=== PATIENT | female | born 1935 | race Caucasian/White ===

== ENCOUNTER 2024-05-06 17:58 | Inpatient (IN) ==
--- NOTE | 2024-05-06 18:07 | Emergency Department Note ---
Impression & Plan Non-ST elevation [place] (NSTEMI) ADMIT ED Provider Note HPI: History obtained from patient and EMS report. The patient is a 88-year-old female who presents the emergency department with concern for nausea, vomiting, and diarrhea. Patient states that she has had the symptoms for about the past 2 days. Patient denies any abdominal pain, she states that she has had some mild chest discomfort intermittently as well as some intermittent shortness of breath. On arrival here to the ED the patient is tachycardic in the 130s, this appears to be consistent with atrial fibrillation on the monitor. Blood pressure stable, patient is saturating well on room air on arrival. ROS: - Per HPI Differential Diagnosis: New onset atrial fibrillation with RVR, acute colitis, diverticulitis flare, urinary tract infection, pneumonia, sepsis, acute coronary syndrome, viral gastroenteritis, amongst other potential pathologies. *Outpatient medications and allergy history reviewed. PE: General: Alert HEENT: Normocephalic, trachea midline Eyes: Extraocular eye movement is intact, no scleral erythema Pulmonary: Clear to auscultation bilaterally, no wheezing Cardio: Tachycardic rate and irregular rhythm GI: Abdomen is soft to palpation : No suprapubic tenderness MSK: No evidence of trauma or malformation of the extremities, no edema Skin: No evidence of rash Neuro: Alert, no focal deficits Psychiatric: Cooperative INDEPENDENT INTERPRETATIONS: child monitor: (As interpreted by myself): - An order was placed for continuous cardiac monitoring - Patient was noted to be in atrial fibrillation with a rate of 137 EKG: (As interpreted by myself): Rate: 135 Rhythm: Atrial fibrillation Intervals: Within normal limits ST changes: No ST elevation Time: 1807 Chest x-ray: (As interpreted by myself): No focal infiltrate Interventions provided in ED: -IV fluid bolus, IV diltiazem, IV metoprolol, IV Zosyn Medical Decision Making: IV was established and lab work obtained, patient was placed on clinical research monitor. Lab work shows a leukocytosis of 15.8, hemoglobin is stable at 11.8, platelet count is normal, CMP shows evidence of acute kidney injury with creatinine 1.72, BUN is elevated at 57, serum bicarbonate level is reduced at 17, lactic acid is noted to be elevated at 5.0, AST is 404 and ALT is 871, troponin is elevated at 3881. EKG per my interpretation shows atrial fibrillation with RVR without acute ischemic changes. Patient denies any chest pain on my assessment. Low suspicion for ACS at this time. Viral panel testing was obtained and is negative. CT imaging of the abdomen pelvis without contrast was obtained, this shows evidence of possible colitis versus diverticulitis flare. Patient was given a dose of IV Zosyn here in the ED and greater than 30 cc/kg of IV fluid. She remained stable on my reassessment with stable blood pressure, heart rate did improve into the low 100s with IV diltiazem and IV metoprolol. I discussed the above findings with the patient, her daughter at the bedside, and her at the bedside. At this time the patient will be placed for admission following my discussion with the on-call hospitalist, Dr. Nguyen. Patient was placed for admission in stable condition. Consultants/Discussions held with other healthcare providers: -Hospitalist, Dr. Nguyen Disposition discussion held by myself with: -Patient and patient's daughter at the bedside as well as patient's at the bedside * CRITICAL CARE TIME: ( 42 ) minutes -Stabilization of tachyarrhythmia/atrial fibrillation with RVR requiring IV rate control medications, time spent at the bedside, initiation of heparin drip for NSTEMI, interpretation of diagnostic studies including EKG, discussion with other physicians and arrangement of admission. Diagnosis: 1. NSTEMI, acute 2. Atrial fibrillation with RVR, acute, new onset 3. Diverticulitis flare, acute 4. Leukocytosis, acute 5. Lactic acidosis, acute 6. Nausea and vomiting, acute 7. Diarrhea, acute 8. Transaminitis, acute, nonspecific Disposition: Admission Roman Thayer DO Emergency Medicine Past Med/Surg History Problem List (Updated 05/06/24 @ 22:03 by Roman Thayer DO) Non-ST elevation [place] (NSTEMI) (Acute) DM2 (diabetes mellitus, type 2) Atrial fibrillation with RVR NSTEMI (non-ST elevated myocardial infarction) COLBY (acute kidney injury) Syncope GERD (gastroesophageal reflux disease) Overactive bladder Diabetes CAD (coronary artery disease) Surgical History History of heart artery stent History of nephrectomy Family History Other Family history non-contributory Social History Smoking Status: Never smoker Hx Alcohol Use: No Hx Substance Use: No Preferred Language: Khmer Feels Safe at Home: Yes Allergies Allergies Allergy/AdvReac Type Severity Reaction Status Date / Time No Known Allergies Allergy Verified 05/06/24 20:24 Home Meds Home Medications Medication Instructions Recorded Confirmed aspirin 81 mg tablet,delayed 81 mg PO DAILY 12/13/20 05/06/24 release atorvastatin 40 mg tablet 40 mg PO DAILY 12/13/20 05/06/24 diclofenac sodium 1 % topical gel 2 g topical QID PRN Pain 12/13/20 05/06/24 isosorbide mononitrate 30 mg 90 mg PO DAILY 12/13/20 05/06/24 tablet,extended release 24 hr lisinopril 5 mg tablet 5 mg PO DAILY 12/13/20 05/06/24 meclizine 12.5 mg tablet 12.5 mg PO TID PRN Dizziness 12/13/20 05/06/24 metformin 500 mg tablet 500 mg PO BIDM 12/13/20 05/06/24 omeprazole 20 mg capsule,delayed 20 mg PO DAILY 12/13/20 05/06/24 release sertraline 25 mg tablet 25 mg PO DAILY PRN Nerves 12/13/20 05/06/24 vitamins A,C,F-fyoz-oserif 2,148 2 tab PO BID 12/13/20 05/06/24 mcg-113 mg-45 mg-17.4 mg tablet tolterodine 2 mg capsule,extended 2 mg PO DAILY 05/06/24 05/06/24 release 24 hr Results & Data (ED) Vital Signs Vital Signs - 24 hr 05/06/24 17:43 05/06/24 18:03 05/06/24 18:04 Temperature 36.5 C Temperature Source Oral Pulse Rate 119 H Pulse Rate [Apical] Respiratory Rate 18 Respiratory Effort / Characteristics Non-Labored Spontaneous Respiratory Depth Normal Respiratory Pattern Regular Blood Pressure 109/67 Blood Pressure [Right Arm] Blood Pressure Mean 81 Blood Pressure Mean [Right Arm] Pulse Oximetry 96 96 96 Oxygen Delivery Method Room Air Room Air Room Air Sepsis Recent Fever Within 48 Hours No Sepsis New/Unexplained Change in Mental Status N/A Sepsis Action Taken by Nursing No Action Required 05/06/24 18:14 05/06/24 19:30 05/06/24 20:00 Temperature Temperature Source Pulse Rate 142 H Pulse Rate [Apical] 123 H 103 H Respiratory Rate 18 18 Respiratory Effort / Characteristics Non-Labored Spontaneous Non-Labored Spontaneous Respiratory Depth Normal Normal Respiratory Pattern Regular Regular Blood Pressure Blood Pressure [Right Arm] 111/84 123/92 Blood Pressure Mean Blood Pressure Mean [Right Arm] 93 102 Pulse Oximetry 97 93 Oxygen Delivery Method Room Air Room Air Sepsis Recent Fever Within 48 Hours Sepsis New/Unexplained Change in Mental Status Sepsis Action Taken by Nursing 05/06/24 20:14 05/06/24 20:30 Temperature Temperature Source Pulse Rate 124 H Pulse Rate [Apical] 110 H Respiratory Rate 20 Respiratory Effort / Characteristics Non-Labored Spontaneous Respiratory Depth Normal Respiratory Pattern Regular Blood Pressure 128/101 H Blood Pressure [Right Arm] 121/73 Blood Pressure Mean Blood Pressure Mean [Right Arm] 89 Pulse Oximetry 93 Oxygen Delivery Method Room Air Sepsis Recent Fever Within 48 Hours Sepsis New/Unexplained Change in Mental Status Sepsis Action Taken by Nursing Laboratory Data 05/06/24 18:24 05/06/24 18:24 Lab Results 05/06/24 05/06/24 05/06/24 Range/Units 18:24 18:40 20:43 WBC 15.81 H (4.8-10.8) K/ul RBC 4.08 L (4.20-5.40) M/uL Hgb 11.8 L (12.0-16.0) g/dl Hct 36.0 L (37.0-47.0) % MCV 88.2 (80.0-100.0) fL MCH 28.9 (25.0-34.0) pg MCHC 32.8 (32.0-36.0) g/dL RDW Std Deviation 45.2 (36.4-46.3) fL RDW Coeff of [place] 14.4 (11.5-14.5) % Plt Count 240 (130-400) K/uL MPV 11.6 (9.4-12.4) fL Immature Gran % (Auto) 0.6 % Neut % (Auto) 84.3 % Lymph % (Auto) 9.6 % [place] % (Auto) 5.3 % Eos % (Auto) 0.1 % Baso % (Auto) 0.1 % Neut # (Auto) 13.34 H (1.40-6.50) K/uL Lymph # (Auto) 1.51 (1.20-3.40) K/uL [place] # (Auto) 0.84 H (0.11-0.59) K/uL Eos # (Auto) 0.01 (0.00-0.50) K/uL Baso # (Auto) 0.02 (0.00-0.20) K/uL Immature Gran # (Auto) 0.09 (0.01-0.20) K/uL Absolute Nucleated RBC 0.02 (0.00-0.12) K/uL Nucleated RBC % (auto) 0.1 % PT 13.5 H (9.0-12.0) Seconds INR 1.3 H (0.9-1.1) Sodium 137 (136-145) mmol/L Potassium 4.6 (3.5-5.1) mmol/L Chloride 106 (98-107) mmol/L Carbon Dioxide 17 L (21-32) mmol/L Anion Gap 14 H (3-11) BUN 57 H (6-23) mg/dl Creatinine 1.72 H (0.6-1.2) mg/dl Est Cr Clr Drug Dosing 18.3 ml/min eGFR 28.27 BUN/Creatinine Ratio 33.1 H (10-20) Glucose 256 H (70-99(Fasting)) mg/dl Lactate 5.0 H* 4.6 H* (0.4-2.0) mmol/L Calcium 9.4 (8.6-10.3) mg/dl Magnesium 2.3 (1.7-2.4) mg/dl Total Bilirubin 0.6 (0.2-1.0) mg/dl AST 404 H (13-39) U/L ALT 871 H (7-52) U/L Alkaline Phosphatase 101 (34-104) U/L Troponin I High Sens 3881.1 H* 2842.8 H* D (0-14) pg/ml Total Protein 6.6 (6.0-8.3) gm/dl Albumin 3.6 (3.4-5.0) gm/dl Globulin 3.0 (2.5-4.0) gm/dl Albumin/Globulin Ratio 1.2 (0.9-2) Lipase 52 (11-82) U/L TSH 3.641 (0.300-4.500) uIu/ml Adenovirus (PCR) Not Detected (NotDetected) B. pertussis DNA (PCR) Not Detected (NotDetected) B.parapertussis DNA PCR Not Detected (NotDetected) C. pneumoniae DNA (PCR) Not Detected (NotDetected) Coronavirus OC43 (PCR) Not Detected (NotDetected) Coronavirus HKU1 (PCR) Not Detected (NotDetected) Coronavirus 229E (PCR) Not Detected (NotDetected) SARS-CoV-2 (PCR) Not Detected (NotDetected) Coronavirus NL63 (PCR) Not Detected (NotDetected) Human Metapneumovir PCR Not Detected (NotDetected) Influenza Type A (PCR) Not Detected (NotDetected) Influenza Type B (PCR) Not Detected (NotDetected) M. pneumoniae (PCR) Not Detected (NotDetected) Parainfluenza 1 (PCR) Not Detected (NotDetected) Parainfluenza 2 (PCR) Not Detected (NotDetected) Parainfluenza 3 (PCR) Not Detected (NotDetected) Parainfluenza 4 (PCR) Not Detected (NotDetected) RSV (PCR) Not Detected (NotDetected) Entero/Rhino (PCR) Not Detected (NotDetected) Administered Medications Heparin Sodium/Dextrose (Heparin Sodium/Dextrose) 25,000 units in 500 mls @ 19 mls/hr IV .Q24H BRIELLE; Protocol Stop: 06/05/24 20:29 Last Admin: 05/06/24 20:44 Dose: 950 units/hr, 19 mls/hr Documented By: NATALIE Co-signed By: KMF Discontinued Medications Diltiazem HCl (Diltiazem Hcl 5 Mg/Ml 5 Ml Vial) 5 mg IV NOW STA Stop: 05/06/24 19:28 Last Admin: 05/06/24 19:45 Dose: 5 mg Documented By: NATALIE Co-signed By: JAMES Heparin Sodium/Dextrose (Heparin Iv Adult Wt-Based Standard *No* Initial Bolus Protocol) 1 each IV ONE STA; Protocol Stop: 05/06/24 20:06 Last Admin: 05/06/24 20:52 Dose: Not Given Documented By: NATALIE Sodium Chloride (Nss) 1,000 mls @ 999 mls/hr IV .Q1H1M STA Stop: 05/06/24 19:04 Last Infusion: 05/06/24 19:31 Dose: Infused Documented By: Admin: 05/06/24 18:30 Dose: 999 mls/hr Documented By: BRAVO Sodium Chloride (Nss) 1,000 mls @ 999 mls/hr IV .Q1H1M ONE Stop: 05/06/24 20:08 Last Infusion: 05/06/24 20:46 Dose: Infused Documented By: Admin: 05/06/24 19:45 Dose: 999 mls/hr Documented By: NATALIE Piperacillin Sod/Tazobactam Sod (Zosyn) 4.5 gm in 100 mls @ 200 mls/hr IV NOW ONE; Protocol Stop: 05/06/24 20:33 Last Infusion: 05/06/24 20:46 Dose: Infused Documented By: Admin: 05/06/24 20:16 Dose: 200 mls/hr Documented By: NATALIE Metoprolol Tartrate (Metoprolol Tartrate 1 Mg/Ml Vial) 5 mg IV NOW STA Stop: 05/06/24 20:05 Last Admin: 05/06/24 20:14 Dose: 5 mg Documented By: NATALIE Imaging Data Radiologist's Impression: Chest X-Ray 05/06/24 19:20 XR chest 1V portable CLINICAL HISTORY: weakness COMPARISON STUDY: Chest radiograph December 13, 2020. FINDINGS: Right acromioclavicular joint dislocation is incidentally noted. There is no pneumothorax. There are small to moderate bilateral pleural effusions with associated bibasilar opacities. There is cardiomegaly with interstitial thickening. IMPRESSION: 1. Cardiomegaly with interstitial pulmonary edema. 2. Small to moderate bilateral pleural effusions with associated bibasilar opacities. ACT 112: Negative or not required by law. Electronically signed by: Inderjit Blackman M.D. 05/06/2024 8:00 PM Abdomen/Pelvis CT 05/06/24 19:21 CT OF THE ABDOMEN AND PELVIS WITHOUT CONTRAST CLINICAL HISTORY: Nausea, vomiting and diarrhea. COMPARISON STUDY: Right upper quadrant ultrasound November 11, 2010. TECHNIQUE: Axial images of the abdomen and pelvis were obtained without IV contrast. Images were reviewed in the axial, sagittal, and coronal planes. Automated exposure control was utilized for the study. A dose lowering technique was utilized adhering to the principles of ALARA. FINDINGS: Cardiomegaly and moderate bilateral pleural effusions are noted. Lower lung interstitial thickening represents edema. An equivocal 2 cm cavitary focus within the right lower lobe on image 23 of 345 is noted. This is likely artifactual. 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 Unenhanced images of the liver, spleen, adrenal glands and pancreas are unremarkable. Focal scarring within the midpole the left kidney is present. There are suspected left-sided parapelvic cysts. There is no left hydronephrosis. There is no evidence for a bowel obstruction. Extensive colonic diverticulosis is noted. There is trace fluid within the abdomen and pelvis. There is mild stranding adjacent to the ascending colon and the sigmoid colon. No fluid collections are present. There is no extraluminal gas. Severe degenerative changes of both hips are incidentally noted. IMPRESSION: 1. No evidence for a bowel obstruction. Extensive colonic diverticulosis. Subtle stranding and trace fluid adjacent to the ascending colon and sigmoid colon. The findings could reflect a nonspecific colitis or mild diverticulitis. No free air or abscess. 2. Cardiomegaly with moderate bilateral pleural effusions and interstitial pulmonary edema. Equivocal 2 cm cavitary focus within the right lower lobe. This likely reflects aerated lung. An underlying lesion is considered less likely however a follow-up chest CT in one month is recommended. 3. Status post right nephrectomy. ACT 112: Negative or not required by law. Electronically signed by: Inderjit Blackman M.D. 05/06/2024 7:55 PM Discharge Plan Visit Data Chief Complaint: Weakness Stated Complaint: WEAKNESS, AMS ED Provider: Roman Thayer Discharge Problem: Non-ST elevation [place] (NSTEMI)
[2024-05-06] MEDS: SODIUM CHLORIDE 0.9% 1,000 ML IV STA (18:30)
[2024-05-06 18:56] LABS: Basophils # (auto) 0.02 K/uL (0.00-0.20); Basophils % (auto) 0.1 %; Eosinophils # (auto) 0.01 K/uL (0.00-0.50); Eosinophils % (auto) 0.1 %; Hemoglobin 11.8 g/dl (12.0-16.0); Immature Granulocytes # (auto) 0.09 K/uL (0.01-0.20); Immature Granulocytes % (auto) 0.6 %; Lymphocytes # (auto) 1.51 K/uL (1.20-3.40); Lymphocytes % (auto) 9.6 %; Mean Corpuscular Hemoglobin 28.9 pg (25.0-34.0); Mean Corpuscular Hgb Conc 32.8 g/dL (32.0-36.0); Mean Corpuscular Volume 88.2 fL (80.0-100.0); Mean Platelet Volume 11.6 fL (9.4-12.4); Monocytes # (auto) 0.84 K/uL (0.11-0.59); Monocytes % (auto) 5.3 %; Neutrophils # (auto) 13.34 K/uL (1.40-6.50); Neutrophils % (auto) 84.3 %; Nucleated RBC # (auto) 0.02 K/uL (0.00-0.12); Nucleated RBC % (auto) 0.1 %; Platelet Count 240 K/uL (130-400); RDW Coefficient of Variation 14.4 % (11.5-14.5); RDW Standard Deviation 45.2 fL (36.4-46.3); Red Blood Count 4.08 M/uL (4.20-5.40); White Blood Count 15.81 K/ul (4.8-10.8)
[2024-05-06 19:12] LABS: BUN Creatinine Ratio 33.1 (10-20); Calcium 9.4 mg/dl (8.6-10.3); Creatinine Clr Calc Pharmacy 18.3 ml/min; Potassium 4.6 mmol/L (3.5-5.1)
[2024-05-06 19:19] LABS: INR 1.3 (0.9-1.1); Prothrombin Time 13.5 Seconds (9.0-12.0)
[2024-05-06 19:25] LABS: Albumin Globulin Ratio 1.2 (0.9-2); Albumin Level 3.6 gm/dl (3.4-5.0); Bilirubin,Total 0.6 mg/dl (0.2-1.0); Magnesium 2.3 mg/dl (1.7-2.4); Total Protein 6.6 gm/dl (6.0-8.3); Troponin I High Sensitivity 3881.1 pg/ml (0-14)
[2024-05-06 19:28] LABS: Thyroid Stimulating Hormone 3.641 uIu/ml (0.300-4.500)
[2024-05-06] MEDS: dilTIAZem HCl 5 MG/ML 5 ML VIAL IV STA (19:45)
[2024-05-06] MEDS: SODIUM CHLORIDE 0.9% 1,000 ML IV ONE (19:45)
[2024-05-06 19:50] LABS: Adenovirus PCR Not Detected (NotDetected); Bordetella parapertussis PCR Not Detected (NotDetected); Bordetella pertussis PCR Not Detected (NotDetected); Chlamydia pneumoniae PCR Not Detected (NotDetected); Coronavirus 229E PCR Not Detected (NotDetected); Coronavirus CoV-2 (COVID19)PCR Not Detected (NotDetected); Coronavirus HKU1 PCR Not Detected (NotDetected); Coronavirus NL63 PCR Not Detected (NotDetected); Coronavirus OC43PCR Not Detected (NotDetected); Human Metapneumovirus PCR Not Detected (NotDetected); Influenza A PCR Not Detected (NotDetected); Influenza B PCR Not Detected (NotDetected); Mycoplasma pneumoniae PCR Not Detected (NotDetected); Parainfluenza Virus 1 PCR Not Detected (NotDetected); Parainfluenza Virus 2 PCR Not Detected (NotDetected); Parainfluenza Virus 3 PCR Not Detected (NotDetected); Parainfluenza Virus 4 PCR Not Detected (NotDetected); Respiratory Syncytial VirusPCR Not Detected (NotDetected); Rhinovirus/Enterovirus PCR Not Detected (NotDetected)
--- NOTE | 2024-05-06 19:57 | CT Scan Report ---
CT OF THE ABDOMEN AND PELVIS WITHOUT CONTRAST CLINICAL HISTORY: Nausea, vomiting and diarrhea. COMPARISON STUDY: Right upper quadrant ultrasound November 11, 2010. TECHNIQUE: Axial images of the abdomen and pelvis were obtained without IV contrast. Images were revi ewed in the axial, sagittal, and coronal planes. Automated exposure control was utilized for the tracy dy. A dose lowering technique was utilized adhering to the principles of ALARA. FINDINGS: Cardiomegaly and moderate bilateral pleural effusions are noted. Lower lung interstitial th ickening represents edema. An equivocal 2 cm cavitary focus within the right lower lobe on image 23 o f 345 is noted. This is likely artifactual. 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 Unenhanced images of the liver, spleen, adrenal glands and pancreas are unremarkable. Focal scarring within the midpole the left kidney is present. There are suspected left-sided parapelvic cysts. Ther e is no left hydronephrosis. There is no evidence for a bowel obstruction. Extensive colonic divertic ulosis is noted. There is trace fluid within the abdomen and pelvis. There is mild stranding adjacent to the ascending colon and the sigmoid colon. No fluid collections are present. There is no extralum inal gas. Severe degenerative changes of both hips are incidentally noted. IMPRESSION: 1. No evidence for a bowel obstruction. Extensive colonic diverticulosis. Subtle stranding and trace fluid adjacent to the ascending colon and sigmoid colon. The findings could reflect a nonspecific col itis or mild diverticulitis. No free air or abscess. 2. Cardiomegaly with moderate bilateral pleural effusions and interstitial pulmonary edema. Equivocal 2 cm cavitary focus within the right lower lobe. This likely reflects aerated lung. An underlying le tran is considered less likely however a follow-up chest CT in one month is recommended. 3. Status post right nephrectomy. ACT 112: Negative or not required by law. Electronically signed by: Inderjit Blackman M.D. 05/06/2024 7:55 PM
--- NOTE | 2024-05-06 20:01 | XRay Report ---
XR chest 1V portable CLINICAL HISTORY: weakness COMPARISON STUDY: Chest radiograph December 13, 2020. FINDINGS: Right acromioclavicular joint dislocation is incidentally noted. There is no pneumothorax. There are small to moderate bilateral pleural effusions with associated bibasilar opacities. There is cardiomegaly with interstitial thickening. IMPRESSION: 1. Cardiomegaly with interstitial pulmonary edema. 2. Small to moderate bilateral pleural effusions with associated bibasilar opacities. ACT 112: Negative or not required by law. Electronically signed by: Inderjit Blackman M.D. 05/06/2024 8:00 PM
[2024-05-06] MEDS: METOPROLOL TARTRATE 1 MG/ML VIAL IV STA (20:14)
[2024-05-06] MEDS: PIPERACILLIN/TAZOBACTAM 4.5 GM/100 ML BAG IV ONE (20:16)
[2024-05-06] MEDS: HEPARIN SODIUM/DEXTROSE 25,000 UNITS/500 ML BAG IV SCH (20:44)
[2024-05-06] MEDS: Heparin IV Adult Wt-Based Standard *NO* INITIAL Bolus Protocol IV STA (20:52)
--- NOTE | 2024-05-06 21:12 | History & Physical Report ---
Date of Service May 06, 2024 Assessment & Plan (1) CAD (coronary artery disease): (2) History of nephrectomy: (3) COLBY (acute kidney injury): (4) NSTEMI (non-ST elevated myocardial infarction): (5) Atrial fibrillation with RVR: (6) DM2 (diabetes mellitus, type 2): Plan This is an 88 y/o female presenting with GI symptoms found to have NSTEMI, new onset A fib, and COLBY. 1) NSTEMI -PCU admission/tele monitoring -Serial Trops -Echo in AM -Cardiology consult in AM -Continue Heparin gtt as started in ER; AM PTT -Cont ASA 325 mg daily -Cont Lipitor 40 mg daily per home dose -Patient is on B-sheryl (Atenolol) at home; for the moment, given borderline BP, will hold; can resume her Atenolol or consider more appropriate Beta Sheryl if BP is stable 2) New onset A fib -Cardiac workup as proceeding above -TSH appears WNL -Patient already on heparin for anticoag for now; assess for need for oral anticoagulant as patient is stabilized. Per [id number] she gets up to 6 points potentially indicating 9.7% stroke risk per year. She would strongly benefit from anticoagulation at least from stroke standpoint, but other risks/goals will need to be assessed -For now, will put in for PRN metoprolol 5 mg q6h IV for rate control -- if BP is stable, can resume her Atenolol or consider more appropriate Beta Sheryl 3) Sepsis, likely severe with borderline blood pressures due presumably to GI source/Colitis -Continue broad coverage with Zosyn 4.5 g q8h IV as started in ER -Cont fluid resuscitation -- sepsis volume would be 1905 mL total. Have ordered LR at 80 ml/hr for one more total liter for now given possible pulmonary volume overload. -F/u lactic acids -F/u cultures 4) ?New CHF -Cardiac workup as proceeding above -Monitor I/O, daily weights -Monitor resp status/cont pulse ox -Check BNP -She will require some further IVF for sure, but this will have to be closely m onitored given this potential new CHF 5) COLBY -- Patient with R nephrectomy, baseline Cr appears to be normal however; currently Cr 1.72, no evidence of obstruction -Check UA, lytes, Cr for COLBY workup -Will Continue IVF, but may need to be at a restricted rate and volume given already some evidence of pulmonary edema/effusions. Will order for only one additional liter. -Dose medications renally 6) DM2 -DM2 diet -SSI with accucheks -A1C in AM 7) HTN -- BP on the lower side already; given patient will likely require further medications for control of A fib with RVR, will hold all other BP medi cations for now 8) DVT PPx -- on Heparin gtt for NSTEMI at this time 9) Code Status -- Full Code History of Present Illness Chief Complaint: N/V/D, SOB Primary Care Provider: Cindi Henry MD This is an 88-year-old female with medical history significant for CAD (with stents in the past), hyperlipidemia, hypertension, diabetes type 2, and GERD possibly who is brought in from home with complaints of nausea, vomiting, diarrhea as well as some chest pressure and shortness of breath. Patient is not an optimal historian, but does complain of GI symptoms. Does state that she has been having some chest discomfort, which is particularly notable yesterday. Family notes that she has been feeling sick for about 2 days or so. As noted she has been nauseated and vomiting (NB/NB), and very weak. She has complained of some chest discomfort before to. She has not had any fevers or chills. Has not really complained of palpitations. Has not been diaphoretic. She has not had any cough or specifically respiratory complaints. Has not had any dysuria or other urinary complaints. That is essentially the extent of the history that we can get from her and from her family. As noted she does have CAD, but her family mentions that her stenting was probably more than 10 years ago. Allergies Allergy/AdvReac Type Severity Reaction Status Date / Time No Known Allergies Allergy Verified 05/06/24 20:24 Home Medications Medication Instructions Recorded Confirmed Type aspirin 81 mg tablet,delayed 81 mg PO DAILY 12/13/20 05/06/24 History release atorvastatin 40 mg tablet 40 mg PO DAILY 12/13/20 05/06/24 History diclofenac sodium 1 % topical gel 2 g topical QID PRN Pain 12/13/20 05/06/24 History isosorbide mononitrate 30 mg 90 mg PO DAILY 12/13/20 05/06/24 History tablet,extended release 24 hr lisinopril 5 mg tablet 5 mg PO DAILY 12/13/20 05/06/24 History meclizine 12.5 mg tablet 12.5 mg PO TID PRN Dizziness 12/13/20 05/06/24 History metformin 500 mg tablet 500 mg PO BIDM 12/13/20 05/06/24 History omeprazole 20 mg capsule,delayed 20 mg PO DAILY 12/13/20 05/06/24 History release sertraline 25 mg tablet 25 mg PO DAILY PRN Nerves 12/13/20 05/06/24 History vitamins A,C,M-vmaa-bhykgd 2,148 2 tab PO BID 12/13/20 05/06/24 History mcg-113 mg-45 mg-17.4 mg tablet tolterodine 2 mg capsule,extended 2 mg PO DAILY 05/06/24 05/06/24 History release 24 hr Past Med/Surg History Problem List (Updated 05/06/24 @ 20:57 by Darryl Nguyen MD) DM2 (diabetes mellitus, type 2) Atrial fibrillation with RVR NSTEMI (non-ST elevated myocardial infarction) COLBY (acute kidney injury) Syncope GERD (gastroesophageal reflux disease) Overactive bladder Diabetes CAD (coronary artery disease) Surgical History History of heart artery stent History of nephrectomy Family History Other Family history non-contributory Social History Smoking Status: Never smoker Hx Alcohol Use: No Hx Substance Use: No Preferred Language: Latvian Feels Safe at Home: Yes Review of Systems Review of Systems: All systems reviewed & are unremarkable except as noted in HPI & below Physical Exam Constitutional: + ill appearing; no acute distress and n ot frail appearing Eyes: PERRL, conjunctivae normal, anicteric sclerae ENMT: external ear and nose normal, oropharynx normal Neck: trachea midline, no thyromegaly Respiratory: normal respiratory effort, lungs clear to auscultation Cardiovascular: Rate/Rhythm: + tachycardic and + irregularly irregular Gastrointestinal (Abdomen): normal bowel sounds, soft, nontender, no hepatosplenomegaly Musculoskeletal: no cyanosis or clubbing, extremities motor strength 5/5 Skin: no rashes, warm and dry Results & Data Results & Data Vital Signs (Past 12 Hours) Vital Signs Temp Pulse Pulse Resp BP BP Pulse Ox 05/06/24 20:30 110 H 20 121/73 93 05/06/24 20:14 124 H 128/101 H 05/06/24 20:00 103 H 18 123/92 93 05/06/24 19:30 123 H 18 111/84 97 05/06/24 18:14 142 H 05/06/24 18:04 96 05/06/24 18:03 96 05/06/24 17:43 36.5 C 119 H 18 109/67 96 O2 Del Method 05/06/24 20:30 Room Air 05/06/24 20:14 05/06/24 20:00 Room Air 05/06/24 19:30 Room Air 05/06/24 18:14 05/06/24 18:04 Room Air 05/06/24 18:03 Room Air 05/06/24 17:43 Room Air Laboratory Results 05/06/24 19:54 Aerobic Blood Culture - Pending Blood Anaerobic Blood Culture - Pending 05/06/24 19:53 Aerobic Blood Culture - Pending Blood Anaerobic Blood Culture - Pending 05/06/24 05/06/24 18:40 18:24 WBC 15.81 H RBC 4.08 L Hgb 11.8 L Hct 36.0 L MCV 88.2 MCH 28.9 MCHC 32.8 RDW Std Deviation 45.2 RDW Coeff of [place] 14.4 Plt Count 240 MPV 11.6 Immature Gran % (Auto) 0.6 Neut % (Auto) 84.3 Lymph % (Auto) 9.6 [place] % (Auto) 5.3 Eos % (Auto) 0.1 Baso % (Auto) 0.1 Neut # (Auto) 13.34 H Lymph # (Auto) 1.51 [place] # (Auto) 0.84 H Eos # (Auto) 0.01 Baso # (Auto) 0.02 Immature Gran # (Auto) 0.09 Absolute Nucleated RBC 0.02 Nucleated RBC % (auto) 0.1 PT 13.5 H INR 1.3 H Sodium 137 Potassium 4.6 Chloride 106 Carbon Dioxide 17 L Anion Gap 14 H BUN 57 H Creatinine 1.72 H Est Cr Clr Drug Dosing 18.3 eGFR 28.27 BUN/Creatinine Ratio 33.1 H Glucose 256 H Lactate 5.0 H* Calcium 9.4 Magnesium 2.3 Total Bilirubin 0.6 AST 404 H ALT 871 H Alkaline Phosphatase 101 Troponin I High Sens 3881.1 H* Total Protein 6.6 Albumin 3.6 Globulin 3.0 Albumin/Globulin Ratio 1.2 Lipase 52 TSH 3.641 Adenovirus (PCR) Not Detected B. pertussis DNA (PCR) Not Detected B.parapertussis DNA PCR Not Detected C. pneumoniae DNA (PCR) Not Detected Coronavirus OC43 (PCR) Not Detected Coronavirus HKU1 (PCR) Not Detected Coronavirus 229E (PCR) Not Detected SARS-CoV-2 (PCR) Not Detected Coronavirus NL63 (PCR) Not Detected Human Metapneumovir PCR Not Detected Influenza Type A (PCR) Not Detected Influenza Type B (PCR) Not Detected M. pneumoniae (PCR) Not Detected Parainfluenza 1 (PCR) Not Detected Parainfluenza 2 (PCR) Not Detected Parainfluenza 3 (PCR) Not Detected Parainfluenza 4 (PCR) Not Detected RSV (PCR) Not Detected Entero/Rhino (PCR) Not Detected Diagnostic Findings Chest X-Ray 05/06/24 19:20 XR chest 1V portable CLINICAL HISTORY: weakness COMPARISON STUDY: Chest radiograph December 13, 2020. FINDINGS: Right acromioclavicular joint dislocation is incidentally noted. There is no pneumothorax. There are small to moderate bilateral pleural effusions with associated bibasilar opacities. There is cardiomegaly with interstitial thickening. IMPRESSION: 1. Cardiomegaly with interstitial pulmonary edema. 2. Small to moderate bilateral pleural effusions with associated bibasilar opacities. ACT 112: Negative or not required by law. Electronically signed by: Inderjit Blackman M.D. 05/06/2024 8:00 PM Abdomen/Pelvis CT 05/06/24 19:21 CT OF THE ABDOMEN AND PELVIS WITHOUT CONTRAST CLINICAL HISTORY: Nausea, vomiting and diarrhea. COMPARISON STUDY: Right upper quadrant ultrasound November 11, 2010. TECHNIQUE: Axial images of the abdomen and pelvis were obtained without IV contrast. Images were reviewed in the axial, sagittal, and coronal planes. Automated exposure control was utilized for the study. A dose lowering tech nique was utilized adhering to the principles of ALARA. FINDINGS: Cardiomegaly and moderate bilateral pleural effusions are noted. Lower lung interstitial thickening represents edema. An equivocal 2 cm cavitary focus within the right lower lobe on image 23 of 345 is noted. This is likely artifactual. 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 Unenhanced images of the liver, spleen, adrenal glands and pancreas are unremarkable. Focal scarring within the midpole the left kidney is present. There are suspected left-sided parapelvic cysts. There is no left hydronephrosis. There is no evidence for a bowel obstruction. Extensive colonic diverticulosis is noted. There is trace fluid within the abdomen and pelvis. There is mild stranding adjacent to the ascending colon and the sigmoid colon. No fluid collections are present. There is no extraluminal gas. Severe degenerative changes of both hips are incidentally noted. IMPRESSION: 1. No evidence for a bowel obstruction. Extensive colonic diverticulosis. Subtle stranding and trace fluid adjacent to the ascending colon and sigmoid colon. The findings could reflect a nonspecific colitis or mild diverticulitis. No free air or abscess. 2. Cardiomegaly with moderate bilateral pleural effusions and interstitial pulmonary edema. Equivocal 2 cm cavitary focus within the right lower lobe. This likely reflects aerated lung. An underlying lesion is considered less likely however a follow-up chest CT in one month is recommended. 3. Status post right nephrectomy. ACT 112: Negative or not required by law. Electronically signed by: Inderjit Blackman M.D. 05/06/2024 7:55 PM ECG Additional Comments: A fib at rate of 135 Some evidence of L axis deviation Q waves in inf leads, Q waves in anteroseptal leads TWI in lateral leads Code Status & VTE Plan Code Status Full code per extensive discussion with family. would be next decisionmaker Patient without optimal decision making capacity at this time. VTE Prophylaxis Plan VTE Prophylaxis will be ordered: Yes PG Care Time/CCT Total # of Minutes Spent Total Time Spent with Patient: Total time spent is greater than 50% in coordination of care (as documented) at patient's floor/unit and/or counseling patient: Coding Level of Care Code 55483 INT INP/OBS CARE 3/75MIN Diagnoses Coronary artery disease involving jam[place] coronary artery of jamul heart without angina pectoris I25.10 Associated angina: without angina Coronary Disease-Associated Artery/Lesion type: [place] artery [place] vs. transplanted heart: jamul heart History of nephrectomy Z90.5 COLBY (acute kidney injury) N17.9 NSTEMI (non-ST elevated myocardial infarction) I21.4 Atrial fibrillation with RVR I48.91 DM2 (diabetes mellitus, type 2) E11.9 Time Spent (min) 120 (1) CAD (coronary artery disease) Associated angina: without angina Coronary Disease-Associated Artery/Lesion type: [place] artery [place] vs. transplanted heart: jamul heart Qualified Code(s): I25.10 - Atherosclerotic heart disease of jamul coronary artery without angina pectoris
--- NOTE | 2024-05-06 21:40 | History & Physical Report ---
Date of Service May 06, 2024 History of Present Illness Primary Care Provider: Cindi Henry MD Allergies Allergy/AdvReac Type Severity Reaction Status Date / Time No Known Allergies Allergy Verified 05/06/24 20:24 Home Medications Medication Instructions Recorded Confirmed Type aspirin 81 mg tablet,delayed 81 mg PO DAILY 12/13/20 05/06/24 History release atorvastatin 40 mg tablet 40 mg PO DAILY 12/13/20 05/06/24 History diclofenac sodium 1 % topical gel 2 g topical QID PRN Pain 12/13/20 05/06/24 History isosorbide mononitrate 30 mg 90 mg PO DAILY 12/13/20 05/06/24 History tablet,extended release 24 hr lisinopril 5 mg tablet 5 mg PO DAILY 12/13/20 05/06/24 History meclizine 12.5 mg tablet 12.5 mg PO TID PRN Dizziness 12/13/20 05/06/24 History metformin 500 mg tablet 500 mg PO BIDM 12/13/20 05/06/24 History omeprazole 20 mg capsule,delayed 20 mg PO DAILY 12/13/20 05/06/24 History release sertraline 25 mg tablet 25 mg PO DAILY PRN Nerves 12/13/20 05/06/24 History vitamins A,C,D-icpo-reovqf 2,148 2 tab PO BID 12/13/20 05/06/24 History mcg-113 mg-45 mg-17.4 mg tablet tolterodine 2 mg capsule,extended 2 mg PO DAILY 05/06/24 05/06/24 History release 24 hr Past Med/Surg History Problem List (Updated 05/06/24 @ 20:57 by Darryl Nguyen MD) DM2 (diabetes mellitus, type 2) Atrial fibrillation with RVR NSTEMI (non-ST elevated myocardial infarction) COLBY (acute kidney injury) Syncope GERD (gastroesophageal reflux disease) Overactive bladder Diabetes CAD (coronary artery disease) Surgical History History of heart artery stent History of nephrectomy Family History Other Family history non-contributory Social History Smoking Status: Never smoker Hx Alcohol Use: No Hx Substance Use: No Preferred Language: Bulgarian Feels Safe at Home: Yes Results & Data Results & Data Vital Signs (Past 12 Hours) Vital Signs Temp Pulse Pulse Resp BP BP Pulse Ox 05/06/24 21:00 116 H 18 133/92 94 05/06/24 20:30 110 H 20 121/73 93 05/06/24 20:14 124 H 128/101 H 05/06/24 20:00 103 H 18 123/92 93 05/06/24 19:30 123 H 18 111/84 97 05/06/24 18:14 142 H 05/06/24 18:04 96 05/06/24 18:03 96 05/06/24 17:43 36.5 C 119 H 18 109/67 96 O2 Del Method 05/06/24 21:00 Room Air 05/06/24 20:30 Room Air 05/06/24 20:14 05/06/24 20:00 Room Air 05/06/24 19:30 Room Air 05/06/24 18:14 05/06/24 18:04 Room Air 05/06/24 18:03 Room Air 05/06/24 17:43 Room Air Code Status & VTE Plan VTE Prophylaxis Plan VTE Prophylaxis will be ordered: Yes Critical Care Time Critical care time > 75 minutes. PG Care Time/CCT Total # of Minutes Spent Total Time Spent with Patient: Total time spent is greater than 50% in coordination of care (as documented) at patient's floor/unit and/or counseling patient: 100 Total time spent is greater than 50% in coordination of care (as documented) at patient's floor/unit and/or counseling patient: 100 Coding
[2024-05-06] MEDS ORDERED: DEXTROSE 50% 50 ML SYRINGE IV PRN (22:06)
[2024-05-06] MEDS ORDERED: GLUCOSE 40% GEL 15 GM TUBE PO PRN (22:06)
[2024-05-06] MEDS ORDERED: CARBOHYDRATES FOR HYPOGLYCEMIA PO PRN (22:06)
[2024-05-06] MEDS ORDERED: GLUCOSE 10 TAB/TUBE PO PRN (22:06)
[2024-05-06] MEDS ORDERED: GLUCAGON FOR INJ 1 MG VIAL SQ PRN (22:06)
[2024-05-06] MEDS: LACTATED RINGER'S 1,000 ML IV SCH (22:35)
[2024-05-06] MEDS: INSULIN ASPART PER UNIT CHARGE SC SCH (22:43)
[2024-05-07 03:20] LABS: Appearance Urine Cloudy (Clear); Bacteria Urine Automated None Seen (None Seen); Bilirubin Urine Negative (Negative); Blood Urine Negative (Negative); Color Urine Yellow; Epithelial Cell Urine Auto 0-2 /hpf (0-2); Glucose Urine UA Negative (Negative); Ketones Urine Trace (Negative); Leukocyte Esterase Urine 3+ (Negative); Nitrite Urine Negative (Negative); Protein Urine 1+ (Negative); RBC Urine Automated 0-2 /hpf (0-2); Specific Gravity Urine 1.025 (1.000-1.030); Urobilinogen Urine Negative (Negative); WBC Urine Automated >50 /hpf (0-5)
[2024-05-07 03:50] LABS: Basophils # (auto) 0.03 K/uL (0.00-0.20); Basophils % (auto) 0.2 %; Eosinophils # (auto) 0.05 K/uL (0.00-0.50); Eosinophils % (auto) 0.3 %; Hematocrit (blood only) 34.8 % (37.0-47.0); Hemoglobin 11.4 g/dl (12.0-16.0); Immature Granulocytes # (auto) 0.08 K/uL (0.01-0.20); Immature Granulocytes % (auto) 0.5 %; Lymphocytes # (auto) 2.12 K/uL (1.20-3.40); Lymphocytes % (auto) 13.6 %; Mean Corpuscular Hemoglobin 29.1 pg (25.0-34.0); Mean Corpuscular Hgb Conc 32.8 g/dL (32.0-36.0); Mean Corpuscular Volume 88.8 fL (80.0-100.0); Mean Platelet Volume 11.5 fL (9.4-12.4); Monocytes # (auto) 0.83 K/uL (0.11-0.59); Monocytes % (auto) 5.3 %; Neutrophils # (auto) 12.52 K/uL (1.40-6.50); Neutrophils % (auto) 80.1 %; Nucleated RBC # (auto) 0.03 K/uL (0.00-0.12); Nucleated RBC % (auto) 0.2 %; Platelet Count 242 K/uL (130-400); RDW Coefficient of Variation 14.6 % (11.5-14.5); RDW Standard Deviation 46.4 fL (36.4-46.3); Red Blood Count 3.92 M/uL (4.20-5.40); White Blood Count 15.63 K/ul (4.8-10.8)
[2024-05-07 03:52] LABS: Creatinine Urine Random 103.4 mg/dl
[2024-05-07 03:54] LABS: BUN Creatinine Ratio 32.5 (10-20); Calcium 8.5 mg/dl (8.6-10.3); Creatinine Clr Calc Pharmacy 20.1 ml/min; Potassium 4.2 mmol/L (3.5-5.1)
[2024-05-07 04:03] LABS: Albumin Globulin Ratio 1.1 (0.9-2); Albumin Level 3.4 gm/dl (3.4-5.0); Bilirubin,Total 0.6 mg/dl (0.2-1.0); Total Protein 6.4 gm/dl (6.0-8.3)
[2024-05-07 04:06] LABS: ANTI-Xa, UFH(UnfractionatedHep 0.31 IU/ml (0.3-0.7); Partial Thromboplastin Ratio 1.5; Partial Thromboplastin Time 40 Seconds (21-31)
[2024-05-07] MEDS: PIPERACILLIN/TAZOBACTAM 4.5 GM/100 ML BAG IV SCH (05:01)
[2024-05-07] MEDS: METOPROLOL TARTRATE 1 MG/ML VIAL IV ONE (05:27)
[2024-05-07 07:36] LABS: Estimated Average Glucose 212 mg/dl
[2024-05-07] MEDS: PANTOprazole 40 MG TAB PO SCH (08:13)
[2024-05-07] MEDS: ATORVASTATIN 40 MG TAB PO SCH (08:13)
[2024-05-07] MEDS: FUROSEMIDE 40 MG/4 ML VIAL IV SCH (08:24)
[2024-05-07] MEDS: METOPROLOL TARTRATE 25 MG TAB PO SCH ×2 (08:28→13:25)
[2024-05-07] MEDS: ASPIRIN 81 MG ECTAB PO SCH (08:28)
[2024-05-07] MEDS ORDERED: ASPIRIN 325 MG ECTAB PO SCH (09:00)
--- NOTE | 2024-05-07 10:26 | XCELERA ---
[id number]
--- NOTE | 2024-05-07 12:03 | Hospitalist Progress Note ---
Date of Service May 07, 2024 Assessment & Plan (1) NSTEMI (non-ST elevated myocardial infarction): Plan: Markedly elevated troponins. Cardiac echo reveals regional wall motion abnormalities with reduced ejection fraction in the 25 to 30% range. Telemetry. Cardiology consultation is requested and pending (2) Acute systolic (congestive) heart failure: Plan: Present on admission. Continue Lasix diuresis. Monitor intake and output. Serial labs (3) Atrial fibrillation with RVR: Plan: Metoprolol started. Telemetry. Continue to treat underlying CHF. (4) COLBY (acute kidney injury): Plan: Monitor intake and output. Serial labs (5) CAD (coronary artery disease): Plan: Apparently she has had a previous history of coronary stents. 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 Monitor intake and output. Serial labs (7) DM2 (diabetes mellitus, type 2): Plan: ADA diet. Sliding scale coverage as needed. Plan To be determined Admission and Anticipated Discharge Date Admission Date: May 06, 2024 Subjective Awake and alert. She appears to have suffered a non-ST elevation CA prompting this admission. She has new onset atrial fibrillation with rapid ventricular rate and presents with acute congestive heart failure which appears to be systolic. Cardiac echo reveals reduced left ventricular ejection fraction of 25% with regional wall motion abnormalities. Moderate mitral regurgitation and mild aortic insufficiency noted. She is on a heparin drip. Creatinine has improved slightly to 1.5. Fortunately, she is on room air. Thyroid profile is pending. She is now on parenteral Lasix therapy and IV fluids have been discontinued. Cardiology consultation has been requested and is pending Review of Systems 2 Review of Systems: Constitutionalno fever or chills ENTno blurred vision, no double vision, no epistaxis, no sore throat Respiratoryno cough, no wheezing, no shortness of breath Cardiacchest discomfort has resolved. No palpitations, no syncope GIshe is not complaining of any nausea or vomiting at this time. Loose stools prior to admission have apparently resolved. No melena, no hematochezia GUno urinary retention, no urinary incontinence, no dysuria, no hematuria Musculoskeletalno joint pain, no muscle tenderness Skinno bruising, no rashes, no pruritus Neurono isolated weakness, no paresthesia Psychno depression, no anxiety Physical Exam 2 Physical Exam: General-alert and oriented x3, no fever, no chills HEENT-head atraumatic and normocephalic, pupils equal and reactive to light, extraocular muscles intact Neck-no lymphadenopathy or thyromegaly, trachea midline Chest-bibasilar inspiratory rales. No wheezing. No rhonchi i Cardiac-irregular, mildly tachycardic rate and rhythm. Normal S1 and S2 Abdomen-normal bowel sounds, no hepatosplenomegaly Extremities-no cyanosis, clubbing, or edema Neuro-cranial nerves II through XII intact, motor and sensory function within normal limits, strength symmetrical with generalized weakness, no focal deficits Psych-normal affect, normal mood Results & Data Results & Data Vital Signs (Past 12 Hours) Vital Signs Temp Pulse Pulse Resp BP BP Pulse Ox 05/07/24 07:52 36.7 C 101 H 20 100/70 96 05/07/24 05:42 119 H 100/89 05/07/24 05:27 130 H 109/65 05/07/24 03:02 36.6 C 83 18 101/74 96 O2 Del Method 05/07/24 07:52 Room Air 05/07/24 05:42 05/07/24 05:27 05/07/24 03:02 Room Air Laboratory Results 05/07/24 03:07 05/07/24 03:07 PG Care Time/CCT Total # of Minutes Spent Total Time Spent with Patient: Total time spent is greater than 50% in coordination of care (as documented) at patient's floor/unit and/or counseling patient: Coding Level of Care Code 38152 SUB INP/OBS CARE 3/50MIN Diagnoses NSTEMI (non-ST elevated myocardial infarction) I21.4 Acute systolic (congestive) heart failure I50.21 Atrial fibrillation with RVR I48.91 COLBY (acute kidney injury) N17.9 Coronary artery disease involving [place] coronary artery of [place] heart without angina pectoris I25.10 Coronary Disease-Associated Artery/Lesion type: [place] artery [place] vs. transplanted heart: [place] heart Associated angina: without angina History of nephrectomy Z90.5 DM2 (diabetes mellitus, type 2) E11.9 (5) CAD (coronary artery disease) Coronary Disease-Associated Artery/Lesion type: [place] artery [place] vs. transplanted heart: [place] heart Associated angina: without angina Qualified Code(s): I25.10 - Atherosclerotic heart disease of [place] coronary artery without angina pectoris
--- NOTE | 2024-05-07 12:17 | Cardiology Consultation ---
Date of Consultation May 07, 2024 Assessment & Plan (1) Acute systolic (congestive) heart failure: (2) Non-ST elevation DC (NSTEMI): (3) Atrial fibrillation with RVR: (4) CAD (coronary artery disease): (5) Valvular heart disease: (6) Cardiomyopathy: Plan 1. Acute decompensated systolic heart failure: She appears to have developed reduced LV systolic function and associated pulmonary vascular congestion. She does not appear to have significant peripheral edema. Notably elevated BNP. She did receive some volume resuscitation yesterday due to concerns of distributive shock. Now on twice daily intravenous diuretic. I think we will attempt to affect some diuresis over the course of today. Renal function improving. She seems comfortable overall. 2. Cardiomyopathy: This is new. It is possible this represents a stress cardiomyopathy based on the appearance, also possibly related to atrial fibrillation and associated high rates over an unclear period of time. She has a history of coronary disease and did have symptoms of chest pain. Biomarkers are notably elevated. At some point we will need to perform coronary angiography in order to exclude an ischemic etiology. For the time being we will attempt to improve rate control with beta-blockade eventually switching her to metoprolol succinate. Once her renal function stabilizes we can initiate additional therapy with ARB/Entresto and hopefully Jardiance. 3. Atrial fibrillation: This is also new diagnosis. Possibly the precipitant of her cardiomyopathy. Not overtly symptomatic from the palpitations. Notably elevated rate possibly due to volume overload and decompensated heart failure. Will attempt a diuresis and titration of beta-blockade for rhythm control. On anticoagulation currently. Eventually will switch her to an oral regimen. 4. NSTEMI: Possibly related to an acute coronary syndrome based on her recent symptoms. However, the biomarker elevation is fairly stable which would be less likely associated with an acute coronary syndrome. In any event we will plan coronary angiography when the renal function stabilizes and her heart failure has improved. 5. Coronary artery disease: Remote history of percutaneous intervention at [place] in 2007. Unknown vessel. Currently on aspirin and atorvastatin as an outpatient. 6. Valvular heart disease: She has an element of valvular regurgitation that is not severe. Possibly worse currently due to her decompensated heart failure. History of Present Illness Reason for Consultation: NSTEMI, congestive heart failure Requesting Physician: Darryl Attending Physician: Phillip Hay MD History of Present Illness The patient is an 88-year-old woman with a remote history of coronary disease who was brought to the hospital by family members for a diffuse set of symptoms to include chest pain, nausea, vomiting, shortness of breath and diarrhea. The patient is a difficult historian but does seem to recall some remote information. She has difficulty describing her symptoms at times. However it seems that for a couple of days she has not been feeling well. Some of her symptoms did include some abdominal complaints and diarrhea. She continues states that she was "not eating much". She reports having a sore throat and a sore mouth. Additionally she did report some symptoms of precordial chest discomfort that were worse over the past 2 days but now seem to have resolved. She had difficulty characterizing any symptoms of shortness of breath. It seems that most days at home she does housework. She states that her main limitation with respect to activity is "getting old". She did not endorse recent fevers or chills. No myalgias. She did not notice any lower extremity edema. Currently no breathing difficulty. Allergies Allergy/AdvReac Type Severity Reaction Status Date / Time No Known Allergies Allergy Verified 05/06/24 20:24 Home Medications Medication Instructions Recorded Confirmed Type aspirin 81 mg tablet,delayed 81 mg PO DAILY 12/13/20 05/06/24 History release atorvastatin 40 mg tablet 40 mg PO DAILY 12/13/20 05/06/24 History diclofenac sodium 1 % topical gel 2 g topical QID PRN Pain 12/13/20 05/06/24 History isosorbide mononitrate 30 mg 90 mg PO DAILY 12/13/20 05/06/24 History tablet,extended release 24 hr lisinopril 5 mg tablet 5 mg PO DAILY 12/13/20 05/06/24 History meclizine 12.5 mg tablet 12.5 mg PO TID PRN Dizziness 12/13/20 05/06/24 History metformin 500 mg tablet 500 mg PO BIDM 12/13/20 05/06/24 History omeprazole 20 mg capsule,delayed 20 mg PO DAILY 12/13/20 05/06/24 History release sertraline 25 mg tablet 25 mg PO DAILY PRN Nerves 12/13/20 05/06/24 History vitamins A,C,K-gkod-cnarkq 2,148 2 tab PO BID 12/13/20 05/06/24 History mcg-113 mg-45 mg-17.4 mg tablet tolterodine 2 mg capsule,extended 2 mg PO DAILY 05/06/24 05/06/24 History release 24 hr Patient History Surgical History History of heart artery stent History of nephrectomy Family History Other Family history non-contributory Social History Smoking Status: Unknown if ever smoked Hx Alcohol Use: No Hx Substance Use: No Preferred Language: Marshallese Business [employer] Manager Required: No Beliefs That Will Affect Care: None Current Living Situation: Spouse Feels Safe at Home: Yes Safety Concerns: Feels Safe At This Time Assistive Devices: Cane and Walker Review of Systems Review of Systems: Per HPI Physical Exam Physical Exam: She is alert and oriented x3. Mood affect appear normal. She answered all questions appropriately. She needed to be redirected at times. HEENT: Sclerae are anicteric. Pupils are equal and reactive to light and accom modation. Extraocular movements were intact. Poorly fitting dentures Neuro: Cranial nerves intact Lungs: Lungs seem clear but she has difficulty taking a deep breath. She has normal respiratory effort without use of accessory muscles. There is normal pulmonary excursion. Cardiac: Irregular rhythm with elevated heart rate. No murmurs on examination. Chest wall is nontender to palpation. Abdomen: The abdomen was soft and nontender. Extremities: Patient has bilateral radial pulses that are equal in intensity. There is no evidence cyanosis or clubbing. There was no evidence of significant peripheral edema bilaterally. Skin: There are no rashes noted on examination today. Results & Data Vital Signs (Past 12 Hours) Vital Signs Temp Pulse Pulse Resp BP BP Pulse Ox 05/07/24 12:01 36.5 C 127 H 20 120/82 95 05/07/24 07:52 36.7 C 101 H 20 100/70 96 05/07/24 05:42 119 H 100/89 05/07/24 05:27 130 H 109/65 05/07/24 03:02 36.6 C 83 18 101/74 96 O2 Del Method 05/07/24 12:01 Room Air 05/07/24 07:52 Room Air 05/07/24 05:42 05/07/24 05:27 05/07/24 03:02 Room Air Laboratory Results Abnormal Lab Results 05/06/24 05/06/24 05/06/24 18:24 18:40 20:43 WBC 15.81 H RBC 4.08 L Hgb 11.8 L Hct 36.0 L MCV 88.2 MCH 28.9 MCHC 32.8 RDW Std Deviation 45.2 RDW Coeff of [place] 14.4 Plt Count 240 MPV 11.6 Immature Gran % (Auto) 0.6 Neut % (Auto) 84.3 Lymph % (Auto) 9.6 Bibb % (Auto) 5.3 Eos % (Auto) 0.1 Baso % (Auto) 0.1 Neut # (Auto) 13.34 H Lymph # (Auto) 1.51 Bibb # (Auto) 0.84 H Eos # (Auto) 0.01 Baso # (Auto) 0.02 Immature Gran # (Auto) 0.09 Absolute Nucleated RBC 0.02 Nucleated RBC % (auto) 0.1 PT 13.5 H INR 1.3 H APTT PTT Ratio Heparin Anti-Xa, Unfract Sodium 137 Potassium 4.6 Chloride 106 Carbon Dioxide 17 L Anion Gap 14 H BUN 57 H Creatinine 1.72 H Est Cr Clr Drug Dosing 18.3 eGFR 28.27 BUN/Creatinine Ratio 33.1 H Glucose 256 H POC Glucose Estimat Average Glucose Hemoglobin A1c Lactate 5.0 H* 4.6 H* Calcium 9.4 Magnesium 2.3 Total Bilirubin 0.6 AST 404 H ALT 871 H Alkaline Phosphatase 101 Troponin I High Sens 3881.1 H* 2842.8 H* D B-Natriuretic Peptide Total Protein 6.6 Albumin 3.6 Globulin 3.0 Albumin/Globulin Ratio 1.2 Lipase 52 TSH 3.641 Free T4 Free T3 Urine Color Urine Appearance Urine pH Ur Specific [place] Urine Protein Urine Glucose (UA) Urine Ketones Urine Blood Urine Nitrite Urine Bilirubin Urine Urobilinogen Ur Leukocyte Esterase Urine WBC (Auto) Urine RBC (Auto) U Hyaline Cast (Auto) U Epithel Cells (Auto) Urine Bacteria (Auto) Ur Random Creatinine Ur Random Sodium Adenovirus (PCR) Not Detected B. pertussis DNA (PCR) Not Detected B.parapertussis DNA PCR Not Detected C. pneumoniae DNA (PCR) Not Detected Coronavirus OC43 (PCR) Not Detected Coronavirus HKU1 (PCR) Not Detected Coronavirus 229E (PCR) Not Detected SARS-CoV-2 (PCR) Not Detected Coronavirus NL63 (PCR) Not Detected Human Metapneumovir PCR Not Detected Influenza Type A (PCR) Not Detected Influenza Type B (PCR) Not Detected M. pneumoniae (PCR) Not Detected Parainfluenza 1 (PCR) Not Detected Parainfluenza 2 (PCR) Not Detected Parainfluenza 3 (PCR) Not Detected Parainfluenza 4 (PCR) Not Detected RSV (PCR) Not Detected Entero/Rhino (PCR) Not Detected 05/06/24 05/06/24 05/07/24 22:39 23:02 02:55 WBC RBC Hgb Hct MCV MCH MCHC RDW Std Deviation RDW Coeff of [place] Plt Count MPV Immature Gran % (Auto) Neut % (Auto) Lymph % (Auto) Bibb % (Auto) Eos % (Auto) Baso % (Auto) Neut # (Auto) Lymph # (Auto) Bibb # (Auto) Eos # (Auto) Baso # (Auto) Immature Gran # (Auto) Absolute Nucleated RBC Nucleated RBC % (auto) PT INR APTT PTT Ratio Heparin Anti-Xa, Unfract Sodium Potassium Chloride Carbon Dioxide Anion Gap BUN Creatinine Est Cr Clr Drug Dosing eGFR BUN/Creatinine Ratio Glucose POC Glucose 233 H Estimat Average Glucose Hemoglobin A1c Lactate 3.7 H* Calcium Magnesium Total Bilirubin AST ALT Alkaline Phosphatase Troponin I High Sens 3034.4 H* B-Natriuretic Peptide 1982 H Total Protein Albumin Globulin Albumin/Globulin Ratio Lipase TSH Free T4 Free T3 Urine Color Yellow Urine Appearance Cloudy A Urine pH 5.0 Ur Specific [place] 1.025 Urine Protein 1+ H Urine Glucose (UA) Negative Urine Ketones Trace H Urine Blood Negative Urine Nitrite Negative Urine Bilirubin Negative Urine Urobilinogen Negative Ur Leukocyte Esterase 3+ H Urine WBC (Auto) >50 H Urine RBC (Auto) 0-2 U Hyaline Cast (Auto) 3-5 H U Epithel Cells (Auto) 0-2 Urine Bacteria (Auto) None Seen Ur Random Creatinine 103.4 Ur Random Sodium 13 Adenovirus (PCR) B. pertussis DNA (PCR) B.parapertussis DNA PCR C. pneumoniae DNA (PCR) Coronavirus OC43 (PCR) Coronavirus HKU1 (PCR) Coronavirus 229E (PCR) SARS-CoV-2 (PCR) Coronavirus NL63 (PCR) Human Metapneumovir PCR Influenza Type A (PCR) Influenza Type B (PCR) M. pneumoniae (PCR) Parainfluenza 1 (PCR) Parainfluenza 2 (PCR) Parainfluenza 3 (PCR) Parainfluenza 4 (PCR) RSV (PCR) Entero/Rhino (PCR) 05/07/24 05/07/24 05/07/24 03:07 07:16 09:57 WBC 15.63 H RBC 3.92 L Hgb 11.4 L Hct 34.8 L MCV 88.8 MCH 29.1 MCHC 32.8 RDW Std Deviation 46.4 H RDW Coeff of [place] 14.6 H Plt Count 242 MPV 11.5 Immature Gran % (Auto) 0.5 Neut % (Auto) 80.1 Lymph % (Auto) 13.6 Bibb % (Auto) 5.3 Eos % (Auto) 0.3 Baso % (Auto) 0.2 Neut # (Auto) 12.52 H Lymph # (Auto) 2.12 Bibb # (Auto) 0.83 H Eos # (Auto) 0.05 Baso # (Auto) 0.03 Immature Gran # (Auto) 0.08 Absolute Nucleated RBC 0.03 Nucleated RBC % (auto) 0.2 PT INR APTT 40 H PTT Ratio 1.5 Heparin Anti-Xa, Unfract 0.31 Sodium 139 Potassium 4.2 Chloride 110 H Carbon Dioxide 19 L Anion Gap 10 BUN 51 H Creatinine 1.57 H Est Cr Clr Drug Dosing 20.1 eGFR 31.54 BUN/Creatinine Ratio 32.5 H Glucose 147 H POC Glucose 217 H Estimat Average Glucose 212 Hemoglobin A1c 9.0 H Lactate Calcium 8.5 L Magnesium Total Bilirubin 0.6 AST 286 H ALT 771 H Alkaline Phosphatase 103 Troponin I High Sens 3308.0 H* 2351.6 H* D B-Natriuretic Peptide 1992 H Total Protein 6.4 Albumin 3.4 Globulin 3.0 Albumin/Globulin Ratio 1.1 Lipase TSH Free T4 1.28 Free T3 2.35 Urine Color Urine Appearance Urine pH Ur Specific [place] Urine Protein Urine Glucose (UA) Urine Ketones Urine Blood Urine Nitrite Urine Bilirubin Urine Urobilinogen Ur Leukocyte Esterase Urine WBC (Auto) Urine RBC (Auto) U Hyaline Cast (Auto) U Epithel Cells (Auto) Urine Bacteria (Auto) Ur Random Creatinine Ur Random Sodium Adenovirus (PCR) B. pertussis DNA (PCR) B.parapertussis DNA PCR C. pneumoniae DNA (PCR) Coronavirus OC43 (PCR) Coronavirus HKU1 (PCR) Coronavirus 229E (PCR) SARS-CoV-2 (PCR) Coronavirus NL63 (PCR) Human Metapneumovir PCR Influenza Type A (PCR) Influenza Type B (PCR) M. pneumoniae (PCR) Parainfluenza 1 (PCR) Parainfluenza 2 (PCR) Parainfluenza 3 (PCR) Parainfluenza 4 (PCR) RSV (PCR) Entero/Rhino (PCR) 05/07/24 11:48 WBC RBC Hgb Hct MCV MCH MCHC RDW Std Deviation RDW Coeff of [place] Plt Count MPV Immature Gran % (Auto) Neut % (Auto) Lymph % (Auto) Bibb % (Auto) Eos % (Auto) Baso % (Auto) Neut # (Auto) Lymph # (Auto) Bibb # (Auto) Eos # (Auto) Baso # (Auto) Immature Gran # (Auto) Absolute Nucleated RBC Nucleated RBC % (auto) PT INR APTT PTT Ratio Heparin Anti-Xa, Unfract Sodium Potassium Chloride Carbon Dioxide Anion Gap BUN Creatinine Est Cr Clr Drug Dosing eGFR BUN/Creatinine Ratio Glucose POC Glucose 149 H Estimat Average Glucose Hemoglobin A1c Lactate Calcium Magnesium Total Bilirubin AST ALT Alkaline Phosphatase Troponin I High Sens B-Natriuretic Peptide Total Protein Albumin Globulin Albumin/Globulin Ratio Lipase TSH Free T4 Free T3 Urine Color Urine Appearance Urine pH Ur Specific [place] Urine Protein Urine Glucose (UA) Urine Ketones Urine Blood Urine Nitrite Urine Bilirubin Urine Urobilinogen Ur Leukocyte Esterase Urine WBC (Auto) Urine RBC (Auto) U Hyaline Cast (Auto) U Epithel Cells (Auto) Urine Bacteria (Auto) Ur Random Creatinine Ur Random Sodium Adenovirus (PCR) B. pertussis DNA (PCR) B.parapertussis DNA PCR C. pneumoniae DNA (PCR) Coronavirus OC43 (PCR) Coronavirus HKU1 (PCR) Coronavirus 229E (PCR) SARS-CoV-2 (PCR) Coronavirus NL63 (PCR) Human Metapneumovir PCR Influenza Type A (PCR) Influenza Type B (PCR) M. pneumoniae (PCR) Parainfluenza 1 (PCR) Parainfluenza 2 (PCR) Parainfluenza 3 (PCR) Parainfluenza 4 (PCR) RSV (PCR) Entero/Rhino (PCR) Diagnostic Findings Echocardiogram 05/07/2024: Severely reduced LV systolic function ejection fraction 25 to 30%. Regional wall motion abnormalities including akinesis of the apex. Mild left atrial dilation. Mild aortic regurgitation. Moderate mitral regurgitation. Moderate tricuspid regurgitation with elevated pulmonary pressures estimated 40 to 50 mmHg. Chest x-ray suggestive of pulmonary vascular congestion. Small bilateral pleural effusions. ECG Additional Comments: EKG demonstrates atrial fibrillation with rapid ventricular rate and poor R wave progression in the precordial leads. Left axis deviation. PG Care Time/CCT Total # of Minutes Spent Total Time Spent with Patient: Total time spent is greater than 50% in coordination of care (as documented) at patient's floor/unit and/or counseling patient: Coding Level of Care Code 29446 INT INP/OBS CARE 3/75MIN Diagnoses Acute systolic (congestive) heart failure I50.21 Non-ST elevation DC (NSTEMI) I21.4 Atrial fibrillation with RVR I48.91 Coronary artery disease involving [place] coronary artery of [place] heart without angina pectoris I25.10 Coronary Disease-Associated Artery/Lesion type: [place] artery [place] vs. transplanted heart: [place] heart Associated angina: without angina Valvular heart disease I38 Cardiomyopathy I42.9 (4) CAD (coronary artery disease) Coronary Disease-Associated Artery/Lesion type: [place] artery [place] vs. transplanted heart: [place] heart Associated angina: without angina Qualified Code(s): I25.10 - Atherosclerotic heart disease of [place] coronary artery without angina pectoris
--- NOTE | 2024-05-07 12:46 | Electrocardiogram Report ---
Test Reason : Blood Pressure : */* mmHG Vent. Rate : 135 BPM Atrial Rate : * BPM P-R Int : * ms QRS Dur : 112 ms QT Int : 330 ms P-R-T Axes : * -57 157 degrees QTcB Int : 495 ms Atrial fibrillation with rapid ventricular response Left axis deviation Minimal voltage criteria for LVH, may be normal variant Inferior infarct , age undetermined Anteroseptal infarct Abnormal ECG Confirmed by Colten Christianson ([id number]) on 05/07/2024 12:46:02 PM Referred By: REFERRED SELF Confirmed By: Colten Christianson
[2024-05-08 07:26] LABS: Basophils # (auto) 0.02 K/uL (0.00-0.20); Basophils % (auto) 0.1 %; Eosinophils # (auto) 0.14 K/uL (0.00-0.50); Hematocrit (blood only) 38.3 % (37.0-47.0); Hemoglobin 12.6 g/dl (12.0-16.0); Immature Granulocytes # (auto) 0.08 K/uL (0.01-0.20); Immature Granulocytes % (auto) 0.6 %; Lymphocytes # (auto) 1.86 K/uL (1.20-3.40); Lymphocytes % (auto) 13.1 %; Mean Corpuscular Hgb Conc 32.9 g/dL (32.0-36.0); Mean Corpuscular Volume 88.2 fL (80.0-100.0); Mean Platelet Volume 11.4 fL (9.4-12.4); Monocytes # (auto) 0.88 K/uL (0.11-0.59); Monocytes % (auto) 6.2 %; Neutrophils # (auto) 11.18 K/uL (1.40-6.50); Nucleated RBC # (auto) 0.04 K/uL (0.00-0.12); Nucleated RBC % (auto) 0.3 %; Platelet Count 253 K/uL (130-400); RDW Coefficient of Variation 14.6 % (11.5-14.5); RDW Standard Deviation 46.2 fL (36.4-46.3); Red Blood Count 4.34 M/uL (4.20-5.40); White Blood Count 14.16 K/ul (4.8-10.8)
[2024-05-08 07:40] LABS: ANTI-Xa, UFH(UnfractionatedHep 0.45 IU/ml (0.3-0.7); BUN Creatinine Ratio 28.3 (10-20); Calcium 8.4 mg/dl (8.6-10.3); Creatinine Clr Calc Pharmacy 19.7 ml/min; Potassium 3.2 mmol/L (3.5-5.1)
[2024-05-08] MEDS ORDERED: POTASSIUM CHLORIDE CRTAB 20 MEQ TABCR PO STA (09:09)
--- NOTE | 2024-05-08 09:47 | XRay Report ---
XR chest 1V portable CLINICAL HISTORY: CHF COMPARISON STUDY: Chest radiograph May 06, 2024. FINDINGS: There is no pneumothorax. Moderate left and hyyac-ar-[id number] right pleural effusions are p resent. The left pleural effusion is slightly increased. There are associated bibasilar opacities, gr eater on the left. Cardiomegaly is again noted. Interstitial thickening persists. Chronic deformity o f the distal right clavicle/AC joint is again noted.. IMPRESSION: 1. Cardiomegaly with persistent pulmonary edema. 2. Moderate left and nhdac-hd-[id number] right pleural effusions. The left pleural effusion has slightl y increased in size. Associated bibasilar opacities could reflect atelectasis or consolidation. ACT 112: Negative or not required by law. Electronically signed by: Inderjit Blackman M.D. 05/08/2024 9:45 AM
[2024-05-08] MEDS: POTASSIUM CHLORIDE CRTAB 20 MEQ TABCR PO STA (12:02)
--- NOTE | 2024-05-08 15:20 | Hospitalist Progress Note ---
Date of Service May 08, 2024 Assessment & Plan (1) NSTEMI (non-ST elevated myocardial infarction): Plan: Markedly elevated troponins. Cardiac echo reveals regional wall motion abnormalities with reduced ejection fraction in the 25 to 30% range. Telemetry. Cardiology consultation and recommendations appreciated. (2) Acute systolic (congestive) heart failure: Plan: Present on admission. No significant change on chest x-ray done today, May 08. Continue Lasix diuresis. Lasix dosage uptitrated today, May 08. Monitor intake and output. Serial labs (3) Atrial fibrillation with RVR: Plan: Metoprolol has been started and already uptitrated. Digitalization ordered today, May 08. Telemetry. Continue to treat underlying CHF. (4) COLBY (acute kidney injury): Plan: Monitor intake and output. Serial labs (5) CAD (coronary artery disease): Plan: Apparently she has had a previous history of coronary stents. 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 Monitor intake and output. Serial labs (7) DM2 (diabetes mellitus, type 2): Plan: ADA diet. Sliding scale coverage as needed. Plan To be determined Admission and Anticipated Discharge Date Admission Date: May 06, 2024 Subjective Alert. No distress. Atrial fibrillation remains quite rapid. Blood pressure is borderline. Metoprolol has already been uptitrated. Digoxin will be started today intravenously then orally tomorrow. She is tolerating parenteral Lasix so far although the chest x-ray done today, May 08, shows no significant change in appearance of CHF. Rodriguez catheter has been ordered and is now in place. Oral potassium started for mild hypokalemia. Creatinine stable at 1.5. Review of Systems 2 Review of Systems: Constitutionalno fever or chills ENTno blurred vision, no double vision, no epistaxis, no sore throat Respiratoryno cough, no wheezing, no shortness of breath Cardiacchest discomfort has resolved. No palpitations, no syncope GIshe is not complaining of any nausea or vomiting at this time. Loose stools prior to admission have apparently resolved. No melena, no hematochezia GUno urinary retention, no urinary incontinence, no dysuria, no hematuria Musculoskeletalno joint pain, no muscle tenderness Skinno bruising, no rashes, no pruritus Neurono isolated weakness, no paresthesia Psychno depression, no anxiety Physical Exam 2 Physical Exam: General-alert and oriented x3, no fever, no chills HEENT-head atraumatic and normocephalic, pupils equal and reactive to light, extraocular muscles intact Neck-no lymphadenopathy or thyromegaly, trachea midline Chest-bibasilar inspiratory rales. No wheezing. No rhonchi i Cardiac-irregular, mildly tachycardic rate and rhythm. Normal S1 and S2 Abdomen-normal bowel sounds, no hepatosplenomegaly Extremities-no cyanosis, clubbing, or edema Neuro-cranial nerves II through XII intact, motor and sensory function within normal limits, strength symmetrical with generalized weakness, no focal deficits Psych-normal affect, normal mood Results & Data Results & Data Vital Signs (Past 12 Hours) Vital Signs Temp Pulse Resp BP Pulse Ox O2 Del Method 05/08/24 15:16 36.7 C 91 H 18 120/81 97 Room Air 05/08/24 12:04 37.1 C 138 H 20 110/84 96 Room Air 05/08/24 07:14 36.4 C L 145 H 19 115/64 97 Room Air Laboratory Results 05/08/24 06:18 05/08/24 06:18 PG Care Time/CCT Total # of Minutes Spent Total Time Spent with Patient: Total time spent is greater than 50% in coordination of care (as documented) at patient's floor/unit and/or counseling patient: Coding Level of Care Code 36450 SUB INP/OBS CARE 3/50MIN Diagnoses NSTEMI (non-ST elevated myocardial infarction) I21.4 Acute systolic (congestive) heart failure I50.21 Atrial fibrillation with RVR I48.91 COLBY (acute kidney injury) N17.9 Coronary artery disease involving [place] coronary artery of [place] heart without angina pectoris I25.10 Coronary Disease-Associated Artery/Lesion type: [place] artery [place] vs. transplanted heart: [place] heart Associated angina: without angina History of nephrectomy Z90.5 DM2 (diabetes mellitus, type 2) E11.9 (5) CAD (coronary artery disease) Coronary Disease-Associated Artery/Lesion type: [place] artery [place] vs. transplanted heart: [place] heart Associated angina: without angina Qualified Code(s): I25.10 - Atherosclerotic heart disease of [place] coronary artery without angina pectoris
[2024-05-08] MEDS: ACETAMINOPHEN 325 MG TAB PO PRN (15:36)
[2024-05-08] MEDS: FUROSEMIDE 40 MG/4 ML VIAL IV SCH (16:32)
[2024-05-08] MEDS: DIGOXIN 500 MCG in SYRINGE 8 ML IV STA (16:32)
--- NOTE | 2024-05-08 16:38 | Cardiology Progress Note ---
Date of Service May 08, 2024 Assessment & Plan (1) Acute systolic (congestive) heart failure: (2) Non-ST elevation [place] (NSTEMI): (3) Atrial fibrillation with RVR: (4) CAD (coronary artery disease): (5) Valvular heart disease: (6) Cardiomyopathy: Plan 1. Acute decompensated systolic heart failure: She does not seem to have affected a good diuresis. No evidence of peripheral edema and she seems to be breathing well. Unclear if she may have an element of intravascular depletion. Diuretic regimen was intensified to see if we could affect some volume loss. 2. Cardiomyopathy: This is new. It is possible this represents a stress cardiomyopathy based on the appearance, also possibly related to atrial fibrillation and associated high rates over an unclear period of time. She has a history of coronary disease and did have symptoms of chest pain. Biomarkers are notably elevated. At some point we will need to perform coronary angiography in order to exclude an ischemic etiology. For the time being we will attempt to improve rate control with beta-blockade eventually switching her to metoprolol succinate. Once her renal function stabilizes we can initiate additional therapy with ARB/Entresto and hopefully Jardiance. 3. Atrial fibrillation: This is also new diagnosis. Possibly the precipitant of her cardiomyopathy. She continues to have high ventricular rates. Digoxin was added today. May need to escalate her beta-roland dose. We may need to also consider LAMINE cardioversion the addition of amiodarone in hopes of maintaining sinus rhythm and reasonable rates. 4. NSTEMI: Possibly related to an acute coronary syndrome based on her recent s ymptoms. However, the biomarker elevation is fairly stable which would be less likely associated with an acute coronary syndrome. In any event we will plan coronary angiography when the renal function stabilizes and her heart failure has improved. 5. Coronary artery disease: Remote history of percutaneous intervention at [facility] in 2007. Unknown vessel. Currently on aspirin and atorvastatin as an outpatient. 6. Valvular heart disease: She has an element of valvular regurgitation that is not severe. Possibly worse currently due to her decompensated heart failure. Will try to effective diuresis and intensify her rate control. She may require cardioversion and we hope to perform coronary angiography before the end of the week. Admission and Anticipated Discharge Date Admission Date: May 06, 2024 Subjective This afternoon the patient had no specific complaints. She reported eating lunch well. She denied breathing difficulty at rest. She denied any sense of chest pain or palpitation. She has not been ambulatory. Review of Systems Review of Systems: Per HPI Physical Exam Physical Exam: She is alert and oriented x3. Mood affect appear normal. She answered all questions appropriately. She needed to be redirected at times. HEENT: Sclerae are anicteric. Pupils are equal and reactive to light and accommodation. Extraocular movements were intact. Neuro: Cranial nerves intact Lungs: Lungs seem clear but she has difficulty taking a deep breath. She has normal respiratory effort without use of accessory muscles. There is normal pulmonary excursion. Cardiac: Irregular rhythm with elevated heart rate. No murmurs on examination. Chest wall is nontender to palpation. Extremities: Patient has bilateral radial pulses that are equal in intensity. There is no evidence cyanosis or clubbing. There was no evidence of significant peripheral edema bilaterally. Skin: There are no rashes noted on examination today. Results & Data Vital Signs (Past 12 Hours) Vital Signs Temp Pulse Pulse Resp BP Pulse Ox O2 Del Method 05/08/24 16:32 131 H 05/08/24 15:16 36.7 C 91 H 18 120/81 97 Room Air 05/08/24 12:04 37.1 C 138 H 20 110/84 96 Room Air 05/08/24 07:14 36.4 C L 145 H 19 115/64 97 Room Air Laboratory Results Abnormal Lab Results 05/07/24 05/07/24 05/08/24 20:01 20:48 06:18 WBC 14.16 H RBC 4.34 Hgb 12.6 Hct 38.3 MCV 88.2 MCH 29.0 MCHC 32.9 RDW Std Deviation 46.2 RDW Coeff of [place] 14.6 H Plt Count 253 MPV 11.4 Immature Gran % (Auto) 0.6 Neut % (Auto) 79.0 Lymph % (Auto) 13.1 [place] % (Auto) 6.2 Eos % (Auto) 1.0 Baso % (Auto) 0.1 Neut # (Auto) 11.18 H Lymph # (Auto) 1.86 [place] # (Auto) 0.88 H Eos # (Auto) 0.14 Baso # (Auto) 0.02 Immature Gran # (Auto) 0.08 Absolute Nucleated RBC 0.04 Nucleated RBC % (auto) 0.3 Heparin Anti-Xa, Unfract 0.45 Sodium 142 Potassium 3.2 L D Chloride 104 Carbon Dioxide 24 Anion Gap 14 H BUN 45 H Creatinine 1.59 H Est Cr Clr Drug Dosing 19.7 eGFR 31.06 BUN/Creatinine Ratio 28.3 H Glucose 198 H POC Glucose 197 H Calcium 8.4 L Troponin I High Sens 1765.2 H* D 05/08/24 05/08/24 05/08/24 07:17 11:02 16:00 WBC RBC Hgb Hct MCV MCH MCHC RDW Std Deviation RDW Coeff of [place] Plt Count MPV Immature Gran % (Auto) Neut % (Auto) Lymph % (Auto) [place] % (Auto) Eos % (Auto) Baso % (Auto) Neut # (Auto) Lymph # (Auto) [place] # (Auto) Eos # (Auto) Baso # (Auto) Immature Gran # (Auto) Absolute Nucleated RBC Nucleated RBC % (auto) Heparin Anti-Xa, Unfract Sodium Potassium Chloride Carbon Dioxide Anion Gap BUN Creatinine Est Cr Clr Drug Dosing eGFR BUN/Creatinine Ratio Glucose POC Glucose 202 H 214 H 164 H Calcium Troponin I High Sens PG Care Time/CCT Total # of Minutes Spent Total Time Spent with Patient: Total time spent is greater than 50% in coordination of care (as documented) at patient's floor/unit and/or counseling patient: Coding Level of Care Code 40382 SUB INP/OBS CARE 2/35MIN Diagnoses Acute systolic (congestive) heart failure I50.21 Non-ST elevation [place] (NSTEMI) I21.4 Atrial fibrillation with RVR I48.91 Coronary artery disease involving [place] coronary artery of [place] heart without angina pectoris I25.10 Coronary Disease-Associated Artery/Lesion type: [place] artery [place] vs. transplanted heart: [place] heart Associated angina: without angina Valvular heart disease I38 Cardiomyopathy I42.9 (4) CAD (coronary artery disease) Coronary Disease-Associated Artery/Lesion type: [place] artery [place] vs. transplanted heart: [place] heart Associated angina: without angina Qualified Code(s): I25.10 - Atherosclerotic heart disease of [place] coronary artery without angina pectoris
[2024-05-08] MEDS: DIGOXIN 250 MCG in SYRINGE 9 ML IV ONE (21:03)
[2024-05-08] MEDS: POTASSIUM CHLORIDE CRTAB 20 MEQ TABCR PO SCH (21:03)
[2024-05-09 07:23] LABS: Basophils # (auto) 0.03 K/uL (0.00-0.20); Basophils % (auto) 0.3 %; Eosinophils # (auto) 0.16 K/uL (0.00-0.50); Eosinophils % (auto) 1.4 %; Hemoglobin 13.1 g/dl (12.0-16.0); Immature Granulocytes # (auto) 0.08 K/uL (0.01-0.20); Immature Granulocytes % (auto) 0.7 %; Lymphocytes # (auto) 1.94 K/uL (1.20-3.40); Lymphocytes % (auto) 16.8 %; Mean Corpuscular Hemoglobin 28.7 pg (25.0-34.0); Mean Corpuscular Hgb Conc 32.8 g/dL (32.0-36.0); Mean Corpuscular Volume 87.5 fL (80.0-100.0); Mean Platelet Volume 11.1 fL (9.4-12.4); Monocytes # (auto) 1.02 K/uL (0.11-0.59); Monocytes % (auto) 8.8 %; Neutrophils # (auto) 8.34 K/uL (1.40-6.50); Nucleated RBC # (auto) 0.02 K/uL (0.00-0.12); Nucleated RBC % (auto) 0.2 %; Platelet Count 248 K/uL (130-400); RDW Coefficient of Variation 14.2 % (11.5-14.5); RDW Standard Deviation 44.5 fL (36.4-46.3); Red Blood Count 4.57 M/uL (4.20-5.40); White Blood Count 11.57 K/ul (4.8-10.8)
[2024-05-09 07:41] LABS: BUN Creatinine Ratio 25.5 (10-20); Calcium 8.3 mg/dl (8.6-10.3); Creatinine Clr Calc Pharmacy 21.6 ml/min; Potassium 3.3 mmol/L (3.5-5.1)
[2024-05-09 10:50] LABS: ANTI-Xa, UFH(UnfractionatedHep 0.33 IU/ml (0.3-0.7)
--- NOTE | 2024-05-09 13:22 | Hospitalist Progress Note ---
Date of Service May 09, 2024 Assessment & Plan (1) NSTEMI (non-ST elevated myocardial infarction): Plan: Markedly elevated troponins. Cardiac echo reveals regional wall motion abnormalities with reduced ejection fraction in the 25 to 30% range. Telemetry. Cardiology consultation and recommendations appreciated. (2) Acute systolic (congestive) heart failure: Plan: Present on admission. Good diuretic response with intravenous Lasix 60 mg every 12 hours. Will repeat chest x-ray again tomorrow, May 10. Monitor intake and output. Serial labs (3) Atrial fibrillation with RVR: Plan: Metoprolol has been started and already uptitrated. Digoxin started yesterday, May 08. Digoxin level 1.8 today, May 09. Atrial fibrillation rate has already improved. Continue telemetry. Continue to treat underlying CHF. (4) COLBY (acute kidney injury): Plan: Monitor intake and output. Serial labs. Creatinine is now downtrending (5) CAD (coronary artery disease): Plan: Apparently she has had a previous history of coronary stents. 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 Monitor intake and output. Serial labs (7) DM2 (diabetes mellitus, type 2): Plan: ADA diet. Sliding scale coverage as needed. Plan To be determined. OT and PT evaluations requested Admission and Anticipated Discharge Date Admission Date: May 06, 2024 Subjective Alert and pleasant. No new problems. Atrial fibrillation rate is much improved after addition of digoxin. Digoxin level 1.8 this morning, May 09. She is now on oral digoxin daily. Potassium remains slightly low at 3.3 but improving with oral replacement which was uptitrated today, May 09. Creatinine down slightly to 1.4. Good urine output now with Rodriguez catheter in place and she remains on intravenous Lasix 60 mg every 12 hours. Appreciate cardiology consultation and recommendations. Zosyn has been discontinued. Review of Systems 2 Review of Systems: Constitutionalno fever or chills ENTno blurred vision, no double vision, no epistaxis, no sore throat Respiratoryno cough, no wheezing, no shortness of breath Cardiacchest discomfort has resolved. No palpitations, no syncope GIshe is not complaining of any nausea or vomiting at this time. Loose stools prior to admission have apparently resolved. No melena, no hematochezia GUno urinary retention, no urinary incontinence, no dysuria, no hematuria Musculoskeletalno joint pain, no muscle tenderness Skinno bruising, no rashes, no pruritus Neurono isolated weakness, no paresthesia Psychno depression, no anxiety Physical Exam 2 Physical Exam: General-alert and oriented x3, no fever, no chills HEENT-head atraumatic and normocephalic, pupils equal and reactive to light, extraocular muscles intact Neck-no lymphadenopathy or thyromegaly, trachea midline Chest-bibasilar inspiratory rales. No wheezing. No rhonchi i Cardiac-irregular rhythm. Controlled rate.Normal S1 and S2 Abdomen-normal bowel sounds, no hepatosplenomegaly Extremities-no cyanosis, clubbing, or edema Neuro-cranial nerves II through XII intact, motor and sensory function within normal limits, strength symmetrical with generalized weakness, no focal deficits Psych-normal affect, normal mood Results & Data Results & Data Vital Signs (Past 12 Hours) Vital Signs Temp Pulse Pulse Resp BP Pulse Ox O2 Del Method 05/09/24 11:03 36.2 C L 62 18 115/84 96 Room Air 05/09/24 10:57 Room Air 05/09/24 10:49 105 H 05/09/24 07:12 36.4 C L 104 H 20 117/67 92 Room Air Laboratory Results 05/09/24 06:26 05/09/24 06:26 PG Care Time/CCT Total # of Minutes Spent Total Time Spent with Patient: Total time spent is greater than 50% in coordination of care (as documented) at patient's floor/unit and/or counseling patient: Coding Level of Care Code 97056 SUB INP/OBS CARE 3/50MIN Diagnoses NSTEMI (non-ST elevated myocardial infarction) I21.4 Acute systolic (congestive) heart failure I50.21 Atrial fibrillation with RVR I48.91 COLBY (acute kidney injury) N17.9 Coronary artery disease involving [place] coronary artery of [place] heart without angina pectoris I25.10 Coronary Disease-Associated Artery/Lesion type: [place] artery [place] vs. transplanted heart: [place] heart Associated angina: without angina History of nephrectomy Z90.5 DM2 (diabetes mellitus, type 2) E11.9 (5) CAD (coronary artery disease) Coronary Disease-Associated Artery/Lesion type: [place] artery [place] vs. transplanted heart: [place] heart Associated angina: without angina Qualified Code(s): I25.10 - Atherosclerotic heart disease of [place] coronary artery without angina pectoris
[2024-05-09] MEDS: POTASSIUM CHLORIDE CRTAB 20 MEQ TABCR PO SCH (13:31)
--- NOTE | 2024-05-09 14:07 | Cardiology Progress Note ---
Date of Service May 09, 2024 Assessment & Plan (1) Acute systolic (congestive) heart failure: (2) Non-ST elevation [place] (NSTEMI): (3) Atrial fibrillation with RVR: (4) CAD (coronary artery disease): (5) Valvular heart disease: (6) Cardiomyopathy: Plan 1. Acute decompensated systolic heart failure: She effective good diuresis yesterday. Perhaps this was due to better recordkeeping now that she has a Rodriguez catheter. Renal function appears stable would seem reasonable to continue her current diuresis. 2. Cardiomyopathy: This is new. It is possible this represents a stress cardiomyopathy based on the appearance, also possibly related to atrial fibrillation and associated high rates over an unclear period of time. She has a history of coronary disease and did have symptoms of chest pain. Biomarkers are notably elevated. Will plan on coronary angiography prior to discharge. 3. Atrial fibrillation: This is also new diagnosis. She continues to have elevated rates. I think at this point we can perform a LAMINE and cardioversion and start her on amiodarone to maintain sinus rhythm. Continue heparin for now. 4. NSTEMI: Possibly related to an acute coronary syndrome based on her recent symptoms. However, the biomarker elevation is fairly stable which would be less likely associated with an acute coronary syndrome. In any event we will plan coronary angiography when the renal function stabilizes and her heart failure has improved. 5. Coronary artery disease: Remote history of percutaneous intervention at [place] in 2007. Unknown vessel. Currently on aspirin and atorvastatin as an outpatient. 6. Valvular heart disease: She has an element of valvular regurgitation that is not severe. Possibly worse currently due to her decompensated heart failure. I think we will tentatively plan for a LAMINE cardioversion tomorrow. Plan on starting amiodarone afterwards. Admission and Anticipated Discharge Date Admission Date: May 06, 2024 Subjective This afternoon the patient claimed to be feeling "fair". Still weak. No significant ambulation. She did report being up in a chair yesterday. No breathing difficulty at rest and she was lying flat for the interview. She denied any palpitations currently. No pain. Review of Systems Review of Systems: Per HPI Physical Exam Physical Exam: She is alert and oriented x3. Mood affect appear normal. She answered all questions appropriately. HEENT: Sclerae are anicteric. Pupils are equal and reactive to light and accommodation. Extraocular movements were intact. Neuro: Cranial nerves intact Lungs: Lungs seem clear but she has difficulty taking a deep breath. She has normal respiratory effort without use of accessory muscles. There is normal pulmonary excursion. Cardiac: Irregular rhythm with elevated heart rate. No murmurs on examination. Chest wall is nontender to palpation. Extremities: Patient has bilateral radial pulses that are equal in intensity. There is no evidence cyanosis or clubbing. There was no evidence of significant peripheral edema bilaterally. Skin: There are no rashes noted on examination today. Results & Data Vital Signs (Past 12 Hours) Vital Signs Temp Pulse Pulse Resp BP Pulse Ox O2 Del Method 05/09/24 11:03 36.2 C L 62 18 115/84 96 Room Air 05/09/24 10:57 Room Air 05/09/24 10:49 105 H 05/09/24 07:12 36.4 C L 104 H 20 117/67 92 Room Air Laboratory Results Abnormal Lab Results 05/08/24 05/08/24 05/09/24 16:00 20:11 06:26 WBC 11.57 H RBC 4.57 Hgb 13.1 Hct 40.0 MCV 87.5 MCH 28.7 MCHC 32.8 RDW Std Deviation 44.5 RDW Coeff of [place] 14.2 Plt Count 248 MPV 11.1 Immature Gran % (Auto) 0.7 Neut % (Auto) 72.0 Lymph % (Auto) 16.8 [place] % (Auto) 8.8 Eos % (Auto) 1.4 Baso % (Auto) 0.3 Neut # (Auto) 8.34 H Lymph # (Auto) 1.94 [place] # (Auto) 1.02 H Eos # (Auto) 0.16 Baso # (Auto) 0.03 Immature Gran # (Auto) 0.08 Absolute Nucleated RBC 0.02 Nucleated RBC % (auto) 0.2 Heparin Anti-Xa, Unfract Sodium 141 Potassium 3.3 L Chloride 101 Carbon Dioxide 28 Anion Gap 12 H BUN 37 H Creatinine 1.45 H Est Cr Clr Drug Dosing 21.6 eGFR 34.69 BUN/Creatinine Ratio 25.5 H Glucose 178 H POC Glucose 164 H 88 Calcium 8.3 L Digoxin 1.8 05/09/24 05/09/24 05/09/24 07:16 10:11 11:22 WBC RBC Hgb Hct MCV MCH MCHC RDW Std Deviation RDW Coeff of [place] Plt Count MPV Immature Gran % (Auto) Neut % (Auto) Lymph % (Auto) [place] % (Auto) Eos % (Auto) Baso % (Auto) Neut # (Auto) Lymph # (Auto) [place] # (Auto) Eos # (Auto) Baso # (Auto) Immature Gran # (Auto) Absolute Nucleated RBC Nucleated RBC % (auto) Heparin Anti-Xa, Unfract 0.33 Sodium Potassium Chloride Carbon Dioxide Anion Gap BUN Creatinine Est Cr Clr Drug Dosing eGFR BUN/Creatinine Ratio Glucose POC Glucose 203 H 200 H Calcium Digoxin PG Care Time/CCT Total # of Minutes Spent Total Time Spent with Patient: Total time spent is greater than 50% in coordination of care (as documented) at patient's floor/unit and/or counseling patient: Coding Level of Care Code 84281 SUB INP/OBS CARE 2/35MIN Diagnoses Acute systolic (congestive) heart failure I50.21 Non-ST elevation [place] (NSTEMI) I21.4 Atrial fibrillation with RVR I48.91 Coronary artery disease involving [place] coronary artery of [place] heart without angina pectoris I25.10 Coronary Disease-Associated Artery/Lesion type: [place] artery [place] vs. transplanted heart: [place] heart Associated angina: without angina Valvular heart disease I38 Cardiomyopathy I42.9 (4) CAD (coronary artery disease) Coronary Disease-Associated Artery/Lesion type: [place] artery [place] vs. transplanted heart: [place] heart Associated angina: without angina Qualified Code(s): I25.10 - Atherosclerotic heart disease of [place] coronary artery without angina pectoris
[2024-05-09] MEDS: DIGOXIN 0.125 MG TAB PO SCH (16:10)
[2024-05-09] MEDS: MELATONIN 3 MG TAB PO PRN (20:49)
[2024-05-10] MEDS: METOPROLOL TARTRATE 1 MG/ML VIAL IV STA (01:51)
[2024-05-10 07:05] LABS: Basophils # (auto) 0.04 K/uL (0.00-0.20); Basophils % (auto) 0.3 %; Eosinophils # (auto) 0.25 K/uL (0.00-0.50); Eosinophils % (auto) 1.8 %; Hematocrit (blood only) 44.1 % (37.0-47.0); Hemoglobin 14.4 g/dl (12.0-16.0); Immature Granulocytes # (auto) 0.14 K/uL (0.01-0.20); Lymphocytes # (auto) 2.56 K/uL (1.20-3.40); Lymphocytes % (auto) 18.6 %; Mean Corpuscular Hgb Conc 32.7 g/dL (32.0-36.0); Mean Corpuscular Volume 88.9 fL (80.0-100.0); Mean Platelet Volume 10.7 fL (9.4-12.4); Monocytes # (auto) 1.06 K/uL (0.11-0.59); Monocytes % (auto) 7.7 %; Neutrophils # (auto) 9.73 K/uL (1.40-6.50); Neutrophils % (auto) 70.6 %; Nucleated RBC # (auto) 0.02 K/uL (0.00-0.12); Nucleated RBC % (auto) 0.1 %; Platelet Count 263 K/uL (130-400); RDW Coefficient of Variation 14.4 % (11.5-14.5); RDW Standard Deviation 45.2 fL (36.4-46.3); Red Blood Count 4.96 M/uL (4.20-5.40); White Blood Count 13.78 K/ul (4.8-10.8)
--- NOTE | 2024-05-10 07:05 | XRay Report ---
SINGLE VIEW CHEST CLINICAL HISTORY: Congestive heart failure. FINDINGS: An AP, portable, upright chest radiograph is compared to study dated 05/08/2024. Correlatio n is made to abdominal CT dated 05/06/2024. The examination is degraded by portable technique and pat ient rotation. The heart is enlarged and noting atherosclerotic calcification of the thoracic aorta. Pulmonary vascular congestion has improved from previous. There are left larger than right pleural ef fusions with dependent consolidation. No pneumothorax is seen. The skeletal structures are osteopenic . The bony thorax is grossly intact. Degenerative change is noted in the shoulders and spine. Surgica l clips are noted in the right upper quadrant. IMPRESSION: 1. Cardiomegaly with improving pulmonary vascular congestion. 2. Left larger than right pleural effusions with dependent consolidation. ACT 112: Negative or not required by law. Electronically signed by: Richard Blair M.D. 05/10/2024 7:04 AM
[2024-05-10 07:24] LABS: BUN Creatinine Ratio 30.1 (10-20); Calcium 8.3 mg/dl (8.6-10.3); Creatinine Clr Calc Pharmacy 24.5 ml/min; Potassium 3.9 mmol/L (3.5-5.1)
[2024-05-10 07:28] LABS: ANTI-Xa, UFH(UnfractionatedHep 0.37 IU/ml (0.3-0.7)
--- NOTE | 2024-05-10 10:07 | Anesthesiology Consultation ---
Date of Service May 10, 2024 Assessment & Plan Chart Review Chart Review: Acceptable Risk for Surgery Consults Requested none History Surgery Operation Date: 05/10/24 10:00 Proposed Procedures p Trans-Esophageal Echo - Colten Christianson MD Height/Weight Height: 4 ft 11 in Weight: 57.8 kg Allergies Allergy/AdvReac Type Severity Reaction Status Date / Time No Known Allergies Allergy Verified 05/06/24 20:24 Medications Home Medications Medication Instructions Recorded Confirmed Last Taken aspirin 81 mg tablet,delayed 81 mg PO DAILY 12/13/20 05/06/24 12/13/20 release atorvastatin 40 mg tablet 40 mg PO DAILY 12/13/20 05/06/24 12/13/20 diclofenac sodium 1 % topical gel 2 g topical QID PRN Pain 12/13/20 05/06/24 12/12/20 isosorbide mononitrate 30 mg 90 mg PO DAILY 12/13/20 05/06/24 12/13/20 tablet,extended release 24 hr lisinopril 5 mg tablet 5 mg PO DAILY 12/13/20 05/06/24 12/13/20 meclizine 12.5 mg tablet 12.5 mg PO TID PRN Dizziness 12/13/20 05/06/24 Unknown metformin 500 mg tablet 500 mg PO BIDM 12/13/20 05/06/24 12/12/20 omeprazole 20 mg capsule,delayed 20 mg PO DAILY 12/13/20 05/06/24 12/13/20 release sertraline 25 mg tablet 25 mg PO DAILY PRN Nerves 12/13/20 05/06/24 12/13/20 vitamins A,C,C-srds-nzrqax 2,148 2 tab PO BID 12/13/20 05/06/24 12/13/20 mcg-113 mg-45 mg-17.4 mg tablet tolterodine 2 mg capsule,extended 2 mg PO DAILY 05/06/24 05/06/24 Unknown release 24 hr Active Medications Generic Name Dose Route Start Last Admin Trade Name Freq PRN Reason Stop Dose Admin Acetaminophen 650 mg 05/06/24 22:06 05/09/24 20:24 Acetaminophen 325 Mg Tab PO 06/05/24 22:05 650 mg Q4H PRN Administration pain/fever Aspirin 81 mg 05/07/24 09:00 05/09/24 08:22 Aspirin 81 Mg Ectab PO 06/06/24 08:59 81 mg QAM BRIELLE Administration Atorvastatin Calcium 40 mg 05/07/24 09:00 05/09/24 08:23 Atorvastatin 40 Mg Tab PO 06/06/24 08:59 40 mg DAILY BRIELLE Administration Furosemide 60 mg 05/08/24 17:00 05/10/24 08:27 Furosemide 40 Mg/4 Ml Vial IV 06/07/24 16:59 60 mg BID17 BRIELLE Administration Heparin Sodium/Dextrose 25,000 units in 500 mls @ 19 mls/hr 05/06/24 20:30 05/10/24 07:33 Heparin Sodium/Dextrose IV 06/05/24 20:29 950 units/hr .Q24H BRIELLE 19 mls/hr Titration Protocol 950 UNITS/HR Insulin Aspart 0 units 05/06/24 22:30 05/10/24 08:26 Insulin Aspart Per Unit Charge SC 06/05/24 22:29 4 units ACHS BRIELLE Administration Melatonin 3 mg 05/09/24 20:45 05/09/24 20:49 Melatonin 3 Mg Tab PO 06/08/24 20:44 3 mg HS PRN Administration Sleep Metoprolol Tartrate 25 mg 05/07/24 12:30 05/10/24 06:03 Metoprolol Tartrate 25 Mg Tab PO 06/06/24 12:29 Not Given Q6H BRIELLE Pantoprazole Sodium 40 mg 05/07/24 09:00 05/09/24 08:22 Pantoprazole 40 Mg Tab PO 06/06/24 08:59 40 mg DAILY BRIELLE Administration Potassium Chloride 20 meq 05/09/24 14:00 05/09/24 20:28 Potassium Chloride Crtab 20 Meq Tabcr PO 06/08/24 13:59 20 meq TID BRIELLE Administration Past Family History Family History Other Family history non-contributory Past Surgical History Surgical History History of heart artery stent History of nephrectomy Social History Smoking Status: Unknown if ever smoked Hx Alcohol Use: No Hx Substance Use: No Physical Exam Vital Signs Last Vital Signs Temp 36.6 C 05/10/24 07:33 Pulse 108 H 05/10/24 07:45 Resp 18 05/10/24 07:33 BP 114/85 05/10/24 07:33 Pulse Ox 96 05/10/24 07:33 O2 Del Method Room Air 05/10/24 07:45 Testing Laboratory Results 05/10/24 06:47 05/10/24 06:47 PT 13.5 Seconds (9.0-12.0) H 05/06/24 18:24 INR 1.3 (0.9-1.1) H 05/06/24 18:24 APTT 40 Seconds (21-31) H 05/07/24 03:07 Hemoglobin A1c 9.0 % (4.5-5.6) H 05/07/24 03:07 Urine Color Yellow 05/07/24 02:55 Urine Appearance Cloudy (Clear) A 05/07/24 02:55 Urine pH 5.0 (4.5-7.5) 05/07/24 02:55 Ur Specific Reading 1.025 (1.000-1.030) 05/07/24 02:55 Urine Protein 1+ (Negative) H 05/07/24 02:55 Urine Glucose (UA) Negative (Negative) 05/07/24 02:55 Urine Ketones Trace (Negative) H 05/07/24 02:55 Urine Nitrite Negative (Negative) 05/07/24 02:55 Ur Leukocyte Esterase 3+ (Negative) H 05/07/24 02:55 Urine WBC (Auto) >50 /hpf (0-5) H 05/07/24 02:55 Urine RBC (Auto) 0-2 /hpf (0-2) 05/07/24 02:55 U Hyaline Cast (Auto) 3-5 /lpf (0-2) H 05/07/24 02:55 U Epithel Cells (Auto) 0-2 /hpf (0-2) 05/07/24 02:55 Urine Bacteria (Auto) None Seen (None Seen) 05/07/24 02:55 05/06/24 19:54 Aerobic Blood Culture - Preliminary Blood No growth in Aerobic bottle after 48 hours. Anaerobic Blood Culture - Preliminary No growth in Anaerobic bottle after 48 hours. 05/06/24 19:53 Aerobic Blood Culture - Preliminary Blood No growth in Aerobic bottle after 48 hours. Anaerobic Blood Culture - Preliminary No growth in Anaerobic bottle after 48 hours. 05/07/24 02:55 Urine Culture - Final Urine,Clean Catch Three types of organisms present, all moderate counts. Repeat collection recommended. No further identifications or sensitivities to follow. 05/10/24 07:32 POC Glucose 242 H
--- NOTE | 2024-05-10 10:45 | Anesthesiology Progress Note ---
Date of Service May 10, 2024 Anesthesia Post Procedure Vital Signs Vital Signs: Temp Pulse Pulse Resp BP BP BP 05/10/24 10:00 143 H 12 151/108 H 05/10/24 07:45 05/10/24 07:45 108 H 05/10/24 07:33 36.6 C 103 H 18 114/85 05/10/24 03:53 36.4 C L 90 18 156/77 H 05/10/24 02:06 68 137/82 05/10/24 01:51 111 H 148/100 H 05/10/24 00:00 107 H 05/09/24 23:29 36.3 C L 101 H 18 129/87 05/09/24 19:14 37.1 C 90 18 126/85 05/09/24 16:10 103 H 05/09/24 15:34 35.6 C L 94 H 19 125/85 05/09/24 14:21 113 H 05/09/24 11:03 36.2 C L 62 18 115/84 05/09/24 10:57 05/09/24 10:49 105 H Pulse Ox O2 Del Method 05/10/24 10:00 94 Room Air 05/10/24 07:45 Room Air 05/10/24 07:45 05/10/24 07:33 96 Room Air 05/10/24 03:53 97 Room Air 05/10/24 02:06 05/10/24 01:51 05/10/24 00:00 05/09/24 23:29 94 Room Air 05/09/24 19:14 91 Room Air 05/09/24 16:10 05/09/24 15:34 98 Room Air 05/09/24 14:21 05/09/24 11:03 96 Room Air 05/09/24 10:57 Room Air 05/09/24 10:49 Transfer of Care Handoff Completed per policy Notes Mental Status: alert / awake / arousable and participated in evaluation Patient Amnestic to Procedure: Yes Nausea / Vomiting: adequately controlled Pain: adequately controlled Airway Patency, RR, SpO2: stable & adequate BP & HR: stable & adequate Hydration State: stable & adequate Anesthetic Complications: no major complications apparent
--- NOTE | 2024-05-10 12:03 | Cardiology Progress Note ---
Date of Service May 10, 2024 Assessment & Plan (1) Acute systolic (congestive) heart failure: (2) Non-ST elevation [place] (NSTEMI): (3) Atrial fibrillation with RVR: (4) CAD (coronary artery disease): (5) Valvular heart disease: (6) Cardiomyopathy: Plan 1. Acute decompensated systolic heart failure: She effective good diuresis yesterday. Renal function stable. I think we will continue her on her current dose of furosemide with an eye to de-escalate possibly tomorrow. Volume status much improved. 2. Cardiomyopathy: This is new. It is possible this represents a stress cardiomyopathy based on the appearance, also possibly related to atrial fibrillation and associated high rates over an unclear period of time. She has a history of coronary disease and did have symptoms of chest pain. Biomarkers are notably elevated. Will likely defer coronary angiography at this point for a few weeks given her need for continued systemic anticoagulation. 3. Atrial fibrillation: This is also new diagnosis. She continues to have elevated rates. LAMINE demonstrated thrombus in left atrial appendage. Cardioversion was then contraindicated. Will attempt more aggressive rate control with the addition of diltiazem. Not ideal given her cardiomyopathy, but I think necessary in order to slow heart rates and perhaps affect some improvement in overall LV function. 4. NSTEMI: Possibly related to an acute coronary syndrome based on her recent symptoms. However, the biomarker elevation is fairly stable which would be less likely associated with an acute coronary syndrome. In any event we will plan coronary angiography when the renal function stabilizes and her heart failure has improved. 5. Coronary artery disease: Remote history of percutaneous intervention at [facility] in 2007. Unknown vessel. Currently on aspirin and atorvastatin as an outpatient. 6. Valvular heart disease: She has an element of valvular regurgitation that is not severe. Possibly worse currently due to her decompensated heart failure. Will need to continue aggressive attempt at rate control. Her anticoagulation could be transition to an oral regimen. Do not think we will perform coronary angiography immediately. Continue diuresis. Admission and Anticipated Discharge Date Admission Date: May 06, 2024 Subjective This morning the patient underwent a transesophageal echocardiogram demonstrating thrombus in the left atrial appendage. This precluded cardioversion. She not report significant breathing difficulty. No pain currently. She has been unaware of palpitations. Not yet ambulatory. Still feeling somewhat weak and tired. Review of Systems Review of Systems: Per HPI Physical Exam Physical Exam: She is alert and oriented x3. Mood affect appear normal. She answered all questions appropriately. HEENT: Sclerae are anicteric. Pupils are equal and reactive to light and accommodation. Extraocular movements were intact. Neuro: Cranial nerves intact Lungs: Lungs seem clear but she has difficulty taking a deep breath. She has normal respiratory effort without use of accessory muscles. There is normal pulmonary excursion. Cardiac: Irregular rhythm with elevated heart rate. No murmurs on examination. Chest wall is nontender to palpation. Extremities: Patient has bilateral radial pulses that are equal in intensity. There is no evidence cyanosis or clubbing. There was no evidence of significant peripheral edema bilaterally. Skin: There are no rashes noted on examination today. Results & Data Vital Signs (Past 12 Hours) Vital Signs Temp Pulse Pulse Resp BP BP Pulse Ox 05/10/24 11:47 36.4 C L 114 H 18 125/68 93 05/10/24 11:30 36.8 C 116 H 18 129/92 93 05/10/24 11:10 127 H 12 130/69 94 05/10/24 10:55 155 H 12 121/80 92 05/10/24 10:40 138 H 12 128/79 99 05/10/24 10:00 143 H 12 151/108 H 94 05/10/24 07:45 05/10/24 07:45 108 H 05/10/24 07:33 36.6 C 103 H 18 114/85 96 05/10/24 03:53 36.4 C L 90 18 156/77 H 97 05/10/24 02:06 68 137/82 05/10/24 01:51 111 H 148/100 H O2 Del Method O2 Flow Rate 05/10/24 11:47 Room Air 05/10/24 11:30 Room Air 05/10/24 11:10 Room Air 05/10/24 10:55 Room Air 05/10/24 10:40 Oxymask 8 05/10/24 10:00 Room Air 05/10/24 07:45 Room Air 05/10/24 07:45 05/10/24 07:33 Room Air 05/10/24 03:53 Room Air 05/10/24 02:06 05/10/24 01:51 Laboratory Results Abnormal Lab Results 05/09/24 05/09/24 05/10/24 16:22 20:37 06:47 WBC 13.78 H RBC 4.96 Hgb 14.4 Hct 44.1 MCV 88.9 MCH 29.0 MCHC 32.7 RDW Std Deviation 45.2 RDW Coeff of [place] 14.4 Plt Count 263 MPV 10.7 Immature Gran % (Auto) 1.0 Neut % (Auto) 70.6 Lymph % (Auto) 18.6 [place] % (Auto) 7.7 Eos % (Auto) 1.8 Baso % (Auto) 0.3 Neut # (Auto) 9.73 H Lymph # (Auto) 2.56 [place] # (Auto) 1.06 H Eos # (Auto) 0.25 Baso # (Auto) 0.04 Immature Gran # (Auto) 0.14 Absolute Nucleated RBC 0.02 Nucleated RBC % (auto) 0.1 Heparin Anti-Xa, Unfract 0.37 Sodium 140 Potassium 3.9 Chloride 99 Carbon Dioxide 29 Anion Gap 12 H BUN 37 H Creatinine 1.23 H Est Cr Clr Drug Dosing 24.5 eGFR 42.27 BUN/Creatinine Ratio 30.1 H Glucose 234 H POC Glucose 249 H 269 H Calcium 8.3 L Digoxin 1.8 05/10/24 05/10/24 07:32 11:31 WBC RBC Hgb Hct MCV MCH MCHC RDW Std Deviation RDW Coeff of [place] Plt Count MPV Immature Gran % (Auto) Neut % (Auto) Lymph % (Auto) [place] % (Auto) Eos % (Auto) Baso % (Auto) Neut # (Auto) Lymph # (Auto) [place] # (Auto) Eos # (Auto) Baso # (Auto) Immature Gran # (Auto) Absolute Nucleated RBC Nucleated RBC % (auto) Heparin Anti-Xa, Unfract Sodium Potassium Chloride Carbon Dioxide Anion Gap BUN Creatinine Est Cr Clr Drug Dosing eGFR BUN/Creatinine Ratio Glucose POC Glucose 242 H 186 H Calcium Digoxin Diagnostic Findings Transesophageal echocardiogram demonstrated thrombus in left atrial appendage. Mild mitral regurgitation otherwise no severe valvular heart disease. PG Care Time/CCT Total # of Minutes Spent Total Time Spent with Patient: Total time spent is greater than 50% in coordination of care (as documented) at patient's floor/unit and/or counseling patient: Coding Level of Care Code 52665 SUB INP/OBS CARE 2/35MIN Diagnoses Acute systolic (congestive) heart failure I50.21 Non-ST elevation [place] (NSTEMI) I21.4 Atrial fibrillation with RVR I48.91 Coronary artery disease involving [place] coronary artery of [place] heart without angina pectoris I25.10 Coronary Disease-Associated Artery/Lesion type: [place] artery [place] vs. transplanted heart: [place] heart Associated angina: without angina Valvular heart disease I38 Cardiomyopathy I42.9 (4) CAD (coronary artery disease) Coronary Disease-Associated Artery/Lesion type: [place] artery [place] vs. transplanted heart: [place] heart Associated angina: without angina Qualified Code(s): I25.10 - Atherosclerotic heart disease of [place] coronary artery without angina pectoris
[2024-05-10] MEDS: BENZOCAINE/TETRACAIN/BUTAM 50 APPLN/5 GM CAN EXT ONE (12:11)
[2024-05-10] MEDS: LIDOCAINE 2% 2 ML VIAL/AMP(20MG/ML) INFIL ONE (12:11)
[2024-05-10] MEDS: PROPOFOL IV EMULSION 10 MG/ML 20 ML VIAL IV ONE (12:12)
--- NOTE | 2024-05-10 12:21 | XCELERA ---
[id number] \\[id number]
--- NOTE | 2024-05-10 12:48 | Hospitalist Progress Note ---
Date of Service May 10, 2024 Assessment & Plan (1) NSTEMI (non-ST elevated myocardial infarction): Plan: Markedly elevated troponins. Cardiac echo reveals regional wall motion abnormalities with reduced ejection fraction in the 25 to 30% range. Telemetry. Cardiology consultation and recommendations appreciated. (2) Acute systolic (congestive) heart failure: Plan: Present on admission. Good diuretic response with intravenous Lasix 60 mg every 12 hours. Chest x-ray done today, May 10, looks better. Monitor intake and output. Serial labs (3) Atrial fibrillation with RVR: Plan: She is now on diltiazem, metoprolol, and digoxin. Atrial fibrillation rate has improved. Continue telemetry. Continue to treat underlying CHF. (4) COLBY (acute kidney injury): Plan: Monitor intake and output. Serial labs. Creatinine is now downtrending (5) CAD (coronary artery disease): Plan: Apparently she has had a previous history of coronary stents. 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 Monitor intake and output. Serial labs (7) DM2 (diabetes mellitus, type 2): Plan: ADA diet. Sliding scale coverage as needed. (8) Left atrial thrombus: Plan: Seen on LAMINE today, May 10. This prevented attempt at electrical cardioversion. Heparin drip has been switched over to Eliquis. Plan To be determined. OT and PT evaluations requested. She may need placement Admission and Anticipated Discharge Date Admission Date: May 06, 2024 Subjective Alert and oriented. Unfortunately, the LAMINE revealed a left atrial thrombus and she did not undergo cardioversion. Heparin drip has been switched over to Eliquis. She is now on diltiazem, metoprolol, and digoxin. Urine output looks good with IV Lasix. Chest x-ray done today, May 10, looks better. She is on room air. Potassium has been corrected to 3.9. Will follow. Review of Systems 2 Review of Systems: Constitutionalno fever or chills ENTno blurred vision, no double vision, no epistaxis, no sore throat Respiratoryno cough, no wheezing, no shortness of breath Cardiacchest discomfort has resolved. No palpitations, no syncope GIshe is not complaining of any nausea or vomiting at this time. Loose stools prior to admission have apparently resolved. No melena, no hematochezia GUno urinary retention, no urinary incontinence, no dysuria, no hematuria Musculoskeletalno joint pain, no muscle tenderness Skinno bruising, no rashes, no pruritus Neurono isolated weakness, no paresthesia Psychno depression, no anxiety Physical Exam 2 Physical Exam: General-alert and oriented x3, no fever, no chills HEENT-head atraumatic and normocephalic, pupils equal and reactive to light, extraocular muscles intact Neck-no lymphadenopathy or thyromegaly, trachea midline Chest-bibasilar inspiratory rales have improved. No wheezing. No rhonchi Cardiac-irregular rhythm. Controlled rate. Normal S1 and S2 Abdomen-normal bowel sounds, no hepatosplenomegaly Extremities-no cyanosis, clubbing, or edema Neuro-cranial nerves II through XII intact, motor and sensory function within normal limits, strength symmetrical with generalized weakness, no focal deficits Psych-normal affect, normal mood Results & Data Results & Data Vital Signs (Past 12 Hours) Vital Signs Temp Pulse Pulse Resp BP BP Pulse Ox 05/10/24 12:33 125/83 05/10/24 12:21 36.5 C 110 H 18 134/108 H 95 05/10/24 11:47 36.4 C L 114 H 18 125/68 93 05/10/24 11:30 36.8 C 116 H 18 129/92 93 05/10/24 11:10 127 H 12 130/69 94 05/10/24 10:55 155 H 12 121/80 92 05/10/24 10:40 138 H 12 128/79 99 05/10/24 10:00 143 H 12 151/108 H 94 05/10/24 07:45 05/10/24 07:45 108 H 05/10/24 07:33 36.6 C 103 H 18 114/85 96 05/10/24 03:53 36.4 C L 90 18 156/77 H 97 05/10/24 02:06 68 137/82 05/10/24 01:51 111 H 148/100 H O2 Del Method O2 Flow Rate 05/10/24 12:33 05/10/24 12:21 Room Air 05/10/24 11:47 Room Air 05/10/24 11:30 Room Air 05/10/24 11:10 Room Air 05/10/24 10:55 Room Air 05/10/24 10:40 Oxymask 8 05/10/24 10:00 Room Air 05/10/24 07:45 Room Air 05/10/24 07:45 05/10/24 07:33 Room Air 05/10/24 03:53 Room Air 05/10/24 02:06 05/10/24 01:51 Laboratory Results 05/10/24 06:47 05/10/24 06:47 PG Care Time/CCT Total # of Minutes Spent Total Time Spent with Patient: Total time spent is greater than 50% in coordination of care (as documented) at patient's floor/unit and/or counseling patient: Coding Level of Care Code 15621 SUB INP/OBS CARE 3/50MIN Diagnoses NSTEMI (non-ST elevated myocardial infarction) I21.4 Acute systolic (congestive) heart failure I50.21 Atrial fibrillation with RVR I48.91 COLBY (acute kidney injury) N17.9 Coronary artery disease involving [place] coronary artery of [place] heart without angina pectoris I25.10 Coronary Disease-Associated Artery/Lesion type: [place] artery [place] vs. transplanted heart: [place] heart Associated angina: without angina History of nephrectomy Z90.5 DM2 (diabetes mellitus, type 2) E11.9 Left atrial thrombus I51.3 (5) CAD (coronary artery disease) Coronary Disease-Associated Artery/Lesion type: [place] artery [place] vs. transplanted heart: [place] heart Associated angina: without angina Qualified Code(s): I25.10 - Atherosclerotic heart disease of [place] coronary artery without angina pectoris
[2024-05-10] MEDS: APIXABAN 2.5 MG TAB PO SCH (13:11)
[2024-05-10] MEDS: dilTIAZem HCL 30 MG TAB PO SCH (13:11)
[2024-05-10] MEDS: DIGOXIN 0.125 MG TAB PO SCH (16:47)
[2024-05-11 06:31] LABS: Calcium 8.5 mg/dl (8.6-10.3); Potassium 4.3 mmol/L (3.5-5.1)
[2024-05-11 06:36] LABS: BUN Creatinine Ratio 29.5 (10-20); Creatinine Clr Calc Pharmacy 27.2 ml/min
--- NOTE | 2024-05-11 12:37 | Hospitalist Progress Note ---
Date of Service May 11, 2024 Assessment & Plan (1) NSTEMI (non-ST elevated myocardial infarction): Plan: Markedly elevated troponins. Cardiac echo reveals regional wall motion abnormalities with reduced ejection fraction in the 25 to 30% range. Telemetry. Cardiology consultation and recommendations appreciated. Left heart catheterization will be performed at a later date (2) Acute systolic (congestive) heart failure: Plan: Present on admission. Good diuretic response with intravenous Lasix 60 mg every 12 hours. Chest x-ray will be repeated again tomorrow, May 12. Improving. Monitor intake and output. Serial labs (3) Atrial fibrillation with RVR: Plan: She is now on diltiazem, metoprolol, and digoxin. Atrial fibrillation rate has improved and is now acceptable. Continue telemetry. Continue to treat underlying CHF. (4) COLBY (acute kidney injury): Plan: Monitor intake and output. Serial labs. Creatinine is now downtrending (5) CAD (coronary artery disease): Plan: Apparently she has had a previous history of coronary stents. 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 Monitor intake and output. Serial labs (7) DM2 (diabetes mellitus, type 2): Plan: ADA diet. Sliding scale coverage as needed. (8) Left atrial thrombus: Plan: Seen on LAMINE done on May 10. This prevented attempt at electrical cardioversion. Heparin drip has been switched over to Eliquis. (9) Pressure sore of left ischium, stage 3: Plan: Local care Plan Anticipate discharge to SNF or IPR sometime next week Admission and Anticipated Discharge Date Admission Date: May 06, 2024 Subjective Alert and oriented. No distress. I informed the patient that she probably would go to an SNF or IPR facility at the time of discharge next week. I spoke to her daughter, Geeta Nowak, by phone and she agrees. Potassium corrected to 4.3. Heparin drip has been switched over to Eliquis. She remains on parenteral Lasix therapy. Will repeat portable chest x-ray again tomorrow, May 12. She remains on room air. Atrial fibrillation ventricular rate is controlled with digoxin, metoprolol, diltiazem. LAMINE done yesterday, May 10, revealed thrombus in the left atrium. Cardioversion was not attempted. Review of Systems 2 Review of Systems: Constitutionalno fever or chills ENTno blurred vision, no double vision, no epistaxis, no sore throat Respiratoryno cough, no wheezing, no shortness of breath Cardiacchest discomfort has resolved. No palpitations, no syncope GIshe is not complaining of any nausea or vomiting at this time. Loose stools prior to admission have apparently resolved. No melena, no hematochezia GUno urinary retention, no urinary incontinence, no dysuria, no hematuria Musculoskeletalno joint pain, no muscle tenderness Skinno bruising, no rashes, no pruritus Neurono isolated weakness, no paresthesia Psychno depression, no anxiety Physical Exam 2 Physical Exam: General-alert and oriented x3, no fever, no chills HEENT-head atraumatic and normocephalic, pupils equal and reactive to light, extraocular muscles intact Neck-no lymphadenopathy or thyromegaly, trachea midline Chest-bibasilar inspiratory rales have improved. No wheezing. No rhonchi Cardiac-irregular rhythm. Controlled rate. Normal S1 and S2 Abdomen-normal bowel sounds, no hepatosplenomegaly Extremities-no cyanosis, clubbing, or edema Neuro-cranial nerves II through XII intact, motor and sensory function within normal limits, strength symmetrical with generalized weakness, no focal deficits Psych-normal affect, normal mood Results & Data Results & Data Vital Signs (Past 12 Hours) Vital Signs Temp Pulse Pulse Resp BP BP Pulse Ox 05/11/24 11:11 36.3 C L 93 H 18 124/54 L 95 05/11/24 07:44 104 H 05/11/24 07:26 36.9 C 58 L 18 112/48 L 92 05/11/24 06:00 108 H 130/85 05/11/24 03:17 36.5 C 115 H 16 138/71 96 O2 Del Method 05/11/24 11:11 Room Air 05/11/24 07:44 05/11/24 07:26 Room Air 05/11/24 06:00 05/11/24 03:17 Room Air Laboratory Results 05/10/24 06:47 05/11/24 05:59 PG Care Time/CCT Total # of Minutes Spent Total Time Spent with Patient: Total time spent is greater than 50% in coordination of care (as documented) at patient's floor/unit and/or counseling patient: Coding Level of Care Code 35614 SUB INP/OBS CARE 2/35MIN Diagnoses NSTEMI (non-ST elevated myocardial infarction) I21.4 Acute systolic (congestive) heart failure I50.21 Atrial fibrillation with RVR I48.91 COLBY (acute kidney injury) N17.9 Coronary artery disease involving [place] coronary artery of [place] heart without angina pectoris I25.10 Coronary Disease-Associated Artery/Lesion type: [place] artery [place] vs. transplanted heart: [place] heart Associated angina: without angina History of nephrectomy Z90.5 DM2 (diabetes mellitus, type 2) E11.9 Left atrial thrombus I51.3 Pressure sore of left ischium, stage 3 L89.323 (5) CAD (coronary artery disease) Coronary Disease-Associated Artery/Lesion type: [place] artery [place] vs. transplanted heart: [place] heart Associated angina: without angina Qualified Code(s): I25.10 - Atherosclerotic heart disease of [place] coronary artery without angina pectoris
--- NOTE | 2024-05-11 13:45 | Cardiology Progress Note ---
Date of Service May 11, 2024 Assessment & Plan (1) Acute systolic (congestive) heart failure: (2) Non-ST elevation NE (NSTEMI): (3) Atrial fibrillation with RVR: (4) CAD (coronary artery disease): (5) Valvular heart disease: (6) Cardiomyopathy: Plan 1. Acute decompensated systolic heart failure: She continues to affect a reasonable diuresis. Renal function appears to be stable. I will continue with her current dose of diuretic monitoring renal function and electrolytes closely. 2. Cardiomyopathy: This is new. It is possible this represents a stress cardiomyopathy based on the appearance, also possibly related to atrial fibrillation and associated high rates over an unclear period of time. She has a history of coronary disease and did have symptoms of chest pain. Biomarkers are notably elevated. Will likely defer coronary angiography at this point for a few weeks given her need for continued systemic anticoagulation. 3. Atrial fibrillation: Improved rate control with the addition of diltiazem. I think we can increase the diltiazem slightly and potentially switch her to long-acting formulations tomorrow. Heparin discontinued in favor of apixaban. 4. NSTEMI: Possibly related to an acute coronary syndrome based on her recent symptoms. However, the biomarker elevation is fairly stable which would be less likely associated with an acute coronary syndrome. In any event we will plan coronary angiography when the renal function stabilizes and her heart failure has improved. 5. Coronary artery disease: Remote history of percutaneous intervention at [facility] in 2007. Unknown vessel. Currently on aspirin and atorvastatin as an outpatient. 6. Valvular heart disease: She has an element of valvular regurgitation that is not severe. Possibly worse currently due to her decompensated heart failure. Rate control improving. At this point I think if the patient has reasonable rate control and she is ambulatory she could be discharged home with follow-up in our clinic. After a few weeks we will consider cardioversion and/or coronary angiography. I will be away from the hospital for the next 2 days. If there are questions regarding her cardiac condition, please contact the on-call [facility] [employer]. Admission and Anticipated Discharge Date Admission Date: May 06, 2024 Subjective This morning the patient claimed feeling well. She is anxious to do more ambulation and get out of bed. She did not report any symptoms of chest pain or breathing difficulty. Review of Systems Review of Systems: Per HPI Physical Exam Physical Exam: She is alert and oriented x3. Mood affect appear normal. She answered all questions appropriately. HEENT: Sclerae are anicteric. Pupils are equal and reactive to light and accommodation. Extraocular movements were intact. Neuro: Cranial nerves intact Lungs: Lungs seem clear but she has difficulty taking a deep breath. She has normal respiratory effort without use of accessory muscles. There is normal pulmonary excursion. Cardiac: Irregular rhythm with elevated heart rate. No murmurs on examination. Chest wall is nontender to palpation. Extremities: Patient has bilateral radial pulses that are equal in intensity. There is no evidence cyanosis or clubbing. There was no evidence of significant peripheral edema bilaterally. Skin: There are no rashes noted on examination today. Results & Data Vital Signs (Past 12 Hours) Vital Signs Temp Pulse Pulse Resp BP BP Pulse Ox 05/11/24 11:11 36.3 C L 93 H 18 124/54 L 95 05/11/24 07:44 104 H 05/11/24 07:26 36.9 C 58 L 18 112/48 L 92 05/11/24 06:00 108 H 130/85 05/11/24 03:17 36.5 C 115 H 16 138/71 96 O2 Del Method 05/11/24 11:11 Room Air 05/11/24 07:44 05/11/24 07:26 Room Air 05/11/24 06:00 05/11/24 03:17 Room Air Laboratory Results Abnormal Lab Results 05/10/24 05/10/24 05/11/24 16:13 19:50 05:59 Sodium 138 Potassium 4.3 Chloride 102 Carbon Dioxide 23 Anion Gap 13 H BUN 33 H Creatinine 1.12 Est Cr Clr Drug Dosing 27.2 eGFR 47.30 BUN/Creatinine Ratio 29.5 H Glucose 207 H POC Glucose 188 H 195 H Calcium 8.5 L 05/11/24 05/11/24 07:26 11:16 Sodium Potassium Chloride Carbon Dioxide Anion Gap BUN Creatinine Est Cr Clr Drug Dosing eGFR BUN/Creatinine Ratio Glucose POC Glucose 208 H 220 H Calcium PG Care Time/CCT Total # of Minutes Spent Total Time Spent with Patient: Total time spent is greater than 50% in coordination of care (as documented) at patient's floor/unit and/or counseling patient: Coding Level of Care Code 62647 SUB INP/OBS CARE 2/35MIN Diagnoses Acute systolic (congestive) heart failure I50.21 Non-ST elevation NE (NSTEMI) I21.4 Atrial fibrillation with RVR I48.91 Coronary artery disease involving [place] coronary artery of [place] heart without angina pectoris I25.10 Coronary Disease-Associated Artery/Lesion type: [place] artery [place] vs. transplanted heart: [place] heart Associated angina: without angina Valvular heart disease I38 Cardiomyopathy I42.9 (4) CAD (coronary artery disease) Coronary Disease-Associated Artery/Lesion type: [place] artery [place] vs. transplanted heart: [place] heart Associated angina: without angina Qualified Code(s): I25.10 - Atherosclerotic heart disease of [place] coronary artery without angina pectoris
[2024-05-12 06:21] LABS: BUN Creatinine Ratio 29.5 (10-20); Calcium 8.7 mg/dl (8.6-10.3); Creatinine Clr Calc Pharmacy 27.1 ml/min; Potassium 4.7 mmol/L (3.5-5.1)
[2024-05-12] MEDS: metFORMIN HCL 500 MG TAB PO SCH (10:01)
--- NOTE | 2024-05-12 11:24 | Hospitalist Progress Note ---
Date of Service May 12, 2024 Assessment & Plan (1) NSTEMI (non-ST elevated myocardial infarction): Plan: Markedly elevated troponins. Cardiac echo reveals regional wall motion abnormalities with reduced ejection fraction in the 25 to 30% range. Telemetry. Cardiology consultation and recommendations appreciated. Left heart catheterization will be performed at a later date (2) Acute systolic (congestive) heart failure: Plan: Present on admission. Good diuretic response with intravenous Lasix. Chest x- ray done today, May 12, looks better. Lasix frequency decreased from twice daily dosing to once daily dosing. Monitor intake and output. Serial labs (3) Atrial fibrillation with RVR: Plan: She is now on diltiazem, metoprolol, and digoxin. Atrial fibrillation rate has improved and is now acceptable. Continue telemetry. Continue to treat underlying CHF. Repeat digoxin level tomorrow, May 13 (4) COLBY (acute kidney injury): Plan: Monitor intake and output. Serial labs. Creatinine is now downtrending (5) CAD (coronary artery disease): Plan: Apparently she has had a previous history of coronary stents. 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 Monitor intake and output. Serial labs (7) DM2 (diabetes mellitus, type 2): Plan: ADA diet. Sliding scale coverage as needed. Metformin has been restarted today, May 12 (8) Left atrial thrombus: Plan: Seen on LAMINE done on May 10. This prevented attempt at electrical cardioversion. Heparin drip has been switched over to Eliquis. (9) Pressure sore of left ischium, stage 3: Plan: Local care Plan Anticipate discharge to SNF or IPR sometime next week Admission and Anticipated Discharge Date Admission Date: May 06, 2024 Subjective Alert and pleasant. No distress. Chest x-ray continues to improve. Parenteral Lasix dosage decreased to once daily. Oral potassium replacement also decreased. Continue daily lab evaluation. Heparin drip has been switched over to Eliquis. Left atrial thrombus was seen on LAMINE and electrical cardioversion was not attempted. Atrial fibrillation rate is currently controlled with digoxin, metoprolol, diltiazem. I spoke to her daughter, Beba Nowak, by phone yesterday. Her metformin has been restarted. Glucose 224 this morning. Review of Systems 2 Review of Systems: Constitutionalno fever or chills ENTno blurred vision, no double vision, no epistaxis, no sore throat Respiratoryno cough, no wheezing, no shortness of breath Cardiacchest discomfort has resolved. No palpitations, no syncope GIshe is not complaining of any nausea or vomiting at this time. Loose stools prior to admission have apparently resolved. No melena, no hematochezia GUno urinary retention, no urinary incontinence, no dysuria, no hematuria Musculoskeletalno joint pain, no muscle tenderness Skinno bruising, no rashes, no pruritus Neurono isolated weakness, no paresthesia Psychno depression, no anxiety Physical Exam 2 Physical Exam: General-alert and oriented x3, no fever, no chills HEENT-head atraumatic and normocephalic, pupils equal and reactive to light, extraocular muscles intact Neck-no lymphadenopathy or thyromegaly, trachea midline Chest-bibasilar inspiratory rales have improved. No wheezing. No rhonchi Cardiac-irregular rhythm. Controlled rate. Normal S1 and S2 Abdomen-normal bowel sounds, no hepatosplenomegaly Extremities-no cyanosis, clubbing, or edema Neuro-cranial nerves II through XII intact, motor and sensory function within normal limits, strength symmetrical with generalized weakness, no focal deficits Psych-normal affect, normal mood Results & Data Results & Data Vital Signs (Past 12 Hours) Vital Signs Temp Pulse Resp BP BP Pulse Ox O2 Del Method 05/12/24 11:15 36.6 C 99 H 19 127/74 95 Room Air 05/12/24 07:04 36.6 C 99 H 17 122/82 95 Room Air 05/12/24 06:11 102 H 118/76 05/12/24 04:09 74 118/72 05/12/24 02:36 36.5 C 89 16 113/78 96 Room Air 05/12/24 00:46 99 H 116/72 Laboratory Results 05/10/24 06:47 05/12/24 05:30 PG Care Time/CCT Total # of Minutes Spent Total Time Spent with Patient: Total time spent is greater than 50% in coordination of care (as documented) at patient's floor/unit and/or counseling patient: Coding Level of Care Code 05897 SUB INP/OBS CARE 3/50MIN Diagnoses NSTEMI (non-ST elevated myocardial infarction) I21.4 Acute systolic (congestive) heart failure I50.21 Atrial fibrillation with RVR I48.91 COLBY (acute kidney injury) N17.9 Coronary artery disease involving [place] coronary artery of [place] heart without angina pectoris I25.10 Coronary Disease-Associated Artery/Lesion type: [place] artery [place] vs. transplanted heart: [place] heart Associated angina: without angina History of nephrectomy Z90.5 DM2 (diabetes mellitus, type 2) E11.9 Left atrial thrombus I51.3 Pressure sore of left ischium, stage 3 L89.323 (5) CAD (coronary artery disease) Coronary Disease-Associated Artery/Lesion type: [place] artery [place] vs. transplanted heart: [place] heart Associated angina: without angina Qualified Code(s): I25.10 - Atherosclerotic heart disease of [place] coronary artery without angina pectoris
--- NOTE | 2024-05-12 11:32 | XRay Report ---
XR chest 1V portable HISTORY: 88 years-old Female CHF acute shortness of breath COMPARISON: 05/10/2024 TECHNIQUE: AP view the chest FINDINGS: Cardiac silhouette is mildly enlarged. Pulmonary vascular congestion with improvement of the pulmonar y edema. No pneumothorax. Small pleural effusions with mild bibasilar densities, also improved from p rior. Unchanged appearance of the right AC joint. The bones appear grossly intact. IMPRESSION: 1. Cardiomegaly with mildly improved pulmonary edema. 2. Decreased size of the layering pleural effusions with improvement of the bibasilar opacities. ACT 112: Negative or not required by law. The above report was generated using voice recognition software. It may contain grammatical, syntax o r spelling errors. Electronically signed by: Salvador Myers M.D. 05/12/2024 11:31 AM
[2024-05-12] MEDS: POTASSIUM CHLORIDE 10 MEQ TABCR PO SCH (20:18)
[2024-05-13 06:37] LABS: BUN Creatinine Ratio 28.9 (10-20); Calcium 8.9 mg/dl (8.6-10.3); Creatinine Clr Calc Pharmacy 25.1 ml/min; Potassium 4.7 mmol/L (3.5-5.1)
[2024-05-13] MEDS ORDERED: FUROSEMIDE 40 MG/4 ML VIAL IV SCH (09:00)
[2024-05-13] MEDS: METOPROLOL TARTRATE 50 MG TAB PO SCH (09:45)
[2024-05-13] MEDS: dilTIAZem HCL 120 MG CAPCR PO SCH (09:46)
[2024-05-13] MEDS: FUROSEMIDE 40 MG TAB PO SCH (09:47)
[2024-05-13] MEDS: POTASSIUM CHLORIDE 10 MEQ TABCR PO SCH (09:48)
--- NOTE | 2024-05-13 10:58 | Hospitalist Progress Note ---
Date of Service May 13, 2024 Assessment & Plan (1) NSTEMI (non-ST elevated myocardial infarction): Plan: Markedly elevated troponins on admission. Cardiac echo reveals regional wall motion abnormalities with reduced ejection fraction in the 25 to 30% range. Telemetry. Cardiology consultation and recommendations appreciated. Left heart catheterization will be performed at a later date (2) Acute systolic (congestive) heart failure: Plan: Present on admission. Good diuretic response with intravenous Lasix. Lasix switched to oral dosing today, May 13. Chest x-ray will be repeated again tomorrow, May 14. Monitor intake and output. Serial labs (3) Atrial fibrillation with RVR: Plan: She is now on diltiazem, metoprolol, and digoxin. Atrial fibrillation rate has improved and is now acceptable. Continue telemetry. Continue to treat underlying CHF. Diltiazem switched to CD formulation and metoprolol to twice daily dosing today, May 13. (4) COLBY (acute kidney injury): Plan: Monitor intake and output. Serial labs. Creatinine is now normal and stable. (5) CAD (coronary artery disease): Plan: Apparently she has had a previous history of coronary stents. 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 Monitor intake and output. Serial labs (7) DM2 (diabetes mellitus, type 2): Plan: ADA diet. Sliding scale coverage as needed. Metformin was restarted on May 12 (8) Left atrial thrombus: Plan: Seen on LAMINE done on May 10. This prevented attempt at electrical cardioversion. Heparin drip has been switched over to Eliquis. (9) Pressure sore of left ischium, stage 3: Plan: Local care Plan [facility]erral to [facility] pending. Admission and Anticipated Discharge Date Admission Date: May 06, 2024 Subjective Alert and oriented. No distress. Potassium is 4.7 and dosing frequency decreased from twice daily to once daily. Metoprolol adjusted to 50 mg twice daily dosing. Diltiazem switched to CD100 20 mg formulation once daily. Will repeat chest x-ray again tomorrow, May 24. [facility] referral is pending. Glucose 230 this morning. Metformin was restarted yesterday, May 12 Review of Systems 2 Review of Systems: Constitutionalno fever or chills ENTno blurred vision, no double vision, no epistaxis, no sore throat Respiratoryno cough, no wheezing, no shortness of breath Cardiacdenies chest discomfort . No palpitations, no syncope GIshe is not complaining of any nausea or vomiting at this time. Loose stools prior to admission have apparently resolved. No melena, no hematochezia GUno urinary retention, no urinary incontinence, no dysuria, no hematuria Musculoskeletalno joint pain, no muscle tenderness Skinno bruising, no rashes, no pruritus Neurono isolated weakness, no paresthesia Psychno depression, no anxiety Physical Exam 2 Physical Exam: General-alert and oriented x3, no fever, no chills HEENT-head atraumatic and normocephalic, pupils equal and reactive to light, extraocular muscles intact Neck-no lymphadenopathy or thyromegaly, trachea midline Chest-bibasilar inspiratory rales have improved. No wheezing. No rhonchi Cardiac-irregular rhythm. Controlled rate. Normal S1 and S2 Abdomen-normal bowel sounds, no hepatosplenomegaly Extremities-no cyanosis, clubbing, or edema Neuro-cranial nerves II through XII intact, motor and sensory function within normal limits, strength symmetrical with generalized weakness, no focal deficits Psych-normal affect, normal mood Results & Data Results & Data Vital Signs (Past 12 Hours) Vital Signs Temp Pulse Pulse Resp BP Pulse Ox O2 Del Method 05/13/24 07:31 36.3 C L 103 H 18 120/78 95 Room Air 05/13/24 02:58 36.4 C L 89 16 128/83 95 Room Air 05/13/24 00:12 64 Laboratory Results 05/10/24 06:47 05/13/24 05:39 PG Care Time/CCT Total # of Minutes Spent Total Time Spent with Patient: Total time spent is greater than 50% in coordination of care (as documented) at patient's floor/unit and/or counseling patient: Coding Level of Care Code 55351 SUB INP/OBS CARE 3/50MIN Diagnoses NSTEMI (non-ST elevated myocardial infarction) I21.4 Acute systolic (congestive) heart failure I50.21 Atrial fibrillation with RVR I48.91 COLBY (acute kidney injury) N17.9 Coronary artery disease involving [place] coronary artery of [place] heart without angina pectoris I25.10 Coronary Disease-Associated Artery/Lesion type: [place] artery [place] vs. transplanted heart: [place] heart Associated angina: without angina History of nephrectomy Z90.5 DM2 (diabetes mellitus, type 2) E11.9 Left atrial thrombus I51.3 Pressure sore of left ischium, stage 3 L89.323 (5) CAD (coronary artery disease) Coronary Disease-Associated Artery/Lesion type: [place] artery [place] vs. transplanted heart: [place] heart Associated angina: without angina Qualified Code(s): I25.10 - Atherosclerotic heart disease of [place] coronary artery without angina pectoris
[2024-05-14] MEDS: CHLORASEPTIC (PHENOL) 1.4% SOLN 180 ML BTL MT PRN (06:34)
[2024-05-14 07:13] LABS: BUN Creatinine Ratio 31.1 (10-20); Calcium 8.8 mg/dl (8.6-10.3); Creatinine Clr Calc Pharmacy 24.7 ml/min; Potassium 4.1 mmol/L (3.5-5.1)
--- NOTE | 2024-05-14 15:31 | XRay Report ---
EXAM: XR chest 1V portable CLINICAL HISTORY: chf tgb/[id number] TECHNIQUE: An X-ray image of the chest is obtained in AP projection. COMPARISON: Compared with prior chest x-ray from 05/12/2024. FINDINGS: There is mild cardiomegaly. Mild left pleural effusion progression. Showing right pleural effusion interval regression. No new infiltrates or consolidation. here is mild cardiomegaly. Atherosclerotic aortic calcification was seen. No mediastinal widening. Degenerative changes were noted in the thoracic spine and bilateral shoulder joint. IMPRESSION: 1. Mild left pleural effusion progression. 2. Showing right pleural effusion interval regression. 3. No other gross interval change was noted. Electronically signed by Nadir Espinoza 05-14-2024 3:31 PM
--- NOTE | 2024-05-14 15:34 | Hospitalist Progress Note ---
Date of Service May 14, 2024 Assessment & Plan (1) NSTEMI (non-ST elevated myocardial infarction): Plan: Markedly elevated troponins on admission. Cardiac echo reveals regional wall motion abnormalities with reduced ejection fraction in the 25 to 30% range. Telemetry. Cardiology consultation and recommendations appreciated. Left heart catheterization will be performed at a later date. Patient will need to follow- up with cardiology outpatient (2) Acute systolic (congestive) heart failure: Plan: Present on admission. Good diuretic response with intravenous Lasix. Lasix switched to oral dosing today, May 13. Repeat chest x-ray today 05/14 shows improvement monitor intake and output. Kidney function stable May consider starting on lisinopril and Imdur in near future (3) Atrial fibrillation with RVR: Plan: She is now on diltiazem, metoprolol, and digoxin. Atrial fibrillation rate has improved and is now acceptable. Continue telemetry. Continue to treat underlying CHF. Diltiazem switched to CD formulation and metoprolol to twice daily dosing today, May 13. (4) COLBY (acute kidney injury): Plan: Monitor intake and output. Serial labs. Creatinine is now normal and stable. Lisinopril on hold due to being diuresed. May consider resuming soon (5) CAD (coronary artery disease): Plan: Apparently she has had a previous history of coronary stents. 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 Monitor intake and output. Serial labs (7) DM2 (diabetes mellitus, type 2): Plan: ADA diet. Sliding scale coverage as needed. Metformin was restarted on May 12 (8) Left atrial thrombus: Plan: Seen on LAMINE done on May 10. This prevented attempt at electrical cardioversion. Heparin drip has been switched over to Eliquis. (9) Pressure sore of left ischium, stage 3: Plan: Local care Plan Referral to [facility] pending. Admission and Anticipated Discharge Date Admission Date: May 06, 2024 Subjective Patient says she feels weak in general. Otherwise no major concerns. Denies chest pain or shortness of breath. Review of Systems Review of Systems: All systems reviewed & are unremarkable except as noted in Subjective Physical Exam Physical Exam: General: Awake, conversant Heart: S1, S2/regular rate and rhythm, no murmur rubs or gallops Lungs: Clear to auscultation bilaterally. Normal effort Abdomen: Soft/nontender/nondistended. No hepatosplenomegaly Extremities: No clubbing/cyanosis. No edema Behavior: Appropriate, cooperative Results & Data Results & Data Vital Signs (Past 12 Hours) Vital Signs Temp Pulse Resp BP BP Pulse Ox O2 Del Method 05/14/24 11:49 97 05/14/24 10:56 36.6 C 90 18 125/86 91 Room Air 05/14/24 07:08 36.6 C 106 H 17 122/56 L 96 Room Air PG Care Time/CCT Total # of Minutes Spent Total Time Spent with Patient: Total time spent is greater than 50% in coordination of care (as documented) at patient's floor/unit and/or counseling patient: Coding Level of Care Code 15767 SUB INP/OBS CARE 2/35MIN Diagnoses NSTEMI (non-ST elevated myocardial infarction) I21.4 Acute systolic (congestive) heart failure I50.21 Atrial fibrillation with RVR I48.91 COLBY (acute kidney injury) N17.9 Coronary artery disease involving [place] coronary artery of [place] heart without angina pectoris I25.10 Coronary Disease-Associated Artery/Lesion type: [place] artery [place] vs. transplanted heart: [place] heart Associated angina: without angina History of nephrectomy Z90.5 DM2 (diabetes mellitus, type 2) E11.9 Left atrial thrombus I51.3 Pressure sore of left ischium, stage 3 L89.323 (5) CAD (coronary artery disease) Coronary Disease-Associated Artery/Lesion type: [place] artery [place] vs. transplanted heart: [place] heart Associated angina: without angina Qualified Code(s): I25.10 - Atherosclerotic heart disease of [place] coronary artery without angina pectoris
[2024-05-14] MEDS: BENZOCAINE 20% (ORAJEL) 11.9 GM TUBE MT PRN (21:27)
[2024-05-15 07:00] LABS: BUN Creatinine Ratio 31.5 (10-20); Creatinine Clr Calc Pharmacy 23.6 ml/min; Potassium 4.4 mmol/L (3.5-5.1)
--- NOTE | 2024-05-15 14:36 | Hospitalist Progress Note ---
Date of Service May 15, 2024 Assessment & Plan (1) NSTEMI (non-ST elevated myocardial infarction): Plan: Markedly elevated troponins on admission. Cardiac echo reveals regional wall motion abnormalities with reduced ejection fraction in the 25 to 30% range. Telemetry. Cardiology consultation and recommendations appreciated. Left heart catheterization will be performed at a later date. Patient will need to follow- up with cardiology outpatient (2) Acute systolic (congestive) heart failure: Plan: Present on admission. Good diuretic response with intravenous Lasix. Lasix switched to oral dosing May 13. Repeat chest x-ray 05/14 shows improvement monitor intake and output. Kidney function stable May consider starting on lisinopril and Imdur in near future (3) Atrial fibrillation with RVR: Plan: She is now on diltiazem, metoprolol, and digoxin. Atrial fibrillation rate has improved and is now acceptable. Continue telemetry. Continue to treat underlying CHF. Diltiazem switched to CD formulation and metoprolol to twice daily dosing today, May 13. (4) COLBY (acute kidney injury): Plan: Monitor intake and output. Serial labs. Creatinine is now normal and stable. Lisinopril on hold due to being diuresed. May consider resuming soon (5) CAD (coronary artery disease): Plan: Apparently she has had a previous history of coronary stents. 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 Monitor intake and output. Serial labs (7) DM2 (diabetes mellitus, type 2): Plan: ADA diet. Sliding scale coverage as needed. Metformin was restarted on May 12 (8) Left atrial thrombus: Plan: Seen on LAMINE done on May 10. This prevented attempt at electrical cardioversion. Heparin drip has been switched over to Eliquis. (9) Pressure sore of left ischium, stage 3: Plan: Local care Plan Referral to [facility] pending. Admission and Anticipated Discharge Date Admission Date: May 06, 2024 Subjective Patient was seen and examined at 10:50 AM. She denied any new complaints. Denied chest pain, shortness of breath. Complains of feeling weak in general. Review of Systems Review of Systems: All systems reviewed & are unremarkable except as noted in Subjective Physical Exam Physical Exam: General: Awake, conversant Heart: S1, S2/regular rate and rhythm, no murmur rubs or gallops Lungs: Clear to auscultation bilaterally. Normal effort Abdomen: Soft/nontender/nondistended. No hepatosplenomegaly Extremities: No clubbing/cyanosis. No edema Behavior: Appropriate, cooperative Results & Data Results & Data Vital Signs (Past 12 Hours) Vital Signs Temp Pulse Pulse Pulse Resp BP Pulse Ox 05/15/24 13:00 82 05/15/24 12:00 36.3 C L 72 20 98/66 L 94 05/15/24 08:00 05/15/24 08:00 92 H 05/15/24 08:00 37 C 102 H 20 127/71 95 05/15/24 04:09 36.6 C 90 17 97/66 L 93 O2 Del Method 05/15/24 13:00 05/15/24 12:00 Room Air 05/15/24 08:00 Room Air 05/15/24 08:00 05/15/24 08:00 Room Air 05/15/24 04:09 Room Air Laboratory Results Abnormal lab results 05/14/24 05/14/24 05/15/24 Range/Units 16:06 19:48 06:12 BUN 40 H (6-23) mg/dl Creatinine 1.27 H (0.6-1.2) mg/dl BUN/Creatinine Ratio 31.5 H (10-20) Glucose 198 H (70-99(Fasting)) mg/dl POC Glucose 186 H 161 H (70-99) mg/dl 05/15/24 05/15/24 Range/Units 07:45 11:08 BUN (6-23) mg/dl Creatinine (0.6-1.2) mg/dl BUN/Creatinine Ratio (10-20) Glucose (70-99(Fasting)) mg/dl POC Glucose 195 H 165 H (70-99) mg/dl PG Care Time/CCT Total # of Minutes Spent Total Time Spent with Patient: Total time spent is greater than 50% in coordination of care (as documented) at patient's floor/unit and/or counseling patient: Coding Level of Care Code 46034 SUB INP/OBS CARE 2/35MIN Diagnoses NSTEMI (non-ST elevated myocardial infarction) I21.4 Acute systolic (congestive) heart failure I50.21 Atrial fibrillation with RVR I48.91 COLBY (acute kidney injury) N17.9 Coronary artery disease involving [place] coronary artery of [place] heart without angina pectoris I25.10 Coronary Disease-Associated Artery/Lesion type: [place] artery [place] vs. transplanted heart: [place] heart Associated angina: without angina History of nephrectomy Z90.5 DM2 (diabetes mellitus, type 2) E11.9 Left atrial thrombus I51.3 Pressure sore of left ischium, stage 3 L89.323 (5) CAD (coronary artery disease) Coronary Disease-Associated Artery/Lesion type: [place] artery [place] vs. transplanted heart: [place] heart Associated angina: without angina Qualified Code(s): I25.10 - Atherosclerotic heart disease of [place] coronary artery without angina pectoris
[2024-05-16 07:22] LABS: Calcium 8.9 mg/dl (8.6-10.3); Creatinine Clr Calc Pharmacy 23.3 ml/min; Potassium 4.6 mmol/L (3.5-5.1)
--- NOTE | 2024-05-16 14:59 | Hospitalist Progress Note ---
Date of Service May 16, 2024 Assessment & Plan (1) NSTEMI (non-ST elevated myocardial infarction): Plan: Markedly elevated troponins on admission. Cardiac echo reveals regional wall motion abnormalities with reduced ejection fraction in the 25 to 30% range. Telemetry. Cardiology consultation and recommendations appreciated. Left heart catheterization will be performed at a later date. Patient will need to follow- up with cardiology outpatient (2) Acute systolic (congestive) heart failure: Plan: Present on admission. Good diuretic response with intravenous Lasix. Lasix switched to oral dosing May 13. Repeat chest x-ray 05/14 shows improvement monitor intake and output. Kidney function stable May consider starting on lisinopril and Imdur in near future (3) Atrial fibrillation with RVR: Plan: She is now on diltiazem, metoprolol, and digoxin. Atrial fibrillation rate has improved and is now acceptable. Continue telemetry. Continue to treat underlying CHF. Diltiazem switched to CD formulation and metoprolol to twice daily dosing today, May 13. (4) COLBY (acute kidney injury): Plan: Monitor intake and output. Serial labs. Creatinine is now normal and stable. Lisinopril on hold due to being diuresed. May consider resuming soon (5) CAD (coronary artery disease): Plan: Apparently she has had a previous history of coronary stents. 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 Monitor intake and output. Serial labs (7) DM2 (diabetes mellitus, type 2): Plan: ADA diet. Sliding scale coverage as needed. Discontinue metformin due to low GFR. She may need to be started on glipizide upon discharge (8) Left atrial thrombus: Plan: Seen on LAMINE done on May 10. This prevented attempt at electrical cardioversion. Heparin drip has been switched over to Eliquis. (9) Pressure sore of left ischium, stage 3: Plan: Local care Plan Referral to [facility] pending. Waiting for callback from [employer] to complete the peer to peer Admission and Anticipated Discharge Date Admission Date: May 06, 2024 Subjective Patient was seen and examined at 1 PM. She has no new complaints. Nurse has no new concerns. I was asked to do a peer to peer with the insurance Interview [employer] regarding approval for inpatient rehab. I called this morning at 9:30 AM, spoke to a staff, gave my callback number and and still waiting for a call back. The counseling case manager was informed about the wait. Review of Systems Review of Systems: All systems reviewed & are unremarkable except as noted in Subjective Physical Exam Physical Exam: General: Awake, conversant Heart: S1, S2/regular rate and rhythm, no murmur rubs or gallops Lungs: Clear to auscultation bilaterally. Normal effort Abdomen: Soft/nontender/nondistended. No hepatosplenomegaly Extremities: No clubbing/cyanosis. No edema Behavior: Appropriate, cooperative Results & Data Results & Data Vital Signs (Past 12 Hours) Vital Signs Temp Pulse Pulse Resp BP Pulse Ox O2 Del Method 05/16/24 11:34 37.3 C 72 18 111/75 94 Room Air 05/16/24 10:42 36.3 C L 78 16 124/74 97 Room Air 05/16/24 07:43 80 05/16/24 07:39 36.3 C L 101 H 20 128/80 97 Room Air PG Care Time/CCT Total # of Minutes Spent Total Time Spent with Patient: Total time spent is greater than 50% in coordination of care (as documented) at patient's floor/unit and/or counseling patient: Coding Level of Care Code 88496 SUB INP/OBS CARE 2/35MIN Diagnoses NSTEMI (non-ST elevated myocardial infarction) I21.4 Acute systolic (congestive) heart failure I50.21 Atrial fibrillation with RVR I48.91 COLBY (acute kidney injury) N17.9 Coronary artery disease involving [place] coronary artery of [place] heart without angina pectoris I25.10 Coronary Disease-Associated Artery/Lesion type: [place] artery [place] vs. transplanted heart: [place] heart Associated angina: without angina History of nephrectomy Z90.5 DM2 (diabetes mellitus, type 2) E11.9 Left atrial thrombus I51.3 Pressure sore of left ischium, stage 3 L89.323 (5) CAD (coronary artery disease) Coronary Disease-Associated Artery/Lesion type: [place] artery [place] vs. transplanted heart: [place] heart Associated angina: without angina Qualified Code(s): I25.10 - Atherosclerotic heart disease of [place] coronary artery without angina pectoris
[2024-05-16] MEDS: LOPERAMIDE HCL 2 MG CAP PO STA (17:26)
[2024-05-17 09:23] LABS: BUN Creatinine Ratio 28.9 (10-20); Calcium 9.1 mg/dl (8.6-10.3); Creatinine Clr Calc Pharmacy 22.6 ml/min; Potassium 4.4 mmol/L (3.5-5.1)
--- NOTE | 2024-05-17 12:47 | Hospitalist Progress Note ---
Date of Service May 17, 2024 Assessment & Plan (1) NSTEMI (non-ST elevated myocardial infarction): Plan: Markedly elevated troponins on admission. Cardiac echo reveals regional wall motion abnormalities with reduced ejection fraction in the 25 to 30% range. Telemetry. Cardiology consultation and recommendations appreciated. Left heart catheterization will be performed at a later date. Patient will need to follow- up with cardiology outpatient (2) Acute systolic (congestive) heart failure: Plan: Present on admission. Good diuretic response with intravenous Lasix. Lasix switched to oral dosing May 13. Repeat chest x-ray 05/14 shows improvement monitor intake and output. Creatinine slowly rising. Will hold Lasix dose tomorrow May consider starting on lisinopril and Imdur in near future (3) Atrial fibrillation with RVR: Plan: She is now on diltiazem, metoprolol, and digoxin. Atrial fibrillation rate has improved and is now acceptable. Continue telemetry. Continue to treat underlying CHF. Diltiazem switched to CD formulation and metoprolol to twice daily dosing today, May 13. (4) COLBY (acute kidney injury): Plan: Monitor intake and output. Serial labs. Creatinine slowly rising Lisinopril on hold due to being diuresed. May consider resuming soon Hold home Lasix dose tomorrow (5) CAD (coronary artery disease): Plan: Apparently she has had a previous history of coronary stents. 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 Monitor intake and output. Serial labs (7) DM2 (diabetes mellitus, type 2): Plan: ADA diet. Sliding scale coverage as needed. Discontinue metformin due to low GFR. She may need to be started on glipizide upon discharge (8) Left atrial thrombus: Plan: Seen on LAMINE done on May 10. This prevented attempt at electrical cardioversion. Heparin drip has been switched over to Eliquis. (9) Pressure sore of left ischium, stage 3: Plan: Local care Plan Completed peer to peer with insurance. [employer] approved. Per case liner, [facility] does not have a bed until tomorrow. Admission and Anticipated Discharge Date Admission Date: May 06, 2024 Subjective Patient was seen and examined at 11:30 AM. She denied any new complaints. No chest pain or shortness of breath. Still complains of feeling weak in general. Review of Systems Review of Systems: All systems reviewed & are unremarkable except as noted in Subjective Physical Exam Physical Exam: General: Awake, conversant Heart: S1, S2/regular rate and rhythm, no murmur rubs or gallops Lungs: Clear to auscultation bilaterally. Normal effort Abdomen: Soft/nontender/nondistended. No hepatosplenomegaly Extremities: No clubbing/cyanosis. No edema Behavior: Appropriate, cooperative Results & Data Results & Data Vital Signs (Past 12 Hours) Vital Signs Temp Pulse Pulse Resp BP BP Pulse Ox 05/17/24 11:36 36.2 C L 97 H 18 110/61 95 05/17/24 08:05 102 H 05/17/24 07:37 36.8 C 85 15 112/76 95 05/17/24 03:29 36.2 C L 79 16 117/66 96 05/17/24 01:04 84 O2 Del Method 05/17/24 11:36 Room Air 05/17/24 08:05 05/17/24 07:37 Room Air 05/17/24 03:29 Room Air 05/17/24 01:04 PG Care Time/CCT Total # of Minutes Spent Total Time Spent with Patient: Total time spent is greater than 50% in coordination of care (as documented) at patient's floor/unit and/or counseling patient: Coding Level of Care Code 91971 SUB INP/OBS CARE 2/35MIN Diagnoses NSTEMI (non-ST elevated myocardial infarction) I21.4 Acute systolic (congestive) heart failure I50.21 Atrial fibrillation with RVR I48.91 COLBY (acute kidney injury) N17.9 Coronary artery disease involving [place] coronary artery of [place] heart without angina pectoris I25.10 Coronary Disease-Associated Artery/Lesion type: [place] artery [place] vs. transplanted heart: [place] heart Associated angina: without angina History of nephrectomy Z90.5 DM2 (diabetes mellitus, type 2) E11.9 Left atrial thrombus I51.3 Pressure sore of left ischium, stage 3 L89.323 (5) CAD (coronary artery disease) Coronary Disease-Associated Artery/Lesion type: [place] artery [place] vs. transplanted heart: [place] heart Associated angina: without angina Qualified Code(s): I25.10 - Atherosclerotic heart disease of [place] coronary artery without angina pectoris
[2024-05-17] MEDS ORDERED: BENZOCAINE 20% (ORAJEL) 11.9 GM TUBE MT PRN (13:20)
[2024-05-18 06:36] LABS: BUN Creatinine Ratio 31.3 (10-20); Calcium 9.1 mg/dl (8.6-10.3); Creatinine Clr Calc Pharmacy 23.9 ml/min; Potassium 4.1 mmol/L (3.5-5.1)
--- NOTE | 2024-05-18 12:19 | Discharge Summary ---
Date of Service May 18, 2024 Admission HPI Per Admitting Provider This is an 88-year-old female with medical history significant for CAD (with stents in the past), hyperlipidemia, hypertension, diabetes type 2, and GERD possibly who is brought in from home with complaints of nausea, vomiting, diarrhea as well as some chest pressure and shortness of breath. Patient is not an optimal historian, but does complain of GI symptoms. Does state that she has been having some chest discomfort, which is particularly notable yesterday. Family notes that she has been feeling sick for about 2 days or so. As noted she has been nauseated and vomiting (NB/NB), and very weak. She has complained of some chest discomfort before to. She has not had any fevers or chills. Has not really complained of palpitations. Has not been diaphoretic. She has not had any cough or specifically respiratory complaints. Has not had any dysuria or other urinary complaints. That is essentially the extent of the history that we can get from her and from her family. As noted she does have CAD, but her family mentions that her stenting was probably more than 10 years ago. Admission Exam Per Admitting Provider Constitutional: + ill appearing; no acute distress and n ot frail appearing Eyes: PERRL, conjunctivae normal, anicteric sclerae ENMT: external ear and nose normal, oropharynx normal Neck: trachea midline, no thyromegaly Respiratory: normal respiratory effort, lungs clear to auscultation Cardiovascular: Rate/Rhythm: + tachycardic and + irregularly irregular Gastrointestinal (Abdomen): normal bowel sounds, soft, nontender, no hepatosplenomegaly Musculoskeletal: no cyanosis or clubbing, extremities motor strength 5/5 Skin: no rashes, warm and dry Principal Diagnosis Non-ST elevation PR with markedly elevated troponins with cardiomyopathy. Cardiology recommends catheterization be performed at a later date outpatient Acute systolic congestive heart failure with cardiomyopathy (ischemia workup will be pursued outpatient). On Lasix A-fib with rapid ventricular rhythm. On diltiazem, metoprolol, digoxin and Eliquis Left atrial thrombus. On Eliquis Acute kidney injury Solitary kidney from previous right nephrectomy Stage III pressure sore of left ischium Diabetes mellitus type 2 Coronary artery disease with history of previous stents Discharge Exam General: Awake, conversant Heart: S1, S2/regular rate and rhythm, no murmur rubs or gallops Lungs: Clear to auscultation bilaterally. Normal effort Abdomen: Soft/nontender/nondistended. No hepatosplenomegaly Extremities: No clubbing/cyanosis. No edema Behavior: Appropriate, cooperative Discharge Data Allergies Allergy/AdvReac Type Severity Reaction Status Date / Time No Known Allergies Allergy Verified 05/06/24 20:24 Consultations 05/06/24 20:40 ED Decision to Admit Stat 05/07/24 20:00 Consult Cardiology Routine Procedures Performed Operation Date: 05/10/24 10:00 Actual Procedures p Echo Transesophageal - Colten Christianson MD s Echo Color Flow - Colten Christianson MD s Doppler Echo Limited/Follow Up - Colten Christianson MD Ordered Studies 05/06/24 19:21 CT abd pelvis wo con Stat Diabetes Follow up Diabetes Follow-up Needed for HgbA1c >9% Hospital Course (1) NSTEMI (non-ST elevated myocardial infarction): Markedly elevated troponins on admission. Cardiac echo reveals regional wall motion abnormalities with reduced ejection fraction in the 25 to 30% range. Telemetry. Cardiology consultation and recommendations appreciated. Left heart catheterization will be performed at a later date. Patient will need to follow- up with cardiology outpatient (2) Acute systolic (congestive) heart failure: Present on admission. Good diuretic response with intravenous Lasix. Lasix switched to oral dosing May 13. Repeat chest x-ray 05/14 shows improvement monitor intake and output. Creatinine slowly rising. Lasix was held this morning Patient is being discharged on daily Lasix but her renal function will need to be monitored outpatient as she only has a solitary kidney May consider starting on lisinopril and Imdur in near future On metoprolol tartrate for rate control (3) Atrial fibrillation with RVR: She is now on diltiazem, metoprolol, and digoxin. Atrial fibrillation rate has improved and is now acceptable. Continue telemetry. Continue to treat underlying CHF. Diltiazem switched to CD formulation and metoprolol to twice daily dosing, May 13. (4) COLBY (acute kidney injury): Improved but creatinine will need to be watched closely since she has a solitary kidney Lisinopril on hold. May consider resuming soon when creatinine is deemed to be stable (5) CAD (coronary artery disease): Apparently she has had a previous history of coronary stents. 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 Monitor renal function (7) DM2 (diabetes mellitus, type 2): ADA diet. Sliding scale coverage as needed. Discontinue metformin due to low GFR. She may need to be started on glipizide upon discharge (8) Left atrial thrombus: Seen on LAMINE done on May 10. This prevented attempt at electrical cardioversion. Heparin drip has been switched over to Eliquis. (9) Pressure sore of left ischium, stage 3: Local care Plan [facility] to [facility] Total Time Total Time Spent Total Time Spent (In Minutes): 35 Discharge Plan Discharge Items Patient Disposition: Transfer Inpatient Rehab Fac Reason For Visit: NSTEMI, A FIB, ?SEPSIS Discharge Diagnosis: Non-ST elevation PR with markedly elevated troponins cardiomyopathy. Cardiology recommends catheterization be performed at a later date outpatient Acute systolic congestive heart failure with cardiomyopathy (ischemia workup will be pursued outpatient). On Lasix A-fib with rapid ventricular rhythm. On diltiazem, metoprolol, digoxin and Eliquis Left atrial thrombus. On Eliquis Acute kidney injury Solitary kidney from previous right nephrectomy Stage III pressure sore of left ischium Diabetes mellitus type 2 Coronary artery disease with history of previous stents Activity: As commented below Activity Comment: Per PT/OT recommendations Non-emergency contact: Primary Care Provider Call non-emergency contact if: you have any medication questions and your symptoms worsen Follow-up/Referrals: Colten Christianson MD [Physician] - 05/24/24 11:30 am (appointment with Lindsay Duff PA-C) Cindi Henry MD [Primary Care Provider] - Diet: Carb Consistent or DM2, Heart Healthy and Low Sodium (2gm) Addtl Attending Provider Instructions: Advised to follow-up with PCP in 1 week Advised to follow-up with cardiology in 2 weeks Pending Studies at Discharge: No Stand-Alone Forms: My [employer], Smoking Cessation Skilled Items Patient informed of condition?: Yes DNR: No Discharge Level of Care: Acute rehab Communicable Disease: No Discharge Prognosis: Stable Lines: None Urinary Catheter: No Medications and DC Order Prescriptions: New Eliquis 2.5 mg Tablet 2.5 mg PO BID 30 Days Qty: 60 0RF digoxin [Digitek] 125 mcg (0.125 mg) Tablet 0.125 mg PO DAILY@1600 30 Days Qty: 30 0RF diltiazem HCl [Cardizem CD] 120 mg Capsule,Extended Release 24hr 120 mg PO QAM 30 Days Qty: 30 0RF metoprolol tartrate 50 mg Tablet 50 mg PO BID 30 Days Qty: 60 0RF furosemide 40 mg Tablet 40 mg PO QAM 30 Days Qty: 30 0RF potassium chloride 10 mEq Tablet,Er Particles/Crystals 10 meq PO DAILY 30 Days Qty: 30 0RF Continued atorvastatin 40 mg tablet 40 mg PO DAILY metformin 500 mg tablet 500 mg PO BIDM meclizine 12.5 mg tablet 12.5 mg PO TID PRN (Reason: Dizziness) aspirin 81 mg Tablet,Delayed Release (Dr/Ec) 81 mg PO DAILY sertraline 25 mg tablet 25 mg PO DAILY PRN (Reason: Nerves) omeprazole 20 mg capsule,delayed release(DR/EC) 20 mg PO DAILY diclofenac sodium 1 % gel 2 g TOPICAL QID PRN (Reason: Pain) vitamins A,C,F-kpdo-gsyazx 7,160 unit- 113 mg-100 unit Tablet 2 tab PO BID tolterodine 2 mg capsule,extended release 24hr 2 mg PO DAILY Discontinued isosorbide mononitrate 30 mg tablet extended release 24 hr 90 mg PO DAILY lisinopril 5 mg tablet 5 mg PO DAILY Discharge Orders: Discharge Order- CHF (Routine); Ordered 05/18/24 Ordered By: Percy Flor Admission Data Admit Date/Time: 05/06/24 20:49 Attending Provider: Percy Flor Admit Provider: Darryl Nguyen Primary Care Provider: Cindi Henry Other Providers: Darryl Nguyen; Colten Christianson; [facility]; [place]
[2024-05-18 15:09] VITALS: BP 98/60; PULSE 88; RESP 16; TEMP 97.9; O2SAT 97
== END 2024-05-18 15:32 | DRG 280 ==
LOC: ED 17:58 → 2S 20:49 → SUATTDRO 20:49 → 2S 21:45
DX: I51.81 Takotsubo syndrome; I42.9 Cardiomyopathy, unspecified; Z95.5 Presence of coronary angioplasty implant and graft; Z79.82 Long term (current) use of aspirin; R19.7 Diarrhea, unspecified; I48.91 Unspecified atrial fibrillation; I50.21 Acute systolic (congestive) heart failure; E11.9 Type 2 diabetes mellitus without complications; R74.01 Elevation of levels of liver transaminase levels; R57.8 Other shock; L89.323 Pressure ulcer of left buttock, stage 3; I25.10 Atherosclerotic heart disease of native coronary artery without angina pectoris; Z90.5 Acquired absence of kidney; E87.21 Acute metabolic acidosis; N17.9 Acute kidney failure, unspecified; I21.4 Non-ST elevation (NSTEMI) myocardial infarction; Z79.84 Long term (current) use of oral hypoglycemic drugs

== ENCOUNTER 2024-08-13 10:39 | Inpatient (IN) ==
[2024-08-13 11:28] LABS: Basophils # (auto) 0.05 K/uL (0.00-0.20); Basophils % (auto) 0.4 %; Eosinophils # (auto) 0.12 K/uL (0.00-0.50); Hematocrit (blood only) 39.7 % (37.0-47.0); Hemoglobin 12.8 g/dl (12.0-16.0); Immature Granulocytes # (auto) 0.22 K/uL (0.01-0.20); Immature Granulocytes % (auto) 1.8 %; Lymphocytes # (auto) 1.95 K/uL (1.20-3.40); Lymphocytes % (auto) 16.3 %; Mean Corpuscular Hemoglobin 28.6 pg (25.0-34.0); Mean Corpuscular Hgb Conc 32.2 g/dL (32.0-36.0); Mean Corpuscular Volume 88.6 fL (80.0-100.0); Mean Platelet Volume 10.1 fL (9.4-12.4); Monocytes # (auto) 0.87 K/uL (0.11-0.59); Monocytes % (auto) 7.3 %; Neutrophils # (auto) 8.72 K/uL (1.40-6.50); Neutrophils % (auto) 73.2 %; Platelet Count 369 K/uL (130-400); RDW Coefficient of Variation 15.6 % (11.5-14.5); Red Blood Count 4.48 M/uL (4.20-5.40); White Blood Count 11.93 K/ul (4.8-10.8)
[2024-08-13] MEDS: SODIUM CHLORIDE 0.9% 500 ML IV ONE ×3 (11:30→13:10)
--- NOTE | 2024-08-13 11:41 | Emergency Department Note ---
Impression & Plan Cellulitis of leg without foot, right, Weakness, Fall ED Provider Note NAME: PRIMO SAN AGE: 88 SEX: F : 1935 ARRIVES VIA: Ambulance INFORMANT: Patient, ED PROVIDER(S): Franck Bran DO CHIEF COMPLAINT: Heel pain HPI: The patient is a an 88-year-old female who presented to the emergency department with her daughter for an evaluation of heel pain. The patient lives at home with family. She did have a fall out of bed landing onto her right side. She had no injuries but the daughter started noticing that she has been more confused not able to ambulate and having right sided pain. The patient also has a heel ulcer. She has a history of diabetes so the daughter wanted her to be seen in the emergency department. ROS: See above HPI for pertinent positives & negatives. A total of 10 systems reviewed and were otherwise negative. PAST MEDICAL HISTORY: See Below PAST SURGICAL HISTORY: See Below FAMILY HISTORY: See Below SOCIAL HISTORY: See Below HOME MEDICATIONS: See Below ALLERGIES: See Below VITALS: See Below PHYSICAL EXAMINATION: GENERAL: The patient is awake and alert. The patient answers questions appropriately. EYES: The conjunctivae are clear. The pupils are round and reactive. EARS, NOSE, MOUTH AND THROAT: The nose is without any evidence of any deformity. Mucous membranes are dry. NECK: The neck is nontender and supple. RESPIRATORY: Diminished breath sounds are noted throughout. CARDIOVASCULAR: Irregular heart sounds were noted to auscultation. There is no definite murmur. GASTROINTESTINAL: The abdomen is soft. Abdomen is nontender. MUSCULOSKELETAL/EXTREMITIES: There is no obvious decreased range of motion of either upper or lower extremity. There is an old deformity of the right knee. This does not appear to be tender or erythematous. SKIN: There is very poor skin turgor. There is no significant pedal edema. There is an ulcer on the right heel. There is surrounding erythema. NEUROLOGIC: Patient is awake and oriented to person and place. She recognizes her daughter. Strength was symmetric but diminished. MEDICAL DECISION MAKING: The patient is an 88-year-old female who presented to the emergency department with family for an evaluation of ankle and heel pain. The patient had what appeared to be consistent with cellulitis on her right heel. She also has an ulcer. I discussed the patient's laboratory and radiographic studies with her and her daughter. I discussed her condition with the on-call [facility] hospitalist. They have agreed to evaluate the patient in the emergency department. They did ask that I order CT of the chest abdomen pelvis as the patient had reportedly fallen 2 weeks ago and she is on blood thinners. Triage Nursing notes reviewed. Prior medical records reviewed Vital Signs: reviewed and remarkable for tachycardia. Differential diagnosis: Infection, dehydration, metabolic abnormality, hypo/hyperglycemia, electrolyte disturbance, anemia, hypoxia, cardiac sources, intracerebral event, toxicologic, neurologic, as well as other pathologies. ER treatment provided: See below Diagnostics interpreted by me: ECG: EKG was obtained in the emergency department. My interpretation is atrial fibrillation at 84 bpm. There were no PVCs. A left bundle branch block pattern was noted. This was compared to a tracing from May 06, 2024. No significant changes were noted Cardiac Monitoring: An order was placed for continuous cardiac monitoring. The monitor shows a rate of 93 bpm with sinus rhythm. Laboratory studies: As stated above and show below. Imaging studies: See below. Radiographic imaging was reviewed by myself Consultation(s): I discussed this case with Dr. Leija who is on-call for the [facility] hospitalist group. Past Med/Surg History Problem List (Updated 08/13/24 @ 18:40 by Franck Bran DO) Fall (Acute) Atrial fibrillation Ulcer of right heel Weakness (Acute) Cellulitis of leg without foot, right (Acute) Pressure sore of left ischium, stage 3 Left atrial thrombus Cardiomyopathy Valvular heart disease Acute systolic (congestive) heart failure Non-ST elevation CT (NSTEMI) (Acute) DM2 (diabetes mellitus, type 2) Atrial fibrillation with RVR NSTEMI (non-ST elevated myocardial infarction) COLBY (acute kidney injury) Syncope GERD (gastroesophageal reflux disease) Overactive bladder Diabetes CAD (coronary artery disease) Surgical History History of heart artery stent History of nephrectomy Family History Other Family history non-contributory Social History Smoking Status: Unknown if ever smoked Hx Alcohol Use: No Hx Substance Use: No Preferred Language: Tanzanian Communication Ability: Effective 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 Beliefs That Will Affect Care: None Current Living Situation: Spouse Feels Safe at Home: Yes Assistive Devices: None Allergies Allergies Allergy/AdvReac Type Severity Reaction Status Date / Time No Known Allergies Allergy Verified 07/18/24 09:01 Home Meds Home Medications Medication Instructions Recorded Confirmed acetaminophen 650 mg 650 mg PO UD 07/18/24 08/13/24 tablet,extended release (Tylenol 8 Hour) apixaban 2.5 mg tablet (Eliquis) 2.5 mg PO BID 07/18/24 08/13/24 aspirin 81 mg tablet,delayed 81 mg PO UD 07/18/24 08/13/24 release (Ecotrin Low Strength) atorvastatin 40 mg tablet (Lipitor) 40 mg PO DAILY 07/18/24 08/13/24 digoxin 125 mcg (0.125 mg) tablet 125 mcg PO DAILY 07/18/24 08/13/24 (Lanoxin) diltiazem HCl 120 mg 120 mg PO DAILY 07/18/24 08/13/24 capsule,extended release 24 hr diltiazem HCl 30 mg tablet 30 mg PO UD 07/18/24 08/13/24 docusate sodium 100 mg capsule 100 mg PO UD 07/18/24 08/13/24 furosemide 10 mg/mL injection 60 mg IM DAILY 07/18/24 08/13/24 syringe insulin aspart U-100 100 unit/mL 1 sliding scale dose subcut UD 07/18/24 08/13/24 subcutaneous solution (Novolog U-100 Insulin aspart) magnesium hydroxide [Milk of 1 dose PO UD 07/18/24 08/13/24 Magnesia] meclizine 12.5 mg tablet 12.5 mg PO TID PRN Dizziness 07/18/24 08/13/24 melatonin 3 mg capsule 3 mg PO HS PRN Sleep 07/18/24 08/13/24 metformin 500 mg tablet 500 mg PO BID 07/18/24 08/13/24 metoprolol tartrate 50 mg tablet 50 mg PO BID 07/18/24 08/13/24 omeprazole 20 mg capsule,delayed 20 mg PO DAILY 07/18/24 08/13/24 release pantoprazole 40 mg tablet,delayed 40 mg PO UD 07/18/24 08/13/24 release (Protonix) polyethylene glycol 3350 17 17 g PO UD 07/18/24 08/13/24 gram/dose oral powder (Miralax) potassium chloride 20 mEq oral 10 meq PO DAILY 07/18/24 08/13/24 packet (Klor-Con) semaglutide 0.25 mg or 0.5 mg (2 0.25 mg subcut UD 07/18/24 08/13/24 mg/3 mL) subcutaneous pen injector (Ozempic) sertraline 25 mg tablet 25 mg PO DAILY 07/18/24 08/13/24 tolterodine 2 mg capsule,extended 2 mg PO DAILY 07/18/24 08/13/24 release 24 hr Results & Data (ED) Vital Signs Vital Signs - 24 hr 08/13/24 10:59 08/13/24 11:00 08/13/24 11:03 Temperature 36.5 C Temperature Source Oral Pulse Rate 105 H 110 H Pulse Rate [Apical] Pulse Rate from SpO2 Sensor 95 H Pulse Rhythm [Apical] Pulse Strength [Apical] Respiratory Rate 26 H 20 Respiratory Effort / Characteristics Non-Labored Spontaneous Respiratory Depth Normal Respiratory Pattern Regular Blood Pressure 129/73 141/76 H Blood Pressure [Left Arm] Blood Pressure Mean 93 97 Blood Pressure Mean [Left Arm] Blood Pressure Position [Left Arm] Pulse Oximetry 95 98 Oxygen Delivery Method Room Air Sepsis Recent Fever Within 48 Hours No Sepsis New/Unexplained Change in Mental Status N/A Sepsis Action Taken by Nursing No Action Required 08/13/24 11:03 08/13/24 11:07 08/13/24 11:11 Temperature Temperature Source Pulse Rate 112 H 96 H Pulse Rate [Apical] 110 H Pulse Rate from SpO2 Sensor 96 H Pulse Rhythm [Apical] Pulse Strength [Apical] Respiratory Rate 21 Respiratory Effort / Characteristics Respiratory Depth Respiratory Pattern Blood Pressure Blood Pressure [Left Arm] Blood Pressure Mean Blood Pressure Mean [Left Arm] Blood Pressure Position [Left Arm] Pulse Oximetry 95 Oxygen Delivery Method Sepsis Recent Fever Within 48 Hours Sepsis New/Unexplained Change in Mental Status Sepsis Action Taken by Nursing 08/13/24 11:20 08/13/24 11:21 08/13/24 11:21 Temperature Temperature Source Pulse Rate 91 H 96 H Pulse Rate [Apical] 139 H Pulse Rate from SpO2 Sensor Pulse Rhythm [Apical] Pulse Strength [Apical] Respiratory Rate 19 22 22 Respiratory Effort / Characteristics Respiratory Depth Respiratory Pattern Blood Pressure Blood Pressure [Left Arm] Blood Pressure Mean Blood Pressure Mean [Left Arm] Blood Pressure Position [Left Arm] Pulse Oximetry 90 98 Oxygen Delivery Method Room Air Sepsis Recent Fever Within 48 Hours Sepsis New/Unexplained Change in Mental Status Sepsis Action Taken by Nursing 08/13/24 11:39 08/13/24 11:41 08/13/24 11:47 Temperature Temperature Source Pulse Rate 107 H Pulse Rate [Apical] 83 Pulse Rate from SpO2 Sensor 90 Pulse Rhythm [Apical] Pulse Strength [Apical] Respiratory Rate 19 34 H Respiratory Effort / Characteristics Respiratory Depth Respiratory Pattern Blood Pressure 124/45 L Blood Pressure [Left Arm] Blood Pressure Mean 93 Blood Pressure Mean [Left Arm] Blood Pressure Position [Left Arm] Pulse Oximetry 90 Oxygen Delivery Method Sepsis Recent Fever Within 48 Hours Sepsis New/Unexplained Change in Mental Status Sepsis Action Taken by Nursing 08/13/24 11:47 08/13/24 11:47 08/13/24 12:01 Temperature Temperature Source Pulse Rate Pulse Rate [Apical] Pulse Rate from SpO2 Sensor Pulse Rhythm [Apical] Pulse Strength [Apical] Respiratory Rate 19 Respiratory Effort / Characteristics Respiratory Depth Respiratory Pattern Blood Pressure 124/45 L 155/64 H Blood Pressure [Left Arm] Blood Pressure Mean 93 93 Blood Pressure Mean [Left Arm] Blood Pressure Position [Left Arm] Pulse Oximetry 90 Oxygen Delivery Method Sepsis Recent Fever Within 48 Hours Sepsis New/Unexplained Change in Mental Status Sepsis Action Taken by Nursing 08/13/24 12:01 08/13/24 12:05 08/13/24 12:14 Temperature Temperature Source Pulse Rate 79 89 Pulse Rate [Apical] Pulse Rate from SpO2 Sensor Pulse Rhythm [Apical] Pulse Strength [Apical] Respiratory Rate 18 25 H Respiratory Effort / Characteristics Respiratory Depth Respiratory Pattern Blood Pressure 155/64 H Blood Pressure [Left Arm] Blood Pressure Mean 93 Blood Pressure Mean [Left Arm] Blood Pressure Position [Left Arm] Pulse Oximetry 90 Oxygen Delivery Method Sepsis Recent Fever Within 48 Hours Sepsis New/Unexplained Change in Mental Status Sepsis Action Taken by Nursing 08/13/24 12:23 08/13/24 12:26 08/13/24 12:46 Temperature Temperature Source Pulse Rate 87 85 Pulse Rate [Apical] Pulse Rate from SpO2 Sensor 70 Pulse Rhythm [Apical] Pulse Strength [Apical] Respiratory Rate 16 18 Respiratory Effort / Characteristics Respiratory Depth Respiratory Pattern Blood Pressure 127/76 Blood Pressure [Left Arm] Blood Pressure Mean 81 Blood Pressure Mean [Left Arm] Blood Pressure Position [Left Arm] Pulse Oximetry 95 Oxygen Delivery Method Sepsis Recent Fever Within 48 Hours Sepsis New/Unexplained Change in Mental Status Sepsis Action Taken by Nursing 08/13/24 12:50 08/13/24 12:59 08/13/24 13:07 Temperature Temperature Source Pulse Rate 104 H Pulse Rate [Apical] 94 H Pulse Rate from SpO2 Sensor 87 Pulse Rhythm [Apical] Pulse Strength [Apical] Respiratory Rate 20 17 Respiratory Effort / Characteristics Respiratory Depth Respiratory Pattern Blood Pressure 163/95 H Blood Pressure [Left Arm] 127/76 Blood Pressure Mean 111 Blood Pressure Mean [Left Arm] 93 Blood Pressure Position [Left Arm] Pulse Oximetry 98 95 Oxygen Delivery Method Room Air Sepsis Recent Fever Within 48 Hours Sepsis New/Unexplained Change in Mental Status Sepsis Action Taken by Nursing 08/13/24 13:11 08/13/24 13:20 08/13/24 13:32 Temperature Temperature Source Pulse Rate 98 H 95 H Pulse Rate [Apical] Pulse Rate from SpO2 Sensor 91 H Pulse Rhythm [Apical] Pulse Strength [Apical] Respiratory Rate 19 20 Respiratory Effort / Characteristics Respiratory Depth Respiratory Pattern Blood Pressure 114/51 L Blood Pressure [Left Arm] Blood Pressure Mean 58 Blood Pressure Mean [Left Arm] Blood Pressure Position [Left Arm] Pulse Oximetry 95 Oxygen Delivery Method Sepsis Recent Fever Within 48 Hours Sepsis New/Unexplained Change in Mental Status Sepsis Action Taken by Nursing 08/13/24 13:50 08/13/24 14:48 08/13/24 15:33 Temperature Temperature Source Pulse Rate 84 93 H Pulse Rate [Apical] 93 H Pulse Rate from SpO2 Sensor Pulse Rhythm [Apical] Regular Pulse Strength [Apical] Normal Respiratory Rate 15 25 H Respiratory Effort / Characteristics Non-Labored Respiratory Depth Normal Respiratory Pattern Regular Blood Pressure 147/92 H Blood Pressure [Left Arm] 132/88 Blood Pressure Mean 110 Blood Pressure Mean [Left Arm] 102 Blood Pressure Position [Left Arm] Lying Pulse Oximetry 95 Oxygen Delivery Method Room Air Sepsis Recent Fever Within 48 Hours Sepsis New/Unexplained Change in Mental Status Sepsis Action Taken by [facility] Medications Current Medication List: was personally reviewed by me Laboratory Data Attestation: I reviewed the patient's lab results. 08/13/24 10:58 08/13/24 10:58 Lab Results 08/13/24 08/13/24 08/13/24 Range/Units 10:58 11:28 11:35 WBC 11.93 H (4.8-10.8) K/ul RBC 4.48 (4.20-5.40) M/uL Hgb 12.8 (12.0-16.0) g/dl Hct 39.7 (37.0-47.0) % MCV 88.6 (80.0-100.0) fL MCH 28.6 (25.0-34.0) pg MCHC 32.2 (32.0-36.0) g/dL RDW Std Deviation 50.0 H (36.4-46.3) fL RDW Coeff of Kamilla 15.6 H (11.5-14.5) % Plt Count 369 (130-400) K/uL MPV 10.1 (9.4-12.4) fL Immature Gran % (Auto) 1.8 % Neut % (Auto) 73.2 % Lymph % (Auto) 16.3 % Dale % (Auto) 7.3 % Eos % (Auto) 1.0 % Baso % (Auto) 0.4 % Neut # (Auto) 8.72 H (1.40-6.50) K/uL Lymph # (Auto) 1.95 (1.20-3.40) K/uL Dale # (Auto) 0.87 H (0.11-0.59) K/uL Eos # (Auto) 0.12 (0.00-0.50) K/uL Baso # (Auto) 0.05 (0.00-0.20) K/uL Immature Gran # (Auto) 0.22 H (0.01-0.20) K/uL PT 11.9 (9.0-12.0) Seconds INR 1.1 (0.9-1.1) APTT 27 (21-31) Seconds PTT Ratio 1.0 VBG pH 7.39 (7.36-7.41) VBG pCO2 47 (38-50) mmHg VBG pO2 41 mmHg VBG HCO3 29 mmol/L VBG O2 Saturation 62.0 % VBG Base Excess 2.8 mEq/L Sodium 142 (136-145) mmol/L Potassium 3.7 (3.5-5.1) mmol/L Chloride 103 (98-107) mmol/L Carbon Dioxide 27 (21-32) mmol/L Anion Gap 12 H (3-11) BUN 19 (6-23) mg/dl Creatinine 1.09 (0.6-1.2) mg/dl Est Cr Clr Drug Dosing 27.1 ml/min eGFR 48.86 BUN/Creatinine Ratio 17.4 (10-20) Glucose 195 H (70-99(Fasting)) mg/dl Lactate 2.2 H* (0.4-2.0) mmol/L Calcium 8.5 L (8.6-10.3) mg/dl Magnesium 1.0 L (1.7-2.4) mg/dl Total Bilirubin 0.8 (0.2-1.0) mg/dl Direct Bilirubin 0.1 (0-0.2) mg/dl AST 15 (13-39) U/L ALT 12 (7-52) U/L Alkaline Phosphatase 92 (34-104) U/L Troponin I High Sens 17.8 H (0-14) pg/ml C-Reactive Protein 2.21 H (0-0.5) mg/dl Total Protein 7.1 (6.0-8.3) gm/dl Albumin 3.6 (3.4-5.0) gm/dl Procalcitonin 0.05 (0-0.5) ng/ml SARS-CoV-2 (PCR) NEGATIVE (Negative) Influenza Type A (PCR) Negative (Neg) Influenza Type B (PCR) Negative (Neg) RSV (RT-PCR) Negative (Neg) 08/13/24 Range/Units 13:28 WBC (4.8-10.8) K/ul RBC (4.20-5.40) M/uL Hgb (12.0-16.0) g/dl Hct (37.0-47.0) % MCV (80.0-100.0) fL MCH (25.0-34.0) pg MCHC (32.0-36.0) g/dL RDW Std Deviation (36.4-46.3) fL RDW Coeff of Kamilla (11.5-14.5) % Plt Count (130-400) K/uL MPV (9.4-12.4) fL Immature Gran % (Auto) % Neut % (Auto) % Lymph % (Auto) % Dale % (Auto) % Eos % (Auto) % Baso % (Auto) % Neut # (Auto) (1.40-6.50) K/uL Lymph # (Auto) (1.20-3.40) K/uL Dale # (Auto) (0.11-0.59) K/uL Eos # (Auto) (0.00-0.50) K/uL Baso # (Auto) (0.00-0.20) K/uL Immature Gran # (Auto) (0.01-0.20) K/uL PT (9.0-12.0) Seconds INR (0.9-1.1) APTT (21-31) Seconds PTT Ratio VBG pH (7.36-7.41) VBG pCO2 (38-50) mmHg VBG pO2 mmHg VBG HCO3 mmol/L VBG O2 Saturation % VBG Base Excess mEq/L Sodium (136-145) mmol/L Potassium (3.5-5.1) mmol/L Chloride (98-107) mmol/L Carbon Dioxide (21-32) mmol/L Anion Gap (3-11) BUN (6-23) mg/dl Creatinine (0.6-1.2) mg/dl Est Cr Clr Drug Dosing ml/min eGFR BUN/Creatinine Ratio (10-20) Glucose (70-99(Fasting)) mg/dl Lactate 1.3 (0.4-2.0) mmol/L Calcium (8.6-10.3) mg/dl Magnesium (1.7-2.4) mg/dl Total Bilirubin (0.2-1.0) mg/dl Direct Bilirubin (0-0.2) mg/dl AST (13-39) U/L ALT (7-52) U/L Alkaline Phosphatase (34-104) U/L Troponin I High Sens (0-14) pg/ml C-Reactive Protein (0-0.5) mg/dl Total Protein (6.0-8.3) gm/dl Albumin (3.4-5.0) gm/dl Procalcitonin (0-0.5) ng/ml SARS-CoV-2 (PCR) (Negative) Influenza Type A (PCR) (Neg) Influenza Type B (PCR) (Neg) RSV (RT-PCR) (Neg) Administered Medications Magnesium Sulfate/Dextrose (Magnesium Sulfate / D5w) 1 gm in 100 mls @ 50 mls/hr IV Q2H BRIELLE Stop: 08/13/24 20:29 Last Admin: 08/13/24 17:46 Dose: 50 mls/hr Documented By: DEVIN Discontinued Medications Sodium Chloride (Nss) 500 mls @ 999 mls/hr IV .Q31M ONE Stop: 08/13/24 11:44 Last Infusion: 08/13/24 12:27 Dose: Infused Documented By: Admin: 08/13/24 11:30 Dose: 999 mls/hr Documented By: TIM Sodium Chloride (Nss) 500 mls @ 999 mls/hr IV .Q31M ONE Stop: 08/13/24 12:33 Last Infusion: 08/13/24 13:41 Dose: Infused Documented By: Admin: 08/13/24 12:48 Dose: 999 mls/hr Documented By: TIM Cefepime HCl (Maxipime 2000mg) 2,000 mg in 20 mls @ 5 mls/min IV NOW STA; Protocol Stop: 08/13/24 13:04 Last Admin: 08/13/24 13:09 Dose: 5 mls/min Documented By: TIM Vancomycin HCl 1,000 mg/ (Sodium Chloride) 520 mls @ 200 mls/hr IV NOW ONE Stop: 08/13/24 15:36 Last Infusion: 08/13/24 17:13 Dose: Infused Documented By: Admin: 08/13/24 13:43 Dose: 200 mls/hr Documented By: TIM Sodium Chloride (Nss) 250 mls @ 999 mls/hr IV .Q16M ONE Stop: 08/13/24 13:18 Last Infusion: 08/13/24 13:41 Dose: Infused Documented By: Admin: 08/13/24 13:11 Dose: 999 mls/hr Documented By: TIM Sodium Chloride (Nss) 500 mls @ 999 mls/hr IV .Q31M ONE Stop: 08/13/24 13:33 Last Infusion: 08/13/24 13:41 Dose: Infused Documented By: Admin: 08/13/24 13:10 Dose: 999 mls/hr Documented By: TIM Ioversol (Optiray 320 100ml) 94 ml IV ONCE ONE Stop: 08/13/24 14:30 Last Admin: 08/13/24 14:29 Dose: 94 ml Documented By: LYNETTE Imaging Data Attestation: I personally reviewed and interpreted this imaging study as follows: My Impression: CT of the brain was obtained in the emergency department. My interpretation is no intracranial hemorrhage or mass effect, final report below. 1 view chest x-ray was obtained. My interpretation is no free air or definite infiltrate, final report below. Radiologist's Impression: Cervical Spine CT 08/13/24 11:14 CT cervical spine wo con CT DOSE: 1035.22 mGy.cm CLINICAL HISTORY: fall. COMPARISON: None TECHNIQUE: Multiple axial CT images of the cervical spine were obtained without contrast. A dose lowering technique was utilized adhering to the principles of ALARA. FINDINGS: There is moderate lower cervical degenerative disc disease. No fracture or subluxation. IMPRESSION: No fracture seen. ACT 112: Negative or not required by law. The above report was generated using voice recognition software. It may contain grammatical, syntax or spelling errors. Electronically signed by: Cheo Gore M.D. 08/13/2024 12:08 PM Chest X-Ray 08/13/24 11:14 XR chest 1V portable CLINICAL HISTORY: Sepsis COMPARISON STUDY: 05/14/2024 FINDINGS: Heart size and pulmonary vasculature are normal. No effusion, consolidation, or pneumothorax. IMPRESSION: No acute findings. ACT 112: Negative or not required by law. Electronically signed by: Cheo Gore M.D. 08/13/2024 11:44 AM Foot X-Ray 08/13/24 11:14 XR foot RT 2V CLINICAL HISTORY: ulcer COMPARISON: None FINDINGS: There are mild degenerative changes without erosions. There are small calcaneal spurs. No fracture or dislocation. No radiopaque foreign body. No evidence of osteomyelitis seen. IMPRESSION: No osteomyelitis seen. ACT 112: Negative or not required by law. Electronically signed by: Cheo Gore M.D. 08/13/2024 11:[address] 08/13/24 11:14 CT head/brain wo con CLINICAL HISTORY: 88 years-old Female with fall. Acute head trauma status post fall TECHNIQUE: Multiple axial CT images of the head were obtained without contrast. A dose lowering technique was utilized adhering to the principles of ALARA. COMPARISON: CT cervical spine of same day, head CT 12/13/2020 FINDINGS: No acute intracranial hemorrhage, midline shift, intracranial mass, hydrocephalus, territorial ischemia or abnormal extra-axial collection. Involutional changes with white matter hypodensities suggestive of chronic microvascular ischemic disease. 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 Additional probable encephalomalacia of the left parietal lobe is new/progressed from prior. Chronic right cerebellar infarct. The calvarium is intact. Trace right mastoid effusion. The left mastoid air cells and paranasal sinuses are generally clear. Unremarkable soft tissues and orbits. IMPRESSION: 1. No acute intracranial abnormality or calvarial fracture. 2. Chronic cerebral and cerebellar infarcts. ACT 112: Negative or not required by law. The above report was generated using voice recognition software. It may contain grammatical, syntax or spelling errors. Electronically signed by: Salvador Myers M.D. 08/13/2024 12:09 PM Pelvis X-Ray 08/13/24 11:15 XR pelvis 1-2V routine CLINICAL HISTORY: fall COMPARISON: None FINDINGS: There are degenerative changes at the hips, moderate on the left and mild on the right. No fracture or dislocation. SI joints are unremarkable. There are severe degenerative changes of the lower lumbar spine. IMPRESSION: No pelvic fracture seen. ACT 112: Negative or not required by law. Electronically signed by: Cheo Gore M.D. 08/13/2024 11:45 AM Abdomen/Pelvis CT 08/13/24 13:18 CT OF THE ABDOMEN AND PELVIS WITH CONTRAST CLINICAL HISTORY: Fall. COMPARISON STUDY: CT of the abdomen and pelvis May 06, 2024. Pelvis radiograph performed earlier today. TECHNIQUE: Following IV administration of 94 mL of Optiray, axial images of the abdomen and pelvis were obtained from the lung bases to the proximal femurs. Images were reviewed in the axial, sagittal, and coronal planes. IV contrast was administered without complication. Automated exposure control was utilized for the study. A dose lowering technique was utilized adhering to the principles of ALARA. CT DOSE: 1363.22 mGy.cm FINDINGS: There is a 2.3 cm right middle lobe airspace opacity. No pneumoperitoneum or hemoperitoneum is present. 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 The gallbladder is moderately distended. There is no pericholecystic infiltration. Left renal scarring is again noted. A few small hypodense foci within the spleen with volume loss are present. The adrenal glands and pancreas are unremarkable. There is no evidence for a bowel obstruction. Colonic diverticulosis without evidence for acute diverticulitis. Trace fluid within the pelvis is noted. There is no pneumatosis, free air or portal venous gas. No lumbar spine, pelvic or hip fractures are identified. 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 IMPRESSION: 1. No acute traumatic findings within the abdomen or pelvis. 2. A few small hypodense foci within the spleen with volume loss. These suggest subacute to chronic splenic infarcts. 3. Trace fluid within the pelvis. 4. No evidence for a bowel obstruction. Colonic diverticulosis. No evidence for acute diverticulitis. 5. Moderate gallbladder distention. No pericholecystic infiltration. These findings do not strongly suggest acute cholecystitis. However, if right quadrant pain, ultrasound is recommended. ACT 112: Negative or not required by law. Electronically signed by: Inderjit Blackman M.D. 08/13/2024 2:[address] 08/13/24 13:[address] WITH CONTRAST HISTORY: Acute chest trauma status post fall CT requested by admitting team TECHNIQUE: Multiaxial CT images of the chest were performed following the IV administration of 94 cc of Optiray. A dose lowering technique was utilized adhering to the principles of ALARA. COMPARISON: CT cervical spine of same day, CT abdomen and pelvis 05/06/2024 FINDINGS: Unremarkable thyroid. No pathologically enlarged lymph nodes. Heart is upper limits of normal in size without pericardial effusion. Extensive coronary artery calcifications. Atherosclerosis of the thoracic aorta without aneurysm or dissection. Mild descending thoracic aortic tortuosity. No pulmonary emboli identified. No pneumothorax, pleural effusion or overt pulmonary edema. Mild bibasilar mucous plugging with subsegmental bibasilar atelectasis. No suspicious pulmonary nodules or lesions identified. Mild intralobular septal thickening. Mild linear consolidation of the medial segment right middle lobe is similar to prior suggestive of scarring. This measures approximately 4 cm in length. Diminutive morphology of the spleen. 2 cm hypodense focus of the anterior spleen suggestive of an infarct on image 212 additional 2.33 hypodensity on image 179. Unremarkable soft tissues. Degenerative changes of the shoulders and spine. No acute fracture identified. IMPRESSION: 1. No acute posttraumatic intrathoracic abnormality identified. 2. Mild bibasilar mucous plugging with atelectasis. 3. 4 cm linear subpleural consolidation of the medial segment right middle lobe is similar to the comparison CT abdomen and pelvis from 05/06/2024 suggestive of probable scarring. 4. Please refer to the CT abdomen and pelvis study of same day for additional findings including discussion of the splenic infarct(s). 5. No acute fracture. ACT 112: Negative or not required by law. Electronically signed by: Salvador Myers M.D. 08/13/2024 3:01 PM Discharge Plan Visit Data Chief Complaint: Wound ED Provider: Franck Bran Discharge Problem: Cellulitis of leg without foot, right, Weakness, Fall Patient Disposition: Admitted As Inpatient Discharge Instructions Interventions: ED Discharge Assessment Last Done: 08/13/24 17:56 Forms Stand Alone Forms: [facility] [employer] Prescriptions Prescriptions: No Action Ozempic 0.25 mg or 0.5 mg (2 mg/3 mL) pen injector 0.25 mg subcut UD Rx Instructions: 0.25 mg wk. No fill history available insulin aspart U-100 [Novolog U-100 Insulin aspart] 100 unit/mL solution 1 sliding scale dose subcut UD Rx Instructions: 1 sliding scale dose subcut use as directed. No fill history available furosemide 10 mg/mL syringe 60 mg IM DAILY Rx Instructions: 60 mg im daily. Per fill history 06/2024, 40 mg po daily was filled. pantoprazole [Protonix] 40 mg tablet,delayed release (DR/EC) 40 mg PO UD Rx Instructions: 40 mg po daily. No fill history available aspirin [Ecotrin Low Strength] 81 mg tablet,delayed release (DR/EC) 81 mg PO UD Rx Instructions: 81 mg po daily. OTC unable to verify melatonin 3 mg capsule 3 mg PO HS PRN (Reason: Sleep) Rx Instructions: OTC unable to verify acetaminophen [Tylenol 8 Hour] 650 mg tablet extended release 650 mg PO UD Rx Instructions: 650 mg po q12h. otc unable to verify atorvastatin [Lipitor] 40 mg tablet 40 mg PO DAILY diltiazem HCl 30 mg tablet 30 mg PO UD Rx Instructions: 20 mg po q8h. No fill history available digoxin [Lanoxin] 125 mcg (0.125 mg) tablet 125 mcg PO DAILY Eliquis 2.5 mg tablet 2.5 mg PO BID potassium chloride [Klor-Con] 20 mEq packet 10 meq PO DAILY diltiazem HCl 120 mg capsule,extended release 24hr 120 mg PO DAILY docusate sodium 100 mg capsule 100 mg PO UD Rx Instructions: 100 mg po daily. OTC unable to verify metformin 500 mg tablet 500 mg PO BID metoprolol tartrate 50 mg tablet 50 mg PO BID omeprazole 20 mg capsule,delayed release(DR/EC) 20 mg PO DAILY sertraline 25 mg tablet 25 mg PO DAILY tolterodine 2 mg capsule,extended release 24hr 2 mg PO DAILY magnesium hydroxide [Milk of Magnesia] 1 dose PO UD Rx Instructions: otc unable to verify meclizine 12.5 mg tablet 12.5 mg PO TID PRN (Reason: Dizziness) polyethylene glycol 3350 [Miralax] 17 gram/dose powder 17 g PO UD Rx Instructions: 17 g po daily. OTC unable to verify Referrals Referrals: Cindi Henry MD [Primary Care Provider] - Discharge Problem: Fall Qualifiers: Encounter type: initial encounter Qualified Code(s): W19.XXXA - Unspecified fall, initial encounter
[2024-08-13 11:44] LABS: Albumin Level 3.6 gm/dl (3.4-5.0); BUN Creatinine Ratio 17.4 (10-20); Bilirubin Direct 0.1 mg/dl (0-0.2); Bilirubin,Total 0.8 mg/dl (0.2-1.0); C Reactive Protein 2.21 mg/dl (0-0.5); Calcium 8.5 mg/dl (8.6-10.3); Creatinine Clr Calc Pharmacy 27.1 ml/min; Potassium 3.7 mmol/L (3.5-5.1); Total Protein 7.1 gm/dl (6.0-8.3)
--- NOTE | 2024-08-13 11:45 | XRay Report ---
XR chest 1V portable CLINICAL HISTORY: Sepsis COMPARISON STUDY: 05/14/2024 FINDINGS: Heart size and pulmonary vasculature are normal. No effusion, consolidation, or pneumothora x. IMPRESSION: No acute findings. ACT 112: Negative or not required by law. Electronically signed by: Cheo Gore M.D. 08/13/2024 11:44 AM
[2024-08-13 11:46] LABS: Base Excess VBG 2.8 mEq/L; HCO3 VBG 29 mmol/L; PCO2 VBG 47 mmHg (38-50); PO2 VBG 41 mmHg; pH VBG 7.39 (7.36-7.41)
--- NOTE | 2024-08-13 11:46 | XRay Report ---
XR foot RT 2V CLINICAL HISTORY: ulcer COMPARISON: None FINDINGS: There are mild degenerative changes without erosions. There are small calcaneal spurs. No fracture or dislocation. No radiopaque foreign body. No evidence of osteomyelitis seen. IMPRESSION: No osteomyelitis seen. ACT 112: Negative or not required by law. Electronically signed by: Cheo Gore M.D. 08/13/2024 11:45 AM
--- NOTE | 2024-08-13 11:47 | XRay Report ---
XR pelvis 1-2V routine CLINICAL HISTORY: fall COMPARISON: None FINDINGS: There are degenerative changes at the hips, moderate on the left and mild on the right. No fracture or dislocation. SI joints are unremarkable. There are severe degenerative changes of the lo wer lumbar spine. IMPRESSION: No pelvic fracture seen. ACT 112: Negative or not required by law. Electronically signed by: Cheo Gore M.D. 08/13/2024 11:45 AM
[2024-08-13 11:49] LABS: Troponin I High Sensitivity 17.8 pg/ml (0-14)
[2024-08-13 11:57] LABS: INR 1.1 (0.9-1.1); Partial Thromboplastin Time 27 Seconds (21-31); Prothrombin Time 11.9 Seconds (9.0-12.0)
--- NOTE | 2024-08-13 12:09 | CT Scan Report ---
CT cervical spine wo con CT DOSE: 1035.22 mGy.cm CLINICAL HISTORY: fall. COMPARISON: None TECHNIQUE: Multiple axial CT images of the cervical spine were obtained without contrast. A dose low ering technique was utilized adhering to the principles of ALARA. FINDINGS: There is moderate lower cervical degenerative disc disease. No fracture or subluxation. IMPRESSION: No fracture seen. ACT 112: Negative or not required by law. The above report was generated using voice recognition software. It may contain grammatical, syntax o r spelling errors. Electronically signed by: Cheo Gore M.D. 08/13/2024 12:08 PM
--- NOTE | 2024-08-13 12:11 | CT Scan Report ---
CT head/brain wo con CLINICAL HISTORY: 88 years-old Female with fall. Acute head trauma status post fall TECHNIQUE: Multiple axial CT images of the head were obtained without contrast. A dose lowering tech nique was utilized adhering to the principles of ALARA. COMPARISON: CT cervical spine of same day, head CT 12/13/2020 FINDINGS: No acute intracranial hemorrhage, midline shift, intracranial mass, hydrocephalus, territorial ischem ia or abnormal extra-axial collection. Involutional changes with white matter hypodensities suggestiv e of chronic microvascular ischemic disease. 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 Additional probable encephalomalacia of the left parietal lobe is new/progressed from prior . Chronic right cerebellar infarct. The calvarium is intact. Trace right mastoid effusion. The left mastoid air cells and paranasal sinu ses are generally clear. Unremarkable soft tissues and orbits. IMPRESSION: 1. No acute intracranial abnormality or calvarial fracture. 2. Chronic cerebral and cerebellar infarcts. ACT 112: Negative or not required by law. The above report was generated using voice recognition software. It may contain grammatical, syntax o r spelling errors. Electronically signed by: Salvador Myers M.D. 08/13/2024 12:09 PM
[2024-08-13 12:58] LABS: Influenza A virus by PCR Negative (Neg); Influenza B virus by PCR Negative (Neg); RSV by PCR Negative (Neg); SARS CoV2 RNA(COVID-19) Ceph NEGATIVE (Negative)
[2024-08-13] MEDS ORDERED: VANCOMYCIN CONSULT ACTIVE PRN ×2 (13:01→19:06)
[2024-08-13] MEDS: CEFEPIME 2000MG 2,000 MG/20 ML SYR IV STA (13:09)
[2024-08-13] MEDS: SODIUM CHLORIDE 0.9% 250 ML IV ONE (13:11)
[2024-08-13] MEDS: VANCOMYCIN HCL 1,000 MG in SODIUM CHLORIDE 0.9% 500 ML IV ONE (13:43)
[2024-08-13] MEDS: OPTIRAY 320 100ml IV ONE (14:29)
--- NOTE | 2024-08-13 14:57 | CT Scan Report ---
CT OF THE ABDOMEN AND PELVIS WITH CONTRAST CLINICAL HISTORY: Fall. COMPARISON STUDY: CT of the abdomen and pelvis May 06, 2024. Pelvis radiograph performed earlier today. TECHNIQUE: Following IV administration of 94 mL of Optiray, axial images of the abdomen and pelvis we re obtained from the lung bases to the proximal femurs. Images were reviewed in the axial, sagittal, and coronal planes. IV contrast was administered without complication. Automated exposure control wa s utilized for the study. A dose lowering technique was utilized adhering to the principles of ALARA . CT DOSE: 1363.22 mGy.cm FINDINGS: There is a 2.3 cm right middle lobe airspace opacity. No pneumoperitoneum or hemoperitoneum is present. 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 The gallbladder is moderately distended. There is no pericholecystic infiltration. Left renal scarring is again noted. A few small hypodense foci within the spleen with volume loss are present. The adrenal glands and pancreas are un remarkable. There is no evidence for a bowel obstruction. Colonic diverticulosis without evidence for acute diverticulitis. Trace fluid within the pelvis is noted. There is no pneumatosis, free air or p ortal venous gas. No lumbar spine, pelvic or hip fractures are identified. 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 IMPRESSION: 1. No acute traumatic findings within the abdomen or pelvis. 2. A few small hypodense foci within the spleen with volume loss. These suggest subacute to chronic s plenic infarcts. 3. Trace fluid within the pelvis. 4. No evidence for a bowel obstruction. Colonic diverticulosis. No evidence for acute diverticulitis. 5. Moderate gallbladder distention. No pericholecystic infiltration. These findings do not strongly s uggest acute cholecystitis. However, if right quadrant pain, ultrasound is recommended. ACT 112: Negative or not required by law. Electronically signed by: Inderjit Blackman M.D. 08/13/2024 2:56 PM
--- NOTE | 2024-08-13 15:03 | CT Scan Report ---
CHEST CT WITH CONTRAST HISTORY: Acute chest trauma status post fall CT requested by admitting team TECHNIQUE: Multiaxial CT images of the chest were performed following the IV administration of 94 cc of Optiray. A dose lowering technique was utilized adhering to the principles of ALARA. COMPARISON: CT cervical spine of same day, CT abdomen and pelvis 05/06/2024 FINDINGS: Unremarkable thyroid. No pathologically enlarged lymph nodes. Heart is upper limits of norm al in size without pericardial effusion. Extensive coronary artery calcifications. Atherosclerosis of the thoracic aorta without aneurysm or dissection. Mild descending thoracic aortic tortuosity. No pu lmonary emboli identified. No pneumothorax, pleural effusion or overt pulmonary edema. Mild bibasilar mucous plugging with subse gmental bibasilar atelectasis. No suspicious pulmonary nodules or lesions identified. Mild intralobul ar septal thickening. Mild linear consolidation of the medial segment right middle lobe is similar to prior suggestive of scarring. This measures approximately 4 cm in length. Diminutive morphology of the spleen. 2 cm hypodense focus of the anterior spleen suggestive of an inf arct on image 212 additional 2.33 hypodensity on image 179. Unremarkable soft tissues. Degenerative c hanges of the shoulders and spine. No acute fracture identified. IMPRESSION: 1. No acute posttraumatic intrathoracic abnormality identified. 2. Mild bibasilar mucous plugging with atelectasis. 3. 4 cm linear subpleural consolidation of the medial segment right middle lobe is similar to the com parison CT abdomen and pelvis from 05/06/2024 suggestive of probable scarring. 4. Please refer to the CT abdomen and pelvis study of same day for additional findings including disc ussion of the splenic infarct(s). 5. No acute fracture. ACT 112: Negative or not required by law. Electronically signed by: Salvador Myers M.D. 08/13/2024 3:01 PM
--- NOTE | 2024-08-13 15:28 | History & Physical Report ---
Date of Service August 13, 2024 Assessment & Plan (1) Ulcer of right heel: (2) DM2 (diabetes mellitus, type 2): (3) Atrial fibrillation: (4) Diabetes: Plan Joellen is an 88-year-old female with PMH of diabetes, CAD, GERD, syncope, NSTEMI, atrial fibrillation (on apixaban), CHF, and cellulitis. She presented on 08/13 for suspected new wound on her right ankle. Patient's daughter (Geeta) is at bedside and provides the history. Daughter noticed her right heel wound a few days ago, however it is progressively worsened. Patient lives with her at home. She is a poor historian at baseline, but daughter reports no recent change in cognitive baseline. Daughter first noticed that there might have been some purulent drainage from the heel/ulcer wound today, and brought her in. #Right heel ulcer Vancomycin 750 mg IV q24h Cefepime 2000 mg IV q8h Acetaminophen as needed for pain/fever Daily wound care Wound care nurse consulted #Ambulatory dysfunction PT/OT evaluations appreciated Fall precautions #Hypomagnesemia Magnesium 1.0 on arrival Magnesium sulfate 1 g IV x 2 Trend #Right eye conjunctivitis ?Viral; artificial drops QID PRN #Atrial fibrillation Continue digoxin, metoprolol Continue dose reduced Eliquis A.m. digoxin level #T2DM Last A1c at 9.0% on 04/29/2024 Hold metformin, Ozempic Lantus 5 u QAM while inpatient SSI; with target BSG range 110-140mg/dL, CF 50, carb ratio 15 T2DM diet BSG ACHS Adjust regimen as needed AM A1c Disposition: Admit to [facility] telemetry Full code Heart healthy, T2DM diet PT PPx: Eliquis History of Present Illness Chief Complaint: Right heel ulcer Primary Care Provider: Cindi Henry MD Joellen is an 88-year-old female with PMH of diabetes, CAD, GERD, syncope, NSTEMI, atrial fibrillation (on apixaban), CHF, and cellulitis. She presented on 08/13 for suspected new wound on her right ankle. Patient's daughter (Geeta) is at bedside and provides the history. Daughter noticed her right heel wound a few days ago, however it is progressively worsened. Patient lives with her at home. She is a poor historian at baseline, but daughter reports no recent change in cognitive baseline. Daughter first noticed that there might have been some purulent drainage from the heel/ulcer wound today, and brought her in. Patient denies any pain in her right ulcer or foot. No prior history of MRSA infections. She ambulates with a walker/cane at baseline. She has had multiple falls over the past week; unclear if there have been head strikes. Patient took her regular morning medicines today. Daughter helps to manage medicine at home. The patient is on metformin and Ozempic for her diabetes, no insulin use. No recent change in medications. NKDA. Patient denies smoking, tobacco use, recent alcohol use. Patient is hypertensive at 147/92 at admission; vitals otherwise stable. ED course: Vancomycin 1000 mg IV Cefepime 2000 mg IV NSS 1750 mL IV While it is difficult to obtain ROS at this time: Patient denies pain in her foot/heel, chest pain, SOB, abdominal pain, or fevers. Daughter (Geeta) at bedside reports that patient's is the medical power of defense attorney/medical proxy in an emergency situation. Patient is not alert and oriented at this time and does not exhibit medical capacity. Patient's was called on the phone with daughter in the room. Discussed patient's CODE STATUS at this time. Discussed with patient, patient's , and daughter of the risks/benefits of CPR, defibrillation, and intubation, which could include things like broken ribs and a long recovery process given the patient's advanced age. Patient's has been confirms that he would want her to remain a full code, and that it would like everything done in emergency situation. Allergies Allergy/AdvReac Type Severity Reaction Status Date / Time No Known Allergies Allergy Verified 07/18/24 09:01 Home Medications Medication Instructions Recorded Confirmed Type acetaminophen 650 mg 650 mg PO UD 07/18/24 08/13/24 History tablet,extended release (Tylenol 8 Hour) apixaban 2.5 mg tablet (Eliquis) 2.5 mg PO BID 07/18/24 08/13/24 History aspirin 81 mg tablet,delayed 81 mg PO UD 07/18/24 08/13/24 History release (Ecotrin Low Strength) atorvastatin 40 mg tablet (Lipitor) 40 mg PO DAILY 07/18/24 08/13/24 History digoxin 125 mcg (0.125 mg) tablet 125 mcg PO DAILY 07/18/24 08/13/24 History (Lanoxin) diltiazem HCl 120 mg 120 mg PO DAILY 07/18/24 08/13/24 History capsule,extended release 24 hr diltiazem HCl 30 mg tablet 30 mg PO UD 07/18/24 08/13/24 History docusate sodium 100 mg capsule 100 mg PO UD 07/18/24 08/13/24 History furosemide 10 mg/mL injection 60 mg IM DAILY 07/18/24 08/13/24 History syringe insulin aspart U-100 100 unit/mL 1 sliding scale dose subcut UD 07/18/24 08/13/24 History subcutaneous solution (Novolog U-100 Insulin aspart) magnesium hydroxide [Milk of 1 dose PO UD 07/18/24 08/13/24 History Magnesia] meclizine 12.5 mg tablet 12.5 mg PO TID PRN Dizziness 07/18/24 08/13/24 History melatonin 3 mg capsule 3 mg PO HS PRN Sleep 07/18/24 08/13/24 History metformin 500 mg tablet 500 mg PO BID 07/18/24 08/13/24 History metoprolol tartrate 50 mg tablet 50 mg PO BID 07/18/24 08/13/24 History omeprazole 20 mg capsule,delayed 20 mg PO DAILY 07/18/24 08/13/24 History release pantoprazole 40 mg tablet,delayed 40 mg PO UD 07/18/24 08/13/24 History release (Protonix) polyethylene glycol 3350 17 17 g PO UD 07/18/24 08/13/24 History gram/dose oral powder (Miralax) potassium chloride 20 mEq oral 10 meq PO DAILY 07/18/24 08/13/24 History packet (Klor-Con) semaglutide 0.25 mg or 0.5 mg (2 0.25 mg subcut UD 07/18/24 08/13/24 History mg/3 mL) subcutaneous pen injector (Ozempic) sertraline 25 mg tablet 25 mg PO DAILY 07/18/24 08/13/24 History tolterodine 2 mg capsule,extended 2 mg PO DAILY 07/18/24 08/13/24 History release 24 hr Past Med/Surg History Problem List (Updated 08/13/24 @ 16:22 by Gurpreet Lynn PA-C) Atrial fibrillation Ulcer of right heel Weakness (Acute) Cellulitis of leg without foot, right (Acute) Pressure sore of left ischium, stage 3 Left atrial thrombus Cardiomyopathy Valvular heart disease Acute systolic (congestive) heart failure Non-ST elevation NC (NSTEMI) (Acute) DM2 (diabetes mellitus, type 2) Atrial fibrillation with RVR NSTEMI (non-ST elevated myocardial infarction) COLBY (acute kidney injury) Syncope GERD (gastroesophageal reflux disease) Overactive bladder Diabetes CAD (coronary artery disease) Surgical History History of heart artery stent History of nephrectomy Family History Other Family history non-contributory Social History Smoking Status: Unknown if ever smoked Hx Alcohol Use: No Hx Substance Use: No Preferred Language: Bahraini Communication Ability: Effective Timber Buyer Required: No Beliefs That Will Affect Care: None Current Living Situation: Spouse Feels Safe at Home: Yes Assistive Devices: None Review of Systems 2 Review of Systems: See HPI above Physical Exam 2 Physical Exam: General: no acute distress; pleasant affect; daughter at bedside; non-toxic appearing; frail appearing; cooperative; SpO2 95% on RA HEENT: normocephalic, atraumatic; no scleral icterus; erythematous right eye with crusting at the medial canthus; PERRLA; vision appears to be intact; hard of hearing Neck: supple; no lymphadenopathy; trachea midline Skin: warm, dry without signs of tenting; no cyanosis; no rashes, bruising, lesions, or erythema noted CV: chest wall NTP; irregular regular rhythm; S1/S2 normal; no murmurs/rubs/gallops; pulses intact and symmetric at radial, DP, and PT Lungs: no acute respiratory distress; symmetrical chest wall expansion; clear breath sounds across all lung centeno w/o adventitious sounds; no wheezing ABD: Soft, NTP; BS present; no rebound/guarding; no distention MSK: no tics or fasciculations; no edema noted in the LEs b/l, nonerythematous Lower extremities: Superficial lesions noted on the shins bilaterally Right heel: Ulcer noted on the posterior right heel (see photo below); mild purulent drainage; malodorous Neuro: Patient is not oriented to , location, purpose in hospital; she does not respond to questioning; no focal deficits appreciated; unable to assess sensation Results & Data Results & Data Vital Signs (Past 12 Hours) Vital Signs Temp Pulse Pulse Resp BP BP Pulse Ox 08/13/24 14:48 93 H 08/13/24 13:50 84 15 147/92 H 95 08/13/24 13:32 114/51 L 08/13/24 13:20 95 H 20 08/13/24 13:11 98 H 19 95 08/13/24 13:07 163/95 H 08/13/24 12:59 104 H 17 95 08/13/24 12:50 94 H 20 127/76 98 08/13/24 12:46 127/76 08/13/24 12:26 85 18 08/13/24 12:23 87 16 95 08/13/24 12:14 89 25 H 90 08/13/24 12:05 79 18 08/13/24 12:01 155/64 H 08/13/24 12:01 155/64 H 08/13/24 11:47 124/45 L 08/13/24 11:47 19 90 08/13/24 11:47 124/45 L 08/13/24 11:41 107 H 34 H 90 08/13/24 11:39 83 19 08/13/24 11:21 139 H 22 08/13/24 11:21 96 H 22 98 08/13/24 11:20 91 H 19 90 08/13/24 11:11 96 H 21 95 08/13/24 11:07 112 H 08/13/24 11:03 110 H 08/13/24 11:03 36.5 C 110 H 20 141/76 H 98 08/13/24 11:00 129/73 08/13/24 10:59 105 H 26 H 95 O2 Del Method 08/13/24 14:48 08/13/24 13:50 08/13/24 13:32 08/13/24 13:20 08/13/24 13:11 08/13/24 13:07 08/13/24 12:59 08/13/24 12:50 Room Air 08/13/24 12:46 08/13/24 12:26 08/13/24 12:23 08/13/24 12:14 08/13/24 12:05 08/13/24 12:01 08/13/24 12:01 08/13/24 11:47 08/13/24 11:47 08/13/24 11:47 08/13/24 11:41 08/13/24 11:39 08/13/24 11:21 08/13/24 11:21 Room Air 08/13/24 11:20 08/13/24 11:11 08/13/24 11:07 08/13/24 11:03 08/13/24 11:03 Room Air 08/13/24 11:00 08/13/24 10:59 Laboratory Results Abnormal lab results 08/13/24 08/13/24 Range/Units 10:58 11:28 WBC 11.93 H (4.8-10.8) K/ul RDW Std Deviation 50.0 H (36.4-46.3) fL RDW Coeff of Kamilla 15.6 H (11.5-14.5) % Neut # (Auto) 8.72 H (1.40-6.50) K/uL Wilcox # (Auto) 0.87 H (0.11-0.59) K/uL Immature Gran # (Auto) 0.22 H (0.01-0.20) K/uL Anion Gap 12 H (3-11) Glucose 195 H (70-99(Fasting)) mg/dl Lactate 2.2 H* (0.4-2.0) mmol/L Calcium 8.5 L (8.6-10.3) mg/dl Magnesium 1.0 L (1.7-2.4) mg/dl Troponin I High Sens 17.8 H (0-14) pg/ml C-Reactive Protein 2.21 H (0-0.5) mg/dl Diagnostic Findings Cervical Spine CT 08/13/24 11:14 CT cervical spine wo con CT DOSE: 1035.22 mGy.cm CLINICAL HISTORY: fall. COMPARISON: None TECHNIQUE: Multiple axial CT images of the cervical spine were obtained without contrast. A dose lowering technique was utilized adhering to the principles of ALARA. FINDINGS: There is moderate lower cervical degenerative disc disease. No fracture or subluxation. IMPRESSION: No fracture seen. ACT 112: Negative or not required by law. The above report was generated using voice recognition software. It may contain grammatical, syntax or spelling errors. Electronically signed by: Cheo Gore M.D. 08/13/2024 12:08 PM Chest X-Ray 08/13/24 11:14 XR chest 1V portable CLINICAL HISTORY: Sepsis COMPARISON STUDY: 05/14/2024 FINDINGS: Heart size and pulmonary vasculature are normal. No effusion, consolidation, or pneumothorax. IMPRESSION: No acute findings. ACT 112: Negative or not required by law. Electronically signed by: Cheo Gore M.D. 08/13/2024 11:44 AM Foot X-Ray 08/13/24 11:14 XR foot RT 2V CLINICAL HISTORY: ulcer COMPARISON: None FINDINGS: There are mild degenerative changes without erosions. There are small calcaneal spurs. No fracture or dislocation. No radiopaque foreign body. No evidence of osteomyelitis seen. IMPRESSION: No osteomyelitis seen. ACT 112: Negative or not required by law. Electronically signed by: Cheo Gore M.D. 08/13/2024 11:[address] 08/13/24 11:14 CT head/brain wo con CLINICAL HISTORY: 88 years-old Female with fall. Acute head trauma status post fall TECHNIQUE: Multiple axial CT images of the head were obtained without contrast. A dose lowering technique was utilized adhering to the principles of ALARA. COMPARISON: CT cervical spine of same day, head CT 12/13/2020 FINDINGS: No acute intracranial hemorrhage, midline shift, intracranial mass, hydrocephalus, territorial ischemia or abnormal extra-axial collection. Involutional changes with white matter hypodensities suggestive of chronic microvascular ischemic disease. 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 Additional probable encephalomalacia of the left parietal lobe is new/progressed from prior. Chronic right cerebellar infarct. The calvarium is intact. Trace right mastoid effusion. The left mastoid air cells and paranasal sinuses are generally clear. Unremarkable soft tissues and orbits. IMPRESSION: 1. No acute intracranial abnormality or calvarial fracture. 2. Chronic cerebral and cerebellar infarcts. ACT 112: Negative or not required by law. The above report was generated using voice recognition software. It may contain grammatical, syntax or spelling errors. Electronically signed by: Salvador Myers M.D. 08/13/2024 12:09 PM Pelvis X-Ray 08/13/24 11:15 XR pelvis 1-2V routine CLINICAL HISTORY: fall COMPARISON: None FINDINGS: There are degenerative changes at the hips, moderate on the left and mild on the right. No fracture or dislocation. SI joints are unremarkable. There are severe degenerative changes of the lower lumbar spine. IMPRESSION: No pelvic fracture seen. ACT 112: Negative or not required by law. Electronically signed by: Cheo Gore M.D. 08/13/2024 11:45 AM Abdomen/Pelvis CT 08/13/24 13:18 CT OF THE ABDOMEN AND PELVIS WITH CONTRAST CLINICAL HISTORY: Fall. COMPARISON STUDY: CT of the abdomen and pelvis May 06, 2024. Pelvis radiograph performed earlier today. TECHNIQUE: Following IV administration of 94 mL of Optiray, axial images of the abdomen and pelvis were obtained from the lung bases to the proximal femurs. Images were reviewed in the axial, sagittal, and coronal planes. IV contrast was administered without complication. Automated exposure control was utilized for the study. A dose lowering technique was utilized adhering to the principles of ALARA. CT DOSE: 1363.22 mGy.cm FINDINGS: There is a 2.3 cm right middle lobe airspace opacity. No pneumoperitoneum or hemoperitoneum is present. 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 The gallbladder is moderately distended. There is no pericholecystic infiltration. Left renal scarring is again noted. A few small hypodense foci within the spleen with volume loss are present. The adrenal glands and pancreas are unremarkable. There is no evidence for a bowel obstruction. Colonic diverticulosis without evidence for acute diverticulitis. Trace fluid within the pelvis is noted. There is no pneumatosis, free air or portal venous gas. No lumbar spine, pelvic or hip fractures are identified. 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 IMPRESSION: 1. No acute traumatic findings within the abdomen or pelvis. 2. A few small hypodense foci within the spleen with volume loss. These suggest subacute to chronic splenic infarcts. 3. Trace fluid within the pelvis. 4. No evidence for a bowel obstruction. Colonic diverticulosis. No evidence for acute diverticulitis. 5. Moderate gallbladder distention. No pericholecystic infiltration. These findings do not strongly suggest acute cholecystitis. However, if right quadrant pain, ultrasound is recommended. ACT 112: Negative or not required by law. Electronically signed by: Inderjit Blackman M.D. 08/13/2024 2:[address] 08/13/24 13:[address] WITH CONTRAST HISTORY: Acute chest trauma status post fall CT requested by admitting team TECHNIQUE: Multiaxial CT images of the chest were performed following the IV administration of 94 cc of Optiray. A dose lowering technique was utilized adhering to the principles of ALARA. COMPARISON: CT cervical spine of same day, CT abdomen and pelvis 05/06/2024 FINDINGS: Unremarkable thyroid. No pathologically enlarged lymph nodes. Heart is upper limits of normal in size without pericardial effusion. Extensive coronary artery calcifications. Atherosclerosis of the thoracic aorta without aneurysm or dissection. Mild descending thoracic aortic tortuosity. No pulmonary emboli identified. No pneumothorax, pleural effusion or overt pulmonary edema. Mild bibasilar mucous plugging with subsegmental bibasilar atelectasis. No suspicious pulmonary nodules or lesions identified. Mild intralobular septal thickening. Mild linear consolidation of the medial segment right middle lobe is similar to prior suggestive of scarring. This measures approximately 4 cm in length. Diminutive morphology of the spleen. 2 cm hypodense focus of the anterior spleen suggestive of an infarct on image 212 additional 2.33 hypodensity on image 179. Unremarkable soft tissues. Degenerative changes of the shoulders and spine. No acute fracture identified. IMPRESSION: 1. No acute posttraumatic intrathoracic abnormality identified. 2. Mild bibasilar mucous plugging with atelectasis. 3. 4 cm linear subpleural consolidation of the medial segment right middle lobe is similar to the comparison CT abdomen and pelvis from 05/06/2024 suggestive of probable scarring. 4. Please refer to the CT abdomen and pelvis study of same day for additional findings including discussion of the splenic infarct(s). 5. No acute fracture. ACT 112: Negative or not required by law. Electronically signed by: Salvador Myers M.D. 08/13/2024 3:01 PM ECG Additional Comments: ECG revealed atrial fibrillation at 84 bpm; QTc 406 Code Status & VTE Plan Code Status Full code (discussed with patient, patient's on the phone, and daughter at bedside) Supervising Physician Co-Signing Physician Notes I have personally seen, evaluated and examined the patient. I have also personally discussed the management of the patient with the resident physician/HANH and I agree with the exam findings documented in the history and physical examination and the documented assessment and plan unless otherwise stated below. Brief Exam: In general very pleasant 88-year-old female she is alert and oriented to person not so much to place and time she does have some chronic dementia as per the daughter at the bedside this is patient's baseline. Patient has no specific complaints except being wet with her diaper as well as being hungry. We have asked the nursing staff to place an external catheter and assure them that her diet has been ordered. HEENT: Normocephalic atraumatic. Mucous membranes mildly dry. Heart: Regular rate and rhythm 2 out of 6 to 3 out of 6 systolic ejection murmur right sternal border. Lungs: Fairly clear but diminished due to poor inspiratory effort. Abdomen: Soft nontender with positive bowel sounds. Peripheral extremities neurovascularly intact right heel ulceration as pictured above. With some scabbing of the lower extremities bilaterally consistent with possible picking. Neurologically: The patient is intact with no focal deficit except chronic debility. She is pleasant. Assessment/plan: As discussed above. Vancomycin and cefepime. Monitor carefully. Hydrate gently. Replace magnesium. Please refer to orders for further planning. PG Care Time/CCT Total # of Minutes Spent Total Time Spent with Patient: Total time spent is greater than 50% in coordination of care (as documented) at patient's floor/unit and/or counseling patient: Coding [place] [address] INT INP/OBS CARE 3/75MIN Patient Type Established Medical Decision Making High Complexity Diagnoses Ulcer of right heel L97.419 DM2 (diabetes mellitus, type 2) E11.9 Atrial fibrillation I48.91 Type 2 diabetes mellitus without complication, without long-term current use of insulin E11.9 Diabetes mellitus complication status: without complication Diabetes mellitus [facility] insulin use: without [facility] use Diabetes mellitus type: type 2 (4) Diabetes Diabetes mellitus complication status: without complication Diabetes mellitus manager terminal insulin use: without [facility] use Diabetes mellitus type: type 2 Qualified Code(s): E11.9 - Type 2 diabetes mellitus without complications
--- OUTSIDE RECORDS SUMMARY | 2024-08-13 16:18 | External Medical Summary | Summary of Care ---
Author Name Unknown Organization [facility] Address [address] [facility] [place] [address] Phone [phone] Care Team Providers Care Scroll Machine Operator Name Role Phone Cindi Henry MD Primary Care Prov ider Encounter Details Date Type Department Care Team (Late st Contact Info) Description 07/30/2024 Population Health External Data Unspecified Department Allergies Active Allergy Reactions Criticality Noted Date Comments Mirabegron 10/07/2020 Other Reaction(s): Hair Loss Other reaction(s): Hair Loss documented as of this encounter (statuses as of 07/30/2024) Medications AXID CAPS 150 MG OR one cap by mouth 2 times a day 68 1 04/03/2001 Active VITAMIN E CAPS 400 IU OR 0 04/03/2001 Active MULTIVITAMIN TABS OR 0 04/03/2001 Active CALTRATE 600 + D TABS 600-125 MG-IU OR two a day 0 04/03/2001 Active ASPIRIN TABS 325 MG OR three a week 100 5 04/03/2001 Active documented as of this encounter (statuses as of 07/30/2024) Immunizations Name Administration Dates Next Due Covid-19, Mrna, Lnp-s, Pf, B ivalent, 30 Mcg, IM, 12 yrs and above (Pfizer) 04/08/2022 documented as of this encounter Social History Tobacco Use Types Packs/Day Years Used Date Smoking Tobacco: Never Smokeless Tobacco: Never Alcohol Use Standard Drinks/Week Comments Never 0 (1 standard drink = 0.6 oz pur e alcohol) Hunger Vital Sign Answer Date Recorded Within the past 12 months, y ou worried that your food would run out before you got the money to buy more. Never true 07/30/19 25 Within the past 12 months, t he food you bought just didn't last and you didn't have money to get more. Never true 07/30/2024 Childcare Answer Date Recorded Do you feel overwhelmed with taking care of a child, family member or friend? No 07/30/2024 Does your family need help f inding childcare? (Household - for ages 0-17 years) Not on file 07/30/2024 Clothing Answer Date Recorded Have you been unable to get clothing when it was really needed? No 07/30/2024 Is your family able to get c lothes or diapers when needed? (Household - for ages 0-17 years) Not on file 07/30/2024 Personal Safety Answer Date Recorded Do you feel unsafe or have concerns for your saf ety? No 07/30/2024 Do you have concerns for you r family's safety? (Household - for ages 0-17 years) Not on file 07/30/2024 Utilities Answer Date Recorded Do you have trouble paying y our heating, water, or electric bill? No 07/30/2024 Is your family able to pay t he heat, water, or electric bill? (Household - for ages 0-17 years) Not on file 07/30/2024 Does your family have access to good internet? (Household - for ages 0-17 years) Not on file 07/30/2024 Employment Status Answer Date Recorded Are you unemployed or without regular income? No 07/30/2024 Does the household have a re lar source of income? (Household - for ages 0-17 years) Not on file 07/30/2024 Social Connections Answer Date Recorded How often do you feel lonely or isolated from th ose around you? Never 07/30/2024 Financial Resource Strain Answer Date R ecorded Do you have any trouble payi ng for your medications, or do you think you might in the future? No 07/30/2024 Does your family have troubl e paying for medicine? (Household - for ages 0-17 years) Not on file 07/30/2024 Transportation Needs Answer Date Record ed Do you have trouble getting a ride to medical visits or work? (Adult - for ages 18 years and over) Not on file 07/30/2024 Does your family have a hard time getting a ride to doctors visits? (Household - for ages 0-17 years) Not on file 07/30/2024 Has lack of transportation k ept you from medical appointments, meetings, work, or from getting things needed for daily living? Check all that apply. No 07/30/2024 Do you (or your family) have trouble finding or paying for a ride (transportation)? (Household - for ages 0-17 years) Not on file 07/30/2024 Housing Stability Answer Date Recorded Do you currently live in a s helter or have no steady place to sleep at night? No 07/30/2024 Do you think you are at risk of becoming homeless? (Adult - for ages 18 years and over) Not on file 07/30/2024 Does your family worry about paying for your home or becoming homeless? (Household - for ages 0-17 years) Not on file 0 07/30/2024 Are you homeless or worried that you might be in the future? No 07/30/2024 Are you (or your family) harshad eless or worried that you might be in the future? (Household - for ages 0-17 years) Not on file Food Insecurity Answer Date Recorded Do you need food for this week? No 07/30/2024 Are you able to get enough f ood for your family? (Household - for ages 0-17 years) Not on file 07/30/2024 Does your family need food t his week? (Household - for ages 0-17 years) Not on file 07/30/2024 Do you always have enough fo od for your family? (Household - for ages 0-17 years) Not on file 07/30/2024 Comments No Sex and Gender Information Value Date Recorded Sex Assigned at Not on file Legal Sex Female 5:12 AM EST Gender Identity Not on file Sexual Orientation Not on file documented as of this encounter Plan of Treatment Health Maintenance Due Date Last Done Comments DXA Scan 1935 Depression Screening 1947 DTap/Tdap Vaccines (1 - Tdap) 10/21/1954 Zoster Vaccines (1 of 2) 10/21/1985 COVID-19 Vaccine (4 - season) 2024 04/08/2022, 09/24/2020, 08/25/2020 Pneumococcal Vaccine: 50+ Years Completed 07/13/2017, 07/11/2007 Influenza Vaccine (FLU shot) Completed , 03/23/2024, 04/11/2023, Additional history exists HPV (Gardasil) Vaccine Aged Out No lo nger eligible based on patient's age to complete this topic Hepatitis B Vaccine Aged Out No longe r eligible based on patient's age to complete this topic MENINGOCOCCAL (MENACTRA/MENVEO) Aged Out No longer eligible based on patient's age to complete this topic documented as of this encounter Medical Devices Not on filedocumented as of this encounter Care Teams Scroll Machine Operator Relationship Specialty Start Date End Date Cindi Henry MD [address] [place] [id number] PCP - General Family Medicine 09/05/18 documented as of this encounter
--- OUTSIDE RECORDS SUMMARY | 2024-08-13 16:18 | External Medical Summary | Summary of Care ---
Author Name Unknown Organization [facility] Address [address] [facility] [place] [address] Phone [phone] Care Team Providers Care Flame Planer Name Role Phone Cindi Henry MD Primary Care Prov ider Encounter Details Date Type Department Care Team (Late st Contact Info) Description 07/24/2024 Population Health External Data Unspecified Department Allergies No known active allergiesdocumented as of this encounter (statuses as of 07/25/2024) Medications AXID CAPS 150 MG OR one [...] as of this encounter (statuses as of 07/25/2024) Immunizations Name Administration Dates Next Due Covid-19, Mrna, Lnp-s, Pf, B ivalent, 30 Mcg, IM, 12 yrs and above (Pfizer) 04/08/2022 documented as of this encounter Social History Tobacco Use Types Packs/Day Years Used Date Smoking Tobacco: Never Assessed Utilities Answer Date Recorded Do you have trouble paying y our heating, water, or electric bill? (Adult - for ages 18 years and over) Not on file 12/27/2023 Is your family able to pay t he heat, water, or electric bill? (Household - for ages 0-17 years) Not on file 12/27/2023 Does your family have access to good internet? (Household - for ages 0-17 years) Not on file 12/27/2023 Social Connections Answer Date Recorded How often do you feel lonely or isolated from those around you? (Adult - for ages 18 years and over) Not on file 12/27/2023 Comments No Sex and Gender Information Value [...] filedocumented as of this encounter Care Teams Flame Planer Relationship Specialty Start Date End Date Cindi Henry MD [address] [place] [id number] PCP - General Family Medicine 09/05/18 documented as of this encounter
--- NOTE | 2024-08-13 17:27 | Electrocardiogram Report ---
Test Reason : Blood Pressure : */* mmHG Vent. 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 rate has decreased by 51 bpm Confirmed by Marcelino Munson ([id number]) on 08/13/2024 5:27:28 PM Referred By: REFERRED SELF Confirmed By: Marcelino Munson
[2024-08-13] MEDS: MAGNESIUM SULFATE / D5W 1 GM/100 ML BAG IV SCH (17:46)
[2024-08-13] MEDS ORDERED: ONDANSETRON INJ 2 MG/ML 2 ML VIAL IV PRN (19:06)
[2024-08-13] MEDS ORDERED: GLUCAGON FOR INJ 1 MG VIAL SQ PRN (19:06)
[2024-08-13] MEDS ORDERED: ARTIFICIAL TEARS OPB PRN (19:06)
[2024-08-13] MEDS ORDERED: CARBOHYDRATES FOR HYPOGLYCEMIA PO PRN (19:06)
[2024-08-13] MEDS ORDERED: GLUCOSE 40% GEL 15 GM TUBE PO PRN (19:06)
[2024-08-13] MEDS ORDERED: GLUCOSE 10 TAB/TUBE PO PRN (19:06)
[2024-08-13] MEDS ORDERED: DEXTROSE 50% 50 ML SYRINGE IV PRN (19:06)
[2024-08-13] MEDS: INSULIN ASPART PER UNIT CHARGE SC SCH (20:39)
[2024-08-13] MEDS: APIXABAN 2.5 MG TAB PO SCH (20:43)
[2024-08-13] MEDS: METOPROLOL TARTRATE 50 MG TAB PO SCH (20:44)
[2024-08-13] MEDS: MELATONIN 3 MG TAB PO PRN (20:45)
[2024-08-13] MEDS: ACETAMINOPHEN 325 MG TAB PO PRN (20:47)
[2024-08-13 23:12] LABS: C Reactive Protein 1.91 mg/dl (0-0.5)
[2024-08-14 00:30] LABS: Appearance Urine Clear (Clear); Bilirubin Urine Negative (Negative); Blood Urine Negative (Negative); Color Urine Yellow; Glucose Urine UA Negative (Negative); Ketones Urine Trace (Negative); Leukocyte Esterase Urine Negative (Negative); Nitrite Urine Negative (Negative); Protein Urine Negative (Negative); Specific Gravity Urine 1.029 (1.000-1.030); Urobilinogen Urine Negative (Negative)
[2024-08-14] MEDS: CEFEPIME 1000MG 1,000 MG/10 ML SYR IV SCH (01:31)
[2024-08-14 08:38] LABS: Basophils # (auto) 0.05 K/uL (0.00-0.20); Basophils % (auto) 0.5 %; Eosinophils % (auto) 1.9 %; Hematocrit (blood only) 33.6 % (37.0-47.0); Immature Granulocytes # (auto) 0.06 K/uL (0.01-0.20); Immature Granulocytes % (auto) 0.6 %; Lymphocytes # (auto) 1.67 K/uL (1.20-3.40); Lymphocytes % (auto) 15.9 %; Mean Corpuscular Hemoglobin 29.2 pg (25.0-34.0); Mean Corpuscular Hgb Conc 32.7 g/dL (32.0-36.0); Mean Corpuscular Volume 89.1 fL (80.0-100.0); Mean Platelet Volume 10.2 fL (9.4-12.4); Monocytes # (auto) 0.78 K/uL (0.11-0.59); Monocytes % (auto) 7.4 %; Neutrophils # (auto) 7.75 K/uL (1.40-6.50); Neutrophils % (auto) 73.7 %; Platelet Count 321 K/uL (130-400); RDW Coefficient of Variation 15.2 % (11.5-14.5); RDW Standard Deviation 49.3 fL (36.4-46.3); Red Blood Count 3.77 M/uL (4.20-5.40); White Blood Count 10.51 K/ul (4.8-10.8)
[2024-08-14 08:41] LABS: Calcium 7.9 mg/dl (8.6-10.3); Creatinine Clr Calc Pharmacy 37.6 ml/min; Magnesium 1.6 mg/dl (1.7-2.4); Potassium 3.1 mmol/L (3.5-5.1)
[2024-08-14] MEDS: VANCOMYCIN HCL 750 MG in SODIUM CHLORIDE 0.9% 250 ML IV SCH (08:49)
[2024-08-14] MEDS: SERTRALINE HCL 50 MG TABLET PO SCH (08:50)
[2024-08-14] MEDS: POTASSIUM CHLORIDE PWD 20 MEQ PACK PO SCH (08:50)
[2024-08-14] MEDS: dilTIAZem HCL 120 MG CAPCR PO SCH (08:51)
[2024-08-14] MEDS: ASPIRIN 81 MG ECTAB PO SCH (08:51)
[2024-08-14] MEDS: ATORVASTATIN 40 MG TAB PO SCH (08:51)
[2024-08-14] MEDS: MECLIZINE 12.5 MG TAB PO PRN (08:52)
[2024-08-14] MEDS: OXYBUTYNIN CHLORIDE XL 5 MG TABCR PO SCH (08:52)
[2024-08-14] MEDS: DOCUSATE SODIUM 100 MG CAP PO SCH (08:58)
[2024-08-14] MEDS: LANTUS PER UNIT CHARGE SQ SCH (08:59)
[2024-08-14] MEDS ORDERED: PANTOprazole 40 MG TAB PO SCH (09:00)
[2024-08-14] MEDS: POLYETHYLENE (MIRALAX) 17 GM PACK PO SCH (09:00)
--- NOTE | 2024-08-14 10:56 | Pharmacy Report ---
Pharmacy PK ABX Note - Date of Service August 14, 2024 - Assessment and Plan Assessment 88 year old F receiving vancomycin and cefepime for treatment of SSTI/heel ulcer. BCx pending, no wound cx at this time. No pertinent prior culture data available in the chart. Day # 2 of antimicrobial therapy. Plan Vancomycin * Loading dose: 1000 mg IV x 1 * Maintenance dose: 750 mg IV every 24 hours * Regimen is predicted to achieve target AUC/ALEX of 400-600 mg/L.hr * Random level ordered for: 08/15/24 with AM labs Pharmacy will continue to follow and will adjust dose/frequency as necessary. Thank you. Pharmacy has transitioned to AUC monitoring for vancomycin. AUC/ALEX is the preferred PK/PD target and is associated with decreased risk of nephrotoxicity compared to traditional trough targets.
[2024-08-14] MEDS: COLLAGENASE OINT 30 GM TUBE EXT SCH (17:29)
[2024-08-14] MEDS: DIGOXIN 0.125 MG TAB PO SCH (17:29)
[2024-08-14] MEDS: PANTOprazole 40 MG TAB PO SCH (17:29)
--- NOTE | 2024-08-14 20:36 | Hospitalist Progress Note ---
Date of Service August 14, 2024 Assessment & Plan (1) Ulcer of right heel: (2) DM2 (diabetes mellitus, type 2): (3) Atrial fibrillation: (4) Diabetes: Plan Joellen is an 88-year-old female with PMH of diabetes, CAD, GERD, syncope, NSTEMI, atrial fibrillation (on apixaban), CHF, and cellulitis. She presented on 08/13 for suspected new wound on her right ankle. Patient's daughter (Geeta) is at bedside and provides the history. Daughter noticed her right heel wound a few days ago, however it is progressively worsened. Patient lives with her at home. She is a poor historian at baseline, but daughter reports no recent change in cognitive baseline. Daughter first noticed that there might have been some purulent drainage from the heel/ulcer wound today, and brought her in. #Right heel ulcer Vancomycin 750 mg IV q24h Cefepime 2000 mg IV q8h Acetaminophen as needed for pain/fever Daily wound care Wound care nurse consulted #Ambulatory dysfunction PT/OT evaluations appreciated Fall precautions #Hypomagnesemia Magnesium 1.0 on arrival Magnesium sulfate 1 g IV x 2 Trend #Right eye conjunctivitis ?Viral; artificial drops QID PRN #Atrial fibrillation Continue digoxin, metoprolol Continue dose reduced Eliquis A.m. digoxin level #T2DM Last A1c at 9.0% on 04/29/2024 Hold metformin, Ozempic Lantus 5 u QAM while inpatient SSI; with target BSG range 110-140mg/dL, CF 50, carb ratio 15 T2DM diet BSG ACHS Adjust regimen as needed AM A1c Disposition: Admit to [facility] telemetry Full code Heart healthy, T2DM diet PT PPx: Eliquis Admission and Anticipated Discharge Date Admission Date: August 13, 2024 Subjective "I feel fine. No complaints today." Review of Systems Constitutional: Negative for antecedent/coincident fevers, chills, diaphoresis, cough, wheeze, sore throat, hemoptysis, chest pains, palpitations, pleurisy, nausea, vomiting, diarrhea, abdominal pain, pelvic pain, hematemesis, hematochezia, melena, hematuria, dysuria, frequency, urgency, headaches, dizziness, lightheadedness, visual changes, hearing changes, weakness, falls, syncope, trauma, travel history, sick contacts, or food/drug ingestions novel or new. All other review of systems are reported as negative by the patient on 08/14/2024. Physical Exam Constitutional: General: comfortable, coherent, cooperative. Wide awake and alert. Not confused, lethargic, or obtunded. Patient speaks in complete, fluent, and articulate sentences without pause, interruption, cough, or wheeze. HEENT: NC/AT. EOMI, PERRL. No nystagmus, gaze paresis, anisocoria, miosis, mydriasis, hyphema, chemosis, scleral icterus, conjunctivitis, or pterygium. No otorrhea, no rhinorrhea. No pharyngeal discharge or erythema. Neck: Supple, no stridor, bruit, goiter, or hepatojugular reflux. Jugular venous pressure is estimated to be 8 cm above the sternal angle of Lorne, which is typically 5 cm above the level of the right atrium. Hence, there is no jugular venous distention noted on discharge exam 08/14/2024. Lymphatics: No pre-post auricular, anterior/posterior cervical, supraclavicular/infraclavicular, axillary, epitrochlear, or inguinal adenopathy. Chest: Symmetric rise and fall with respirations. Non-tender to palpation. Heart: RRR, S1 and S2 noted. No S3 or S4 summation gallop noted. No tripartite friction rub. Grade II/ early systolic murmur @ LLSB without radiation to the carotids, axilla, or back, and which remains invariant in regards to the respiratory cycle. Lungs: Clear to auscultation and percussion. No audible expiratory wheeze, egophony, pectoriloquy, increase in tactile fremitus, or flatness/dullness to percussion at the bases. Abdomen: Soft, non-tender, non-distended. No rebound, guarding, Tan's sign, or organomegaly. Bowel sounds auscultated in all 4 quadrants. Extremities: No clubbing, cyanosis, or edema. 2+ pedal pulses bilaterally. Skin: No decubitus ulcer, exanthem, or enanthem. Neurology: Alert and oriented in regards to person, place, time, and situation. DTR+ and symmetric. 5/5 motor strength in all 4 extremities, both proximally and distally. No myoclonus, tremors, or tics. Urology: No giles catheter. No urethral discharge. Psychiatry: Appropriate affect. Smiles occasionally. No homicidal/suicidal ideation. Results & Data Results & Data Vital Signs (Past 12 Hours) Vital Signs Temp Pulse Resp BP BP Pulse Ox O2 Del Method 08/14/24 19:55 36.2 C L 66 20 140/66 96 Room Air 08/14/24 15:28 36.3 C L 67 17 130/63 97 Room Air 08/14/24 11:34 36.4 C L 91 H 17 130/78 96 Room Air PG Care Time/CCT Total # of Minutes Spent Total Time Spent with Patient: Total time spent is greater than 50% in coordination of care (as documented) at patient's floor/unit and/or counseling patient: Coding Level of Care Code 64108 SUB INP/OBS CARE 2/35MIN Diagnoses Ulcer of right heel L97.419 DM2 (diabetes mellitus, type 2) E11.9 Atrial fibrillation I48.91 Type 2 diabetes mellitus without complication, without long-term current use of insulin E11.9 Diabetes mellitus type: type 2 Diabetes mellitus prison insulin use: without long chain beamer use Diabetes mellitus complication status: without complication (4) Diabetes Diabetes mellitus type: type 2 Diabetes mellitus long chain beamer insulin use: without long chain beamer use Diabetes mellitus complication status: without complication Qualified Code(s): E11.9 - Type 2 diabetes mellitus without complications
--- NOTE | 2024-08-15 08:50 | Pharmacy Report ---
Pharmacy PK ABX Note - Date of Service August 15, 2024 - Assessment and Plan Assessment 08/15: * Random vancomycin level this AM was ~10 mcg/ml - current vancomycin regimen predicated to achieve AUC/ALEX slightly below 400 mg/L.hr therefore will increase dosing to 750 mg iv q 18 hours to maintain AUC/ALEX 400-600 goal range. 08/14: * 88 year old F receiving vancomycin and cefepime for treatment of SSTI/heel ulcer. BCx pending, no wound cx at this time. No pertinent prior culture data available in the chart. * Day # 2 of antimicrobial therapy. Plan Vancomycin * Increase to vancomycin 750 mg iv q 18 hours * Blood cultures no growth, leukocytosis resolved * Will continue to follow Pharmacy will continue to follow and will adjust dose/frequency as necessary. Thank you. Pharmacy has transitioned to AUC monitoring for vancomycin. AUC/ALEX is the prefe rred PK/PD target and is associated with decreased risk of nephrotoxicity compared to traditional trough targets.
[2024-08-15 10:27] LABS: Albumin Globulin Ratio 1.1 (0.9-2); BUN Creatinine Ratio 14.5 (10-20); Bilirubin,Total 0.6 mg/dl (0.2-1.0); C Reactive Protein 1.23 mg/dl (0-0.5); Calcium 8.2 mg/dl (8.6-10.3); Creatinine Clr Calc Pharmacy 40.4 ml/min; Globulin 2.8 gm/dl (2.5-4.0); Magnesium 1.5 mg/dl (1.7-2.4); Phosphorus 2.7 mg/dl (2.5-4.9); Potassium 3.7 mmol/L (3.5-5.1); Total Protein 5.8 gm/dl (6.0-8.3)
[2024-08-15 10:28] LABS: Basophils # (auto) 0.05 K/uL (0.00-0.20); Basophils % (auto) 0.5 %; Eosinophils # (auto) 0.25 K/uL (0.00-0.50); Eosinophils % (auto) 2.7 %; Hematocrit (blood only) 33.7 % (37.0-47.0); Hemoglobin 10.9 g/dl (12.0-16.0); Immature Granulocytes # (auto) 0.06 K/uL (0.01-0.20); Immature Granulocytes % (auto) 0.7 %; Lymphocytes # (auto) 2.26 K/uL (1.20-3.40); Lymphocytes % (auto) 24.6 %; Mean Corpuscular Hemoglobin 29.2 pg (25.0-34.0); Mean Corpuscular Hgb Conc 32.3 g/dL (32.0-36.0); Mean Corpuscular Volume 90.3 fL (80.0-100.0); Mean Platelet Volume 10.4 fL (9.4-12.4); Monocytes % (auto) 8.7 %; Neutrophils # (auto) 5.76 K/uL (1.40-6.50); Neutrophils % (auto) 62.8 %; Platelet Count 339 K/uL (130-400); RDW Coefficient of Variation 15.6 % (11.5-14.5); RDW Standard Deviation 51.1 fL (36.4-46.3); Red Blood Count 3.73 M/uL (4.20-5.40); White Blood Count 9.18 K/ul (4.8-10.8)
[2024-08-15] MEDS: OPTIRAY 320 100ml IV ONE (14:55)
--- NOTE | 2024-08-15 15:25 | CT Scan Report ---
CT foot RT w con HISTORY: 88 years-old Female right heel ulcer, R/O osteomyelitis chronic pain of the right hindfoot with possible osteomyelitis COMPARISON: Radiographs 08/13/2024 TECHNIQUE: Multiple axial CT images of the right foot were obtained with IV contrast. A dose lowering technique was used consistent with the principals of MAGALY. FINDINGS: Demineralization appearance of the bones with moderate multifocal osteoarthritis. Moderate-sized calc aneal enthesophytes. Mild extension of the metatarsophalangeal joints with flexion of the interphalan geal joints. No acute fracture, dislocation or acute osteochondral defect identified. No osseous eros ions are seen. Midfoot alignment appears anatomic. Suboptimal evaluation of the tendons and ligaments by CT technique. Distal Achilles thickening is at least moderate compatible with chronic tendinosis containing corticated ossifications. Subcutaneous e yasmine hindfoot. No discrete abscess. IMPRESSION: 1. Subcutaneous edema of the heel pad suggestive of cellulitis without abscess. 2. No acute osseous abnormality, specifically there is no CT evidence of acute osteomyelitis. 3. 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 4. Distal Achilles tendinosis. ACT 112: Negative or not required by law. The above report was generated using voice recognition software. It may contain grammatical, syntax o r spelling errors. Electronically signed by: Salvador Myers M.D. 08/15/2024 3:23 PM
--- NOTE | 2024-08-15 15:33 | CT Scan Report ---
CT head/brain wo con CLINICAL HISTORY: expressive aphasia; RLE paresis. TECHNIQUE: Multiple axial CT images of the head were obtained without contrast. A dose lowering tech nique was utilized adhering to the principles of ALARA. CT DOSE: 1250.21 mGy.cm COMPARISON: 08/13/2024 FINDINGS: There is retained intravascular contrast from the CT scan of the foot with IV contrast lazara ier today. This limits evaluation for subtle intracranial hemorrhage. There is motion artifact. No in tracranial hemorrhage seen. No mass effect, midline shift, or hydrocephalus. Stable small area of enc ephalomalacia at the left frontoparietal junction. Stable moderate patchy periventricular hypodensity , nonspecific but usually represents chronic small vessel ischemic change. No skull fracture seen. Vi sualized paranasal sinuses and mastoid air cells are clear. IMPRESSION: Mildly limited exam with no acute findings seen. Otherwise as described. ACT 112: Negative or not required by law. The above report was generated using voice recognition software. It may contain grammatical, syntax o r spelling errors. Electronically signed by: Cheo Gore M.D. 08/15/2024 3:31 PM
[2024-08-15] MEDS: MAGNESIUM SULFATE / D5W 1 GM/100 ML BAG IV SCH (15:50)
--- NOTE | 2024-08-15 20:21 | Hospitalist Progress Note ---
Date of Service August 15, 2024 Assessment & Plan (1) Ulcer of right heel: (2) DM2 (diabetes mellitus, type 2): (3) Atrial fibrillation: (4) Diabetes: Plan 88 years old female with PMH of FULL CODE @ home, DM, CAD, GERD, syncope, NSTEMI, atrial fibrillation (on apixaban), CHF, and cellulitis. Patient presented to [facility] ER on 08/13/2024 for suspected new wound on her right heel. Patient's daughter (Geeta) is at bedside and provides the history. Daughter noticed her right heel wound a few days ago, however it is progressively worsened. Patient lives with her at home. She is a poor historian at baseline, but daughter reports no recent change in cognitive baseline. Daughter first noticed that there might have been some purulent drainage from the heel/ulcer wound today, and brought her in. #Right heel ulcer Vancomycin 750 mg IV q24h Cefepime 2000 mg IV q8h Acetaminophen as needed for pain/fever Daily wound care Wound care nurse consulted #Ambulatory dysfunction PT/OT evaluations appreciated Fall precautions #Hypomagnesemia Magnesium 1.0 on arrival Magnesium sulfate 1 g IV x 2 Trend #Right eye conjunctivitis ?Viral; artificial drops QID PRN #Atrial fibrillation Continue digoxin, metoprolol Continue dose reduced Eliquis A.m. digoxin level #T2DM Last A1c at 9.0% on 04/29/2024 Hold metformin, Ozempic Lantus 5 u QAM while inpatient SSI; with target BSG range 110-140mg/dL, CF 50, carb ratio 15 T2DM diet BSG ACHS Adjust regimen as needed AM A1c Disposition: Admit to [facility] telemetry Full code Heart healthy, T2DM diet PT PPx: Eliquis Admission and Anticipated Discharge Date Admission Date: August 13, 2024 Subjective "I feel fine. No complaints today." Review of Systems Constitutional: Negative for antecedent/coincident fevers, chills, diaphoresis, cough, wheeze, sore throat, hemoptysis, chest pains, palpitations, pleurisy, nausea, vomiting, diarrhea, abdominal pain, pelvic pain, hematemesis, hematochezia, melena, hematuria, dysuria, frequency, urgency, headaches, dizziness, lightheadedness, visual changes, hearing changes, weakness, falls, syncope, trauma, travel history, sick contacts, or food/drug ingestions novel or new. All other review of systems are reported as negative by the patient on 08/15/2024. Physical Exam Constitutional: General: comfortable, coherent, cooperative. Wide awake and alert. Not confused, lethargic, or obtunded. Patient speaks in complete, fluent, and articulate sentences without pause, interruption, cough, or wheeze. HEENT: NC/AT. EOMI, PERRL. No nystagmus, gaze paresis, anisocoria, miosis, mydriasis, hyphema, chemosis, scleral icterus, conjunctivitis, or pterygium. No otorrhea, no rhinorrhea. No pharyngeal discharge or erythema. Neck: Supple, no stridor, bruit, goiter, or hepatojugular reflux. Jugular ve nous pressure is estimated to be 8 cm above the sternal angle of Lorne, which is typically 5 cm above the level of the right atrium. Hence, there is no jugular venous distention noted on discharge exam 08/15/2024. Lymphatics: No pre-post auricular, anterior/posterior cervical, supraclavicular/infraclavicular, axillary, epitrochlear, or inguinal adenopathy. Chest: Symmetric rise and fall with respirations. Non-tender to palpation. Heart: RRR, S1 and S2 noted. No S3 or S4 summation gallop noted. No tripartite friction rub. Grade II/ early systolic murmur @ LLSB without radiation to the carotids, axilla, or back, and which remains invariant in regards to the respiratory cycle. Lungs: Clear to auscultation and percussion. No audible expiratory wheeze, egophony, pectoriloquy, increase in tactile fremitus, or flatness/dullness to percussion at the bases. Abdomen: Soft, non-tender, non-distended. No rebound, guarding, Tan's sign, or organomegaly. Bowel sounds auscultated in all 4 quadrants. Extremities: No clubbing, cyanosis, or edema. 2+ pedal pulses bilaterally. Skin: No decubitus ulcer, exanthem, or enanthem. Solitary right heel ulcer scabbed over, 2 cm circular diameter. No sanguineous, serous, or suppuration. Non-tender to deep palpation of right heel ulcer. No surrounding/underlying erythema, edema, induration, warmth, crepitus, fluctuane malodor, or lymphangitic streaking on 08/15/2024. Neurology: Alert and oriented in regards to person, place, time, and situation. DTR+ and symmetric. 5/5 motor strength in all 4 extremities, both proximally and distally. No myoclonus, tremors, or tics. Urology: No giles catheter. No urethral discharge. Psychiatry: Appropriate affect. Smiles occasionally. No homicidal/suicidal id eation. Results & Data Results & Data Vital Signs (Past 12 Hours) Vital Signs Temp Pulse Pulse Resp BP Pulse Ox O2 Del Method 08/15/24 16:36 55 L 08/15/24 15:50 45 L 08/15/24 15:06 36.0 C L 55 L 18 123/60 97 Room Air 08/15/24 14:25 40 L 08/15/24 11:32 36.1 C L 68 18 152/68 H 96 Room Air PG Care Time/CCT Total # of Minutes Spent Total Time Spent with Patient: Total time spent is greater than 50% in coordination of care (as documented) at patient's floor/unit and/or counseling patient: Coding Level of Care Code 60349 SUB INP/OBS CARE 2MIN Diagnoses Ulcer of right heel L97.419 DM2 (diabetes mellitus, type 2) E11.9 Atrial fibrillation I48.91 Type 2 diabetes mellitus without complication, without long-term current use of insulin E11.9 Diabetes mellitus type: type 2 Diabetes mellitus keno terminal operator insulin use: without keno terminal operator use Diabetes mellitus complication status: without complication (4) Diabetes Diabetes mellitus type: type 2 Diabetes mellitus group home insulin use: without keno terminal operator use Diabetes mellitus complication status: without complication Qualified Code(s): E11.9 - Type 2 diabetes mellitus without complications
[2024-08-16] MEDS: VANCOMYCIN HCL 750 MG in SODIUM CHLORIDE 0.9% 250 ML IV SCH (01:16)
[2024-08-16 06:39] LABS: Appearance Urine Clear (Clear); Bacteria Urine Automated None Seen (None Seen); Bilirubin Urine Negative (Negative); Blood Urine Negative (Negative); Cast Urine Automated 0-2 /lpf (0-2); Color Urine Yellow; Epithelial Cell Urine Auto 0-2 /hpf (0-2); Glucose Urine UA Negative (Negative); Ketones Urine Trace (Negative); Leukocyte Esterase Urine Negative (Negative); Nitrite Urine Negative (Negative); Protein Urine Trace (Negative); RBC Urine Automated 0-2 /hpf (0-2); Urobilinogen Urine Negative (Negative); WBC Urine Automated 0-5 /hpf (0-5)
[2024-08-16 06:50] LABS: Estimated Average Glucose 157 mg/dl; Hemoglobin A1C 7.1 % (4.5-5.6)
[2024-08-16 08:36] LABS: BUN Creatinine Ratio 15.7 (10-20); Calcium 8.5 mg/dl (8.6-10.3); Creatinine Clr Calc Pharmacy 42.1 ml/min; Potassium 4.1 mmol/L (3.5-5.1)
[2024-08-16 08:42] LABS: Creatinine Clr Calc Pharmacy 41.5 ml/min
[2024-08-16 09:15] LABS: Magnesium 2.1 mg/dl (1.7-2.4); Phosphorus 3.1 mg/dl (2.5-4.9)
--- NOTE | 2024-08-16 20:31 | Hospitalist Progress Note ---
Date of Service August 16, 2024 Assessment & Plan (1) Ulcer of right heel: (2) DM2 (diabetes mellitus, type 2): (3) Atrial fibrillation: (4) Diabetes: Plan 88 years old female with PMH of FULL CODE @ home, DM, CAD, GERD, syncope, NSTEMI, atrial fibrillation (on apixaban), CHF, and cellulitis. Patient presented to [facility] ER on 08/13/2024 for suspected new wound on her right heel. Patient's daughter (Geeta) is at bedside and provides the history. Daughter noticed her right heel wound a few days ago, however it is progressively worsened. Patient lives with her at home. She is a poor historian at baseline, but daughter reports no recent change in cognitive baseline. Daughter first noticed that there might have been some purulent drainage from the heel/ulcer wound today, and brought her in. #Right heel ulcer Vancomycin 750 mg IV q24h Cefepime 2000 mg IV q8h Acetaminophen as needed for pain/fever Daily wound care Wound care nurse consulted #Ambulatory dysfunction PT/OT evaluations appreciated Fall precautions #Hypomagnesemia Magnesium 1.0 on arrival Magnesium sulfate 1 g IV x 2 Trend #Right eye conjunctivitis ?Viral; artificial drops QID PRN #Atrial fibrillation Continue digoxin, metoprolol Continue dose reduced Eliquis A.m. digoxin level #T2DM Last A1c at 9.0% on 04/29/2024 Hold metformin, Ozempic Lantus 5 u QAM while inpatient SSI; with target BSG range 110-140mg/dL, CF 50, carb ratio 15 T2DM diet BSG ACHS Adjust regimen as needed AM A1c Disposition: Admit to [facility] telemetry Full code Heart healthy, T2DM diet PT PPx: Eliquis Admission and Anticipated Discharge Date Admission Date: August 13, 2024 Subjective "I feel fine. No complaints today." Review of Systems Review of Systems: See HPI above Constitutional: Negative for antecedent/coincident fevers, chills, diaphoresis, cough, wheeze, sore throat, hemoptysis, chest pains, palpitations, pleurisy, nausea, vomiting, diarrhea, abdominal pain, pelvic pain, hematemesis, hematochezia, melena, hematuria, dysuria, frequency, urgency, headaches, dizziness, lightheadedness, visual changes, hearing changes, weakness, falls, syncope, trauma, travel history, sick contacts, or food/drug ingestions novel or new. All other review of systems are reported as negative by the patient on 08/16/2024. Physical Exam Constitutional: General: comfortable, coherent, cooperative. Wide awake and alert. Not confused, lethargic, or obtunded. Patient speaks in complete, fluent, and articulate sentences without pause, interruption, cough, or wheeze. HEENT: NC/AT. EOMI, PERRL. No nystagmus, gaze paresis, anisocoria, miosis, mydriasis, hyphema, chemosis, scleral icterus, conjunctivitis, or pterygium. No otorrhea, no rhinorrhea. No pharyngeal discharge or erythema. Neck: Supple, no stridor, bruit, goiter, or hepatojugular reflux. Jugular venous pressure is estimated to be 8 cm above the sternal angle of Lorne, which is typically 5 cm above the level of the right atrium. Hence, there is no jugular venous distention noted on 08/16/2024. Lymphatics: No pre-post auricular, anterior/posterior cervical, supraclavicular/infraclavicular, axillary, epitrochlear, or inguinal adenopathy. Chest: Symmetric rise and fall with respirations. Non-tender to palpation. Heart: RRR, S1 and S2 noted. No S3 or S4 summation gallop noted. No tripartite friction rub. Grade II/ early systolic murmur @ LLSB without radiation to the carotids, axilla, or back, and which remains invariant in regards to the respiratory cycle. Lungs: Clear to auscultation and percussion. No audible expiratory wheeze, egophony, pectoriloquy, increase in tactile fremitus, or flatness/dullness to percussion at the bases. Abdomen: Soft, non-tender, non-distended. No rebound, guarding, Tan's sign, or organomegaly. Bowel sounds auscultated in all 4 quadrants. Extremities: No clubbing, cyanosis, or edema. 2+ pedal pulses bilaterally. 7 cm x 10 cm immobile, indurated protuberance, non-tender, at right infra- patellar, medial tibial aspect, and present on admission date 08/10/2024. Skin: No exanthem or enanthem. Right heel ulcer, 2cm diameter, scabbed over, non-tender, no surrounding/underlying erythema, edema, induration, warmth, crepitus, fluctuance, discharge (sanguineous, serous, suppurative), malodor, or lymphangitic streaking, and present on admission date 08/10/2024. Neurology: Alert and oriented in regards to person, place, time, and situation. DTR+ and symmetric. 5/5 motor strength in all 4 extremities, both proximally and distally. No myoclonus, tremors, or tics. Urology: No giles catheter. No urethral discharge. Psychiatry: Appropriate affect. Smiles occasionally. No homicidal/suicidal ideation. Results & Data Results & Data Vital Signs (Past 12 Hours) Vital Signs Temp Pulse Pulse Resp BP Pulse Ox O2 Del Method 08/16/24 19:31 36.3 C L 66 18 133/59 L 97 Room Air 08/16/24 16:34 87 08/16/24 15:02 36.5 C 60 18 135/77 97 Room Air 08/16/24 13:04 107 H 08/16/24 11:23 36.2 C L 81 18 156/64 H 93 Room Air Diagnostic Findings RLE tibial CT without contrast (08/16/2024): (evaluation of 7 cm x 10 cm immobile, indurated protuberance, non-tender, at right infra-patellar, medial tibial aspect, and present on admission date 08/10/2024). PG Care Time/CCT Total # of Minutes Spent Total Time Spent with Patient: Total time spent is greater than 50% in coordination of care (as documented) at patient's floor/unit and/or counseling patient: Coding Level of Care Code 12359 SUB INP/OBS CARE 2/35MIN Diagnoses Ulcer of right heel L97.419 DM2 (diabetes mellitus, type 2) E11.9 Atrial fibrillation I48.91 Type 2 diabetes mellitus without complication, without long-term current use of insulin E11.9 Diabetes mellitus complication status: without complication Diabetes mellitus medical terminologist insulin use: without fpc use Diabetes mellitus type: type 2 (4) Diabetes Diabetes mellitus complication status: without complication Diabetes mellitus medical terminologist insulin use: without medical terminologist use Diabetes mellitus type: type 2 Qualified Code(s): E11.9 - Type 2 diabetes mellitus without complications
--- NOTE | 2024-08-16 23:02 | CT Scan Report ---
Exam(s): CT EXTREMITY RIGHT LOWER Without Contrast EXAM: CT Right Lower Extremity Without Intravenous Contrast CLINICAL HISTORY: R medial tibial protuberance, immobile, 7 x 10 cm. TECHNIQUE: Axial computed tomography images of the right lower extremity without intravenous contrast. CTDI is 6.17 mGy and DLP is 262.62 mGy-cm. Automated exposure control was utilized for the study. A dose lowering technique was utilized adhering to the principles of ALARA. COMPARISON: No relevant prior studies available. FINDINGS: Bones/joints: There is a lobulated fluid density collection along the medial aspect of the knee joint with a surrounding soft tissue capsule. Evaluation is limited without contrast; however, the capsule measures up to 5 mm in diameter. There are marginal rim calcifications noted inferiorly and posteriorly and minimally laterally. The collection appears to demonstrate subtle thin communication with the suprapatellar joint, which demonstrates mild joint effusion. Severe degenerative changes involving the knee joint with a [id number] appearance of the medial compartment. There is subluxation of the distal femur in relation to the tibia. There are moderately severe degenerative changes involving the lateral compartment and severe degenerative changes of the patellofemoral compartment with marginal hypertrophic osteophytes. The osseous structures are otherwise unremarkable and intact without acute traumatic injury. Soft tissues: The muscle bundles are unremarkable. The overlying soft tissues are otherwise unremarkable. No fat stranding or edema. No subcutaneous emphysema. IMPRESSION: There is a lobulated fluid density collection along the medial aspect of the knee joint with a surrounding soft tissue capsule. Evaluation is limited without contrast; however, the capsule measures up to 5 mm in diameter. There are marginal rim calcifications noted inferiorly and posteriorly and minimally laterally. The collection appears to demonstrate subtle thin communication with the suprapatellar joint, which demonstrates mild joint effusion. The appearance is most consistent with chronic changes of the joint space, presumably secondary to severe degenerative changes of the knee joint. No surrounding fat stranding or soft tissue swelling noted to suggest inflammatory or infectious changes. Electronically signed by: Hong Bradshaw MD 08/16/24 23:01 PM
--- NOTE | 2024-08-16 23:09 | Magnetic Resonance Report ---
Exam(s): MRI HEAD Without Contrast EXAM: MR Head Without Intravenous Contrast CLINICAL HISTORY: expressive aphasia, RLE paresis. TECHNIQUE: Magnetic resonance images of the head/brain without intravenous contrast in multiple planes. COMPARISON: CT head without contrast 08/13/2024 FINDINGS: Limitations: There is motion artifact, which degrades image quality on multiple images across multiple sequences. Brain: Irregular areas of diffusion restriction are noted in the left parietal region with involvement of both the cortex and deep white matter. There are a few punctate areas of abnormal T2 signal in the deep cerebral white matter most consistent with mild small vessel ischemic/degenerative changes. The cerebral and cerebellar sulci are mildly prominent consistent with mild brain atrophy. The expected midline structures are noted without significant abnormality on sagittal T1-weighted imaging. No hemorrhage. No significant mass-effect. Ventricles: Unremarkable. No ventriculomegaly. Bones/joints: No osseous abnormality identified. Sinuses: The paranasal sinuses appear to be aerated. No acute sinusitis. Mastoid air cells: Unremarkable as visualized. No mastoid effusion. Orbits: Evaluation of the orbits is limited by motion artifact. No segment pathology suspected. IMPRESSION: Irregular areas of diffusion restriction are noted in the left parietal region with involvement of both the cortex and deep white matter. Findings are consistent with an evolving ischemic process. No evidence for hemorrhagic transformation. No significant mass-effect. Communications: 08/16/24 23:08 Verify Receipt with Nurse Verified receipt with Radiologist assigned. Electronically signed by: Hong Bradshaw MD 08/16/24 23:08 PM
[2024-08-17 08:58] LABS: Creatinine Clr Calc Pharmacy 47.5 ml/min
[2024-08-17 12:21] LABS: Basophils # (auto) 0.06 K/uL (0.00-0.20); Basophils % (auto) 0.6 %; Eosinophils # (auto) 0.18 K/uL (0.00-0.50); Eosinophils % (auto) 1.9 %; Hematocrit (blood only) 35.8 % (37.0-47.0); Hemoglobin 11.4 g/dl (12.0-16.0); Immature Granulocytes # (auto) 0.08 K/uL (0.01-0.20); Immature Granulocytes % (auto) 0.8 %; Lymphocytes # (auto) 1.66 K/uL (1.20-3.40); Lymphocytes % (auto) 17.5 %; Mean Corpuscular Hemoglobin 28.8 pg (25.0-34.0); Mean Corpuscular Hgb Conc 31.8 g/dL (32.0-36.0); Mean Corpuscular Volume 90.4 fL (80.0-100.0); Monocytes # (auto) 0.67 K/uL (0.11-0.59); Monocytes % (auto) 7.1 %; Neutrophils # (auto) 6.85 K/uL (1.40-6.50); Neutrophils % (auto) 72.1 %; Platelet Count 337 K/uL (130-400); RDW Coefficient of Variation 15.9 % (11.5-14.5); RDW Standard Deviation 52.4 fL (36.4-46.3); Red Blood Count 3.96 M/uL (4.20-5.40)
[2024-08-17 12:37] LABS: BUN Creatinine Ratio 19.4 (10-20); C Reactive Protein 0.88 mg/dl (0-0.5); Calcium 8.7 mg/dl (8.6-10.3); Creatinine Clr Calc Pharmacy 45.4 ml/min; Potassium 4.5 mmol/L (3.5-5.1)
--- NOTE | 2024-08-17 14:08 | XCELERA ---
[id number]
--- NOTE | 2024-08-17 15:45 | Ultrasound Report ---
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 Acute strokelike symptoms COMPARISON: Brain MRI 08/16/2024 TECHNIQUE: Multiple real time sonographic images of the carotid bifurcations were obtained assessing ortiz scale, color Doppler and spectral wave form appearance FINDINGS: RIGHT CAROTID: The peak systolic velocity measured within the right ICA is 90 cm/sec. The end diast olic velocity measured 24 cm/sec. The ICA to CCA ratio measured 1.5 which correlates with a stenosis of 0-50%. Mild to moderate atherosclerosis of the carotid bulb. LEFT CAROTID: The peak systolic velocity measured within the left ICA is 88 cm/sec. The end diastol ic velocity measured 19 cm/sec. The ICA to CCA ratio measured 1.4 which correlates with a stenosis of 0-50%. Mild to moderate atherosclerosis of the carotid bulb. There is normal antegrade vertebral flow bilaterally. IMPRESSION: 1. Atherosclerosis without hemodynamically significant stenosis. 2. Normal antegrade vertebral flow bilaterally. ACT 112: Negative or not required by law. The above report was generated using voice recognition software. It may contain grammatical, syntax o r spelling errors. Electronically signed by: Salvador Myers M.D. 08/17/2024 3:43 PM
[2024-08-17] MEDS: AMOXICILLIN/CLAVULANATE 875 MG TAB PO SCH (16:53)
--- NOTE | 2024-08-17 18:10 | Hospitalist Progress Note ---
Date of Service August 17, 2024 Assessment & Plan (1) Ulcer of right heel: (2) DM2 (diabetes mellitus, type 2): (3) Atrial fibrillation: (4) Diabetes: Plan 88 years old female with PMH of FULL CODE @ home, DM, CAD, GERD, syncope, NSTEMI, atrial fibrillation (on apixaban), CHF, and right posterior heel cellulitis. Patient presented to [facility] ER on 08/13/2024 for suspected new wound on her right heel. Patient's daughter (Geeta) is at bedside and provides the history. Daughter noticed her right heel wound a few days ago, however it is progressively worsened. Patient lives with her at home. She is a poor historian at baseline, but daughter reports no recent change in cognitive baseline. Daughter first noticed that there might have been some purulent drainage from the heel/ulcer wound today, and brought her in. #Right heel ulcer cellulitis, RESOLVING well. NOT osteomyelitis (as per 08/15/2024, 2:07pm CT right foot with IV contrast). Patient received vancomycin 1g IV x 1 dose (08/13/2024, 1:01pm), followed by vancomycin 750mg IV daily (day #1 on 08/14/2024, 8:00am), followed by vancomycin 750mg IV q18 (day #1 on 08/16/2024, 2:00am). Patient also received cefepime 2g IV x 1 dose (08/13/2024, 1:01pm), followed by cefepime 1g IV q12 (day #1 on 08/14/2024, 1:00am). Patient was subsequently transitioned from parenteral antibiotics noted above, and started on augmentin 875mg/125mg PO bid x 10 doses (day #1/5 on 08/17/2024, 5:00pm). Acetaminophen as needed for pain/fever Daily wound care Wound care nurse consulted #Ambulatory dysfunction, CHRONIC/PERSISTENT. PT/OT evaluations appreciated Fall precautions #Hypomagnesemia, RESOLVED. Magnesium 1.0 on arrival Magnesium sulfate 1 g IV x 2 Trend #Right eye conjunctivitis, RESOLVED. ?Viral; artificial drops QID PRN #Atrial fibrillation, CHRONIC/PERSISTENT. Continue digoxin, metoprolol Continue dose reduced Eliquis A.m. digoxin level #T2DM with HbA1c 7.1% (08/14/2024, 7:37am), CHRONIC/PERSISTENT. Last A1c at 9.0% on 04/29/2024 Hold metformin, Ozempic Lantus 5 u QAM while inpatient SSI; with target BSG range 110-140mg/dL, CF 50, carb ratio 15 T2DM diet BSG ACHS Adjust regimen as needed #Acute non-hemorrhagic, ischemic, left parietal CVA (as noted on 08/16/2024, 8:36am MRI brain without contrast) with RUE/RLE paresis. Continue telemetry, neuro checks q4h x 24 hours, ASA 81mg PO daily, atorvastatin 40mg PO daily, and apixaban 2.5mg PO bid (which the patient normally takes at home given paroxysmal AFIB with CHADS2-VASC score = 8 points (e.g., 2 points for age > 74 years, 1 point for female sex, 1 point for CHF, 1 point for DM, 1 point for PAD, and now 2 points for CVA). Await D/C to [facility] once patient's insurance company approves / authorizes short-term rehab stay @ [facility] in the next 1-3 days. Disposition: Admit to [facility] telemetry Full code Heart healthy, T2DM diet PT PPx: Eliquis Admission and Anticipated Discharge Date Admission Date: August 13, 2024 Subjective "I feel fine. No complaints today." Review of Systems Constitutional: Negative for antecedent/coincident fevers, chills, diaphoresis, cough, wheeze, sore throat, hemoptysis, chest pains, palpitations, pleurisy, nausea, vomiting, diarrhea, abdominal pain, pelvic pain, hematemesis, hematochezia, melena, hematuria, dysuria, frequency, urgency, headaches, dizziness, lightheadedness, visual changes, hearing changes, falls, syncope, trauma, travel history, sick contacts, or food/drug ingestions novel or new. All other review of systems are reported as negative by the patient on 08/17/2024. Physical Exam Constitutional: General: comfortable, coherent, cooperative. Wide awake and alert. Not confused, lethargic, or obtunded. Patient speaks in complete, fluent, and articulate sentences without pause, interruption, cough, or wheeze. HEENT: NC/AT. EOMI, PERRL. No nystagmus, gaze paresis, anisocoria, miosis, mydriasis, hyphema, chemosis, scleral icterus, conjunctivitis, or pterygium. No otorrhea, no rhinorrhea. No pharyngeal discharge or erythema. Neck: Supple, no stridor, bruit, goiter, or hepatojugular reflux. Jugular venous pressure is estimated to be 8 cm above the sternal angle of Lorne, which is typically 5 cm above the level of the right atrium. Hence, there is no jugular venous distention noted on 08/17/2024. Lymphatics: No pre-post auricular, anterior/posterior cervical, supraclavicular/infraclavicular, axillary, epitrochlear, or inguinal adenopathy. Chest: Symmetric rise and fall with respirations. Non-tender to palpation. Heart: RRR, S1 and S2 noted. No S3 or S4 summation gallop noted. No tripartite friction rub. Grade II/ early systolic murmur @ LLSB without radiation to the carotids, axilla, or back, and which remains invariant in regards to the respiratory cycle. Lungs: Clear to auscultation and percussion. No audible expiratory wheeze, egophony, pectoriloquy, increase in tactile fremitus, or flatness/dullness to percussion at the bases. Abdomen: Soft, non-tender, non-distended. No rebound, guarding, Tan's sign, or organomegaly. Bowel sounds auscultated in all 4 quadrants. Extremities: No clubbing, cyanosis, or edema. 2+ pedal pulses bilaterally. 7 cm x 10 cm immobile, indurated protuberance, non-tender, at right infra- patellar, medial tibial aspect, and present on admission date 08/10/2024. Skin: No exanthem or enanthem. Right heel ulcer, 2cm diameter, scabbed over, non-tender, no surrounding/underlying erythema, edema, induration, warmth, crepitus, fluctuance, discharge (sanguineous, serous, suppurative), malodor, or lymphangitic streaking, and present on admission date 08/10/2024. Neurology: Alert and oriented in regards to person, place, time, and situation. DTR+ and symmetric. 5/5 motor strength in all 4 extremities, both proximally and distally. No myoclonus, tremors, or tics. Urology: No giles catheter. No urethral discharge. Psychiatry: Appropriate affect. Smiles occasionally. No homicidal/suicidal ideation. Results & Data Results & Data Vital Signs (Past 12 Hours) Vital Signs Temp Pulse Pulse Resp BP Pulse Ox O2 Del Method 08/17/24 16:52 96 H 08/17/24 15:17 37.0 C 78 20 108/72 93 Room Air 08/17/24 14:23 158 H 08/17/24 11:12 37.3 C 92 H 20 135/81 95 Room Air 08/17/24 08:04 37.0 C 47 L 20 172/76 H 93 Room Air 08/17/24 07:31 Room Air 08/17/24 06:[address] right foot with IV contrast (08/15/2024, 2:07pm): 1. Subcutaneous edema of the heel pad suggestive of cellulitis without abscess. 2. No acute osseous abnormality, specifically there is no CT evidence of acute osteomyelitis. 3. 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 4. Distal Achilles tendinosis. MRI brain without contrast (08/16/2024, 8:36am): 1. Irregular areas of diffusion restriction are noted in the left parietal region with involvement of both the cortex and deep white matter. Findings are consistent with an evolving ischemic process. No evidence for hemorrhagic transformation. No significant mass-effect. CT RLE without contrast (08/16/2024, 8:43pm): 1. Lobulated fluid density collection along the medial aspect of the knee joint with a surrounding soft tissue capsule. Evaluation is limited without contrast; however, the capsule measures up to 5 mm in diameter. There are marginal rim calcifications noted inferiorly and posteriorly and minimally laterally. The collection appears to demonstrate subtle thin communication with the suprapatellar joint, which demonstrates mild joint effusion. The appearance is most consistent with chronic changes of the joint space, presumably secondary to severe degenerative changes of the knee joint. 2. No surrounding fat stranding or soft tissue swelling noted to suggest inflammatory or infectious changes. Carotid doppler (08/17/2024, 11:32am): 1. Atherosclerosis without hemodynamically significant stenosis. 2. Normal antegrade vertebral flow bilaterally. TTE (08/17/2024, 12:03pm): 1. LVEF 55-60%. Mild concentric LVH. Distal septal/anteroseptal wall moderately hypokinetic; all other plaza move normally. 2. RV normal size and normal systolic function. 3. LA moderately dilated. RA mildly dilated. No ASD. No interatrial shunt. 4. Mild AR. No . 5. No TN. 6. Mild-moderate MR. No MS. 7. Moderate TR. RVSP elevated at 30-40 mm Hg. 8. Aortic root normal size. Pulmonary artery normal size. IVC mildly dilated. 9. No pericardial effusion. (as per CARDS Dr. Marcelino Munson). cf., TTE (05/07/2024, 7:32am): 1. LVEF 25-30%. Entire apex akinetic and in some views dyskinetic. Moderate- severe hypokinesis of basal segments. 2. RV not well visualized. 3. LA mildly dilated. Borderline BRAVO. 4. Mild AR. No . 5. PV not well seen, but grossly normal. 6. Moderate MR. 7. Moderate TR. RVSP elevated at 40-50 mm Hg. 8. Aortic root normal size. IVC moderately dilated. 9. No pericardial effusion. (as per CARDS Dr. Colten Christianson). PG Care Time/CCT Total # of Minutes Spent Total Time Spent with Patient: Total time spent is greater than 50% in coordination of care (as documented) at patient's floor/unit and/or counseling patient: Coding Level of Care Code 31150 SUB INP/OBS CARE 235MIN Diagnoses Ulcer of right heel L97.419 DM2 (diabetes mellitus, type 2) E11.9 Atrial fibrillation I48.91 Type 2 diabetes mellitus without complication, without long-term current use of insulin E11.9 Diabetes mellitus type: type 2 Diabetes mellitus nursing home insulin use: without exterminator helper termite use Diabetes mellitus complication status: without complication (4) Diabetes Diabetes mellitus type: type 2 Diabetes mellitus exterminator helper termite insulin use: without exterminator helper termite use Diabetes mellitus complication status: without complication Qualified Code(s): E11.9 - Type 2 diabetes mellitus without complications
[2024-08-18 08:34] LABS: Creatinine Clr Calc Pharmacy 46.1 ml/min
[2024-08-18 08:54] LABS: Basophils # (auto) 0.06 K/uL (0.00-0.20); Basophils % (auto) 0.6 %; Eosinophils # (auto) 0.23 K/uL (0.00-0.50); Eosinophils % (auto) 2.3 %; Hematocrit (blood only) 37.2 % (37.0-47.0); Hemoglobin 11.9 g/dl (12.0-16.0); Immature Granulocytes # (auto) 0.09 K/uL (0.01-0.20); Immature Granulocytes % (auto) 0.9 %; Lymphocytes # (auto) 1.39 K/uL (1.20-3.40); Lymphocytes % (auto) 13.8 %; Mean Corpuscular Hemoglobin 28.7 pg (25.0-34.0); Mean Corpuscular Volume 89.6 fL (80.0-100.0); Mean Platelet Volume 10.1 fL (9.4-12.4); Monocytes % (auto) 7.9 %; Neutrophils # (auto) 7.53 K/uL (1.40-6.50); Neutrophils % (auto) 74.5 %; Platelet Count 343 K/uL (130-400); RDW Coefficient of Variation 15.9 % (11.5-14.5); RDW Standard Deviation 52.2 fL (36.4-46.3); Red Blood Count 4.15 M/uL (4.20-5.40)
[2024-08-18] MEDS: METOPROLOL TARTRATE 25 MG TAB PO SCH (15:52)
--- NOTE | 2024-08-18 19:06 | Hospitalist Progress Note ---
Date of Service August 18, 2024 Assessment & Plan (1) Ulcer of right heel: (2) DM2 (diabetes mellitus, type 2): (3) Atrial fibrillation: (4) Diabetes: Plan 88 years old female with PMH of FULL CODE @ home with , major depression on sertraline 25mg PO daily, overactive bladder / urinary incontinence on tolterodine 2mg PO daily, GERD on omeprazole 20mg PO daily versus protonix 40mg PO daily, insulin-dependent DM2 with HbA1c 7.1% ( 025, 7:37am) on metformin 500mg PO bid, U-100 insulin sliding scale qac + qhs, and semaglutide 0.25mg SQ weekly, syncope, CAD, s/p acute NSTEMI, on ASA 81mg PO daily and atorvastatin 40mg PO daily, chronic/persistent AFIB, on digoxin 125ug PO daily, diltiazem 120mg PO daily, metoprolol tartrate 50mg PO bid, and apixaban 2.5mg PO bid, chronic systolic CHF with reduced LVEF 25-30% (as noted on 05/07/2024, 7:32am TTE, CARDS Dr. Colten Christianson) with dry baseline weight of 105 pounds, 1 pillow orthopnea on a regular bed, on lasix 60mg IM daily, and chronic right posterior heel cellulitis. Patient presented to [facility] ER on 08/13/2024 for suspected new wound on her right heel. Patient's daughter (Geeta) is at bedside and provides the history. Daughter noticed her right heel wound a few days ago, however it is progressively worsened. Patient lives with her at home. She is a poor historian at baseline, but daughter reports no recent change in cognitive baseline. Daughter first noticed that there might have been some purulent drainage from the heel/ulcer wound today, and brought her in. Patient was subsequently admitted to the inpatient hospitalist service @ [facility] on 08/13/2024 with the following diagnoses: #Chronic right heel ulcer cellulitis, RESOLVING well. NOT osteomyelitis (as per 08/15/2024, 2:07pm CT right foot with IV contrast). Patient received vancomycin 1g IV x 1 dose (08/13/2024, 1:01pm), followed by vancomycin 750mg IV daily (day #1 on 08/14/2024, 8:00am), followed by vancomycin 750mg IV q18 (day #1 on 08/16/2024, 2:00am). Patient also received cefepime 2g IV x 1 dose (08/13/2024, 1:01pm), followed by cefepime 1g IV q12 (day #1 on 08/14/2024, 1:00am). Patient was subsequently transitioned from parenteral antibiotics noted above, and started on augmentin 875mg/125mg PO bid x 10 doses (day #1/5 on 08/17/2024, 5:00pm). Acetaminophen as needed for pain/fever Daily wound care Wound care nurse consulted #Ambulatory dysfunction, CHRONIC/PERSISTENT. PT/OT evaluations appreciated Fall precautions #Acute hypomagnesemia, RESOLVED. Magnesium 1.0 on arrival Magnesium sulfate 1 g IV x 2 Trend #Acute right eye conjunctivitis, RESOLVED. ?Viral; artificial drops QID PRN #Atrial fibrillation, CHRONIC/PERSISTENT. Continue digoxin 0.125mg PO daily, metoprolol 25mg PO bid. Continue dose-reduced apixaban 2.5mg PO bid. #Insulin-dependent DM2 with HbA1c 7.1% (08/14/2024, 7:37am), CHRONIC/PERSISTENT. Hold metformin, Ozempic Continue carbohydrate consistent diet, aspart insulin sliding scale qac + qhs with target BSG range 110-140mg/dL, CF 50, carb ratio 15 #Post-hospital admission diagnosis of acute non-hemorrhagic, ischemic, left parietal CVA (as noted on 08/16/2024, 8:36am MRI brain without contrast) with RUE/RLE paresis. Continue telemetry, neuro checks q4h x 24 hours, ASA 81mg PO daily, atorvastatin 40mg PO daily, and apixaban 2.5mg PO bid (which the patient normally takes at home given paroxysmal AFIB with CHADS2-VASC score = 8 points (e.g., 2 points for age > 74 years, 1 point for female sex, 1 point for CHF, 1 point for DM, 1 point for PAD, and now 2 points for CVA). Await D/C to either (a) [facility] once patient's insurance company approves / authorizes short-term rehab stay @ [facility], in the next 1-2 days, as requested by patient's daughter, Ms. Geeta Nowak ( ), or (b) patient's home as requested by patient's and POA, in the next 1-2 days. Admission and Anticipated Discharge Date Admission Date: August 13, 2024 Subjective "I am ok. I want to go home." Review of Systems Constitutional: Negative for antecedent/coincident fevers, chills, diaphoresis, cough, wheeze, sore throat, hemoptysis, chest pains, palpitations, pleurisy, nausea, vomiting, diarrhea, abdominal pain, pelvic pain, hematemesis, hematochezia, melena, hematuria, dysuria, frequency, urgency, headaches, dizziness, lightheadedness, visual changes, hearing changes, falls, syncope, trauma, travel history, sick contacts, or food/drug ingestions novel or new. All other review of systems are reported as negative by the patient on 08/18/2024. Physical Exam Constitutional: General: comfortable, coherent, cooperative. Wide awake and alert. Not conf used, lethargic, or obtunded. Patient speaks in complete, fluent, and articulate sentences without pause, interruption, cough, or wheeze. HEENT: NC/AT. EOMI, PERRL. No nystagmus, gaze paresis, anisocoria, miosis, mydriasis, hyphema, chemosis, scleral icterus, conjunctivitis, or pterygium. No otorrhea, no rhinorrhea. No pharyngeal discharge or erythema. Neck: Supple, no stridor, bruit, goiter, or hepatojugular reflux. Jugular venous pressure is estimated to be 8 cm above the sternal angle of Lorne, which is typically 5 cm above the level of the right atrium. Hence, there is no jugular venous distention noted on 08/18/2024. Lymphatics: No pre-post auricular, anterior/posterior cervical, supraclavicular/infraclavicular, axillary, epitrochlear, or inguinal adenopathy. Chest: Symmetric rise and fall with respirations. Non-tender to palpation. Heart: RRR, S1 and S2 noted. No S3 or S4 summation gallop noted. No tripartite friction rub. Grade II/ early systolic murmur @ LLSB without radiation to the carotids, axilla, or back, and which remains invariant in regards to the respiratory cycle. Lungs: Clear to auscultation and percussion. No audible expiratory wheeze, egophony, pectoriloquy, increase in tactile fremitus, or flatness/dullness to percussion at the bases. Abdomen: Soft, non-tender, non-distended. No rebound, guarding, Tan's sign, or organomegaly. Bowel sounds auscultated in all 4 quadrants. Extremities: No clubbing, cyanosis, or edema. 2+ pedal pulses bilaterally. 7 cm x 10 cm immobile, indurated protuberance, non-tender, at right infra- patellar, medial tibial aspect, and present on admission date 08/10/2024. Skin: No exanthem or enanthem. Right heel ulcer, 2cm diameter, scabbed over, non-tender, no surrounding/underlying erythema, edema, induration, warmth, crepitus, fluctuance, discharge (sanguineous, serous, suppurative), malodor, or lymphangitic streaking, and present on admission date 08/13/2024. Neurology: Alert and oriented in regards to person, place, time, and situation. DTR+ and symmetric. 5/5 motor strength in LUE/LLE, both proximally and distally. 0/5 motor strength in RUE/RLE, both proximally and distally. No myoclonus, tremors, or tics. Urology: + giles catheter with 400cc of clear yellow urine. No urethral discharge. Psychiatry: Appropriate affect. Smiles occasionally. No homicidal/suicidal ideation. Results & Data Results & Data Vital Signs (Past 12 Hours) Vital Signs Temp Pulse Pulse Resp BP Pulse Ox O2 Del Method 08/18/24 16:34 36.8 C 74 16 128/76 98 Room Air 08/18/24 15:52 115 H 08/18/24 13:08 130 H 08/18/24 11:46 37.2 C 101 H 16 161/79 H 98 Room Air 08/18/24 07:52 36.5 C 102 H 16 138/90 96 Room Air 08/18/24 07:31 79 PG Care Time/CCT Total # of Minutes Spent Total Time Spent with Patient: Total time spent is greater than 50% in coordination of care (as documented) at patient's floor/unit and/or counseling patient: Coding Level of Care Code 59567 SUB INP/OBS CARE 2MIN Diagnoses Ulcer of right heel L97.419 DM2 (diabetes mellitus, type 2) E11.9 Atrial fibrillation I48.91 Type 2 diabetes mellitus without complication, without long-term current use of insulin E11.9 Diabetes mellitus type: type 2 Diabetes mellitus volunteer recruitment coordinator insulin use: without shelter use Diabetes mellitus complication status: without complication (4) Diabetes Diabetes mellitus type: type 2 Diabetes mellitus volunteer recruitment coordinator insulin use: without shelter use Diabetes mellitus complication status: without complication Qualified Code(s): E11.9 - Type 2 diabetes mellitus without complications
--- NOTE | 2024-08-19 13:43 | Discharge Summary ---
Discharge Summary Date of Service August 19, 2024 Principal Dx & Hospital Course #1 = Principal Diagnosis (1) Ulcer of right heel: (2) DM2 (diabetes mellitus, type 2): (3) Atrial fibrillation: (4) Diabetes: Plan 88 years old female with PMH of FULL CODE @ home with of 67 years, major depression on sertraline 25mg PO daily, overactive bladder / urinary incontinence on tolterodine 2mg PO daily, GERD on omeprazole 20mg PO daily versus protonix 40mg PO daily, insulin-dependent DM2 with HbA1c 7.1% (08/14/2024, 7:37am) on metformin 500mg PO bid, U-100 insulin sliding scale qac + qhs, and semaglutide 0.25mg SQ weekly, syncope, CAD, s/p acute NSTEMI, on ASA 81mg PO daily and atorvastatin 40mg PO daily, chronic/persistent AFIB, on digoxin 125ug PO daily, diltiazem 120mg PO daily, metoprolol tartrate 50mg PO bid, and apixaban 2.5mg PO bid, chronic systolic CHF with reduced LVEF 25-30% (as noted on 05/07/2024, 7:32am TTE, CARDS Dr. Colten Christianson) with dry baseline weight of 105 pounds, 1 pillow orthopnea on a regular bed, on lasix 60mg IM daily, and chronic right posterior heel cellulitis. Patient presented to [facility] on 08/13/2024 for suspected new wound on her right heel. Patient's daughter (Geeta) is at bedside and provides the history. Daughter noticed her right heel wound a few days ago, however it is progressively worsened. Patient lives with her at home. She is a poor historian at baseline, but daughter reports no recent change in cognitive baseline. Daughter first noticed that there might have been some purulent drainage from the heel/ulcer wound today, and brought her in. Patient was subsequently admitted to the inpatient hospitalist service @ [facility] on 08/13/2024 with the following diagnoses: 1. Chronic right heel ulcer cellulitis, RESOLVING very well. NOT osteomyelitis (as per 08/15/2024, 2:07pm CT right foot with IV contrast). Patient received vancomycin 1g IV x 1 dose (08/13/2024, 1:01pm), followed by vancomycin 750mg IV daily (day #1 on 08/14/2024, 8:00am), followed by vancomycin 750mg IV q18 (day #1 on 08/16/2024, 2:00am). Patient also received cefepime 2g IV x 1 dose (08/13/2024, 1:01pm), followed by cefepime 1g IV q12 (day #1 on 08/14/2024, 1:00am). Patient was subsequently transitioned from parenteral antibiotics noted above, and started on augmentin 875mg/125mg PO bid x 10 doses (day #1/5 on 08/17/2024, 5:00pm; day #5/5 on 08/22/2024, 5:00pm). Patient's [id number] ([place] [address]) subsequently received an electronic prescription for augmentin 875/125mg PO bid #6 tablets, no refills, on 08/19/2024, and which the patient will take at [facility] starting on 08/20/2024 am, and ending on 08/22/2024, 5:00pm). 2. Ambulatory dysfunction, CHRONIC/PERSISTENT. PT/OT evaluations appreciated with recommendations for D/C to [facility] on 08/20/2024, pending (a) bed availability at [facility], and (b) pending patient's insurance's authorization of [facility] for short- term rehab to strengthen patient who was diagnosed post-hospital admission with an acute non-hemorrhagic, ischemic, left parietal CVA (as noted on 08/16/2024, 8:36am MRI brain without contrast) with RUE/RLE paresis. 3. Acute hypomagnesemia, RESOLVED. cf., Mg 1.0 mg/dL (08/13/2024, 10:58am). Patient subsequently received magnesium sulfate 1g IV x 2 doses (08/13/2024, 4:30pm, 5:30pm). cf., Mg 1.6 mg/dL (08/14/2024, 7:37am). cf., Mg 1.5 mg/dL (08/15/2024, 5:35am). Patient subsequently received magnesium sulfate 1g IV x 2 doses (08/15/2024, 2:15pm, 3:15pm). cf., Mg 2.1 mg/dL (08/16/2024, 7:44am). Observe. 4. Acute right eye conjunctivitis, RESOLVED. ? viral etiology; s/p artificial drops QID PRN. Observe. 5. Atrial fibrillation, CHRONIC/PERSISTENT. Patient received home-scheduled digoxin 0.125mg PO daily, home-scheduled diltiazem 120mg PO daily, hospital-started metoprolol tartrate 25mg PO bid, and home-scheduled apixaban 2.5mg PO bid while in [facility]. Patient will continue all 4 medications on hospital discharge to [facility] on 08/20/2024, pending (a) bed availability at [facility], and (b) pending patient's insurance's authorization of [facility] for short-term rehab to strengthen patient who was diagnosed post-hospital admission with an acute non- hemorrhagic, ischemic, left parietal CVA (as noted on 08/16/2024, 8:36am MRI brain without contrast) with RUE/RLE paresis. Patient's [facility] store [id number] ([place] [address]) subsequently received an electronic prescription for metoprolol tartrate 25mg PO bid, #60 tablets, no refills, on 08/19/2024. 6. Insulin-dependent DM2 with HbA1c 7.1% (08/14/2024, 7:37am), CHRONIC/PERSISTENT. Patient received carbohydrate consistent diet, aspart insulin sliding scale qac + qhs, and POC glucose qac + qhs while in [facility]. Patient will continue carbohydrate consistent diet, but not insulin sliding scale qac + qhs, or POC glucose qac + qhs on hospital discharge to [facility] on 08/20/2024, pending (a) bed availability at [facility], and (b) pending patient's insurance's authorization of [facility] for short-term rehab to strengthen patient who was diagnosed post-hospital admission with an acute non-hemorrhagic, ischemic, left parietal CVA (as noted on 08/16/2024, 8:36am MRI brain without contrast) with RUE/RLE paresis. Instead, patient will resume her home-scheduled metformin 500mg PO bid on ho spital discharge to [facility] on 08/20/2024, pending (a) bed availability at [facility], and (b) pending patient's insurance's authorization of [facility] for short-term rehab to strengthen patient who was diagnosed post-hospital admission with an acute non-hemorrhagic, ischemic, left parietal CVA (as noted on 08/16/2024, 8:36am MRI brain without contrast) with RUE/RLE paresis. 7. Post-hospital admission diagnosis of acute non-hemorrhagic, ischemic, left parietal CVA (as noted on 08/16/2024, 8:36am MRI brain without contrast) with RUE/RLE paresis. Patient was monitored on telemetry, and received neuro checks q4h x 24 hours, ASA 81mg PO daily, atorvastatin 40mg PO daily, and apixaban 2.5mg PO bid (which the patient normally takes at home given paroxysmal AFIB with CHADS2-VASC score = 8 points (e.g., 2 points for age > 74 years, 1 point for female sex, 1 point for CHF, 1 point for DM, 1 point for PAD, and now 2 points for CVA) while in [facility]. Patient will not continue telemetry or neuro checks q4h on hospital discharge to [facility] on 08/20/2024, pending (a) bed availability at [facility], and (b) pending patient's insurance's authorization of [facility] for short-term rehab to strengthen patient who was diagnosed post- hospital admission with an acute non-hemorrhagic, ischemic, left parietal CVA (as noted on 08/16/2024, 8:36am MRI brain without contrast) with RUE/RLE paresis. Instead, patient will continue ASA 81mg PO daily, atorvastatin 40mg PO daily, and apixaban 2.5mg PO bid on hospital discharge to [facility] on 08/20/2024, pending (a) bed availability at [facility], and (b) pending patient's insurance's authorization of [facility] for short-term rehab to strengthen patient who was diagnosed post-hospital admission with an acute non-hemorrhagic, ischemic, left parietal CVA (as noted on 08/16/2024, 8:36am MRI brain without contrast) with RUE/RLE paresis. Discharge time, 35 minutes. Of this time period, 17 minutes were spent in coordinating patient's discharge. Admission HPI Per Admitting Provider Joellen is an 88-year-old female with PMH of diabetes, CAD, GERD, syncope, NSTEMI, atrial fibrillation (on apixaban), CHF, and cellulitis. She presented on 08/13 for suspected new wound on her right ankle. Patient's daughter (Geeta) is at bedside and provides the history. Daughter noticed her right heel wound a few days ago, however it is progressively worsened. Patient lives with her at home. She is a poor historian at baseline, but daughter reports no recent change in cognitive baseline. Daughter first noticed that there might have been some purulent drainage from the heel/ulcer wound today, and brought her in. Patient denies any pain in her right ulcer or foot. No prior history of MRSA infections. She ambulates with a walker/cane at baseline. She has had multiple falls over the past week; unclear if there have been head strikes. Patient took her regular morning medicines today. Daughter helps to manage medicine at home. The patient is on metformin and Ozempic for her diabetes, no insulin use. No recent change in medications. NKDA. Patient denies smoking, tobacco use, recent alcohol use. Patient is hypertensive at 147/92 at admission; vitals otherwise stable. ED course: Vancomycin 1000 mg IV Cefepime 2000 mg IV NSS 1750 mL IV While it is difficult to obtain ROS at this time: Patient denies pain in her foot/heel, chest pain, SOB, abdominal pain, or fevers. Daughter (Geeta) at bedside reports that patient's of 67 years is the medical power of state attorney/medical proxy in an emergency situation. Patient is not alert and oriented at this time and does not exhibit medical capacity. Patient's was called on the phone with daughter in the room. Discussed patient's CODE STATUS at this time. Discussed with patient, patient's , and daughter of the risks/benefits of CPR, defibrillation, and intubation, which could include things like broken ribs and a long recovery process given the patient's advanced age. Patient's has been confirms that he would want her to remain a full code, and that it would like everything done in emergency situation. Discharge Exam Constitutional General: comfortable, coherent, cooperative. Wide awake and alert. Not confused, lethargic, or obtunded. Patient speaks in complete, fluent, and articulate sentences without pause, interruption, cough, or wheeze. HEENT: NC/AT. EOMI, PERRL. No nystagmus, gaze paresis, anisocoria, miosis, mydriasis, hyphema, chemosis, scleral icterus, conjunctivitis, or pterygium. No otorrhea, no rhinorrhea. No pharyngeal discharge or erythema. Neck: Supple, no stridor, bruit, goiter, or hepatojugular reflux. Jugular v enous pressure is estimated to be 8 cm above the sternal angle of [place], which is typically 5 cm above the level of the right atrium. Hence, there is no jugular venous distention noted on 08/19/2024. Lymphatics: No pre-post auricular, anterior/posterior cervical, supraclavicular/infraclavicular, axillary, epitrochlear, or inguinal adenopathy. Chest: Symmetric rise and fall with respirations. Non-tender to palpation. Heart: RRR, S1 and S2 noted. No S3 or S4 summation gallop noted. No tripartite friction rub. Grade II/ early systolic murmur @ LLSB without radiation to the carotids, axilla, or back, and which remains invariant in regards to the respiratory cycle. Lungs: Clear to auscultation and percussion. No audible expiratory wheeze, egophony, pectoriloquy, increase in tactile fremitus, or flatness/dullness to percussion at the bases. Abdomen: Soft, non-tender, non-distended. No rebound, guarding, Tan's sign, or organomegaly. Bowel sounds auscultated in all 4 quadrants. Extremities: No clubbing, cyanosis, or edema. 2+ pedal pulses bilaterally. 7 cm x 10 cm immobile, indurated protuberance, non-tender, at right infra- patellar, medial tibial aspect, and present on admission date 08/10/2024. Skin: No exanthem or enanthem. Right heel ulcer, 2cm diameter, scabbed over, non-tender, no surrounding/underlying erythema, edema, induration, warmth, crepitus, fluctuance, discharge (sanguineous, serous, suppurative), malodor, or lymphangitic streaking, and present on admission date 08/13/2024. Neurology: Alert and oriented in regards to person, place, time, and situation. DTR+ and symmetric. 5/5 motor strength in LUE/LLE, both proximally and distally. 4/5 motor strength in RUE. 3/5 motor strength in RLE, both proximally and distally. No myoclonus, tremors, or tics. Urology: + giles catheter with 400cc of clear yellow urine (of note, patient maintains giles catheter because patient cannot walk to the bathroom and use the toilet by herself since admission date 08/13/2024). No urethral discharge. Psychiatry: Appropriate affect. Smiles occasionally. No homicidal/suicidal ideation. Discharge Plan Discharge Items Patient Disposition: Transfer [facility] Reason For Visit: RIGHT DIABETIC HEEL ULCER Discharge Diagnosis: Acute left parietal, non-hemorrhagic, ischemic CVA Condition on Discharge: Fair Activity: Resume your previous activity Lifting: No more than 5 pounds Bathing: No limitations Exercise/Sports: As tolerated Weightbearing: Full weightbearing Non-emergency contact: Primary Care Provider Call non-emergency contact if: you have any medication questions Follow-up/Referrals: Cindi Henry MD [Primary Care Provider] - Diet: Carb Consistent or DM2, Heart Healthy, Low Fat and Low Sodium (2gm) Addtl Attending Provider Instructions: See your PCP Dr. Cindi Henry within 7 days of hospital discharge. Pending Studies at Discharge: No Stand-Alone Forms: My [facility] Skilled Items Patient informed of condition?: Yes DNR: No Discharge Level of Care: Skilled Communicable Disease: No Discharge Prognosis: Stable Lines: None Urinary Catheter: Yes Medications and DC Order Prescriptions: New amoxicillin-pot clavulanate 875-125 mg Tablet 1 tab PO BIDM Qty: 6 0RF metoprolol tartrate 25 mg Tablet 25 mg PO BID Qty: 60 0RF Continued aspirin [Ecotrin Low Strength] 81 mg tablet,delayed release (DR/EC) 81 mg PO UD Rx Instructions: 81 mg po daily. OTC unable to verify melatonin 3 mg capsule 3 mg PO HS PRN (Reason: Sleep) Rx Instructions: OTC unable to verify acetaminophen [Tylenol 8 Hour] 650 mg tablet extended release 650 mg PO UD Rx Instructions: 650 mg po q12h. otc unable to verify atorvastatin [Lipitor] 40 mg tablet 40 mg PO DAILY digoxin [Lanoxin] 125 mcg (0.125 mg) tablet 125 mcg PO DAILY Eliquis 2.5 mg tablet 2.5 mg PO BID potassium chloride [Klor-Con] 20 mEq packet 10 meq PO DAILY diltiazem HCl 120 mg capsule,extended release 24hr 120 mg PO DAILY docusate sodium 100 mg capsule 100 mg PO UD Rx Instructions: 100 mg po daily. OTC unable to verify metformin 500 mg tablet 500 mg PO BID omeprazole 20 mg capsule,delayed release(DR/EC) 20 mg PO DAILY sertraline 25 mg tablet 25 mg PO DAILY magnesium hydroxide [Milk of Magnesia] 1 dose PO UD Rx Instructions: otc unable to verify meclizine 12.5 mg tablet 12.5 mg PO TID PRN (Reason: Dizziness) polyethylene glycol 3350 [Miralax] 17 gram/dose powder 17 g PO UD Rx Instructions: 17 g po daily. OTC unable to verify Discontinued Ozempic 0.25 mg or 0.5 mg (2 mg/3 mL) pen injector 0.25 mg subcut UD Rx Instructions: 0.25 mg wk. No fill history available insulin aspart U-100 [Novolog U-100 Insulin aspart] 100 unit/mL solution 1 sliding scale dose subcut UD Rx Instructions: 1 sliding scale dose subcut use as directed. No fill history available furosemide 10 mg/mL syringe 60 mg IM DAILY Rx Instructions: 60 mg im daily. Per fill history 06/2024, 40 mg po daily was filled. pantoprazole [Protonix] 40 mg tablet,delayed release (DR/EC) 40 mg PO UD Rx Instructions: 40 mg po daily. No fill history available diltiazem HCl 30 mg tablet 30 mg PO UD Rx Instructions: 20 mg po q8h. No fill history available metoprolol tartrate 50 mg tablet 50 mg PO BID tolterodine 2 mg capsule,extended release 24hr 2 mg PO DAILY Discharge Orders: Discharge Order- CHF (Routine); Ordered 08/19/24 Ordered By: Antonio Allan Admission Data Admit Date/Time: 08/13/24 16:14 Attending Provider: Antonio Allan Admit Provider: Porfirio Leija Primary Care Provider: Cindi Henry Other Providers: Porfirio Leija; Allen Neves at [facility] Stay Data Consultations 08/13/24 13:18 ED Decision to Admit Stat Diagnostic Imagining Performed 08/13/24 11:14 CT cervical spine wo con Stat CT head/brain wo con Stat 08/13/24 13:18 CT abd pelvis IV con only Stat CT chest diagnostic w con Stat 08/15/24 14:07 CT foot RT w con Stat 08/15/24 15:11 CT head/brain wo con Stat 08/16/24 08:36 MR brain wo con Routine 08/16/24 20:43 CT tib/fib RT wo con Stat 08/17/24 11:32 US carotid doppler BI Urgent Discharge Instructions Given to Patient (Per Discharging Provider) See your PCP Dr. Cindi Henry within 7 days of hospital discharge. Total Time Total Time Spent Total Time Spent (In Minutes): 35 minutes. Coding Level of Care Code 99689 INP/OBS DISCH >30 MIN Diagnoses Ulcer of right heel L97.419 DM2 (diabetes mellitus, type 2) E11.9 Atrial fibrillation I48.91 Type 2 diabetes mellitus without complication, without long-term current use of insulin E11.9 Diabetes mellitus complication status: without complication Diabetes mellitus shelter insulin use: without shelter use Diabetes mellitus type: type 2
--- NOTE | 2024-08-20 14:24 | Hospitalist Progress Note ---
Date of Service August 20, 2024 Assessment & Plan (1) Ulcer of right heel: (2) DM2 (diabetes mellitus, type 2): (3) Atrial fibrillation: (4) Diabetes: Plan 88 years old female with PMH of FULL CODE @ home with of 67 years, major depression on sertraline 25mg PO daily, overactive bladder / urinary incontinence on tolterodine 2mg PO daily, GERD on omeprazole 20mg PO daily versus protonix 40mg PO daily, insulin-dependent DM2 with HbA1c 7.1% (08/14/2024, 7:37am) on metformin 500mg PO bid, U-100 insulin sliding scale qac + qhs, and semaglutide 0.25mg SQ weekly, syncope, CAD, s/p acute NSTEMI, on ASA 81mg PO daily and atorvastatin 40mg PO daily, chronic/persistent AFIB, on digoxin 125ug PO daily, diltiazem 120mg PO daily, metoprolol tartrate 50mg PO bid, and apixaban 2.5mg PO bid, chronic systolic CHF with reduced LVEF 25-30% (as noted on 05/07/2024, 7:32am TTE, CARDS Dr. Colten Christianson) with dry baseline weight of 105 pounds, 1 pillow orthopnea on a regular bed, on lasix 60mg IM daily, and chronic right posterior heel cellulitis. Patient presented to [facility] ER on 08/13/2024 for suspected new wound on her right heel. Patient's daughter (Geeta) is at bedside and provides the history. Daughter noticed her right heel wound a few days ago, however it is progressively worsened. Patient lives with her at home. She is a poor historian at baseline, but daughter reports no recent change in cognitive baseline. Daughter first noticed that there might have been some purulent drainage from the heel/ulcer wound today, and brought her in. 1. Chronic right heel ulcer cellulitis, RESOLVING very well. NOT osteomyelitis (as per 08/15/2024, 2:07pm CT right foot with IV contrast). Patient received vancomycin 1g IV x 1 dose (08/13/2024, 1:01pm), followed by vancomycin 750mg IV daily (day #1 on 08/14/2024, 8:00am), followed by vancomycin 750mg IV q18 (day #1 on 08/16/2024, 2:00am). Patient also received cefepime 2g IV x 1 dose (08/13/2024, 1:01pm), followed by cefepime 1g IV q12 (day #1 on 08/14/2024, 1:00am). Patient was subsequently transitioned from parenteral antibiotics noted above, and started on augmentin 875mg/125mg PO bid x 10 doses (day #1/5 on 08/17/2024, 5:00pm; day #5/5 on 08/22/2024, 5:00pm). Patient's [facility] store [id number] ([place] [address]) subsequently received an electronic prescription for augmentin 875/125mg PO bid #6 tablets, no refills, on 08/19/2024, and which the patient will take at [facility] starting on 08/20/2024 am, and ending on 08/22/2024, 5:00pm). 2. Ambulatory dysfunction, CHRONIC/PERSISTENT. PT/OT evaluations appreciated with recommendations for D/C to [facility] on 08/20/2024, pending (a) bed availability at [facility], and (b) pending patient's insurance's authorization of [facility] for short- term rehab to strengthen patient who was diagnosed post-hospital admission with an acute non-hemorrhagic, ischemic, left parietal CVA (as noted on 08/16/2024, 8:36am MRI brain without contrast) with RUE/RLE paresis. 3. Acute hypomagnesemia, RESOLVED. Observe. 4. Acute right eye conjunctivitis, RESOLVED. ? viral etiology; s/p artificial drops QID PRN. Observe. 5. Atrial fibrillation, CHRONIC/PERSISTENT. Patient received home-scheduled digoxin 0.125mg PO daily, home-scheduled diltiazem 120mg PO daily, hospital-started metoprolol tartrate 25mg PO bid, and home-scheduled apixaban 2.5mg PO bid while in [facility]. Patient will continue all 4 medications on hospital discharge to [facility] on 08/20/2024, pending (a) bed availability at [facility], and (b) pending patient's insurance's authorization of [facility] for short-term rehab to strengthen patient who was diagnosed post-hospital admission with an acute non- hemorrhagic, ischemic, left parietal CVA (as noted on 08/16/2024, 8:36am MRI brain without contrast) with RUE/RLE paresis. Patient's [facility] store #[id number] ([place] [address]) subsequently received an electronic prescription for metoprolol tartrate 25mg PO bid, #60 tablets, no refills, on 08/19/2024. 6. Insulin-dependent DM2 with HbA1c 7.1% (08/14/2024, 7:37am), CHRONIC/PERSISTENT. Patient received carbohydrate consistent diet, aspart insulin sliding scale qac + qhs, and POC glucose qac + qhs while in [facility]. Patient will continue carbohydrate consistent diet, but not insulin sliding scale qac + qhs, or POC glucose qac + qhs on hospital discharge to [facility] on 08/20/2024, pending (a) bed availability at [facility], and (b) pending patient's insurance's authorization of [facility] for short-term rehab to strengthen patient who was diagnosed post-hospital admission with an acute non-hemorrhagic, ischemic, left parietal CVA (as noted on 08/16/2024, 8:36am MRI brain without contrast) with RUE/RLE paresis. Instead, patient will resume her home-scheduled metformin 500mg PO bid on hospital discharge to [facility] on 08/20/2024, pending (a) bed maurice ilability at [facility], and (b) pending patient's insurance's authorization of [facility] for short-term rehab to strengthen patient who was diagnosed post-hospital admission with an acute non-hemorrhagic, ischemic, left parietal CVA (as noted on 08/16/2024, 8:36am MRI brain without contrast) with RUE/RLE paresis. 7. Post-hospital admission diagnosis of acute non-hemorrhagic, ischemic, left parietal CVA (as noted on 08/16/2024, 8:36am MRI brain without contrast) with RUE/RLE paresis. Patient was monitored on telemetry, and received neuro checks q4h x 24 hours, ASA 81mg PO daily, atorvastatin 40mg PO daily, and apixaban 2.5mg PO bid (which the patient normally takes at home given paroxysmal AFIB with CHADS2-VASC score = 8 points (e.g., 2 points for age > 74 years, 1 point for female sex, 1 point for CHF, 1 point for DM, 1 point for PAD, and now 2 points for CVA) while in [facility]. Patient will not continue telemetry or neuro checks q4h on hospital discharge to [facility] on 08/20/2024, pending (a) bed availability at [facility], and (b) pending patient's insurance's authorization of [facility] for short-term rehab to strengthen patient who was diagnosed post- hospital admission with an acute non-hemorrhagic, ischemic, left parietal CVA (as noted on 08/16/2024, 8:36am MRI brain without contrast) with RUE/RLE paresis. Instead, patient will continue ASA 81mg PO daily, atorvastatin 40mg PO daily, and apixaban 2.5mg PO bid on hospital discharge to [facility] on 08/20/2024, pending (a) bed availability at [facility], and (b) pending patient's insurance's authorization of [facility] for short-term rehab to strengthen patient who was diagnosed post-hospital admission with an acute non-hemorrhagic, ischemic, left parietal CVA (as noted on 08/16/2024, 8:36am MRI brain without contrast) with RUE/RLE paresis. Patient is medically stable for SNF, awaiting insurance authorization Admission and Anticipated Discharge Date Admission Date: August 13, 2024 Subjective Patient seen and examined, no new complaints today waiting for insurance authorization for her to go to [facility] Review of Systems Review of Systems: All systems reviewed are negative, apart from the ones contained in the history. Physical Exam Physical Exam: The patient is awake, alert and oriented 3, well developed and well nourished, normocephalic and atraumatic, lying in bed and in no acute distress. HEENT--PERRL, EOMI, mucous membranes and oropharynx mildly dry Neck--supple. No JVD. No bruits. Thyroid normal, trachea midline, no adenopathy. Heart--normal S1 and S2. No murmurs, rubs or gallops. Lungs--clear bilaterally, no respiratory distress, no accessory muscle use. Abdomen--normal bowel sounds and soft. Extremities--no cyanosis or clubbing. No edema. Dermatologic--normal skin turgor, normal color, no abnormal lymph nodes, no rash. Neurologic--cranial nerves II through XII grossly intact. Rheumatologic--normal range of motion. Psychiatric--normal affect. Results & Data Results & Data Vital Signs (Past 12 Hours) Vital Signs Temp Pulse Pulse Resp BP Pulse Ox O2 Del Method 08/20/24 12:49 78 08/20/24 11:02 96.8 F L 70 16 136/82 95 Room Air 08/20/24 10:00 Room Air 08/20/24 07:40 96.8 F L 86 20 137/69 96 Room Air 08/20/24 07:00 79 08/20/24 03:30 97.3 F L 93 H 16 131/62 95 Room Air PG Care Time/CCT Total # of Minutes Spent Total Time Spent with Patient: Total time spent is greater than 50% in coordination of care (as documented) at patient's floor/unit and/or counseling patient: Coding Level of Care Code 36113 SUB INP/OBS CARE 2/35MIN Diagnoses Ulcer of right heel L97.419 DM2 (diabetes mellitus, type 2) E11.9 Atrial fibrillation I48.91 Type 2 diabetes mellitus without complication, without long-term current use of insulin E11.9 Diabetes mellitus type: type 2 Diabetes mellitus intermodal customer service insulin use: without jail use Diabetes mellitus complication status: without complication Time Spent (min) 35 (4) Diabetes Diabetes mellitus type: type 2 Diabetes mellitus intermodal customer service insulin use: without jail use Diabetes mellitus complication status: without complication Qualified Code(s): E11.9 - Type 2 diabetes mellitus without complications
[2024-08-20] MEDS ORDERED: ZOLPIDEM TARTRATE 5 MG TAB PO PRN (18:35)
--- NOTE | 2024-08-21 05:54 | Electrocardiogram Report ---
Test Reason : Blood Pressure : */* mmHG Vent. Rate : 99 BPM Atrial Rate : 234 BPM P-R Int : * ms QRS Dur : 112 ms QT Int : 326 ms P-R-T Axes : * -61 128 degrees QTcB Int : 418 ms Atrial fibrillation Left axis deviation Inferior infarct (cited on or before 12-Nov-2010) Anterior infarct (cited on or before 17-Jul-2010) Abnormal ECG When compared with ECG of 13-Aug-2024 11:33, No significant change was found Confirmed by Yehuda Payan ([id number]) on 08/21/2024 5:54:13 AM Referred By: REFERRED SELF Confirmed By: Yehuda Payan
[2024-08-21 09:35] LABS: Hemoglobin 12.1 g/dl (12.0-16.0); Mean Corpuscular Hemoglobin 29.2 pg (25.0-34.0); Mean Corpuscular Hgb Conc 31.8 g/dL (32.0-36.0); Mean Corpuscular Volume 91.6 fL (80.0-100.0); Mean Platelet Volume 10.2 fL (9.4-12.4); Platelet Count 391 K/uL (130-400); RDW Coefficient of Variation 15.9 % (11.5-14.5); RDW Standard Deviation 53.2 fL (36.4-46.3); Red Blood Count 4.15 M/uL (4.20-5.40); White Blood Count 17.76 K/ul (4.8-10.8)
[2024-08-21 09:44] LABS: BUN Creatinine Ratio 17.1 (10-20); Calcium 8.4 mg/dl (8.6-10.3); Potassium 4.6 mmol/L (3.5-5.1)
--- NOTE | 2024-08-21 12:39 | Hospitalist Progress Note ---
Date of Service August 21, 2024 Assessment & Plan (1) Ulcer of right heel: (2) DM2 (diabetes mellitus, type 2): (3) Atrial fibrillation: (4) Diabetes: Plan 88 years old female with PMH of FULL CODE @ home with of 67 years, major depression on sertraline 25mg PO daily, overactive bladder / urinary incontinence on tolterodine 2mg PO daily, GERD on omeprazole 20mg PO daily versus protonix 40mg PO daily, insulin-dependent DM2 with HbA1c 7.1% (08/14/2024, 7:37am) on metformin 500mg PO bid, U-100 insulin sliding scale qac + qhs, and semaglutide 0.25mg SQ weekly, syncope, CAD, s/p acute NSTEMI, on ASA 81mg PO daily and atorvastatin 40mg PO daily, chronic/persistent AFIB, on digoxin 125ug PO daily, diltiazem 120mg PO daily, metoprolol tartrate 50mg PO bid, and apixaban 2.5mg PO bid, chronic systolic CHF with reduced LVEF 25-30% (as noted on 05/07/2024, 7:32am TTE, CARDS Dr. Colten Christianson) with dry baseline weight of 105 pounds, 1 pillow orthopnea on a regular bed, on lasix 60mg IM daily, and chronic right posterior heel cellulitis. Patient presented to [facility] ER on 08/13/2024 for suspected new wound on her right heel. Patient's daughter (Geeta) is at bedside and provides the history. Daughter noticed her right heel wound a few days ago, however it is progressively worsened. Patient lives with her at home. She is a poor historian at baseline, but daughter reports no recent change in cognitive baseline. Daughter first noticed that there might have been some purulent drainage from the heel/ulcer wound today, and brought her in. 1. Chronic right heel ulcer cellulitis, RESOLVING very well. NOT osteomyelitis (as per 08/15/2024, CT right foot with IV contrast). Patient received vancomycin 1g IV x 1 dose (08/13/2024, 1:01pm), followed by vancomycin 750mg IV daily (day #1 on 08/14/2024, 8:00am), followed by vancomycin 750mg IV q18 (day #1 on 08/16/2024, 2:00am). Initially received vanc and cefepime. Now o PO Augmentin 2. Ambulatory dysfunction, CHRONIC/PERSISTENT. PT/OT evaluations appreciated with recommendations for D/C to [facility] on 08/20/2024, pending (a) bed availability at [facility], and (b) pending patient's insurance's authorization of [facility] for short- term rehab to strengthen patient who was diagnosed post-hospital admission with an acute non-hemorrhagic, ischemic, left parietal CVA (as noted on 08/16/2024, 8:36am MRI brain without contrast) with RUE/RLE paresis. 3. Acute hypomagnesemia, RESOLVED. Observe. 4. Acute right eye conjunctivitis, RESOLVED. ? viral etiology; s/p artificial drops QID PRN. Observe. 5. Atrial fibrillation, CHRONIC/PERSISTENT. Patient received home-scheduled digoxin 0.125mg PO daily, home-scheduled diltiazem 120mg PO daily, hospital-started metoprolol tartrate 25mg PO bid, and home-scheduled apixaban 2.5mg PO bid while in [facility]. Patient will continue all 4 medications on hospital discharge to [facility] on 08/20/2024, pending (a) bed availability at [facility], and (b) pending patient's insurance's authorization of [facility] for short-term rehab to strengthen patient who was diagnosed post-hospital admission with an acute non- hemorrhagic, ischemic, left parietal CVA (as noted on 08/16/2024, 8:36am MRI brain without contrast) with RUE/RLE paresis. Patient's [facility] store #[id number] ([place] [address]) subsequently received an electronic prescription for metoprolol tartrate 25mg PO bid, #60 tablets, no refills, on 08/19/2024. 6. Insulin-dependent DM2 with HbA1c 7.1% (08/14/2024, 7:37am), CHRONIC/PERSISTENT. Patient received carbohydrate consistent diet, aspart insulin sliding scale qac + qhs, and POC glucose qac + qhs while in [facility]. Patient will continue carbohydrate consistent diet, but not insulin sliding scale qac + qhs, or POC glucose qac + qhs on hospital discharge to [facility] on 08/20/2024, pending (a) bed availability at [facility], and (b) pending patient's insurance's authorization of [facility] for short-term rehab to strengthen patient who was diagnosed post-hospital admission with an acute non-hemorrhagic, ischemic, left parietal CVA (as noted on 0 08/16/2024, 8:36am MRI brain without contrast) with RUE/RLE paresis. Instead, patient will resume her home-scheduled metformin 500mg PO bid on hospital discharge to [facility] on 08/20/2024, pending (a) bed availability at [facility], and (b) pending patient's insurance's authorization of [facility] for short-term rehab to strengthen patient who was diagnosed post-hospital admission with an acute non-hemorrhagic, ischemic, left parietal CVA (as noted on 08/16/2024, 8:36am MRI brain without contrast) with RUE/RLE paresis. 7. Post-hospital admission diagnosis of acute non-hemorrhagic, ischemic, left parietal CVA (as noted on 08/16/2024, 8:36am MRI brain without contrast) with RUE/RLE paresis. Patient was monitored on telemetry, and received neuro checks q4h x 24 hours, ASA 81mg PO daily, atorvastatin 40mg PO daily, and apixaban 2.5mg PO bid (which the patient normally takes at home given paroxysmal AFIB with CHADS2-VASC score = 8 points (e.g., 2 points for age > 74 years, 1 point for female sex, 1 point for CHF, 1 point for DM, 1 point for PAD, and now 2 points for CVA) while in [facility]. Patient will not continue telemetry or neuro checks q4h on hospital discharge to [facility] on 08/20/2024, pending (a) bed availability at [facility], and (b) pending patient's insurance's authorization of [facility] for short-term rehab to strengthen patient who was diagnosed post- hospital admission with an acute non-hemorrhagic, ischemic, left parietal CVA (as noted on 08/16/2024, 8:36am MRI brain without contrast) with RUE/RLE paresis. Instead, patient will continue ASA 81mg PO daily, atorvastatin 40mg PO daily, and apixaban 2.5mg PO bid on hospital discharge to [facility] on 08/20/2024, pending (a) bed availability at [facility], and (b) pending patient's insurance's authorization of [facility] for short-term rehab to strengthen patient who was diagnosed post-hospital admission with an acute non-hemorrhagic, ischemic, left parietal CVA (as noted on 08/16/2024, 8:36am MRI brain without contrast) with RUE/RLE paresis. Patient is medically stable for SNF, awaiting insurance authorization Admission and Anticipated Discharge Date Admission Date: August 13, 2024 Subjective Patient seen and examined, no new complaints today , pleasantly confused Review of Systems Review of Systems: All systems reviewed are negative, apart from the ones contained in the history. Physical Exam Physical Exam: The patient is awake, alert and oriented 2, well developed and well nourished, normocephalic and atraumatic, lying in bed and in no acute distress. HEENT--PERRL, EOMI, mucous membranes and oropharynx mildly dry Neck--supple. No JVD. No bruits. Thyroid normal, trachea midline, no adenopathy. Heart--normal S1 and S2. No murmurs, rubs or gallops. Lungs--clear bilaterally, no respiratory distress, no accessory muscle use. Abdomen--normal bowel sounds and soft. Extremities--no cyanosis or clubbing. No edema. Dermatologic--normal skin turgor, normal color, no abnormal lymph nodes, no rash. Neurologic--cranial nerves II through XII grossly intact. Rheumatologic--normal range of motion. Psychiatric--normal affect. Results & Data Results & Data Vital Signs (Past 12 Hours) Vital Signs Temp Pulse Pulse Resp BP Pulse Ox O2 Del Method 08/21/24 11:18 99.1 F 87 17 110/62 95 Room Air 08/21/24 07:58 100.0 F H 87 16 156/63 H 96 Room Air 08/21/24 07:19 Room Air 08/21/24 07:10 144 H 08/21/24 05:36 136 H 17 139/58 L 96 Room Air 08/21/24 03:25 98.6 F 89 20 140/72 97 Room Air PG Care Time/CCT Total # of Minutes Spent Total Time Spent with Patient: Total time spent is greater than 50% in coordination of care (as documented) at patient's floor/unit and/or counseling patient: Coding Level of Care Code 12447 SUB INP/OBS CARE 2/35MIN Diagnoses Ulcer of right heel L97.419 DM2 (diabetes mellitus, type 2) E11.9 Atrial fibrillation I48.91 Type 2 diabetes mellitus without complication, without long-term current use of insulin E11.9 Diabetes mellitus type: type 2 Diabetes mellitus correction insulin use: without terminal manager use Diabetes mellitus complication status: without complication Time Spent (min) 35 (4) Diabetes Diabetes mellitus type: type 2 Diabetes mellitus correction insulin use: without terminal manager use Diabetes mellitus complication status: without complication Qualified Code(s): E11.9 - Type 2 diabetes mellitus without complications
[2024-08-21] MEDS ORDERED: VANCOMYCIN HCL 1,000 MG in SODIUM CHLORIDE 0.9% 500 ML IV ONE (12:43)
[2024-08-21] MEDS ORDERED: VANCOMYCIN CONSULT ACTIVE PRN (12:43)
[2024-08-21] MEDS: VANCOMYCIN HCL 1,000 MG/270 ML BAG IV STA (13:40)
--- NOTE | 2024-08-21 13:56 | Pharmacy Report ---
Pharmacy PK ABX Note - Date of Service August 21, 2024 - Assessment and Plan Assessment 88 year old F receiving vancomycin and Augmentin for treatment of SSTI/heel ulcer. BCx negative, no wound cx at this time. No pertinent prior culture data available in the chart. * Day #1 of vancomycin and Day #4 of Augmentin. * Low grade fever this AM, 37.8oC. Leukocytosis of 17.8k. Renal fxn at baseline. Plan Vancomycin * Loading dose: 1000 mg IV x 1 * Maintenance dose: 750 mg IV every 18 hours. This is predicted to achieve target AUC/ALEX of 400-600 mg/L.hr. Predicted AUC at steady state: 485 mg/L.hr. * Ordered random level ordered for: 08/23/24 Pharmacy will continue to follow and will adjust dose/frequency as necessary. Thank you. Pharmacy has transitioned to AUC monitoring for vancomycin. AUC/ALEX is the preferred PK/PD target and is associated with decreased risk of nephrotoxicity compared to traditional trough targets.
[2024-08-21] MEDS: VANCOMYCIN 750 MG in SODIUM CHLORIDE 0.9% 250 ML IV SCH (21:58)
[2024-08-21 23:23] VITALS: RESP 18
[2024-08-22 03:38] VITALS: BP 130/76; TEMP 97.9; O2SAT 95
[2024-08-22 06:37] LABS: Hematocrit (blood only) 33.3 % (37.0-47.0); Hemoglobin 10.7 g/dl (12.0-16.0); Mean Corpuscular Hemoglobin 29.2 pg (25.0-34.0); Mean Corpuscular Hgb Conc 32.1 g/dL (32.0-36.0); Mean Corpuscular Volume 90.7 fL (80.0-100.0); Mean Platelet Volume 10.3 fL (9.4-12.4); Platelet Count 331 K/uL (130-400); RDW Coefficient of Variation 15.9 % (11.5-14.5); RDW Standard Deviation 52.6 fL (36.4-46.3); Red Blood Count 3.67 M/uL (4.20-5.40); White Blood Count 16.06 K/ul (4.8-10.8)
[2024-08-22 07:05] LABS: BUN Creatinine Ratio 18.5 (10-20); Calcium 8.1 mg/dl (8.6-10.3); Creatinine Clr Calc Pharmacy 46.3 ml/min; Potassium 4.1 mmol/L (3.5-5.1)
[2024-08-22 07:11] VITALS: PULSE 63
--- NOTE | 2024-08-22 09:40 | Discharge Summary ---
Discharge Summary Date of Service August 22, 2024 Principal Dx & Hospital Course #1 = Principal Diagnosis (1) Ulcer of right heel: (2) DM2 (diabetes mellitus, type 2): (3) Atrial fibrillation: (4) Diabetes: Plan 88 years old female with PMH of FULL CODE @ home with of 67 years, major depression on sertraline 25mg PO daily, overactive bladder / urinary incontinence on tolterodine 2mg PO daily, GERD on omeprazole 20mg PO daily versus protonix 40mg PO daily, insulin-dependent DM2 with HbA1c 7.1% (08/14/2024, 7:37am) on metformin 500mg PO bid, U-100 insulin sliding scale qac + qhs, and semaglutide 0.25mg SQ weekly, syncope, CAD, s/p acute NSTEMI, on ASA 81mg PO daily and atorvastatin 40mg PO daily, chronic/persistent AFIB, on digoxin 125ug PO daily, diltiazem 120mg PO daily, metoprolol tartrate 50mg PO bid, and apixaban 2.5mg PO bid, chronic systolic CHF with reduced LVEF 25-30% (as noted on 05/07/2024, 7:32am TTE, CARDS Dr. Colten Christianson) with dry baseline weight of 105 pounds, 1 pillow orthopnea on a regular bed, on lasix 60mg IM daily, and chronic right posterior heel cellulitis. Patient presented to [facility] on 08/13/2024 for suspected new wound on her right heel. Patient's daughter (Geeta) is at bedside and provides the history. Daughter noticed her right heel wound a few days ago, however it is progressively worsened. Patient lives with her at home. She is a poor historian at baseline, but daughter reports no recent change in cognitive baseline. Daughter first noticed that there might have been some purulent drainage from the heel/ulcer wound today, and brought her in. 1. Chronic right heel ulcer cellulitis, RESOLVING very well. NOT osteomyelitis (as per 08/15/2024, CT right foot with IV contrast). Patient received vancomycin 1g IV x 1 dose (08/13/2024, 1:01pm), followed by vancomycin 750mg IV daily (day #1 on 08/14/2024, 8:00am), followed by vancomycin 750mg IV q18 (day #1 on 08/16/2024, 2:00am). Initially received vanc and cefepime. Now o PO Augmentin 2. Ambulatory dysfunction, CHRONIC/PERSISTENT. PT/OT evaluations appreciated with recommendations for D/C to [facility] on 08/20/2024, pending (a) bed availability at [facility], and (b) pending patient's insurance's authorization of [facility] for short- term rehab to strengthen patient who was diagnosed post-hospital admission with an acute non-hemorrhagic, ischemic, left parietal CVA (as noted on 08/16/2024, 8:36am MRI brain without contrast) with RUE/RLE paresis. 3. Acute hypomagnesemia, RESOLVED. Observe. 4. Acute right eye conjunctivitis, RESOLVED. ? viral etiology; s/p artificial drops QID PRN. Observe. 5. Atrial fibrillation, CHRONIC/PERSISTENT. Patient received home-scheduled digoxin 0.125mg PO daily, home-scheduled diltiazem 120mg PO daily, hospital-started metoprolol tartrate 25mg PO bid, and home-scheduled apixaban 2.5mg PO bid while in [facility]. Patient will continue all 4 medications on hospital discharge to [facility] on 08/20/2024, pending (a) bed availability at [facility], and (b) pending patient's insurance's authorization of [facility] for short-term rehab to strengthen patient who was diagnosed post-hospital admission with an acute non- hemorrhagic, ischemic, left parietal CVA (as noted on 08/16/2024, 8:36am MRI brain without contrast) with RUE/RLE paresis. Patient's [id number] ([place] [address]) subsequently received an electronic prescription for metoprolol tartrate 25mg PO bid, #60 tablets, no refills, on 08/19/2024. 6. Insulin-dependent DM2 with HbA1c 7.1% (08/14/2024, 7:37am), CHRONIC/PERSISTENT. Patient received carbohydrate consistent diet, aspart insulin sliding scale qac + qhs, and POC glucose qac + qhs while in [facility]. Patient will continue carbohydrate consistent diet, but not insulin sliding scale qac + qhs, or POC glucose qac + qhs on hospital discharge to [facility] on 08/20/2024, pending (a) bed availability at [facility], and (b) pending patient's insurance's authorization of [facility] for short-term rehab to strengthen patient who was diagnosed post-hospital admission with an acute non-hemorrhagic, ischemic, left parietal CVA (as noted on 08/16/2024, 8:36am MRI brain without contrast) with RUE/RLE paresis. Instead, patient will resume her home-scheduled metformin 500mg PO bid on hospital discharge to [facility] on 08/20/2024, pending (a) bed availability at [facility], and (b) pending patient's insurance's authorization of [facility] for short-term rehab to strengthen patient who was diagnosed post-hospital admission with an acute non-hemorrhagic, ischemic, left parietal CVA (as noted on 08/16/2024, 8:36am MRI brain without contrast) with RUE/RLE paresis. 7. Post-hospital admission diagnosis of acute non-hemorrhagic, ischemic, left parietal CVA (as noted on 08/16/2024, 8:36am MRI brain without contrast) with RUE/RLE paresis. Patient was monitored on telemetry, and received neuro checks q4h x 24 hours, ASA 81mg PO daily, atorvastatin 40mg PO daily, and apixaban 2.5mg PO bid (which the patient normally takes at home given paroxysmal AFIB with CHADS2-VASC score = 8 points (e.g., 2 points for age > 74 years, 1 point for female sex, 1 point for CHF, 1 point for DM, 1 point for PAD, and now 2 points for CVA) while in [facility]. Patient will not continue telemetry or neuro checks q4h on hospital discharge to [facility] on 08/20/2024, pending (a) bed availability at [facility], and (b) pending patient's insurance's authorization of [facility] for short-term rehab to strengthen patient who was diagnosed post- hospital admission with an acute non-hemorrhagic, ischemic, left parietal CVA (as noted on 08/16/2024, 8:36am MRI brain without contrast) with RUE/RLE paresis. Instead, patient will continue ASA 81mg PO daily, atorvastatin 40mg PO daily, and apixaban 2.5mg PO bid on hospital discharge to [facility] on 08/20/2024, pending (a) bed availability at [facility], and (b) pending patient's insurance's authorization of [facility] for short-term rehab to strengthen patient who was diagnosed post-hospital admission with an acute non-hemorrhagic, ischemic, left parietal CVA (as noted on 08/16/2024, 8:36am MRI brain without contrast) with RUE/RLE paresis. Patient is medically stable for SNF, awaiting insurance authorization Admission HPI Per Admitting Provider Joellen is an 88-year-old female with PMH of diabetes, CAD, GERD, syncope, NSTEMI, atrial fibrillation (on apixaban), CHF, and cellulitis. She presented on 08/13 for suspected new wound on her right ankle. Patient's daughter (Geeta) is at bedside and provides the history. Daughter noticed her right heel wound a few days ago, however it is progressively worsened. Patient lives with her at home. She is a poor historian at baseline, but daughter reports no recent change in cognitive baseline. Daughter first noticed that there might have been some purulent drainage from the heel/ulcer wound today, and brought her in. Patient denies any pain in her right ulcer or foot. No prior history of MRSA infections. She ambulates with a walker/cane at baseline. She has had multiple falls over the past week; unclear if there have been head strikes. Patient took her regular morning medicines today. Daughter helps to manage medicine at home. The patient is on metformin and Ozempic for her diabetes, no insulin use. No recent change in medications. NKDA. Patient denies smoking, tobacco use, recent alcohol use. Patient is hypertensive at 147/92 at admission; vitals otherwise stable. ED course: Vancomycin 1000 mg IV Cefepime 2000 mg IV NSS 1750 mL IV While it is difficult to obtain ROS at this time: Patient denies pain in her foot/heel, chest pain, SOB, abdominal pain, or fevers. Daughter (Geeta) at bedside reports that patient's of 67 years is the medical power of hr associate/medical proxy in an emergency situation. Patient is not alert and oriented at this time and does not exhibit medical capacity. Patient's was called on the phone with daughter in the room. Discussed patient's CODE STATUS at this time. Discussed with patient, patient's , and daughter of the risks/benefits of CPR, defibrillation, and intubation, which could include things like broken ribs and a long recovery process given the patient's advanced age. Patient's has been confirms that he would want her to remain a full code, and that it would like everything done in emergency situation. Discharge Exam GENERAL APPEARANCE NAD, activity normal for age, well developed/ well nourished, no cyanosis, pallor, or diaphoresis. EYES lids/conjunctiva normal. EARS/NOSE/THROAT Mucous membranes moist, nares normal, lips/teeth normal uvula midline without oral pharyngeal erythema, exudate or swelling TMs normal bilaterally. No lymphangitis/lymphedema. HEAD/NECK normocephalic atraumatic, no facial trauma, neck is supple. RESPIRATORY respiratory effort normal, speaks in full sentences, no tripod position, no accessory muscle use. Lungs clear to auscultation without rhonchi, wheezes, rales CARDIAC Regular rate and rhythm, no edema. ABDOMINAL Soft, ND/NT. No evidence of fluid wave. No pulsatile masses on exam, rebound tenderness, Tan sign or pain over Mcburney's point. MUSCLES/EXTREMITIES No abnormal range of motion, no swelling. SKIN Warm, pink and dry. No rashes, dermatoses, petechiae or lesions. NEUROLOGICAL Speech is clear and appropriate. Normal level of consciousness. Gait and coordination are normal. 5/5 strength in all extremities. PSYCH Normal mood and affect. Judgement/competence is appropriate Discharge Plan Discharge Items Patient Disposition: Transfer [facility] Reason For Visit: RIGHT DIABETIC HEEL ULCER Discharge Diagnosis: Acute left parietal, non-hemorrhagic, ischemic CVA Condition on Discharge: Fair Activity: Resume your previous activity Lifting: No more than 5 pounds Bathing: No limitations Exercise/Sports: As tolerated Weightbearing: Full weightbearing Non-emergency contact: Primary Care Provider Call non-emergency contact if: you have any medication questions Follow-up/Referrals: Cindi Henry MD [Primary Care Provider] - Diet: Carb Consistent or DM2, Heart Healthy, Low Fat and Low Sodium (2gm) Addtl Attending Provider Instructions: See your PCP Dr. Cindi Henry within 7 days of hospital discharge. Pending Studies at Discharge: No Stand-Alone Forms: My [facility] Skilled Items Patient informed of condition?: Yes DNR: No Discharge Level of Care: Skilled Communicable Disease: No Discharge Prognosis: Stable Lines: None Urinary Catheter: Yes Medications and DC Order Prescriptions: New metoprolol tartrate 25 mg Tablet 25 mg PO BID Qty: 60 0RF amoxicillin-pot clavulanate 875-125 mg tablet 1 tab PO BID Qty: 14 0RF Continued aspirin [Ecotrin Low Strength] 81 mg tablet,delayed release (DR/EC) 81 mg PO UD Rx Instructions: 81 mg po daily. OTC unable to verify melatonin 3 mg capsule 3 mg PO HS PRN (Reason: Sleep) Rx Instructions: OTC unable to verify acetaminophen [Tylenol 8 Hour] 650 mg tablet extended release 650 mg PO UD Rx Instructions: 650 mg po q12h. otc unable to verify atorvastatin [Lipitor] 40 mg tablet 40 mg PO DAILY digoxin [Lanoxin] 125 mcg (0.125 mg) tablet 125 mcg PO DAILY Eliquis 2.5 mg tablet 2.5 mg PO BID potassium chloride [Klor-Con] 20 mEq packet 10 meq PO DAILY diltiazem HCl 120 mg capsule,extended release 24hr 120 mg PO DAILY docusate sodium 100 mg capsule 100 mg PO UD Rx Instructions: 100 mg po daily. OTC unable to verify metformin 500 mg tablet 500 mg PO BID omeprazole 20 mg capsule,delayed release(DR/EC) 20 mg PO DAILY sertraline 25 mg tablet 25 mg PO DAILY magnesium hydroxide [Milk of Magnesia] 1 dose PO UD Rx Instructions: otc unable to verify meclizine 12.5 mg tablet 12.5 mg PO TID PRN (Reason: Dizziness) polyethylene glycol 3350 [Miralax] 17 gram/dose powder 17 g PO UD Rx Instructions: 17 g po daily. OTC unable to verify Discontinued Ozempic 0.25 mg or 0.5 mg (2 mg/3 mL) pen injector 0.25 mg subcut UD Rx Instructions: 0.25 mg wk. No fill history available insulin aspart U-100 [Novolog U-100 Insulin aspart] 100 unit/mL solution 1 sliding scale dose subcut UD Rx Instructions: 1 sliding scale dose subcut use as directed. No fill history available furosemide 10 mg/mL syringe 60 mg IM DAILY Rx Instructions: 60 mg im daily. Per fill history 06/2024, 40 mg po daily was filled. pantoprazole [Protonix] 40 mg tablet,delayed release (DR/EC) 40 mg PO UD Rx Instructions: 40 mg po daily. No fill history available diltiazem HCl 30 mg tablet 30 mg PO UD Rx Instructions: 20 mg po q8h. No fill history available metoprolol tartrate 50 mg tablet 50 mg PO BID tolterodine 2 mg capsule,extended release 24hr 2 mg PO DAILY Discharge Orders: Discharge Order (Routine); Ordered 08/22/24 Ordered By: Nagi Mccartney Admission Data Admit Date/Time: 08/13/24 16:14 Attending Provider: Nagi Mccartney Admit Provider: Porfirio Leija Primary Care Provider: Cindi Henry Other Providers: Porfirio Leija; Allen Neves [facility] Stay Data Consultations 08/13/24 13:18 ED Decision to Admit Stat Diagnostic Imagining Performed 08/13/24 11:14 CT cervical spine wo con Stat CT head/brain wo con Stat 08/13/24 13:18 CT abd pelvis IV con only Stat CT chest diagnostic w con Stat 08/15/24 14:07 CT foot RT w con Stat 08/15/24 15:11 CT head/brain wo con Stat 08/16/24 08:36 MR brain wo con Routine 08/16/24 20:43 CT tib/fib RT wo con Stat 08/17/24 11:32 US carotid doppler BI Urgent Pending Results Patient Have Any Pending Studies at Discharge: No Discharge Instructions Given to Patient (Per Discharging Provider) See your PCP Dr. Cindi Henry within 7 days of hospital discharge. Total Time Total Time Spent Total Time Spent (In Minutes): 50 Coding Level of Care Code 12322 INP/OBS DISCH >30 MIN Diagnoses Ulcer of right heel L97.419 DM2 (diabetes mellitus, type 2) E11.9 Atrial fibrillation I48.91 Type 2 diabetes mellitus without complication, without long-term current use of insulin E11.9 Diabetes mellitus type: type 2 Diabetes mellitus intermodal dispatcher insulin use: without intermodal dispatcher use Diabetes mellitus complication status: without complication
== END 2024-08-22 10:33 | DRG 637 ==
LOC: ED 10:39 → 2N 16:14 → SUATTDRO 16:14 → 2N 17:56

== ENCOUNTER 2024-09-16 08:54 | Inpatient (IN) ==
--- OUTSIDE RECORDS SUMMARY | 2024-09-16 08:58 | External Medical Summary | Summary of Care ---
Author Name Unknown Organization [facility] Address [address] [facility] [place] [address] Phone [phone] Care Team Providers Care Team Assistant Name Role Phone Cindi Henry MD Primary Care Prov ider Reason for Visit * Reason Onset Date Comments Skilled Visit 09/05/2024 Encounter Details Date Type Department Care Team (Late st Contact Info) Description 09/05/2024 9:30 AM EST Mcfp Visit [facility], [address] [place] [address] Leslie Patel PA-C [address] [place] [address] [place] [address] COVID-19*; Right hemiparesis (HCC); Aphasia, post-stroke Allergies Active Allergy Reactions Criticality Noted Date Comments Mirabegron 10/07/2020 Other Reaction(s): Hair Loss Other reaction(s): Hair Loss documented as of this encounter (statuses as of 09/06/2024) Medications Metoprolol Tartrate 25 MG Oral Tablet (Lopressor) Take 1 Tablet by mouth in the morning and 1 Tablet before bedtime. Active Amoxicillin-Pot Clavulanate 875-125 MG Oral Tablet (Augmentin) Take 1 Tablet by mouth in the morning and 1 Tablet before bedtime. Active Atorvastatin Calcium 40 MG Oral Tablet (Lipitor) Take 1 Tablet by mouth in the morning. Active Digoxin 125 MCG Oral Tablet (Lanoxin) Take 1 Tablet by mouth in the morning. Active Potassium Chloride ER 10 MEQ Oral Tablet Extended Release Take 1 Tablet by mouth in the morning. Active metFORMIN HCl 500 MG Oral Tablet (Glucophage) Take 1 Tablet by mouth 2 times a day with morning and evening meals. Active Omeprazole 20 MG Oral Capsule Delayed Release (PriLOSEC) Take 1 Capsule by mouth in the morning. Active Melatonin 3 MG Oral Tablet Take 1 Tablet by mouth at bedtime. Active Acetaminophen ER 650 MG Oral Tablet Extended Release (Tylenol ER) Take 1 Tablet by mouth in the morning and 1 Tablet in the evening. Active dilTIAZem HCl ER Coated Beads 120 MG Oral Capsule Extended Release 24 Hour (Cardizem CD) Take 1 Capsule by mouth in the morning. Active Sertraline HCl 25 MG Oral Tablet (Zoloft) Take 1 Tablet by mouth in the morning. Active Meclizine HCl 12.5 MG Oral Tablet (Antivert) Take 1 Tablet by mouth 3 times a day as needed for Dizziness. Active Aspirin 81 MG Oral Tablet Delayed Release Take 1 Tablet by mouth in the morning. Active Apixaban 2.5 MG Oral Tablet (Eliquis) Take 1 Tablet by mouth in the morning and 1 Tablet before bedtime. Active documented as of this encounter (statuses as of 09/06/2024) Active Problems Problem Noted Date Diagnosed Date Right hemiparesis 08/23/2024 History of stroke 08/23/2024 Unstageable pressure ulcer of right heel 025 Cellulitis of right lower extremity 08/23/2024 Aphasia, post-stroke 08/23/2024 Type 2 diabetes mellitus wit h hemoglobin A1c goal of less than 8.0% 08/23/2024 Chronic atrial fibrillation 08/23/2024 Chronic congestive heart failure 08/23/2024 History of [place] (myocardial infarction) 08/23/2024 Major depressive disorder in partial remission 0 08/23/2024 Primary osteoarthritis of both knees 08/23/2024 Dyslipidemia, goal LDL below 70 08/23/2024 Gastroesophageal reflux disease 08/23/2024 documented as of this encounter (statuses as of 09/06/2024) Immunizations Name Administration Dates Next Due Covid-19, Mrna, Lnp-s, Pf, B ivalent, 30 Mcg, IM, 12 yrs and above ([email or web address]) 04/08/2022 documented as of this encounter Social History Tobacco Use Types Packs/Day Years Used Date Smoking Tobacco: Never Smokeless Tobacco: Never Alcohol Use Standard Drinks/Week Comments Never 0 (1 standard drink = 0.6 oz pur e alcohol) PHQ-2 Answer Date Recorded PHQ Adult Total Score 0 07/30/2024 Hunger Vital Sign Answer Date Recorded Within [...] 07/30/2024 Does the household have a re gular source of income? (Household - for ages [...] ages 0-17 years) Not on file 07/30/2024 Food Insecurity Answer Date Recorded Within the past 12 months, y ou worried that your food would run out before you got the money to buy more. Never true 07/30/19 25 Within the past 12 months, t he food you bought just didn't last and you didn't have money to get more. Never true 07/30/2024 Do you need food for this week? No 07/30/2024 Comments No Sex and Gender Information Value Date Recorded Sex Assigned at Not on file Legal Sex Female 5:12 AM EST Gender Identity Not on file Sexual Orientation Not on file documented as of this encounter Last Filed Vital Signs Vital Sign Reading Time Taken Comments Blood Pressure 118/53 09/05/2024 5:05 PM EST Pulse 87 09/05/2024 5:05 PM EST Temperature 36.7 C (98 F) 09/05/2024 5:05 PM EST Respiratory Rate 18 09/05/2024 5:05 PM EST Oxygen Saturation 93% 09/05/2024 5:05 PM EST room air Inhaled Oxygen Concentration - - Weight - - Height - - Body Mass Index - - documented in this encounter Plan of Treatment Upcoming Encounters Date Type Department Care Team (Late st Contact Info) Description 09/13/2024 8:00 AM EST Office Visit Neurology [facility] [address] [facility] [place] [address] Siomara Engel MD [address] [facility] [place] [address] Health Maintenance Due Date Last Done Comments DXA Scan 1935 Diabetic Foot Exam 10/21/1953 DTap/Tdap Vaccines (1 - Tdap) 10/21/1954 Zoster Vaccines (1 of 2) 10/21/1985 COVID-19 Vaccine (4 - season) 2024 04/08/2022, 09/24/2020, 08/25/2020 Diabetic Eye Exam 04/18/2024 04/18/2023 HbA1c 12/17/2024 06/18/2024, 05/11, 02/08/2023, Additional history exists Albumin/Creatinine Ratio 06/28/2025 06/28/2024, 05/11 Depression Monitoring 07/30/2025 07/30/2024 Pneumococcal Vaccine: 50+ Years Completed 07/13/2017, 07/11/2007 [...] on patient's age to complete this topic Meningitis B Vaccine (Bexsero/Trumemba) Aged Out No longer eligible based on patient's age to complete this topic documented as of this encounter Medical Devices Not on filedocumented as of this encounter Visit Diagnoses Diagnosis COVID-19- Primary Right hemiparesis (HCC) Hemiplegia, unspecified, affecting unspecified side Aphasia, post-stroke Unspecified cerebral artery occlusion with cerebral infarction documented in this encounter Care Teams Team Assistant Relationship Specialty Start Date End Date Cindi Henry MD [address] [place] [id number] PCP - General Family Medicine 09/05/18 documented as of this encounter
--- OUTSIDE RECORDS SUMMARY | 2024-09-16 08:58 | External Medical Summary | Summary of Care ---
Author Name Unknown Organization [facility] Address [address] [place] [address] Phone [phone] Care Team Providers Care Desk Interviewer Name Role Phone Cindi Henry MD Primary Care Prov ider Encounter Details Date Type Department Care Team (Late st Contact Info) Description 09/05/2024 Orders Only Lab Mobile Phlebotomy [facility] [address] [place], [place] [id number] Leslie Patel PA-C [address] [place] [address] COVID-19* Allergies Active Allergy Reactions Criticality Noted Date Comments Mirabegron 10/07/2020 Other Reaction(s): Hair Loss Other reaction(s): Hair Loss documented as of this encounter (statuses as of 09/05/2024) Medications Metoprolol Tartrate 25 MG Oral Tablet [...] as of this encounter (statuses as of 09/05/2024) Active Problems Problem Noted Date Diagnosed Date Right hemiparesis 08/23/2024 History of stroke 08/23/2024 Unstageable pressure ulcer of right heel 025 Cellulitis of right lower extremity 08/23/2024 Aphasia, post-stroke 08/23/2024 Type 2 diabetes mellitus wit h hemoglobin A1c goal of less than 8.0% 08/23/2024 Chronic atrial fibrillation 08/23/2024 Chronic congestive heart failure 08/23/2024 History of [place] (myocardial infarction) 08/23/2024 Major depressive disorder in partial remission 0 08/23/2024 Primary osteoarthritis of both knees 08/23/2024 Dyslipidemia, goal LDL below 70 08/23/2024 Gastroesophageal reflux disease 08/23/2024 documented as of this encounter (statuses as of 09/05/2024) Immunizations Name Administration Dates Next Due Covid-19, [...] money to buy more. Never true 07/30/19 Within the past 12 months, t he [...] money to buy more. Never true 07/30/19 Within the past 12 months, t he [...] as of this encounter Plan of Treatment Upcoming Encounters Date Type Department Care Team (Late st Contact Info) Description 09/13/2024 8:00 AM EST [facility] [place] [address] [facility] [place] [address] Siomara Engel MD [address] [place] [address] Pending Results Name Type Priority Associated Diagnoses Date /Time BASIC METABOLIC PANEL Lab Routine COVID-19 09/05/2024 6:00 AM EST CBC WITH WBC DIFFERENTIAL Lab Routine COVID-19 09/05/2024 6:00 AM EST Scheduled Orders Name Type Priority Associated Diagnoses Orde r Schedule BASIC METABOLIC PANEL Lab Routine COVID-19 Expected: 09/05/2024, Expires: 09/05/2025 CBC WITH WBC DIFFERENTIAL Lab Routine COVID-19 Expected: 09/05/2024, Expires: 09/05/2025 Health Maintenance Due Date Last Done Comments [...] this encounter Visit Diagnoses Diagnosis COVID-19- Primary documented in this encounter Care Teams Desk Interviewer Relationship Specialty Start Date End Date Cindi Henry MD [address] [place] [address] PCP - General Family Medicine 09/05/18 documented as of this encounter
--- OUTSIDE RECORDS SUMMARY | 2024-09-16 08:58 | External Medical Summary ---
Author Name Unknown Address Unknown Organization [facility] [address] [place] [address] Laboratory Report Ordering Provider Test Date Status ARCHANA ARELLANO 09/05/2024 06:00:00 Final Observation Date Value Abnormality Reference (Units ) Status BUN 09/05/2024 06:00:00 19 6-20 (mg/dL) Final Creatinine 09/05/2024 06:00:00 0.7 0.5-1.0 (mg/dL) Final Glomerular filtration rate/1.73 sq M.predicted [Volume Rate/Area] in Serum, Plasma or Blood by Creatinine-based formula (CKD-EPI) 09/05/2024 06:00:00 78 >=60 (mL/min) Final eGFR is calculated based on the CKD-EPI 2020 equation. Sodium 09/05/2024 06:00:00 141 135-146 (m mol/L) Final Potassium 09/05/2024 06:00:00 3.9 3.5-5.1 (m mol/L) Final Cl 09/05/2024 06:00:00 106 98-107 (mm ol/L) Final CO2 09/05/2024 06:00:00 23 22-32 (mmo l/L) Final Anion gap 09/05/2024 06:00:00 12 7-15 (mmol /L) Final Glucose 09/05/2024 06:00:00 113 70-120 (mg /dL) Final Calcium 09/05/2024 06:00:00 7.9 Below low normal 8.4 -10.2 (mg/dL) Final Performing Location [facility] [address] [place] [id number]
--- OUTSIDE RECORDS SUMMARY | 2024-09-16 08:58 | External Medical Summary | Summary of Care ---
Author Name Unknown Organization [facility] Address [address] [facility] [place] [address] Phone [phone] Care Team Providers Care Rotary Drill Operator Helper Name Role Phone Cindi Henry MD Primary Care Prov ider Reason for Visit * Reason Onset Date Comments Skilled Visit 09/07/2024 Encounter Details Date Type Department Care Team (Late st Contact Info) Description 09/07/2024 10:00 AM [facility] Visit [facility], [address] [place] [address] Leslie Patel PA-C [address] [place] [address] [place] [address] COVID-19*; Right hemiparesis (HCC); Aphasia, post-stroke; History of stroke; 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) Allergies Active Allergy Reactions Criticality Noted Date Comments Mirabegron 10/07/2020 Other Reaction(s): Hair Loss Other reaction(s): Hair Loss documented as of this encounter (statuses as of 09/07/2024) Medications Metoprolol Tartrate 25 MG Oral Tablet [...] as of this encounter (statuses as of 09/07/2024) Active Problems Problem Noted Date Diagnosed Date Right hemiparesis 08/23/2024 History of stroke 08/23/2024 Unstageable pressure ulcer of right heel 025 Cellulitis of right lower extremity 08/23/2024 Aphasia, post-stroke 08/23/2024 Type 2 diabetes mellitus wit h hemoglobin A1c goal of less than 8.0% 08/23/2024 Chronic atrial fibrillation 08/23/2024 Chronic congestive heart failure 08/23/2024 History of NM (myocardial infarction) 08/23/2024 Major depressive disorder in partial remission 0 08/23/2024 Primary osteoarthritis of both knees 08/23/2024 Dyslipidemia, goal LDL below 70 08/23/2024 Gastroesophageal reflux disease 08/23/2024 documented as of this encounter (statuses as of 09/07/2024) Immunizations Name Administration Dates Next Due Covid-19, Mrna, Lnp-s, Pf, B ivalent, 30 Mcg, IM, 12 yrs and above ([employer]) 04/08/2022 documented as of this encounter Social [...] Sign Reading Time Taken Comments Blood Pressure 111/62 09/07/2024 4:08 PM EST Pulse 94 09/07/2024 4:08 PM EST Temperature 36.4 C (97.5 F) 09/07/2024 4:08 PM ES T Respiratory Rate 18 09/07/2024 4:08 PM EST Oxygen Saturation 91% 09/07/2024 4:08 PM EST room air Inhaled Oxygen Concentration - - Weight 46.8 kg (103 lb 3.2 oz) 09/07/2024 4:08 P M EST Height - - Body Mass Index - - documented in this encounter Progress Notes * Leslie Patel PA-C - 09/07/2024 10:00 AM EST Name: Joellen Kent Date of : 1935 This note pertains to care provided at [facility]. Please see facility record for original note. This note is not to be edited or addended in [employer]. Editing or addending needs to occur in the facility's medical record. Chief Complaint Patient presents with Skilled Visit TRANSITION EVENT: Type: Skilled visit Date: September 07 Code Status: Full Code SUBJECTIVE: Joellen Kent is a 88 year old female HPI: recheck COVID-19 in short-term rehab pt recently hospitalized with RLE cellulitis, decubitus ulcer, and CVA. She states she feels "fine" today but otherwise is not able to provide any reliable history due to cognitive impairment. She has no current fever, hypoxia, respiratory distress, vomiting, nor diarrhea per staff. 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) Cellulitis of right lower extremity Aphasia, post-stroke Type 2 diabetes mellitus with hemoglobin A1c goal of less than 8.0% (HCC) Chronic atrial fibrillation (HCC) Chronic congestive heart failure (HCC) History of NM (myocardial infarction) Major depressive disorder in partial remission (HCC) Primary osteoarthritis of both knees Dyslipidemia, goal LDL below 70 Gastroesophageal reflux disease Review of patient's allergies indicates: Allergen Reactions Mirabegron Other Reaction(s): Hair Loss Other reaction(s): Hair Loss Medications: Pt's current medication list is maintained at [facility] and was reviewed at this visit. Review of Systems: Per HPI, limited from pt due to cognitive impairment OBJECTIVE: BP 111/62 | Pulse 94 | Temp 36.4 C (97.5 F) | Resp 18 | Wt 46.8 kg (103 lb 3.2 oz) |SpO2 91% Comment: room air General: alert and no distress, thin and frail Heart: irregularly irregular Lungs: chest symmetric with normal AP diameter, no chest deformities noted, no chest wall tenderness, lungs clear to auscultation Abdomen: abdomen soft, non-tender, normal bowel sounds, no masses or organomegaly, and no rebound or guarding Extremities: less than 2 second capillary refill, no edema, Ulcer right heel, yellow wound bed, no erythema, no drainage, no odor Results for orders placed or performed in visit on 09/07/24 BASIC METABOLIC PANEL Result Value Ref Range BUN 22 (H) 6 - 20 mg/dL CREATININE 0.8 0.5 - 1.0 mg/dL EGFR 74 >=60 mL/min SODIUM 141 135 - 146 mmol/L POTASSIUM 3.8 3.5 - 5.1 mmol/L CHLORIDE 106 98 - 107 mmol/L CO2 22 22 - 32 mmol/L ANION GAP 13 7 - 15 mmol/L GLUCOSE 69 (L) 70 - 120 mg/dL CALCIUM 7.8 (L) 8.4 - 10.2 mg/dL CBC Result Value Ref Range WBC 13.95 (H) 4.00 - 10.80 K/uL RBC 3.56 3.85 - 5.15 M/uL HGB 10.3 (L) 12.0 - 15.3 g/dL HCT 33.0 (L) 36.0 - 45.2 % MCV 92.7 81.5 - 97.5 fL MCH 28.9 27.0 - 34.0 pg MCHC 31.2 32.0 - 36.0 g/dL RDW 16.1 11.5 - 15.5 % PLT 319 140 - 400 K/uL MPV 11.3 6.6 - 11.1 fL Results reviewed with daughter ASSESSMENT/PLAN: [facility] chart (outside system) reviewed for vital signs, nursing notes, CODE STATUS, and most up to date medication list Discussed management with other clinician during the visit (facility RN) COVID-19 (Primary) Symptoms improving and mild at this time Supportive care: rest, encourage oral fluids, analgesia with acetaminophen as needed Right hemiparesis (HCC) Aphasia, post-stroke History of stroke Continue therapies 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 This total time includes pre-visit chart review, obtaining / reviewing separately obtained medical history, and performing the medically appropriate historyand exam. It also includes patient / family education and counseling, placing the appropriate orders, placing referrals and communicating with other medical providers, documenting clinical information in the EHR, interpreting / communicating results, and coordinating patient care. 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
--- OUTSIDE RECORDS SUMMARY | 2024-09-16 08:58 | External Medical Summary ---
Author Name Unknown Address Unknown Organization [facility] [address] [place] [id number] Laboratory Report Ordering Provider Test Date Status ARCHANA ARELLANO 09/07/2024 06:45:19 Final Observation Date Value Abnormality Reference (Units ) Status BUN 09/07/2024 06:45:19 22 Above high normal 6-20 (mg/dL) Final Creatinine 09/07/2024 06:45:19 0.8 0.5-1.0 (mg/dL) Final Glomerular filtration rate/1.73 sq M.predicted [Volume Rate/Area] in Serum, Plasma or Blood by Creatinine-based formula (CKD-EPI) 09/07/2024 06:45:19 74 >=60 (mL/min) Final eGFR is calculated based on the CKD-EPI 2020 equation. Sodium 09/07/2024 06:45:19 141 135-146 (m mol/L) Final Potassium 09/07/2024 06:45:19 3.8 3.5-5.1 (m mol/L) Final Cl 09/07/2024 06:45:19 106 98-107 (mm ol/L) Final CO2 09/07/2024 06:45:19 22 22-32 (mmo l/L) Final Anion gap 09/07/2024 06:45:19 13 7-15 (mmol /L) Final Glucose 09/07/2024 06:45:19 69 Below low normal 70- 120 (mg/dL) Final Calcium 09/07/2024 06:45:19 7.8 Below low normal 8.4 -10.2 (mg/dL) Final Performing Location [facility] [employer] [address] [place] [id number]
--- OUTSIDE RECORDS SUMMARY | 2024-09-16 08:58 | External Medical Summary ---
Author Name Unknown Address Unknown Organization [facility] [place] [address] Laboratory Report Ordering Provider Test Date Status ARCHANA ARELLANO 09/11/2024 13:42:49 Final Observation Date Value Abnormality Reference (Units ) Status BUN 09/11/2024 13:42:49 15 6-20 (mg/dL) Final Creatinine 09/11/2024 13:42:49 0.8 0.5-1.0 (mg/dL) Final Glomerular filtration rate/1.73 sq M.predicted [Volume Rate/Area] in Serum, Plasma or Blood by Creatinine-based formula (CKD-EPI) 09/11/2024 13:42:49 75 >=60 (mL/min) Final eGFR is calculated based on the CKD-EPI 2020 equation. Sodium 09/11/2024 13:42:49 140 135-146 (m mol/L) Final Potassium 09/11/2024 13:42:49 4.1 3.5-5.1 (m mol/L) Final Cl 09/11/2024 13:42:49 106 98-107 (mm ol/L) Final CO2 09/11/2024 13:42:49 18 Below low normal 22- 32 (mmol/L) Final Anion gap 09/11/2024 13:42:49 16 Above high normal 7- 15 (mmol/L) Final Glucose 09/11/2024 13:42:49 142 Above high normal 70 -120 (mg/dL) Final Calcium 09/11/2024 13:42:49 8.0 Below low normal 8.4 -10.2 (mg/dL) Final Performing Location [facility] [place] [place] [address]
--- OUTSIDE RECORDS SUMMARY | 2024-09-16 08:58 | External Medical Summary ---
Author Name Unknown Address Unknown Organization [facility] [address] [place] [id number] Laboratory Report Ordering Provider Test Date Status ARCHANA ARELLANO 09/05/2024 06:00:00 Final Observation Date Value Abnormality Reference (Units ) Status WBC, Total 09/05/2024 06:00:00 16.38 Above high normal 4 .00-10.80 (K/uL) Final RBC 09/05/2024 06:00:00 3.45 3.85-5.15 (M/uL) Final Hemoglobin 09/05/2024 06:00:00 10.2 Below low normal 12 .0-15.3 (g/dL) Final HCT 09/05/2024 06:00:00 31.9 Below low normal 36. 0-45.2 (%) Final MCV 09/05/2024 06:00:00 92.5 81.5-97.5 (fL) Final MCH 09/05/2024 06:00:00 29.6 27.0-34.0 (pg) Final MCHC 09/05/2024 06:00:00 32.0 32.0-36.0 (g/dL) Final RDW 09/05/2024 06:00:00 16.3 11.5-15.5 (%) Final Platelets 09/05/2024 06:00:00 301 140-400 (K /uL) Final MPV 09/05/2024 06:00:00 10.8 6.6-11.1 ( fL) Final Performing Location [facility] [address] [place] [id number]
--- OUTSIDE RECORDS SUMMARY | 2024-09-16 08:58 | External Medical Summary | Summary of Care ---
Author Name Unknown Organization [facility] Address [address] [place] [facility] [place] [address] Phone [phone] Care Team Providers Care Phytochemistry Professor Name Role Phone Cindi Henry MD Primary Care Prov ider Reason for Referral * Evaluate & Treat - Unlimited Visits (Within 30 days (routine)) - Authorized Specialty Diagnoses / Procedures Referred By Contjim t Referred To Contact Neurology Diagnoses CVA (cerebral vascular accident) ([facility]) Madison Milligan MD [address] [place] [address] Phone: tel: fax: Referral ID Status Reason Start Date Expiration Date Visits Requested Visits Authorized [id number] Authorized Specialty Services Required 08/30/2024 999 999 Question Answer Referral Priority Within 30 days (routine) Where should this appointment be scheduled? [facility] Is this referral being placed for insurance purposes ONLY No, patient needs appointment [facility] NEUROLOGY REFERRAL QUESTIONS Stroke Comments Left parietal CVA, Appt request/notes scanned into patients chart under media tab on 08/30/24, mif Encounter Details Date Type Department Care Team (Late st Contact Info) Description 08/30/2024 Orders Only Access [place], [facility] [address] [facility] *DO NOT REMOVE THIS DEPARTMENT* [place] [id number] Request, External Referral CVA (cerebral vascular accident) ([facility])* Allergies Active Allergy Reactions Criticality Noted Date Comments Mirabegron 10/07/2020 Other Reaction(s): Hair Loss Other reaction(s): Hair Loss documented as of this encounter (statuses as of 08/30/2024) Medications Metoprolol Tartrate 25 MG Oral Tablet [...] as of this encounter (statuses as of 08/30/2024) Active Problems Problem Noted Date Diagnosed Date Right hemiparesis 08/23/2024 History of stroke 08/23/2024 Unstageable pressure ulcer of right heel 025 Cellulitis of right lower extremity 08/23/2024 Aphasia, post-stroke 08/23/2024 Type 2 diabetes mellitus wit h hemoglobin A1c goal of less than 8.0% 08/23/2024 Chronic atrial fibrillation 08/23/2024 Chronic congestive heart failure 08/23/2024 History of [place] (myocardial infarction) 08/23/2024 Major depressive disorder in partial remission 0 08/23/2024 Primary osteoarthritis of both knees 08/23/2024 Dyslipidemia, goal LDL below 70 08/23/2024 Gastroesophageal reflux disease 08/23/2024 documented as of this encounter (statuses as of 08/30/2024) Immunizations Name Administration Dates Next Due Covid-19, [...] as of this encounter Plan of Treatment Scheduled Referrals Name Type Priority Associated Diagnoses Orde r Schedule ADULT NEUROLOGY REFERRAL OP Referral Within 30 days (routine) CVA (cerebral vascular accident) (HCC) Ordered: 08/30/2024 Health Maintenance Due Date Last Done Comments DXA Scan 1935 Diabetic Foot Exam 10/21/1953 DTap/Tdap Vaccines (1 - Tdap) 10/21/1954 Zoster Vaccines (1 of 2) 10/21/1985 COVID-19 Vaccine ( season) 2024 04/08/2022, 09/24/2020, 08/25/2020 Diabetic Eye [...] as of this encounter Visit Diagnoses Diagnosis CVA (cerebral vascular accident) (HCC)- Primary Unspecified cerebral artery occlusion with cerebral infarction documented in this encounter Care Teams Phytochemistry Professor Relationship Specialty Start Date End Date Cindi Henry MD [address] [place] [address] PCP - General Family Medicine 09/05/18 documented as of this encounter
--- OUTSIDE RECORDS SUMMARY | 2024-09-16 08:58 | External Medical Summary | Summary of Care ---
Author Name Unknown Organization [facility] Address [address] [facility] [address] Phone [phone] Care Team Providers Care Motor Vehicle Assembly Supervisor Name Role Phone Cindi Henry MD Primary Care Prov ider Reason for Visit * Reason Onset Date Comments Skilled Visit 09/13/2024 Encounter Details Date Type Department Care Team (Late st Contact Info) Description 09/11/2024 10:00 AM EST Correction Visit [facility], [address] [place] [address] Leslei Patel PA-C [address] [place] [address] [place] [address] Acute cough*; Dysphagia, unspecified type; COVID-19 Allergies Active Allergy Reactions Criticality Noted Date Comments Mirabegron 10/07/2020 Other Reaction(s): Hair Loss Other reaction(s): Hair Loss documented as of this encounter (statuses as of 09/13/2024) Medications Metoprolol Tartrate 25 MG Oral Tablet [...] as of this encounter (statuses as of 09/13/2024) Active Problems Problem Noted Date Diagnosed Date Right hemiparesis 08/23/2024 History of stroke 08/23/2024 Unstageable pressure ulcer of right heel 025 Cellulitis of right lower extremity 08/23/2024 Aphasia, post-stroke 08/23/2024 Type 2 diabetes mellitus wit h hemoglobin A1c goal of less than 8.0% 08/23/2024 Chronic atrial fibrillation 08/23/2024 Chronic congestive heart failure 08/23/2024 History of ID (myocardial infarction) 08/23/2024 Major depressive disorder in partial remission 0 08/23/2024 Primary osteoarthritis of both knees 08/23/2024 Dyslipidemia, goal LDL below 70 08/23/2024 Gastroesophageal reflux disease 08/23/2024 documented as of this encounter (statuses as of 09/13/2024) Immunizations Name Administration Dates Next Due Covid-19, [...] Sign Reading Time Taken Comments Blood Pressure 158/88 09/11/2024 2:20 PM EST Pulse 98 09/11/2024 2:20 PM EST Temperature 36.6 C (97.8 F) 09/11/2024 2:20 PM ES T Respiratory Rate 18 09/11/2024 2:20 PM EST Oxygen Saturation 95% 09/11/2024 2:20 PM EST room air Inhaled Oxygen Concentration - - Weight - - Height - - Body Mass Index - - documented in this encounter Progress Notes * Leslie Patel PA-C - 09/11/2024 10:00 AM EST Name: Joellen Kent Date of : 1935 This note pertains to care provided at [facility]. Please see facility record for original note. This note is not to be edited or addended in [employer]. Editing or addending needs to occur in the facility's medical record. Chief Complaint Patient presents with Skilled Visit TRANSITION EVENT: Type: Skilled visit Date: September 11 Code Status: Full Code SUBJECTIVE: Joellen Kent is a 88 year old female HPI: short-term rehab pt recovering from recent CVA and current COVID-19 Poor appetite today, pushing food away and grimacing with food and drink in mouth VALVE MACHINE OPERATOR reporting pt coughing on thin liquids, as well. Patient cannot provide any reliable history due to cognitive impairment. 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) Cellulitis of right lower extremity Aphasia, post-stroke Type 2 diabetes mellitus with hemoglobin A1c goal of less than 8.0% (HCC) Chronic atrial fibrillation (HCC) Chronic congestive heart failure (HCC) History of ID (myocardial infarction) Major depressive disorder in partial remission (HCC) Primary osteoarthritis of both knees Dyslipidemia, goal LDL below 70 Gastroesophageal reflux disease Review of patient's allergies indicates: Allergen Reactions Mirabegron Other Reaction(s): Hair Loss Other reaction(s): Hair Loss Medications: Pt's current medication list is maintained at [facility] and was reviewed at this visit. Review of Systems: Per HPI OBJECTIVE: BP 158/88 | Pulse 98 | Temp 36.6 C (97.8 F) | Resp 18 | SpO2 95% Comment: room air General: no distress and sitting in chair, thin and frail appearing, nonverbal Head: Normocephalic Eye Exam: conjunctiva are pink and non-injected, sclera clear Oropharynx: mucous membranes are moist Heart: irregularly irregular Lungs: chest symmetric with normal AP diameter, no chest deformities noted, no chest wall tenderness, lungs clear to auscultation without wheezes, rhonchi, or rales, coughs after sipping water Abdomen: abdomen soft, non-tender, normal bowel sounds, no masses or organomegaly, and no rebound or guarding Extremities: less than 2 second capillary refill, no edema Neuro Exam: awake, alert, mostly nonverbal, right sided weakness/neglect, hard of hearing Skin: No current drainage right heel wound Results for orders placed or performed in [...] K/uL MPV 11.3 6.6 - 11.1 fL ASSESSMENT/PLAN: intermediate chart (outside system) reviewed for vital signs, nursing notes, CODE STATUS, and most up to date medication list Discussed management with other clinician during the visit (facility RN, VALVE MACHINE OPERATOR) Assessment required independent historian that was not the patient due to dementia Acute cough (Primary) Dysphagia, unspecified type COVID-19 CBC BMP CXR 2 view Updated daughter by phone Follow up: as needed pending above results 52 total minutes were spent in this visit. [...] as of this encounter Visit Diagnoses Diagnosis Acute cough- Primary Dysphagia, unspecified type COVID-19 documented in this encounter Care Teams Motor Vehicle Assembly Supervisor Relationship Specialty Start Date End Date Cindi Henry MD [address] [place] [address] PCP - General Family Medicine 09/05/18 documented as of this encounter"
--- OUTSIDE RECORDS SUMMARY | 2024-09-16 08:58 | External Medical Summary | Summary of Care ---
Author Name Unknown Organization [facility] Address [address] [facility] [place] [address] Phone [phone] Care Team Providers Care Landscape Designer Name Role Phone Cindi Henry MD Primary Care Prov ider Reason for Visit * Reason Onset Date Comments Skilled Visit 09/03/2024 Encounter Details Date Type Department Care Team (Late st Contact Info) Description 09/03/2024 10:00 AM [facility] Visit [facility], [address] [place] [address] Leslie Patel PA-C [address] [place] [address] [place] [address] Right hemiparesis (HCC)*; Aphasia, post-stroke; History of stroke; 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); Chronic atrial fibrillation (HCC) Allergies Active Allergy Reactions Criticality Noted Date Comments Mirabegron 10/07/2020 Other Reaction(s): Hair Loss Other reaction(s): Hair Loss documented as of this encounter (statuses as of 09/04/2024) Medications Metoprolol Tartrate 25 MG Oral Tablet [...] as of this encounter (statuses as of 09/04/2024) Active Problems Problem Noted Date Diagnosed Date Right hemiparesis 08/23/2024 History of stroke 08/23/2024 Unstageable pressure ulcer of right heel 025 Cellulitis of right lower extremity 08/23/2024 Aphasia, post-stroke 08/23/2024 Type 2 diabetes mellitus wit h hemoglobin A1c goal of less than 8.0% 08/23/2024 Chronic atrial fibrillation 08/23/2024 Chronic congestive heart failure 08/23/2024 History of [place] (myocardial infarction) 08/23/2024 Major depressive disorder in partial remission 0 08/23/2024 Primary osteoarthritis of both knees 08/23/2024 Dyslipidemia, goal LDL below 70 08/23/2024 Gastroesophageal reflux disease 08/23/2024 documented as of this encounter (statuses as of 09/04/2024) Immunizations Name Administration Dates Next Due Covid-19, Mrna, Lnp-s, Pf, B ivalent, 30 Mcg, IM, 12 yrs and above ([employer]) 04/08/2022 documented as of this encounter Social [...] Sign Reading Time Taken Comments Blood Pressure 136/81 09/03/2024 4:40 PM EST Pulse 88 09/03/2024 4:40 PM EST Temperature 36.1 C (97 F) 09/03/2024 4:40 PM EST Respiratory Rate 18 09/03/2024 4:40 PM EST Oxygen Saturation 99% 09/03/2024 4:40 PM EST Inhaled Oxygen Concentration - - Weight 48 kg (105 lb 12.8 oz) 09/03/2024 4:40 PM EST Height - - Body Mass Index - - documented in this encounter Progress Notes * Leslie Patel PA-C - 09/03/2024 4:32 PM EST Name: Joellen Kent Date of : 1935 This note pertains to care provided at [facility]. Please see facility record for original note. This note is not to be edited or addended in [employer]. Editing or addending needs to occur in the facility's medical record. Chief Complaint Patient presents with Skilled Visit TRANSITION EVENT: Type: Skilled visit Date: September 03 Code Status: Full Code SUBJECTIVE: Joellen Kent is a 88 year old female HPI: short-term rehab pt with recent hospitalization for cellulitis of right lower extremity arounda pressure ulcer that developed at home over the past several weeks, acutely worsening right sided weakness and speech difficulty with additional findings of CVA during her hospital stay. Patient not able to provide any history due to cognitive impairment. She has no current fever, chills, vomiting, diarrhea, hypoxia reported by staff. She is able to walk about 20 feet with a platform walker and requires extensive assistance with ADLs. Discharge goal is for her to return home with family. 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 Review of Systems: Per HPI OBJECTIVE: BP 136/81 | Pulse 88 | Temp 36.1 C (97 F) | Resp 18 | Wt 48 kg (105 lb 12.8 oz) | SpO2 99% General: alert and no distress, thin and frail appearing, sitting in wheelchair, she is mostly nonverbal today Heart: irregularly irregular Lungs: chest symmetric with normal AP diameter, no chest deformities noted, no chest wall tenderness, lungs clear to auscultation Abdomen: abdomen soft, non-tender, normal bowel sounds, no masses or organomegaly, and no rebound or guarding Extremities: less than 2 second capillary refill, no edema Neuro Exam: nonverbal Skin: pink, warm, dry, improving scabs bilateral shins, right posterior heel with shallow ulceratedarea with no drainage, odor, or surrounding erythema ASSESSMENT/PLAN: [facility] chart (outside system) reviewed for vital signs, nursing notes, CODE STATUS, and most up to date medication list Discussed management with other clinician during the visit (facility RN) Most recent physical and occupational therapy notes reviewed Right hemiparesis (HCC) (Primary) Aphasia, post-stroke History of stroke Continue PT/OT/ST 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) Offload and continue local wound care Follow with wound care MD Chronic atrial fibrillation (HCC) Rate controlled and anticoagulated Follow up: 2-3 days and as needed 30 total minutes were [...] 09/13/2024 8:00 AM EST Office Visit Neurology [facility] [address] [facility] [place] [address] Siomara Engel MD [address] [facility] [place] [address] Health Maintenance Due Date Last Done Comments [...] as of this encounter Visit Diagnoses Diagnosis Right hemiparesis (HCC)- Primary Hemiplegia, unspecified, affecting unspecified side Aphasia, post-stroke Unspecified cerebral artery occlusion with cerebral infarction History of stroke Transient ischemic attack (TIA), and cerebral infarction without residual deficits 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) Pressure ulcer, heel Chronic atrial fibrillation (HCC) Atrial fibrillation documented in this encounter Care Teams Landscape Designer Relationship Specialty Start Date End Date Cindi Henry MD [address] [place] [address] PCP - General Family Medicine 09/05/18 documented as of this encounter"
--- OUTSIDE RECORDS SUMMARY | 2024-09-16 08:58 | External Medical Summary | Summary of Care ---
Author Name Unknown Organization [facility] Address [address] [facility] [place] [address] Phone [phone] Care Team Providers Care International Relations Professor Name Role Phone Cindi Henry MD Primary Care Prov ider Reason for Visit * Reason Onset Date Comments Skilled Visit 09/13/2024 Encounter Details Date Type Department Care Team (Late st Contact Info) Description 09/13/2024 9:45 AM EST [facility] Visit [facility], [address] [place] [address] Leslie Patel PA-C [address] [place] [address] [place] [address] COVID-19*; History of stroke; Aphasia, post-stroke; Right hemiparesis (HCC) Allergies Active Allergy Reactions Criticality Noted [...] Chronic congestive heart failure 08/23/2024 History of [place] (myocardial infarction) 08/23/2024 Major depressive disorder in partial remission 0 08/23/2024 Primary osteoarthritis of both knees 08/23/2024 Dyslipidemia, goal LDL below 70 08/23/2024 Gastroesophageal reflux disease 08/23/2024 documented as of this encounter (statuses as of 09/13/2024) Immunizations Name Administration Dates Next Due Covid-19, Mrna, Lnp-s, Pf, B ivalent, 30 Mcg, IM, 12 yrs and above ([employer]) 04/08/2022 documented as of this encounter Social [...] Sign Reading Time Taken Comments Blood Pressure 126/74 09/13/2024 1:42 PM EST Pulse 68 09/13/2024 1:42 PM EST Temperature 36.8 C (98.2 F) 09/13/2024 1:42 PM ES T Respiratory Rate 18 09/13/2024 1:42 PM EST Oxygen Saturation 91% 09/13/2024 1:42 PM EST room air Inhaled Oxygen Concentration - - Weight 46.8 kg (103 lb 1.6 oz) 09/13/2024 1:42 P M EST Height - - Body Mass Index - - documented in this encounter Progress Notes * Leslie Patel PA-C - 09/13/2024 9:45 AM EST Name: Joellen Kent Date of : 1935 This note pertains to care provided at [facility]. Please see facility record for original note. This note is not to be edited or addended in [employer]. Editing or addending needs to occur in the facility's medical record. Chief Complaint Patient presents with Skilled Visit TRANSITION EVENT: Type: Skilled visit Date: September 13 Code Status: Full Code SUBJECTIVE: Joellen Kent is a 88 year old female HPI: short-term rehab pt recovering from recent CVA, current COVID-19 is seen in follow up. Therapy staff reporting functional decline since acute COVID-19 illness. She has ongoing cough at times, speech therapy has downgraded diet to nectar thick liquids due to concern of aspiration. Her appetite appears to have improved some over the past 2 days. She has no current fever, chills, hypoxia, vomiting, nor diarrhea per staff. She cannot provide any reliable history due to cognitive impairment. Sh eis not currently ambulating and requires significant assistance with ADLs. Discharge goal is for her to return home with support of her family. 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 Review of Systems: Per HPI OBJECTIVE: BP 126/74 | Pulse 68 | Temp 36.8 C (98.2 F) | Resp 18 | Wt 46.8 kg (103 lb 1.6 oz) |SpO2 91% Comment: room air General: alert and no distress, occasional cough noted Head: Normocephalic Eye Exam: conjunctiva are pink [...] second capillary refill, no edema Neuro Exam: alert, sitting in wheelchair, nonsensical speech, right neglect Results for orders placed or performed in visit on 09/12/24 BASIC METABOLIC PANEL Result Value Ref Range BUN 16 6 - 20 mg/dL CREATININE 0.8 0.5 - 1.0 mg/dL EGFR 75 >=60 mL/min SODIUM 144 135 - 146 mmol/L POTASSIUM 4.0 3.5 - 5.1 mmol/L CHLORIDE 110 (H) 98 - 107 mmol/L CO2 20 (L) 22 - 32 mmol/L ANION GAP 14 7 - 15 mmol/L GLUCOSE 135 (H) 70 - 120 mg/dL CALCIUM 7.9 (L) 8.4 - 10.2 mg/dL CBC Result Value Ref Range WBC 13.68 (H) 4.00 - 10.80 K/uL RBC 3.54 3.85 - 5.15 M/uL HGB 10.3 (L) 12.0 - 15.3 g/dL HCT 32.5 (L) 36.0 - 45.2 % MCV 91.8 81.5 - 97.5 fL MCH 29.1 27.0 - 34.0 pg MCHC 31.7 32.0 - 36.0 g/dL RDW 15.8 11.5 - 15.5 % PLT 547 (H) 140 - 400 K/uL MPV 10.5 6.6 - 11.1 fL Results reviewed with daughter ASSESSMENT/PLAN: long term chart (outside system) reviewed for vital signs, nursing notes, CODE STATUS, and most up to date medication list Discussed management with other clinician during the visit (facility GLOBAL CATEGORY MANAGER) Most recent physical and occupational therapy notes reviewed COVID-19 (Primary) Mild cough Supportive care: rest, encourage oral fluids, analgesia with acetaminophen as needed Labs stable History of stroke Aphasia, post-stroke Right hemiparesis (HCC) Continue therapies Discharge goal = home Call placed to daughter to daughter Follow up: 1-2 days and as needed 35 total minutes were spent in this visit. [...] this encounter Visit Diagnoses Diagnosis COVID-19- Primary History of stroke Transient ischemic attack (TIA), and cerebral infarction without residual deficits Aphasia, post-stroke Unspecified cerebral artery occlusion with cerebral infarction Right hemiparesis (HCC) Hemiplegia, unspecified, affecting unspecified side documented in this encounter Care Teams International Relations Professor Relationship Specialty Start Date End Date Cindi Henry MD [address] [place] [id number] PCP - General Family Medicine 09/05/18 documented as of this encounter"
--- OUTSIDE RECORDS SUMMARY | 2024-09-16 08:58 | External Medical Summary | Summary of Care ---
Author Name Unknown Organization [facility] Address [address] [place] [address] Phone [phone] Care Team Providers Care Film Coater Name Role Phone Cindi Henry MD Primary Care Prov ider Encounter Details Date Type Department Care Team (Latest Contact Info) Description 09/13/2024 Medication Management [facility] [address] [place], [place] [id number] Meena Vanessa CPhT Referred for management of medication therapy* Allergies Active Allergy Reactions Criticality Noted Date [...] Chronic congestive heart failure 08/23/2024 History of [place] (myocardial infarction) 08/23/2024 Major depressive disorder in partial remission 0 08/23/2024 Primary osteoarthritis of both knees 08/23/2024 Dyslipidemia, goal LDL below 70 08/23/2024 Gastroesophageal reflux disease 08/23/2024 documented as of this encounter (statuses as of 09/13/2024) Immunizations Name Administration Dates Next Due Covid-19, Mrna, Lnp-s, Pf, B ivalent, 30 Mcg, IM, 12 yrs and above ([employer]) 04/08/2022 documented as of this encounter Social [...] on file documented as of this encounter Progress Notes * Meena Vanessa CPhT - 09/13/2024 7:39 AM EST Joellen Kent is a 88 year old female. TMR Interventions Incomplete Encounter MTPs No medication therapy recommendations to display Complete Encounter MTPs Referred for management of medication therapy 1 Rationale: Untreated condition - Needs additional medication therapy - Indication Status: No Longer Relevant Identified Date: 09/13/2024 Completed Date: 09/13/2024 Note: Patient does not currently qualify for non CE Diabetes Initiative. Assessment & Plan Indication, effectiveness, safety and convenience of her medications were reviewed today. The patient's medical conditions were assessed, evaluated, and deemed meeting goals of drug therapy, with thefollowing exceptions. Additional Notes: none Meena Vanessa CPhT 09/13/2024, 7:39 AM documented in this encounter Plan of Treatment [...] as of this encounter Visit Diagnoses Diagnosis Referred for management of medication therapy- Primary Encounter for long-term (current) use of other medications documented in this encounter Care Teams Film Coater Relationship Specialty Start Date End Date Cindi Henry MD [address] [place] [address] PCP - General Family Medicine 09/05/18 documented as of this encounter
--- OUTSIDE RECORDS SUMMARY | 2024-09-16 08:58 | External Medical Summary | Summary of Care ---
Author Name Unknown Organization [facility] Address [address] [facility] [place] [address] Phone [phone] Care Team Providers Care Inorganic Chemistry Professor Name Role Phone Cindi Henry MD Primary Care Prov ider Reason for Visit * Reason Onset Date Comments Skilled Visit 09/04/2024 Encounter Details Date Type Department Care Team (Late st Contact Info) Description 09/04/2024 10:45 AM EST Detention Visit [facility], [address] [place] [address] Leslie Patel PA-C [address] [place] [address] [place] [address] COVID-19* Allergies Active Allergy Reactions Criticality Noted [...] 30 Mcg, IM, 12 yrs and above ([employer]) 04/08/2022 documented as of this encounter Social [...] Sign Reading Time Taken Comments Blood Pressure 105/67 09/04/2024 1:41 PM EST Pulse 99 09/04/2024 1:41 PM EST Temperature 39.1 C (102.4 F) 09/04/2024 1:[address] Respiratory Rate 18 09/04/2024 1:41 PM EST Oxygen Saturation 94% 09/04/2024 1:41 PM EST room air Inhaled Oxygen Concentration - - Weight - - Height - - Body Mass Index - - documented in this encounter Progress Notes * Leslie Patel PA-C - 09/04/2024 1:28 PM EST Name: Joellen Kent Date of : 1935 This note pertains to care provided at [facility]. Please see facility record for original note. This note is not to be edited or addended in [employer]. Editing or addending needs to occur in the facility's medical record. Chief Complaint Patient presents with Skilled Visit TRANSITION EVENT: Type: Skilled visit Date: September 04 Code Status: Full Code SUBJECTIVE: Joellen Kent is a 88 year old female HPI: short-term rehab pt recovering from recent hospitalization for RLE cellulitis with decubitus ulcer of right heel, recent CVA with right sided weakness and expressive and possibly receptive aphasia, with ++ COVID-19 testing this AM. Pt with sneezing, coughing, fever. No reports of vomiting, diarrhea, nor hypoxia, though patient not able to provide any reliable history due to cognitive impairment. 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 Review of Systems: Per HPI OBJECTIVE: BP 105/67 | Pulse 99 | Temp (!) 39.1 C (102.4 F) | Resp 18 | SpO2 94% Comment: room air General: alert, no distress, and nonverbal Head: Normocephalic Eye Exam: conjunctiva are pink and non-injected, sclera clear Oropharynx: lips, buccal mucosa, and tongue normal and mucous membranes are sticky Heart: irregularly irregular Lungs: chest symmetric with normal AP diameter, no chest deformities noted, no chest wall tenderness, lungs clear to auscultation Abdomen: abdomen soft, non-tender, normal bowel sounds, no masses or organomegaly, and no rebound or guarding Extremities: less than 2 second capillary refill, no joint deformities, effusion, or inflammation, no edema Neuro Exam: alert & awake, nonverbal, not able to follow simple commands Skin: pink, warm, dry ASSESSMENT/PLAN: [facility] chart (outside system) reviewed for vital signs, nursing notes, CODE STATUS, and most up to date medication list Discussed management with other clinician during the visit (facility RN) Assessment required independent historian that was not the patient due to cognitive impairment COVID-19 (Primary) Check CBCD BMP Family disinterested in [facility] at this time Supportive care: rest, encourage oral fluids, analgesia with acetaminophen as needed Recheck tomorrow Shelter Home Treatment Given: Lab Draw as above Follow up: tomorrow and as needed 34 total minutes were spent in this visit. [...] 09/13/2024 8:00 AM EST Office Visit Neurology [facility] [place] [address] [facility] [place] [address] Siomara Engel MD [address] [facility] [place] [address] Health Maintenance Due Date Last Done Comments DXA Scan 1935 Diabetic Foot Exam 10/21/1953 DTap/Tdap Vaccines (1 - Tdap) 10/21/1954 Zoster Vaccines (1 of 2) 10/21/1985 COVID-19 Vaccine ( - season) 2024 04/08/2022, 09/24/2020, 08/25/2020 Diabetic [...] Primary documented in this encounter Care Teams Inorganic Chemistry Professor Relationship Specialty Start Date End Date Cindi Henry MD [address] [place], [place] [id number] PCP - General Family Medicine 09/05/18 documented as of this encounter"
--- OUTSIDE RECORDS SUMMARY | 2024-09-16 08:58 | External Medical Summary ---
Author Name Unknown Address Unknown Organization [facility] [address] [place] [address] Laboratory Report Ordering Provider Test Date Status ARCHANA ARELLANO 09/05/2024 06:00:00 Final Observation Date Value Abnormality Reference (Units ) Status SYNC LEUKOCYTES IN BLOOD BY AUTOMATED COUNT 09/05/2024 06:00:00 16.38 Above high normal 4.00-10.80 (K/uL) Final Segs 09/05/2024 06:00:00 85.1 Above high normal 40.0-75.0 (%) Final Lymphs % 09/05/2024 06:00:00 7.9 Below low normal 18.0-42.0 (%) Final Monos 09/05/2024 06:00:00 6.5 1.0-11.0 (%) Final Eosinophils 09/05/2024 06:00:00 0.3 0.0-6.0 (%) Final Basos 09/05/2024 06:00:00 0.2 0.0-2.0 (%) Final Absolute Segs 09/05/2024 06:00:00 13.94 Above high normal 1.80-7.70 (K/uL) Final Lymphs, absolute 09/05/2024 06:00:00 1.29 1.00-4.80 (K/ul) Final Monos, Abs 09/05/2024 06:00:00 1.07 0.00-1.10 (K/uL) Final Eos, Abs 09/05/2024 06:00:00 0.05 0.00-0.70 (K/uL) Final Basos, Abs 09/05/2024 06:00:00 0.03 0.00-0.20 (K/uL) Final Performing Location [facility] [place] [address]
--- OUTSIDE RECORDS SUMMARY | 2024-09-16 08:58 | External Medical Summary | Summary of Care ---
Author Name Unknown Organization [facility] Address [address] [facility] [place] [address] Phone [phone] Care Team Providers Care Informatica Mdm Architect Name Role Phone Cindi Henry MD Primary Care Prov ider Reason for Visit * Reason Onset Date Comments Skilled Visit 09/06/2024 Encounter Details Date Type Department Care Team (Late st Contact Info) Description 09/06/2024 10:00 AM [facility] Retirement Visit [facility], [address] [place] [address] Leslie Patel PA-C [address] [place] [address] COVID-19* Allergies Active Allergy Reactions Criticality Noted Date Comments Mirabegron 10/07/2020 Other Reaction(s): Hair Loss Other reaction(s): Hair Loss documented as of this encounter (statuses as of 09/10/2024) Medications Metoprolol Tartrate 25 MG Oral Tablet [...] the morning and 1 Tablet before bedtime. 09/11/19 25 Discontinu ed(End of Procedure) documented as of this encounter (statuses as of 09/10/2024) Active Problems Problem Noted Date Diagnosed Date Right hemiparesis 08/23/2024 History of stroke 08/23/2024 Unstageable pressure ulcer of right heel 025 Cellulitis of right lower extremity 08/23/2024 Aphasia, post-stroke 08/23/2024 Type 2 diabetes mellitus wit h hemoglobin A1c goal of less than 8.0% 08/23/2024 Chronic atrial fibrillation 08/23/2024 Chronic congestive heart failure 08/23/2024 History of [place] (myocardial infarction) 08/23/2024 Major depressive disorder in partial remission 0 08/23/2024 Primary osteoarthritis of both knees 08/23/2024 Dyslipidemia, goal LDL below 70 08/23/2024 Gastroesophageal reflux disease 08/23/2024 documented as of this encounter (statuses as of 09/10/2024) Immunizations Name Administration Dates Next Due Covid-19, Mrna, Lnp-s, Pf, B ivalent, 30 Mcg, IM, 12 yrs and above ([employer]) 04/08/2022 documented as of this encounter Social [...] Sign Reading Time Taken Comments Blood Pressure 118/64 09/06/2024 4:38 PM EST Pulse 61 09/06/2024 4:38 PM EST Temperature 35.9 C (96.7 F) 09/06/2024 4:38 PM ES T Respiratory Rate 18 09/06/2024 4:38 PM EST Oxygen Saturation 95% 09/06/2024 4:38 PM EST room air Inhaled Oxygen Concentration - - Weight 48 kg (105 lb 12.8 oz) 09/06/2024 4:38 PM EST Height - - Body Mass Index - - documented in this encounter Progress Notes * Leslie Patel PA-C - 09/06/2024 4:33 PM EST Name: Joellen Kent Date of : 1935 This note pertains to care provided at [facility]. Please see facility record for original note. This note is not to be edited or addended in [place]. Editing or addending needs to occur in the facility's medical record. Chief Complaint Patient presents with Skilled Visit TRANSITION EVENT: Type: Skilled visit Date: September 06 Code Status: Full Code SUBJECTIVE: Joellen Kent is a 88 year old female HPI: recheck COVID-19 in short-term rehab pt recently hospitalized with RLE cellulitis, decubitus ulcer, and CVA. She provides no reliable history due to cognitive impairment. She has no fever today, no significant cough. She has had no documented hypoxia per nursing staff. 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 Review of Systems: Per HPI OBJECTIVE: BP 118/64 | Pulse 61 | Temp 35.9 C (96.7 F) | Resp 18 | Wt 48 kg (105 lb 12.8 oz) | SpO2 95% Comment: room air General: alert, no distress, and sitting in wheelchair, nonverbal, thin and frail appearing Heart: irregularly irregular Lungs: chest symmetric with normal AP diameter, no chest deformities noted, no chest wall tenderness, lungs clear to auscultation Abdomen: abdomen soft, non-tender, normal bowel sounds, no masses or organomegaly, and no rebound or guarding Extremities: no edema, no calf tenderness bilaterally Neuro Exam: nonverbal, no facial droop, right sided neglect ASSESSMENT/PLAN: jail chart (outside system) reviewed for vital signs, nursing notes, CODE STATUS, and most up to date medication list Discussed management with other clinician during the visit (facility MAINTENANCE SUPERVISOR) COVID-19 (Primary) Mild symptoms at present Supportive care: rest, encourage oral fluids, analgesia with acetaminophen as needed Continue PT and OT Isolation per facility policy Follow up: 1-2 days and as needed 32 total minutes were spent in this visit. [...] Primary documented in this encounter Care Teams Informatica Mdm Architect Relationship Specialty Start Date End Date Cindi Henry MD [address] [place] [phone] PCP - General Family Medicine 09/05/18 documented as of this encounter"
--- OUTSIDE RECORDS SUMMARY | 2024-09-16 08:58 | External Medical Summary | Summary of Care ---
Author Name Unknown Organization [facility] Address [address] [facility] [address] Phone [phone] Care Team Providers Care Data Entry Manager Name Role Phone Cindi Henry MD Primary Care Prov ider Reason for Visit * Reason Onset Date Comments Skilled Visit 09/10/2024 Encounter Details Date Type Department Care Team (Late st Contact Info) Description 09/10/2024 11:30 AM EST Penitentiary Visit [facility], [address] [place] [address] Leslie Patel PA-C [address] [place] [address] [place] [id number] COVID-19*; Pressure injury of right heel, stage 3 (HCC) Allergies Active Allergy Reactions Criticality Noted [...] Chronic congestive heart failure 08/23/2024 History of [place] (myocardial infarction) 08/23/2024 Major depressive disorder in partial remission 0 08/23/2024 Primary osteoarthritis of both knees 08/23/2024 Dyslipidemia, goal LDL below 70 08/23/2024 Gastroesophageal reflux disease 08/23/2024 documented as of this encounter (statuses as of 09/10/2024) Immunizations Name Administration Dates Next Due Covid-19, Mrna, Lnp-s, Pf, B ivalent, 30 Mcg, IM, 12 yrs and above ([employer]) 04/08/2022 documented as of this encounter [...] the money to buy more. Never true 01/20/20 25 Within the past 12 months, t [...] Sign Reading Time Taken Comments Blood Pressure 132/78 09/10/2024 2:06 PM EST Pulse 90 09/10/2024 2:06 PM EST Temperature 36.4 C (97.5 F) 09/10/2024 2:06 PM ES T Respiratory Rate 17 09/10/2024 2:06 PM EST Oxygen Saturation 95% 09/10/2024 2:06 PM EST room air Inhaled Oxygen Concentration - - Weight - - Height - - Body Mass Index - - documented in this encounter Progress Notes * Leslie Patel PA-C - 09/10/2024 11:30 AM EST Name: Joellen Kent Date of : 1935 This note pertains to care provided at [facility]. Please see facility record for original note. This note is not to be edited or addended in [place]. Editing or addending needs to occur in the facility's medical record. Chief Complaint Patient presents with Skilled Visit TRANSITION EVENT: Type: Skilled visit Date: September 10 Code Status: Full Code SUBJECTIVE: Joellen Kent is a 88 year old female HPI: Recheck COVID-19 in short-term rehab pt recently hospitalized with RLE cellulitis, decubitus ulcer, and CVA. Patient unable to provide reliable history due to cognitive impairment. No current fever, chills, vomiting, diarrhea, cough, nor hypoxia reported by staff. 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 Review of Systems: Per HPI OBJECTIVE: BP 132/78 | Pulse 90 | Temp 36.4 C (97.5 F) | Resp 17 | SpO2 95% Comment: room air General: alert and no distress Heart: regular rate & rhythm Lungs: chest symmetric with normal AP diameter, no chest deformities noted, no chest wall tenderness, lungs clear to auscultation Abdomen: abdomen soft, non-tender, normal bowel sounds, no masses or organomegaly, and no rebound or guarding Extremities: less than 2 second capillary refill, no edema Neuro Exam: awake, minimally verbal, unable to follow simple commands Skin: right heel wound with small greenish drainage, no apparent tenderness to palpation, no odor, no erythema ASSESSMENT/PLAN: correction chart (outside system) reviewed for vital signs, nursing notes, CODE STATUS, and most up to date medication list Discussed management with other clinician during the visit (facility PILE DRIVER) COVID-19 (Primary) Minimal symptoms Supportive care: rest, encourage oral fluids, analgesia with acetaminophen as needed Pressure injury of right heel, stage 3 (HCC) Some increased drainage but no fever/odor/pain/redness Continue to monitor Continue local wound care, follow up with wound MD later this week Follow up: 2-3 days and as needed 36 total minutes were spent in this visit. [...] this encounter Visit Diagnoses Diagnosis COVID-19- Primary Pressure injury of right heel, stage 3 (HCC) documented in this encounter Care Teams Data Entry Manager Relationship Specialty Start Date End Date Cindi Hnery MD [address] [place] [id number] PCP - General Family Medicine 09/05/18 documented as of this encounter"
--- OUTSIDE RECORDS SUMMARY | 2024-09-16 08:58 | External Medical Summary | Summary of Care ---
Author Name Unknown Organization [facility] Address [address] [facility] [place] [address] Phone [phone] Care Team Providers Care Infection Prevention Coordinator Name Role Phone Cindi Henry MD Primary Care Prov ider Reason for Visit * Reason Onset Date Comments Skilled Visit 09/14/2024 Encounter Details Date Type Department Care Team (Late st Contact Info) Description 09/14/2024 11:30 AM [facility] Alf Visit [facility], [address] [place] [address] Leslie Patel PA-C [address] [place] [address] [place] [address] COVID-19*; History of stroke; Aphasia, post-stroke; Right hemiparesis (HCC); Poor fluid intake Allergies Active Allergy Reactions Criticality Noted Date Comments Mirabegron 10/07/2020 Other Reaction(s): Hair Loss Other reaction(s): Hair Loss documented as of this encounter (statuses as of 09/14/2024) Medications Metoprolol Tartrate 25 MG Oral Tablet [...] as of this encounter (statuses as of 09/14/2024) Active Problems Problem Noted Date Diagnosed Date Right hemiparesis 08/23/2024 History of stroke 08/23/2024 Unstageable pressure ulcer of right heel 025 Cellulitis of right lower extremity 08/23/2024 Aphasia, post-stroke 08/23/2024 Type 2 diabetes mellitus wit h hemoglobin A1c goal of less than 8.0% 08/23/2024 Chronic atrial fibrillation 08/23/2024 Chronic congestive heart failure 08/23/2024 History of [place] (myocardial infarction) 08/23/2024 Major depressive disorder in partial remission 0 08/23/2024 Primary osteoarthritis of both knees 08/23/2024 Dyslipidemia, goal LDL below 70 08/23/2024 Gastroesophageal reflux disease 08/23/2024 documented as of this encounter (statuses as of 09/14/2024) Immunizations Name Administration Dates Next Due Covid-19, Mrna, Lnp-s, Pf, B ivalent, 30 Mcg, IM, 12 yrs and above ([employer]) 04/08/2022 documented as of this encounter Social [...] Sign Reading Time Taken Comments Blood Pressure 134/56 09/14/2024 10:46 AM EST Pulse 71 09/14/2024 10:46 AM EST Temperature 36.4 C (97.5 F) 09/14/2024 10:[address] Respiratory Rate 18 09/14/2024 10:46 AM EST Oxygen Saturation 91% 09/14/2024 10:46 AM EST room air Inhaled Oxygen Concentration - - Weight - - Height - - Body Mass Index - - documented in this encounter Progress Notes * Leslie Patel PA-C - 09/14/2024 11:30 AM EST Name: Joellen Kent Date of : 1935 This note pertains to care provided at [facility]. Please see facility record for original note. This note is not to be edited or addended in [place]. Editing or addending needs to occur in the facility's medical record. Chief Complaint Patient presents with Skilled Visit TRANSITION EVENT: Type: Skilled visit Date: September 14 Code Status: Full Code SUBJECTIVE: Joellen Kent is a 88 year old female HPI: short-term rehab pt seen today in follow up Recently hospitalized with cellulitis of RLE around new right heel wound which had developed over the several days prior to her hospitalization due to new onset right sided weakness. Had been found with CVA during her admission, as well. She is currently being monitored due to recently positive COVID-19 testing. Has mild cough and no current fevers, meal intakes slightly improved over the past 2 days, but fluid intake low today. Reviewed RN COMPLEX CARE note from this AM and pt took one bit of food and 2 sips of fluid during her speech therapysession. I also attempted to offer her a is of juice but she pushed this away and stated "no" several times. She cannot provide any reliable history due to cognitive impairment. 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 Review of Systems: Per HPI OBJECTIVE: BP 134/56 | Pulse 71 | Temp 36.4 C (97.5 F) | Resp 18 | SpO2 91% Comment: room air General: alert, no distress, and thin and frail appearing, minimally verbal only stating "no" several times, does not answer any questions appropriately. Head: Normocephalic Oropharynx: mucous membranes are moist Heart: irregularly irregular Lungs: chest symmetric with normal AP diameter, no chest deformities noted, no chest wall tenderness, lungs clear to auscultation Abdomen: abdomen soft, non-tender, normal bowel sounds, no masses or organomegaly, no rebound or guarding, and no CVA tenderness Extremities: less than 2 second capillary refill, no edema Neuro Exam: awake and alert, sitting in wheelchair, right sided weakness/neglect, states "no" repeatedly and pushes my hand away Skin: pink, warm, dry, several scattered scabs on both shins, slightly tenting Results for orders placed or performed in [...] K/uL MPV 10.5 6.6 - 11.1 fL ASSESSMENT/PLAN: care home chart (outside system) reviewed for vital signs, nursing notes, CODE STATUS, and most up to date medication list Discussed management with other clinician during the visit (facility RN) COVID-19 (Primary) Minimal symptoms but poor/variable appetite History of stroke Aphasia, post-stroke Right hemiparesis (HCC) Continue PT/OT/ST Poor fluid intake Poor intake today, variable but meal intake overall slightly better in the past 2 days. Fluid intake poor. Suggest we give 1 liter IV 1/2 NSS 75 ml/hr Message left to update family Long-Term Home Treatment Given: IV Fluids (IVF) Follow up: next week and as needed 33 total minutes were spent in this visit. [...] of 2) 10/21/1985 COVID-19 Vaccine (4 - 2024-25 season) 2024 04/08/2022, 09/24/2020, 08/25/2020 Diabetic Eye [...] hemiparesis (HCC) Hemiplegia, unspecified, affecting unspecified side Poor fluid intake Other symptoms concerning nutrition, metabolism, and development documented in this encounter Care Teams Infection Prevention Coordinator Relationship Specialty Start Date End Date Cindi Henry MD [address] [place] [phone] PCP - General Family Medicine 09/05/18 documented as of this encounter
--- OUTSIDE RECORDS SUMMARY | 2024-09-16 08:58 | External Medical Summary ---
Author Name Unknown Address Unknown Organization K0[facility] [place] [address] [place] [id number] Laboratory Report Ordering Provider Test Date Status ARCHANA ARELLANO 09/12/2024 05:35:00 Final Observation Date Value Abnormality Reference (Units ) Status WBC, Total 09/12/2024 05:35:00 13.68 Above high normal 4 .00-10.80 (K/uL) Final RBC 09/12/2024 05:35:00 3.54 3.85-5.15 (M/uL) Final Hemoglobin 09/12/2024 05:35:00 10.3 Below low normal 12 .0-15.3 (g/dL) Final HCT 09/12/2024 05:35:00 32.5 Below low normal 36. 0-45.2 (%) Final MCV 09/12/2024 05:35:00 91.8 81.5-97.5 (fL) Final MCH 09/12/2024 05:35:00 29.1 27.0-34.0 (pg) Final MCHC 09/12/2024 05:35:00 31.7 32.0-36.0 (g/dL) Final RDW 09/12/2024 05:35:00 15.8 11.5-15.5 (%) Final Platelets 09/12/2024 05:35:00 547 Above high normal 14 0-400 (K/uL) Final MPV 09/12/2024 05:35:00 10.5 6.6-11.1 ( fL) Final Performing Location [facility] [place] [address] [place] [id number]
--- OUTSIDE RECORDS SUMMARY | 2024-09-16 08:58 | External Medical Summary ---
Author Name Unknown Address Unknown Organization [id number] [place] [address] [place] [id number] Laboratory Report Ordering Provider Test Date Status ARCHANA ARELLANO 09/07/2024 06:45:19 Final Observation Date Value Abnormality Reference (Units ) Status WBC, Total 09/07/2024 06:45:19 13.95 Above high normal 4 .00-10.80 (K/uL) Final RBC 09/07/2024 06:45:19 3.56 3.85-5.15 (M/uL) Final Hemoglobin 09/07/2024 06:45:19 10.3 Below low normal 12 .0-15.3 (g/dL) Final HCT 09/07/2024 06:45:19 33.0 Below low normal 36. 0-45.2 (%) Final MCV 09/07/2024 06:45:19 92.7 81.5-97.5 (fL) Final MCH 09/07/2024 06:45:19 28.9 27.0-34.0 (pg) Final MCHC 09/07/2024 06:45:19 31.2 32.0-36.0 (g/dL) Final RDW 09/07/2024 06:45:19 16.1 11.5-15.5 (%) Final Platelets 09/07/2024 06:45:19 319 140-400 (K /uL) Final MPV 09/07/2024 06:45:19 11.3 6.6-11.1 ( fL) Final Performing Location [facility] [place] [address] [place] [id number]
--- OUTSIDE RECORDS SUMMARY | 2024-09-16 08:58 | External Medical Summary ---
Author Name Unknown Address Unknown Organization K0[facility] [place] [address] [place] [id number] Laboratory Report Ordering Provider Test Date Status ARCHANA ARELLANO 09/12/2024 05:35:00 Final Observation Date Value Abnormality Reference (Units ) Status BUN 09/12/2024 05:35:00 16 6-20 (mg/dL) Final Creatinine 09/12/2024 05:35:00 0.8 0.5-1.0 (mg/dL) Final Glomerular filtration rate/1.73 sq M.predicted [Volume Rate/Area] in Serum, Plasma or Blood by Creatinine-based formula (CKD-EPI) 09/12/2024 05:35:00 75 >=60 (mL/min) Final eGFR is calculated based on the CKD-EPI 2020 equation. Sodium 09/12/2024 05:35:00 144 135-146 (m mol/L) Final Potassium 09/12/2024 05:35:00 4.0 3.5-5.1 (m mol/L) Final Cl 09/12/2024 05:35:00 110 Above high normal 98 -107 (mmol/L) Final CO2 09/12/2024 05:35:00 20 Below low normal 22- 32 (mmol/L) Final Anion gap 09/12/2024 05:35:00 14 7-15 (mmol /L) Final Glucose 09/12/2024 05:35:00 135 Above high normal 70 -120 (mg/dL) Final Calcium 09/12/2024 05:35:00 7.9 Below low normal 8.4 -10.2 (mg/dL) Final Performing Location [facility] [place] [address] [place] [id number]
--- OUTSIDE RECORDS SUMMARY | 2024-09-16 08:59 | External Medical Summary | Summary of Care ---
Author Name Unknown Organization [facility] Address [address] [facility] [place] [address] Phone [phone] Care Team Providers Care Consulting Psychiatrist Name Role Phone Cindi Henry MD Primary Care Prov ider Encounter Details Date Type Department Care Team (Late st Contact Info) Description 08/16/2024 Population Health External Data Unspecified Department Allergies Active Allergy Reactions Criticality Noted Date Comments Mirabegron 10/07/2020 Other Reaction(s): Hair Loss Other reaction(s): Hair Loss documented as of this encounter (statuses as of 08/16/2024) Medications AXID CAPS 150 MG OR one [...] as of this encounter (statuses as of 08/16/2024) Immunizations Name Administration Dates Next Due Covid-19, Mrna, Lnp-s, Pf, B ivalent, 30 Mcg, IM, 12 yrs and above ([employer]) 04/08/2022 documented as of this encounter Social [...] Date Last Done Comments DXA Scan 1935 DTap/Tdap Vaccines (1 - Tdap) 10/21/1954 Zoster Vaccines (1 of 2) 10/21/1985 COVID-19 Vaccine (4 - season) 2024 04/08/2022, 09/24/2020, 08/25/2020 Depression Screening 07/30/2025 07/30/2024 Pneumococcal Vaccine: 50+ Years Completed [...] filedocumented as of this encounter Care Teams Consulting Psychiatrist Relationship Specialty Start Date End Date Cindi Henry MD [address] [place] [id number] PCP - General Family Medicine 09/05/18 documented as of this encounter
--- OUTSIDE RECORDS SUMMARY | 2024-09-16 08:59 | External Medical Summary | Summary of Care ---
Author Name Unknown Organization [facility] Address [address] [facility] [place] [address] Phone [phone] Care Team Providers Care Veneer Patcher Name Role Phone Cindi Henry MD Primary Care Prov ider Reason for Visit * Reason Onset Date Comments Skilled Visit 08/24/2024 Encounter Details Date Type Department Care Team (Late st Contact Info) Description 08/24/2024 9:00 AM EST Shelter Visit [facility], [address] [place] [address] Leslie Patel PA-C [address] [place] [address] [place] [id number] Right hemiparesis (HCC)*; History of stroke; 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); Cellulitis of right lower extremity Allergies Active Allergy Reactions Criticality Noted Date Comments Mirabegron 10/07/2020 Other Reaction(s): Hair Loss Other reaction(s): Hair Loss documented as of this encounter (statuses as of 08/24/2024) Medications Metoprolol Tartrate 25 MG Oral Tablet [...] as of this encounter (statuses as of 08/24/2024) Active Problems Problem Noted Date Diagnosed Date Right hemiparesis 08/23/2024 History of stroke 08/23/2024 Unstageable pressure ulcer of right heel 025 Cellulitis of right lower extremity 08/23/2024 Aphasia, post-stroke 08/23/2024 Type 2 diabetes mellitus wit h hemoglobin A1c goal of less than 8.0% 08/23/2024 Chronic atrial fibrillation 08/23/2024 Chronic congestive heart failure 08/23/2024 History of [place] (myocardial infarction) 08/23/2024 Major depressive disorder in partial remission 0 08/23/2024 Primary osteoarthritis of both knees 08/23/2024 Dyslipidemia, goal LDL below 70 08/23/2024 Gastroesophageal reflux disease 08/23/2024 documented as of this encounter (statuses as of 08/24/2024) Immunizations Name Administration Dates Next Due Covid-19, Mrna, Lnp-s, Pf, B ivalent, 30 Mcg, IM, 12 yrs and above ([employer]) 04/08/2022 documented as of this encounter Social [...] Sign Reading Time Taken Comments Blood Pressure 135/56 08/24/2024 4:36 PM EST Pulse 76 08/24/2024 4:36 PM EST Temperature 36.9 C (98.5 F) 08/24/2024 4:[address] Respiratory Rate 16 08/24/2024 4:36 PM EST Oxygen Saturation 92% 08/24/2024 4:36 PM EST room air Inhaled Oxygen Concentration [...] (HCC)- Primary Hemiplegia, unspecified, affecting unspecified side History of stroke Transient ischemic attack (TIA), and cerebral infarction without residual deficits 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) Pressure ulcer, heel Cellulitis of right lower extremity Cellulitis and abscess of leg, except foot documented in this encounter Care Teams Veneer Patcher Relationship Specialty Start Date End Date Cindi Henry MD [address] [place] [address] PCP - General Family Medicine 09/05/18 documented as of this encounter
--- OUTSIDE RECORDS SUMMARY | 2024-09-16 08:59 | External Medical Summary | Summary of Care ---
Author Name Unknown Organization [facility] Address [address] [facility] [place] [address] Phone [phone] Care Team Providers Care Home Theater Specialist Name Role Phone Cindi Henry MD Primary Care Prov ider Reason for Visit * Reason Onset Date Comments Skilled Visit 08/22/2024 Encounter Details Date Type Department Care Team (Late st Contact Info) Description 08/22/2024 12:00 PM [facility] Visit [address] [place] [address] Leslie Patel PA-C [address] [place] [address] [place] [address] 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)*; Wound infection; Cellulitis of right lower extremity; History of stroke; Type 2 diabetes mellitus with hemoglobin A1c goal of less than 8.0% (HCC); History of [place] (myocardial infarction); Major depressive disorder in partial remission, unspecified whether recurrent (HCC); Chronic atrial fibrillation (HCC); Chronic congestive heart failure, unspecified heart failure type ([facility]) Allergies Active Allergy Reactions Criticality Noted Date Comments Mirabegron 10/07/2020 Other Reaction(s): Hair Loss Other reaction(s): Hair Loss documented as of this encounter (statuses as of 08/23/2024) Medications Metoprolol Tartrate 25 MG Oral Tablet [...] morning and 1 Tablet before bedtime. Active AXID CAPS 150 MG OR one cap by mouth 2 times a day 68 1 08/22/19 25 Discontinu ed(Medicat ion List Clean Up) VITAMIN E CAPS 400 IU OR 0 08/22/19 25 Discontinu ed(Medicat ion List Clean Up) MULTIVITAMIN TABS OR 0 08/22/19 25 Discontinu ed(Medicat ion List Clean Up) CALTRATE 600 + D TABS 600-125 MG-IU OR two a day 0 08/22/19 25 Discontinu ed(Medicat ion List Clean Up) ASPIRIN TABS 325 MG OR three a week 100 5 08/22/19 25 Discontinu ed(Medicat ion List Clean Up) documented as of this encounter (statuses as of 08/23/2024) Immunizations Name Administration Dates Next Due Covid-19, [...] Sign Reading Time Taken Comments Blood Pressure 108/58 08/22/2024 4:46 PM EST Pulse 60 08/22/2024 4:46 PM EST Temperature 36.6 C (97.8 F) 08/22/2024 4:46 PM ES T Respiratory Rate 18 08/22/2024 4:46 PM EST Oxygen Saturation 97% 08/22/2024 4:46 PM EST room air Inhaled Oxygen Concentration - - Weight - - Height - - Body Mass Index - - documented in this encounter Plan of Treatment Upcoming Encounters Date Type Department Care Team (Late st Contact Info) Description 08/23/2024 9:00 AM EST [facility] [place] [address] [place] [address] Madison Milligan MD [address] [place] [address] [place] [phone] Health Maintenance Due Date Last Done Comments DXA Scan 1935 DTap/Tdap Vaccines (1 - Tdap) 10/21/1954 Zoster Vaccines (1 of 2) 10/21/1985 COVID-19 Vaccine (4 - 2023- season) 2024 04/08/2022, 09/24/2020, 08/25/2020 Depression Screening [...] as of this encounter Visit Diagnoses Diagnosis 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)- Primary Pressure ulcer, heel Wound infection Posttraumatic wound infection not elsewhere classified Cellulitis of right lower extremity Cellulitis and abscess of leg, except foot History of stroke Transient ischemic attack (TIA), and cerebral infarction without residual deficits Type 2 diabetes mellitus with hemoglobin A1c goal of less than 8.0% (HCC) History of [place] (myocardial infarction) 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
--- OUTSIDE RECORDS SUMMARY | 2024-09-16 08:59 | External Medical Summary | Summary of Care ---
Author Name Unknown Organization [facility] Address [address] [place] [facility] [place] [address] Phone [phone] Care Team Providers Care Supplies Packer Name Role Phone Cindi Henry MD Primary Care Prov ider Encounter Details Date Type Department Care Team (Late st Contact Info) Description 08/23/2024 Orders Only Lab Mobile Phlebotomy [facility] [address] [place] [address] Leslie Patel PA-C [address] [place] [address] Wound infection* Allergies Active Allergy Reactions Criticality Noted Date [...] 30 Mcg, IM, 12 yrs and above ([employer]) 04/08/2022 documented as of this encounter Social [...] Contact Info) Description 08/23/2024 9:00 AM EST Detention Visit [address] [place] [address] Madison Milligan MD [address] [place] [address] [place] [address] Scheduled Orders Name Type Priority Associated Diagnoses Orde r Schedule COMPREHENSIVE METABOLIC PANEL Lab Routine Wound infection Expected: 08/23/2024, Expires: 08/23/2025 CBC WITH WBC DIFFERENTIAL Lab Routine Wound infection Expected: 08/23/2024, Expires: 08/23/2025 Health Maintenance Due Date Last Done Comments [...] as of this encounter Visit Diagnoses Diagnosis Wound infection- Primary Posttraumatic wound infection not elsewhere classified documented in this encounter Care Teams Supplies Packer Relationship Specialty Start Date End Date Cindi Henry MD [address] [place] [address] PCP - General Family Medicine 09/05/18 documented as of this encounter
--- OUTSIDE RECORDS SUMMARY | 2024-09-16 08:59 | External Medical Summary ---
Author Name Unknown Address Unknown Organization [facility] [address] [place] [address] Laboratory Report Ordering Provider Test Date Status ARCHANA ARELLANO 08/23/2024 05:50:00 Final Observation Date Value Abnormality Reference (Units ) Status BUN 08/23/2024 05:50:00 11 6-20 (mg/dL) Final Creatinine 08/23/2024 05:50:00 0.8 0.5-1.0 (mg/dL) Final Glomerular filtration rate/1.73 sq M.predicted [Volume Rate/Area] in Serum, Plasma or Blood by Creatinine-based formula (CKD-EPI) 08/23/2024 05:50:00 77 >=60 (mL/min) Final eGFR is calculated based on the CKD-EPI 2020 equation. Sodium 08/23/2024 05:50:00 140 135-146 (m mol/L) Final Potassium 08/23/2024 05:50:00 4.3 3.5-5.1 (m mol/L) Final Cl 08/23/2024 05:50:00 107 98-107 (mm ol/L) Final CO2 08/23/2024 05:50:00 24 22-32 (mmo l/L) Final Anion gap 08/23/2024 05:50:00 9 7-15 (mmol /L) Final Glucose 08/23/2024 05:50:00 114 70-120 (mg /dL) Final Albumin 08/23/2024 05:50:00 2.8 Below low normal 3.8 -5.0 (g/dL) Final AST (Aspartate aminotransferase) 08/23/2024 05:50:00 11 10-35 (U/L) Fin al Alk Phos 08/23/2024 05:50:00 101 35-130 (U/ L) Final Bilirubin, Total 08/23/2024 05:50:00 0.3 <=1 .2 (mg/dL) Final Calcium 08/23/2024 05:50:00 8.3 Below low normal 8.4 -10.2 (mg/dL) Final Protein 08/23/2024 05:50:00 5.2 Below low normal 6.0 -8.3 (g/dL) Final ALT (Alanine aminotransferase) 08/23/2024 05:50:00 8 Below low normal 10-35 (U/L) Final Performing Location [facility] [place] [address] [facility] [address]
--- OUTSIDE RECORDS SUMMARY | 2024-09-16 08:59 | External Medical Summary | Summary of Care ---
Author Name Unknown Organization [facility] Address [address] [facility] [place] [address] Phone [phone] Care Team Providers Care Unit Receptionist Name Role Phone Cindi Henry MD Primary Care Prov ider Reason for Visit * Reason Onset Date Comments Skilled Visit 08/29/2024 Encounter Details Date Type Department Care Team (Late st Contact Info) Description 08/29/2024 10:30 AM [facility] Visit [facility], [address] [place] [address] Leslie Patel PA-C [address] [place] [address] [place] [address] Right hemiparesis (HCC)*; Aphasia, post-stroke; History of stroke; 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) Allergies Active Allergy Reactions Criticality Noted Date Comments Mirabegron 10/07/2020 Other Reaction(s): Hair Loss Other reaction(s): Hair Loss documented as of this encounter (statuses as of 08/29/2024) Medications Metoprolol Tartrate 25 MG Oral Tablet [...] as of this encounter (statuses as of 08/29/2024) Active Problems Problem Noted Date Diagnosed Date Right hemiparesis 08/23/2024 History of stroke 08/23/2024 Unstageable pressure ulcer of right heel 025 Cellulitis of right lower extremity 08/23/2024 Aphasia, post-stroke 08/23/2024 Type 2 diabetes mellitus wit h hemoglobin A1c goal of less than 8.0% 08/23/2024 Chronic atrial fibrillation 08/23/2024 Chronic congestive heart failure 08/23/2024 History of [place] (myocardial infarction) 08/23/2024 Major depressive disorder in partial remission 0 08/23/2024 Primary osteoarthritis of both knees 08/23/2024 Dyslipidemia, goal LDL below 70 08/23/2024 Gastroesophageal reflux disease 08/23/2024 documented as of this encounter (statuses as of 08/29/2024) Immunizations Name Administration Dates Next Due Covid-19, Mrna, Lnp-s, Pf, B ivalent, 30 Mcg, IM, 12 yrs and above ([employer]) 04/08/2022 documented as of this encounter [...] Sign Reading Time Taken Comments Blood Pressure 135/63 08/29/2024 12:33 PM EST Pulse 59 08/29/2024 12:33 PM EST Temperature 36.5 C (97.7 F) 08/29/2024 12:[address] Respiratory Rate 18 08/29/2024 12:33 PM EST Oxygen Saturation 99% 08/29/2024 12:33 PM EST Inhaled Oxygen Concentration - - Weight 48.1 kg (106 lb 1.6 oz) 08/29/2024 12:33 PM EST Height - - Body Mass Index - - documented in this encounter Progress Notes * Leslie Patel PA-C - 08/29/2024 12:32 PM EST Name: Joellen Kent Date of : 1935 This note pertains to care provided at [facility]. Please see facility record for original note. This note is not to be edited or addended in [employer]. Editing or addending needs to occur in the facility's medical record. Chief Complaint Patient presents with Skilled Visit TRANSITION EVENT: Type: Skilled visit Date: August 29 Code Status: Full Code SUBJECTIVE: Joellen Kent is a 88 year old female HPI: Short-term rehab pt recently hospitalized with cellulitis RLE around decubitus ulcer of right heel, CVA with right sided weakness and speech disturbance. Patient currently unable to take pills whole, her extended release tylenol has been held for the past several days due to inability to crush the medication. Patient unable to provide any reliable history due to cognitive impairment. She has had no fever, vomiting, cough, diarrhea reported by staff. Abx are now complete and she has had no worsening of drainage/redness at wound site, per staff. 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) Cellulitis of right lower extremity Aphasia, post-stroke Type 2 diabetes mellitus with hemoglobin A1c goal of less than 8.0% (HCC) Chronic atrial fibrillation (HCC) Chronic congestive heart failure (HCC) History of [place] (myocardial infarction) Major depressive disorder in partial remission (HCC) Primary osteoarthritis of both knees Dyslipidemia, goal LDL below 70 Gastroesophageal reflux disease Review of patient's allergies indicates: Allergen Reactions Mirabegron Other Reaction(s): Hair Loss Other reaction(s): Hair Loss Medications: Pt's current medication list is maintained at [facility] and was reviewed at this visit. Review of Systems: Per HPI OBJECTIVE: BP 135/63 | Pulse 59 | Temp 36.5 C (97.7 F) | Resp 18 | Wt 48.1 kg (106 lb 1.6 oz) |SpO2 99% General: alert and no distress, sitting in wheelchair, nonverbal Head: Normocephalic Eye Exam: conjunctiva are [...] than 2 second capillary refill, no edema, no calf tenderness, bilateral knees enlarged Neuro Exam: awake, nonverbal, right sided weakness Skin: scattered scabs over bilateral shins, dressing right heel not removed. ASSESSMENT/PLAN: assisted chart (outside system) reviewed for vital signs, nursing notes, CODE STATUS, and most up to date medication list Discussed management with other clinician during the visit (facility RN) Most recent physical, speech, and occupational therapy notes reviewed Right hemiparesis (HCC) (Primary) Aphasia, post-stroke History of stroke Continue PT/OT/ST 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) Continue local wound care Supplement recommendations per pricing actuary Follow up: 1-2 days and as needed 55 total minutes were spent in this visit. [...] heel documented in this encounter Care Teams Unit Receptionist Relationship Specialty Start Date End Date Cindi Henry MD [address] [place] [id number] PCP - General Family Medicine 09/05/18 documented as of this encounter"
--- OUTSIDE RECORDS SUMMARY | 2024-09-16 08:59 | External Medical Summary ---
Author Name Unknown Address Unknown Organization [facility] [place] [address] [place] [id number] Laboratory Report Ordering Provider Test Date Status ARCHANA ARELLANO 08/23/2024 05:50:00 Final Observation Date Value Abnormality Reference (Units ) Status SYNC LEUKOCYTES IN BLOOD BY AUTOMATED COUNT 08/23/2024 05:50:00 10.16 4.00-10.80 (K/uL) Final Segs 08/23/2024 05:50:00 70.0 40.0-75.0 (%) Final Lymphs % 08/23/2024 05:50:00 17.9 Below low normal 18.0-42.0 (%) Final Monos 08/23/2024 05:50:00 9.1 1.0-11.0 (%) Final Eosinophils 08/23/2024 05:50:00 2.7 0.0-6.0 (%) Final Basos 08/23/2024 05:50:00 0.3 0.0-2.0 (%) Final Absolute Segs 08/23/2024 05:50:00 7.12 1.80-7.70 (K/uL) Final Lymphs, absolute 08/23/2024 05:50:00 1.82 1.00-4.80 (K/ul) Final Monos, Abs 08/23/2024 05:50:00 0.92 0.00-1.10 (K/uL) Final Eos, Abs 08/23/2024 05:50:00 0.27 0.00-0.70 (K/uL) Final Basos, Abs 08/23/2024 05:50:00 0.03 0.00-0.20 (K/uL) Final Performing Location [facility] [place] [address] [place] [id number]
--- OUTSIDE RECORDS SUMMARY | 2024-09-16 08:59 | External Medical Summary | Summary of Care ---
Author Name Unknown Organization [facility] Address [address] [facility] [place] [address] Phone [phone] Care Team Providers Care Sterile Technician Name Role Phone Cindi Henry MD Primary Care Prov ider Encounter Details Date Type Department Care Team (Late st Contact Info) Description 08/21/2024 Population Health External Data Unspecified Department Allergies Active Allergy Reactions Criticality Noted Date Comments Mirabegron 10/07/2020 Other Reaction(s): Hair Loss Other reaction(s): Hair Loss documented as of this encounter (statuses as of 08/22/2024) Medications AXID CAPS 150 MG OR one cap by mouth 2 times a day 68 1 04/03/2001 Active VITAMIN E CAPS 400 IU OR 0 04/03/2001 Active MULTIVITAMIN TABS OR 0 04/03/2001 Active CALTRATE 600 + D TABS 600-125 MG-IU OR two a day 0 04/03/2001 Active ASPIRIN TABS 325 MG OR three a week 100 5 04/03/2001 08/22/19 25 Discontinu ed(Medicat ion List Clean Up) documented as of this encounter (statuses as of 08/22/2024) Immunizations Name Administration Dates Next Due Covid-19, [...] Upcoming Encounters Date Type Department Care Team ([facility] st Contact Info) Description 08/23/2024 9:00 AM EST Senior Living Visit [facility] [place] [address] [place] [address] Madison Milligan MD [address] [place] [address] [place] [address] Health Maintenance Due Date Last Done Comments DXA Scan 1935 DTap/Tdap Vaccines (1 - Tdap) 10/21/1954 Zoster Vaccines (1 of 2) 10/21/1985 COVID-19 Vaccine ( season) 2024 04/08/2022, 09/24/2020, 08/25/2020 Depression Screening [...] filedocumented as of this encounter Care Teams Sterile Technician Relationship Specialty Start Date End Date Cindi Henry MD [address] [place] [id number] PCP - General Family Medicine 09/05/18 documented as of this encounter
--- OUTSIDE RECORDS SUMMARY | 2024-09-16 08:59 | External Medical Summary | Summary of Care ---
Author Name Unknown Organization [facility] Address [address] [facility] [place] [address] Phone [phone] Care Team Providers Care Shape Carver Name Role Phone Cindi Henry MD Primary Care Prov ider Reason for Visit * Reason Onset Date Comments Fpc Visit - Admission 08/23/2024 Encounter Details Date Type Department Care Team (Latest Contact Info) Description 08/23/2024 9:00 AM EST [place] [address] [place] [address] Madison Milligan MD [address] [place] [address] [place] [id number] Right hemiparesis (HCC)*; History of stroke; 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); Cellulitis of right lower extremity; Aphasia, post-stroke; Type 2 diabetes mellitus with hemoglobin A1c goal of less than 8.0% (HCC); Chronic atrial fibrillation (HCC); Chronic congestive heart failure, unspecified heart failure type (HCC); History of NV (myocardial infarction); Major depressive disorder in partial remission, unspecified whether recurrent (HCC); Primary osteoarthritis of both knees; Dyslipidemia, goal LDL below 70; Gastroesophageal reflux disease, unspecified whether esophagitis present Allergies Active Allergy Reactions Criticality Noted Date [...] of this encounter (statuses as of 08/23/2024) Active Problems Problem Noted Date Diagnosed Date Right hemiparesis 08/23/2024 History of stroke 08/23/2024 Unstageable pressure ulcer of right heel 025 Cellulitis of right lower extremity 08/23/2024 Aphasia, post-stroke 08/23/2024 Type 2 diabetes mellitus wit h hemoglobin A1c goal of less than 8.0% 08/23/2024 Chronic atrial fibrillation 08/23/2024 Chronic congestive heart failure 08/23/2024 History of NV (myocardial infarction) 08/23/2024 Major depressive disorder in [...] as of this encounter Progress Notes * Madison Milligan MD - 08/23/2024 11:55 AM EST ADMISSION HISTORY and PHYSICAL TRANSITION EVENT: Type: SNF admission Date: August 22 Code Status: Full Code Name: Joellen Kent Date of : 1935 This note pertains to care provided at [facility]. Please see facility medical record for original note. This note is not to be edited or addended in [facility]. Editing or addending needs to occur in the facilities medical record. S: Joellen Kent had been admitted to [facility] from [facility] for PT and OT. Recently admitted to [facility] on 08/13/24 because of right heel ulcer and subsequently had acute left parietal ischemic stroke while inpatient resulting in right hemiparesis (affecting RUE more than RLE) and aphasia and was transferred here and admitted on 08/22/2024. Patient of Dr. Henry with PMH of type 2 diabetesmellitus, chronic atrial fibrillation on Eliquis, chronic CHF with previously reduced EF but with subsequent normalization of EF, dyslipidemia, osteoarthritis of knees, h/o NV, depression, GERD, and h/o left atrial thrombus who presented to the ED with her daughter for evaluation of right heel pain. Daughter had also noticed she had been more confused than usual and was not able to ambulate. In the ED, CBC showed WBC of 11.93, hemoglobin was 12.8, BUN was 19 and creatinine 1.09. Lactate was 2.2. Calcium low at 8.5 and magnesium low at 1.0. Troponin was 17.8. COVID/influenza/RSV swab was negative. UA was negative. CT of the cervical spine was negative for acute fractures. CXR was negative. Right foot x-ray was negative for osteomyelitis. Head CT negative for acute changes and showed chronic cerebral and cerebellar infarcts. Pelvis x-ray and CT abdomen and pelvis were also negative for acute injuries. Chest CT showed mild bibasilar mucous plugging with atelectasis and 4 cm linear subpleural consolidation of the medial segment of the right middle lobe similar to CT abdomen and pelvis from 05/06/24 probably scarring. Patient was admitted with diagnosis of right heel ulcer. She underwent CT of the right foot on 08/15/24 that showed subcutaneous edema of the heel pad suggestive of cellulitis without abscess and no CTevidence of acute osteomyelitis. She was treated with IV antibiotics (cefepime and Vancomycin) and then transitioned to Augmentin to complete 5 more days on discharge. Patient was noted to have a large mass-like cystic lesion on right medial knee that was present on admission. She had a CT scan of the right lower extremity that showed a lobulated fluid density collection along the medial aspect of the knee joint with a surrounding joint capsule. The capsule measures up to 5 mm in diameter and appeared to demonstrate subtle thin communication with the suprapatellar joint, which demonstrates mild joint effusion and appears to be most consistent with chronic changes of the joint space presumably secondary to severe osteoarthritis. There were not findings to suggest infectious changes. Patient developed asphasia and right sided weakness on 08/16/24. She had a repeat head CT, which was stable. She then had an MRI of the brain, which showed irregular areas of diffusion restriction in the left parietal region with involvement of both the cortex and deep white matter consistent with evolving ischemic process. She then had carotid dopplers done, which showed atherosclerosis but no hemodynamically significant stenosis. She had echocardiogram done, which showed EF of 55-60% and moderate hypokinesis of distal septal/anteroseptal wall, mild concentric LVH, mild to moderate mitral regurgitation, moderate tricuspid regurgitation, and elevated right ventricular systolic pressure of 30-40 mmHg. Her EF had dramatically improved compared to 05/07/24. Patient was discharged on her home metformin for diabetes. Her A1C was 7.1 while admitted. Her Ozempic and Novolog were discontinued. For her acute stroke, her regular medications including Eliquis, aspirin, and statin were continued. Patient had several other medication changes as well. Her pantoprazole was changed to omeprazole. Her furosemide and tolterodine were discontinued. Patient's POA is her . Long discussion was held about resuscitation and opted for her to remain a full code. Patient is now admitted for PT/OT. She lives at home with her and daughter lives near by. Unclear what her baseline mental status is but patient appears to have significant aphasia. Only says"yes" and "no" but does not appear to be using these appropriately. For instance, when asked if shecan sit forward for lung exam, she states "no" but then sits forward. She is able to follow some commands but does not attempt to squeeze my hands when asked. 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 Amoxicillin-Pot Clavulanate 875-125 MG Oral Tablet (Augmentin) Take 1 Tablet by mouth in the morning and 1 Tablet before bedtime. Atorvastatin Calcium 40 MG Oral Tablet (Lipitor) Take 1 Tablet by mouth in the morning. Digoxin 125 MCG Oral Tablet (Lanoxin) Take 1 Tablet by mouth in the morning. Potassium Chloride ER 10 MEQ Oral Tablet Extended Release Take 1 Tablet by mouth in the morning. metFORMIN HCl 500 MG Oral Tablet (Glucophage) Take 1 Tablet by mouth 2 times a day with morning andevening meals. Omeprazole 20 MG Oral Capsule Delayed Release (PriLOSEC) Take 1 Capsule by mouth in the morning. Melatonin 3 MG Oral Tablet Take 1 Tablet by mouth at bedtime. Acetaminophen ER 650 MG Oral Tablet Extended Release (Tylenol ER) Take 1 Tablet by mouth in the morning and 1 Tablet in the evening. dilTIAZem HCl ER Coated Beads 120 MG Oral Capsule Extended Release 24 Hour (Cardizem CD) Take 1 Capsule by mouth in the morning. Sertraline HCl 25 MG Oral Tablet (Zoloft) Take 1 Tablet by mouth in the morning. Meclizine HCl 12.5 MG Oral Tablet (Antivert) Take 1 Tablet by mouth 3 times a day as needed for Dizziness. Aspirin 81 MG Oral Tablet Delayed Release Take 1 Tablet by mouth in the morning. Apixaban 2.5 MG Oral Tablet (Eliquis) Take 1 Tablet by mouth in the morning and 1 Tablet before bedtime. No current facility-administered medications for this visit. Review of patient's allergies indicates: Allergen Reactions Mirabegron Other Reaction(s): Hair Loss Other reaction(s): Hair Loss Social History Tobacco Use Smoking status: Never Smokeless tobacco: Never Substance Use Topics Alcohol use: Never Vaping/E-Cigarette Use Vaping/E-Cigarette Use Never User Vaping/E-Cigarette Substances Vaping/E-Cigarette Devices No past surgical history on file. No family history on file. No family status information on file. Results for orders placed or performed in visit on 08/23/24 COMPREHENSIVE METABOLIC PANEL Result Value Ref Range BUN 11 6 - 20 mg/dL CREATININE 0.8 0.5 - 1.0 mg/dL EGFR 77 >=60 mL/min SODIUM 140 135 - 146 mmol/L POTASSIUM 4.3 3.5 - 5.1 mmol/L CHLORIDE 107 98 - 107 mmol/L CO2 24 22 - 32 mmol/L ANION GAP 9 7 - 15 mmol/L GLUCOSE 114 70 - 120 mg/dL Albumin 2.8 (L) 3.8 - 5.0 g/dL AST 11 10 - 35 U/L Alkaline Phosphatase 101 35 - 130 U/L Bilirubin, Total 0.3 <=1.2 mg/dL CALCIUM 8.3 (L) 8.4 - 10.2 mg/dL Protein 5.2 (L) 6.0 - 8.3 g/dL ALT 8 (L) 10 - 35 U/L CBC Result Value Ref Range WBC 10.16 4.00 - 10.80 K/uL RBC 3.63 3.85 - 5.15 M/uL HGB 10.7 (L) 12.0 - 15.3 g/dL HCT 33.7 (L) 36.0 - 45.2 % MCV 92.8 81.5 - 97.5 fL MCH 29.5 27.0 - 34.0 pg MCHC 31.8 32.0 - 36.0 g/dL RDW 16.0 11.5 - 15.5 % PLT 335 140 - 400 K/uL MPV 10.6 6.6 - 11.1 fL DIFFERENTIAL, AUTOMATED Result Value Ref Range WBC 10.16 4.00 - 10.80 K/uL Neutrophils % 70.0 40.0 - 75.0 % Lymphocytes % 17.9 (L) 18.0 - 42.0 % Monocytes % 9.1 1.0 - 11.0 % Eosinophils % 2.7 0.0 - 6.0 % Basophils % 0.3 0.0 - 2.0 % Absolute Neutrophils 7.12 1.80 - 7.70 K/uL Absolute Lymphocytes 1.82 1.00 - 4.80 K/ul Absolute Monocytes 0.92 0.00 - 1.10 K/uL Absolute Eosinophils 0.27 0.00 - 0.70 K/uL Absolute Basophils 0.03 0.00 - 0.20 K/uL Review of Systems: Unable to obtain reliably due to aphasia. Only says "yes" or "no" ADL skills: dependent Ambulates with walker and assistance OBJECTIVE: PHYSICAL EXAM: I reviewed the most recent facilities vitals. Refer to vital signs flowsheet in usp chart.General: alert, no distress, and very thin, frail appearing female Head: Normocephalic, No masses, lesions, tenderness or abnormalities Eye Exam: PERRLA, extraocular movements intact, conjunctiva are pink and non- injected, sclera clear Ears: External ears normal Nose: no mucosal erythema, no mucosal edema, no purulent discharge Oropharynx: no exudate, no erythema, lips, buccal mucosa, and tongue normal, and mucous membranes are moist Neck: supple, no adenopathy, no bruits Heart: no murmur, no gallops, and irregularly irregular Lungs: chest symmetric with normal AP diameter, no chest deformities noted, no chest wall tenderness, lungs clear to auscultation Abdomen: abdomen soft, non-tender, normal bowel sounds, no masses or organomegaly, and no rebound or guarding Extremities: no edema, no clubbing, no cyanosis, +ovoid right heel ulcer with whitish wound bed andno surrounding erythema or drainge. Very large cystic mass on right medial knee Neuro Exam: alert, cooperative, marked aphasia, +RUE more than RLE weakness. Does not squeeze handswith either hand ASSESSMENT: Right hemiparesis (HCC) (Primary)--had acute CVA while at [facility]. Now with aphasia and right hemiparesis, right upper extremity more than right lower extremity. Continue aspirin 81 mg daily, Eliquis 2.5 mg twice daily, and high intensity statin. She had been taking all of these medications prior to the CVA, however, and was not seen by neurology. Will refer to neurology to see if any medication changes would be suggested. History of stroke--appears to have occurred 08/16/24. As above. 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)--complete Augmentin as prescribed and continue woundcare. Will be seen by Dr. Peterson. Cellulitis of right lower extremity--complete Augmentin as prescribed. Aphasia, post-stroke--speech therapy. Type 2 diabetes mellitus with hemoglobin A1c goal of less than 8.0% ([facility])--continue metformin 500 mg twice daily. Chronic atrial fibrillation ([facility])--rate controlled with diltiazem ER 120 mg daily and digoxin 125 mcg daily and anticoagulation with Eliquis 2.5. mg twice daily. Chronic congestive heart failure, unspecified heart failure type ([facility])--appears euvolemic. Her furosemide was discontinued. History of NV (myocardial infarction)--continue aspirin and statin as above. Major depressive disorder in partial remission, unspecified whether recurrent ([facility])--continue sertraline 25 mg daily. Primary osteoarthritis of both knees--continue PT/OT and acetaminophen as needed. Dyslipidemia, goal LDL below 70--continue atorvastatin 40 mg daily. Gastroesophageal reflux disease, unspecified whether esophagitis present--continue omeprazole 20 mgdaily. PLAN: 1. Continue present medication(s): Referral(s) to: Neurology due to recent CVA while on both aspirin and Eliquis as well as high intensity statin. Referral to Dr. Peterson for left heel ulcer. 2. Admission orders, medications, labs, hospital records and care plan reviewed. 3. Outside Maintenance Worker consult, Physical Therapy, Occupational Therapy, and Speech Therapy ordered. 4. Care plan reviewed. 5. Advance Directives were discussed: Full Code 6. Snf Home Treatment Given: Antibiotic Oral Augmentin Electronically signed by: Madison Milligan MD I spent a total of 40-54 minutes (exact time 54 mins) on the date of service in preparation, delivery, and documentation of the care provided to Joellen Kent excluding any time spent in the performance of separately billed services or time spent by another provider/QHP. documented in this encounter Plan of Treatment [...] Cellulitis and abscess of leg, except foot Aphasia, post-stroke Unspecified cerebral artery occlusion with cerebral infarction Type 2 diabetes mellitus with hemoglobin A1c goal of less than 8.0% (HCC) Chronic atrial fibrillation (HCC) Atrial fibrillation Chronic congestive heart failure, unspecified heart failure type (HCC) History of NV (myocardial infarction) Old myocardial infarction Major depressive disorder in partial remission, unspecified whether recurrent (HCC) Primary osteoarthritis of both knees Primary localized osteoarthrosis, lower leg Dyslipidemia, goal LDL below 70 Other and unspecified hyperlipidemia Gastroesophageal reflux disease, unspecified whether esophagitis present documented in this encounter Care Teams Shape Carver Relationship Specialty Start Date End Date Cindi Henry MD [address] [place] [id number] PCP - General Family Medicine 09/05/18 documented as of this encounter
--- OUTSIDE RECORDS SUMMARY | 2024-09-16 08:59 | External Medical Summary | Summary of Care ---
Author Name Unknown Organization [facility] Address [address] [facility] [place] [address] Phone [phone] Care Team Providers Care Protector Plate Attacher Name Role Phone Cindi Henry MD Primary Care Prov ider Reason for Visit * Reason Onset Date Comments Skilled Visit 08/27/2024 Encounter Details Date Type Department Care Team (Late st Contact Info) Description 08/27/2024 9:15 AM EST Assisted Visit [facility], [address] [place] [address] Leslie Patel PA-C [address] [place] [address] [place] [address] Right hemiparesis (HCC)*; History of stroke; Aphasia, post-stroke; Cellulitis of right lower extremity Allergies Active Allergy Reactions Criticality Noted Date Comments Mirabegron 10/07/2020 Other Reaction(s): Hair Loss Other reaction(s): Hair Loss documented as of this encounter (statuses as of 08/28/2024) Medications Metoprolol Tartrate 25 MG Oral Tablet [...] as of this encounter (statuses as of 08/28/2024) Active Problems Problem Noted Date Diagnosed Date Right hemiparesis 08/23/2024 History of stroke 08/23/2024 Unstageable pressure ulcer of right heel 025 Cellulitis of right lower extremity 08/23/2024 Aphasia, post-stroke 08/23/2024 Type 2 diabetes mellitus wit h hemoglobin A1c goal of less than 8.0% 08/23/2024 Chronic atrial fibrillation 08/23/2024 Chronic congestive heart failure 08/23/2024 History of WI (myocardial infarction) 08/23/2024 Major depressive disorder in partial remission 0 08/23/2024 Primary osteoarthritis of both knees 08/23/2024 Dyslipidemia, goal LDL below 70 08/23/2024 Gastroesophageal reflux disease 08/23/2024 documented as of this encounter (statuses as of 08/28/2024) Immunizations Name Administration Dates Next Due Covid-19, Mrna, Lnp-s, Pf, B ivalent, 30 Mcg, IM, 12 yrs and above ([facility]) 04/08/2022 documented as of this encounter Social [...] Sign Reading Time Taken Comments Blood Pressure 142/66 08/27/2024 5:47 PM EST Pulse 58 08/27/2024 5:47 PM EST Temperature 36.4 C (97.5 F) 08/27/2024 5:47 PM ES T Respiratory Rate 16 08/27/2024 5:47 PM EST Oxygen Saturation 95% 08/27/2024 5:47 PM EST room air Inhaled Oxygen Concentration - - Weight 48.6 kg (107 lb 3.2 oz) 08/27/2024 5:47 P M EST Height - - Body [...] Unspecified cerebral artery occlusion with cerebral infarction Cellulitis of right lower extremity Cellulitis and abscess of leg, except foot documented in this encounter Care Teams Protector Plate Attacher Relationship Specialty Start Date End Date Cindi Henry MD [address] [place] [id number] PCP - General Family Medicine 09/05/18 documented as of this encounter
--- OUTSIDE RECORDS SUMMARY | 2024-09-16 08:59 | External Medical Summary ---
Author Name Unknown Address Unknown Organization [id number] [employer] [id number] [place] [address] Laboratory Report Ordering Provider Test Date Status ARCHANA ARELLANO 08/23/2024 05:50:00 Final Observation Date Value Abnormality Reference (Units ) Status WBC, Total 08/23/2024 05:50:00 10.16 4.00-10.8 0 (K/uL) Final RBC 08/23/2024 05:50:00 3.63 3.85-5.15 (M/uL) Final Hemoglobin 08/23/2024 05:50:00 10.7 Below low normal 12 .0-15.3 (g/dL) Final HCT 08/23/2024 05:50:00 33.7 Below low normal 36. 0-45.2 (%) Final MCV 08/23/2024 05:50:00 92.8 81.5-97.5 (fL) Final MCH 08/23/2024 05:50:00 29.5 27.0-34.0 (pg) Final MCHC 08/23/2024 05:50:00 31.8 32.0-36.0 (g/dL) Final RDW 08/23/2024 05:50:00 16.0 11.5-15.5 (%) Final Platelets 08/23/2024 05:50:00 335 140-400 (K /uL) Final MPV 08/23/2024 05:50:00 10.6 6.6-11.1 ( fL) Final Performing Location [facility] [address] [place] [id number]
--- NOTE | 2024-09-16 09:14 | Emergency Department Note ---
Impression & Plan Lethargic, Acute dehydration ED Provider Note NAME: PRIMO SAN AGE: 88 SEX: Female INFORMANT: Patient ED PROVIDER(S): Marcello Paniagua MD CHIEF COMPLAINT: Lethargy PLAN: Disposition: Admitted Outpatient prescription management: none Referral: None MEDICAL DECISION MAKING: Patient presented because of increased lethargy. ECG, laboratory test urinalysis, BioFire, cultures, and imaging ordered. Patient was found to be mildly dehydrated. Patient was hydrated. Urinalysis was concerning for infection and patient did have a leukocytosis. She was treated with IV Rocephin. Chest x-ray was unremarkable. Patient was found to be hypomagnesemic and was treated. His head CT was negative. Further management in the hospital will be necessary. Consultation was made with the [facility]. Patient was evaluated in the ER and admitted for further management. Care/management discussed with: information technology manager Level of care consideration(s): After review of the information above and other included data, I feel the patient requires escalation of care to admission Triage Nursing notes: reviewed and agree them. Vital Signs: reviewed and remarkable for no significant abnormalities Additional History obtained from: Patient's family. They noted that she had had a significant change in the last 24 to 48 hours. Chronic Medical/Social Conditions affecting care: Hypertension Prior/ Outside/ External records reviewed: none Differential Diagnosis: Infection, hypoglycemia, electrolyte abnormalities, overdose, toxicologic, cardiac sources, intracerebral event, neurologic, trauma, as well as other pathologies. Diagnostics, independently interpreted by me: ECG: Twelve-lead ECG reveals atrial fibrillation at 80 bpm. Anteroseptal Q waves. Inferior T wave inversions present. When compared to ECG of 06/16/2025 the inferior T wave inversions are new. Cardiac Monitoring: Cardiac monitoring ordered by me: The patient was placed on continuous cardiac monitoring and observed. It revealed atrial fibrillation at 90 bpm. Medical decision rules: none Imaging studies: Chest x-ray. Findings: A chest x-ray was performed and revealed no pneumothorax, effusion, infiltrate, pulmonary edema, free air under the diaphragm, or wide mediastinum. Impression: No acute disease. Head CT: A noncontrast CT scan of the head was performed and was negative for tumor, fracture, intracranial hemorrhage, or other acute pathology. Mild sinus disease present. HPI: 88 year old Female arrives for evaluation of lethargy and poor p.o. intake. This started over the last several days and is worsening. Patient resides at [facility]. She was diagnosed with COVID-19 last month. The patient also notes the following associated symptoms, fatigue and generalized weakness. Patient has had poor p.o. intake. The patient has been prescribed no new medication for relieving factors. Current pain is rated as 0/10. Pt denies headache, fevers, chills, neck pain, chest pain, breathing difficulties, nausea, vomiting, abdominal pain, back pain, urinary symptoms. History is limited secondary to the patient's illness. PAST MEDICAL HISTORY: See Below, A-fib, diabetes PAST SURGICAL HISTORY: See Below, SOCIAL HISTORY: See Below, HOME MEDICATIONS: See Below ALLERGIES: See Below VITALS: See Below PHYSICAL EXAMINATION: GENERAL: Awake, dehydrated alert, well-appearing, in no distress HENT: Normocephalic, atraumatic. Oropharynx with dry mucous membranes. EYES: Normal conjunctiva. Sclera non-icteric. NECK: Inspection normal. Non-tender. Supple. No nuchal rigidity. FROM. No masses. RESPIRATORY: Clear to auscultation. No wheezes. No rales. Normal respiratory effort. CARDIAC: Normal rate. Irregular rhythm. Systolic murmur. GI: Soft, non-distended. No tenderness to palpation. No rebound or guarding. No masses. RECTAL: Deferred. MUSCULOSKELETAL: Atraumatic. Arthritic changes noted in the knees bilaterally. Chest examination reveals no tenderness. There is no CVA tenderness to palpation. No joint edema. LOWER EXTREMITIES: Calves are equal size bilaterally and non-tender. No edema. No discoloration. NEURO: Altered sensorium. Speech is slow. Patient answers questions with limited response. SKIN: No rash or jaundice noted. PROCEDURES: none CRITICAL CARE: none OBSERVATION NOTE: none Past Med/Surg History Problem List UTI (urinary tract infection) CVA (cerebral vascular accident) Acute dehydration (Acute) Lethargic (Acute) Fall (Acute) Atrial fibrillation Ulcer of right heel Weakness (Acute) Cellulitis of leg without foot, right (Acute) Pressure sore of left ischium, stage 3 Left atrial thrombus Cardiomyopathy Valvular heart disease Acute systolic (congestive) heart failure Non-ST elevation ND (NSTEMI) (Acute) DM2 (diabetes mellitus, type 2) Atrial fibrillation with RVR NSTEMI (non-ST elevated myocardial infarction) COLBY (acute kidney injury) Syncope GERD (gastroesophageal reflux disease) Overactive bladder Diabetes CAD (coronary artery disease) Surgical History History of heart artery stent History of nephrectomy Family History Other Family history non-contributory Social History Smoking Status: Never smoker Second Hand Exposure: No; Do You Dip or Chew Tobacco: No; Hx Alcohol Use: No Hx Substance Use: No Preferred Language: Tajik Communication Ability: limited Patient Observer Required: No Beliefs That Will Affect Care: None Current Living Situation: Spouse Current Living Situation Comment: Lives home with , daughter lives next door Feels Safe at Home: Yes Assistive Devices: Cane and Walker Allergies Allergies Allergy/AdvReac Type Severity Reaction Status Date / Time No Known Allergies Allergy Verified 07/18/24 09:01 Home Meds Home Medications Medication Instructions Recorded Confirmed acetaminophen 650 mg 650 mg PO BID 07/18/24 09/16/24 tablet,extended release (Tylenol 8 Hour) apixaban 2.5 mg tablet (Eliquis) 2.5 mg PO BID 07/18/24 09/16/24 aspirin 81 mg tablet,delayed 81 mg PO DAILY 07/18/24 09/16/24 release (Ecotrin Low Strength) atorvastatin 40 mg tablet (Lipitor) 40 mg PO DAILY 07/18/24 09/16/24 digoxin 125 mcg (0.125 mg) tablet 125 mcg PO DAILY 07/18/24 09/16/24 (Lanoxin) diltiazem HCl 120 mg 120 mg PO DAILY 07/18/24 09/16/24 capsule,extended release 24 hr meclizine 12.5 mg tablet 12.5 mg PO TID PRN Dizziness 07/18/24 09/16/24 melatonin 3 mg capsule 3 mg PO HS PRN Sleep 07/18/24 09/16/24 metformin 500 mg tablet 500 mg PO BID 07/18/24 09/16/24 omeprazole 20 mg capsule,delayed 20 mg PO DAILY 07/18/24 09/16/24 release potassium chloride 20 mEq oral 10 meq PO DAILY 07/18/24 09/16/24 packet (Klor-Con) sertraline 25 mg tablet 25 mg PO DAILY 07/18/24 09/16/24 Previous Rx's Medication Instructions Recorded metoprolol tartrate 25 mg tablet 25 mg PO BID #60 tabs 08/19/24 Results & Data (ED) Vital Signs Vital Signs - 24 hr 09/16/24 09:00 09/16/24 09:23 09/16/24 09:50 Temperature 37.0 C Temperature Source Oral Pulse Rate 90 85 Pulse Rate [Left Finger] 78 Pulse Rhythm Regular Pulse Strength Normal Respiratory Rate 20 22 Respiratory Effort / Characteristics Non-Labored Respiratory Pattern Regular Blood Pressure 164/113 H Blood Pressure [Right Arm] 180/107 H Blood Pressure Mean 130 Blood Pressure Mean [Right Arm] 131 Blood Pressure Position Lying Blood Pressure Position [Right Arm] Lying Pulse Oximetry 98 96 Oxygen Delivery Method Room Air Room Air Sepsis Recent Fever Within 48 Hours No Sepsis New/Unexplained Change in Mental Status No Sepsis Action Taken by Nursing No Action Required Laboratory Data 09/16/24 09:05 09/16/24 09:05 Lab Results 09/16/24 09/16/24 09/16/24 Range/Units 09:00 09:05 09:30 WBC 12.29 H (4.8-10.8) K/ul RBC 3.75 L (4.20-5.40) M/uL Hgb 10.8 L (12.0-16.0) g/dl Hct 33.4 L (37.0-47.0) % MCV 89.1 (80.0-100.0) fL MCH 28.8 (25.0-34.0) pg MCHC 32.3 (32.0-36.0) g/dL RDW Std Deviation 51.4 H (36.4-46.3) fL RDW Coeff of [place] 15.9 H (11.5-14.5) % Plt Count 642 H (130-400) K/uL MPV 10.0 (9.4-12.4) fL Immature Gran % (Auto) 4.6 % Neut % (Auto) 70.7 % Lymph % (Auto) 16.1 % [place] % (Auto) 7.5 % Eos % (Auto) 0.6 % Baso % (Auto) 0.5 % Neut # (Auto) 8.69 H (1.40-6.50) K/uL Lymph # (Auto) 1.98 (1.20-3.40) K/uL [place] # (Auto) 0.92 H (0.11-0.59) K/uL Eos # (Auto) 0.07 (0.00-0.50) K/uL Baso # (Auto) 0.06 (0.00-0.20) K/uL Immature Gran # (Auto) 0.57 H (0.01-0.20) K/uL Sodium 146 H (136-145) mmol/L Potassium 3.9 (3.5-5.1) mmol/L Chloride 113 H (98-107) mmol/L Carbon Dioxide 23 (21-32) mmol/L Anion Gap 10 (3-11) BUN 23 (6-23) mg/dl Creatinine 0.71 (0.6-1.2) mg/dl Est Cr Clr Drug Dosing 39.3 ml/min eGFR 81.73 BUN/Creatinine Ratio 32.4 H (10-20) Glucose 118 H (70-99(Fasting)) mg/dl Lactate 1.1 (0.4-2.0) mmol/L Calcium 8.0 L (8.6-10.3) mg/dl Magnesium 1.3 L (1.7-2.4) mg/dl Total Bilirubin 0.5 (0.2-1.0) mg/dl AST 8 L (13-39) U/L ALT 5 L (7-52) U/L Alkaline Phosphatase 111 H (34-104) U/L Troponin I High Sens 20.5 H (0-14) pg/ml Total Protein 6.8 (6.0-8.3) gm/dl Albumin 2.8 L (3.4-5.0) gm/dl Globulin 4.0 (2.5-4.0) gm/dl Albumin/Globulin Ratio 0.7 L (0.9-2) TSH 1.737 (0.300-4.500) uIu/ml Urine Color Dark Yellow Urine Appearance Clear (Clear) Urine pH 5.5 (4.5-7.5) Ur Specific [place] 1.022 (1.000-1.030) Urine Protein 1+ H (Negative) Urine Glucose (UA) Negative (Negative) Urine Ketones Trace H (Negative) Urine Blood Negative (Negative) Urine Nitrite Positive A (Negative) Urine Bilirubin Negative (Negative) Urine Urobilinogen Negative (Negative) Ur Leukocyte Esterase 2+ H (Negative) Urine WBC (Auto) >50 H (0-5) /hpf Urine RBC (Auto) 0-2 (0-2) /hpf U Hyaline Cast (Auto) 3-5 H (0-2) /lpf U Epithel Cells (Auto) 0-2 (0-2) /hpf Urine Bacteria (Auto) 4+ H (None Seen) Adenovirus (PCR) Not Detected (NotDetected) B. pertussis DNA (PCR) Not Detected (NotDetected) B.parapertussis DNA PCR Not Detected (NotDetected) C. pneumoniae DNA (PCR) Not Detected (NotDetected) Coronavirus OC43 (PCR) Not Detected (NotDetected) Coronavirus HKU1 (PCR) Not Detected (NotDetected) Coronavirus 229E (PCR) Not Detected (NotDetected) SARS-CoV-2 (PCR) Not Detected (NotDetected) Coronavirus NL63 (PCR) Not Detected (NotDetected) Human Metapneumovir PCR Not Detected (NotDetected) Influenza Type A (PCR) Not Detected (NotDetected) Influenza Type B (PCR) Not Detected (NotDetected) M. pneumoniae (PCR) Not Detected (NotDetected) Parainfluenza 1 (PCR) Not Detected (NotDetected) Parainfluenza 2 (PCR) Not Detected (NotDetected) Parainfluenza 3 (PCR) Not Detected (NotDetected) Parainfluenza 4 (PCR) Not Detected (NotDetected) RSV (PCR) Not Detected (NotDetected) Entero/Rhino (PCR) Not Detected (NotDetected) Administered Medications Sodium Chloride (Nss) 1,000 mls @ 75 mls/hr IV .[id number] BRIELLE Stop: 09/17/24 09:14 Last Infusion: 09/16/24 14:09 Dose: 75 mls/hr Documented By: Infusion: 09/16/24 14:05 Dose: 0 mls/hr Documented By: Admin: 09/16/24 09:51 Dose: 125 mls/hr Documented By: TYLOR Insulin Aspart (Insulin Aspart Per Unit Charge) 0 units SC ACHS BRIELLE Stop: 10/16/24 12:14 Last Admin: 09/16/24 17:25 Dose: Not Given Documented By: Admin: 09/16/24 14:06 Dose: Not Given Documented By: LEATHA Discontinued Medications Apixaban (Apixaban 2.5 Mg Tab) 2.5 mg PO NOW ONE Stop: 09/16/24 11:31 Last Admin: 09/16/24 12:01 Dose: 2.5 mg Documented By: TYLOR Aspirin (Aspirin 81 Mg Ectab) 81 mg PO NOW ONE Stop: 09/16/24 11:31 Last Admin: 09/16/24 12:01 Dose: 81 mg Documented By: TYLOR Sodium Chloride (Nss) 500 mls @ 999 mls/hr IV .Q31M ONE Stop: 09/16/24 09:35 Last Infusion: 09/16/24 09:55 Dose: Infused Documented By: Admin: 09/16/24 09:22 Dose: 999 mls/hr Documented By: MIKE Magnesium Sulfate/Dextrose (Magnesium Sulfate / D5w) 1 gm in 100 mls @ 50 mls/hr IV ONE ONE Stop: 09/16/24 11:49 Last Infusion: 09/16/24 12:07 Dose: Infused Documented By: Admin: 09/16/24 10:07 Dose: 50 mls/hr Documented By: TYLOR Ceftriaxone Sodium (Rocephin) 2,000 mg in 50 mls @ 100 mls/hr IV NOW STA Stop: 09/16/24 11:36 Last Infusion: 09/16/24 12:09 Dose: Infused Documented By: Admin: 09/16/24 11:35 Dose: 100 mls/hr Documented By: TYLOR Magnesium Sulfate/Dextrose (Magnesium Sulfate / D5w) 1 gm in 100 mls @ 50 mls/hr IV Q2H [facility] Stop: 09/16/24 15:29 Last Infusion: 09/16/24 17:03 Dose: Infused Documented By: Admin: 09/16/24 15:02 Dose: 50 mls/hr Documented By: Infusion: 09/16/24 15:00 Dose: Infused Documented By: Admin: 09/16/24 13:00 Dose: 50 mls/hr Documented By: TYLOR Metoprolol Tartrate (Metoprolol Tartrate 25 Mg Tab) 25 mg PO NOW ONE Stop: 09/16/24 11:31 Last Admin: 09/16/24 12:00 Dose: 25 mg Documented By: TYLOR Imaging Data Radiologist's Impression: Chest X-Ray 09/16/24 09:05 XR chest 1V portable CLINICAL HISTORY: weakness COMPARISON STUDY: 08/13/2024 FINDINGS: Stable mild cardiomegaly without pulmonary vascular congestion. No effusion, consolidation, or pneumothorax. Stable mild right AC joint separation. IMPRESSION: No acute findings. ACT 112: Negative or not required by law. Electronically signed by: Cheo Gore M.D. 09/16/2024 9:[address] 09/16/24 09:05 CT head/brain wo con CLINICAL HISTORY: AMS. TECHNIQUE: Multiple axial CT images of the head were obtained without contrast. A dose lowering technique was utilized adhering to the principles of ALARA. CT DOSE: 547.75 mGy.cm COMPARISON: 08/15/2024 FINDINGS: There are stable moderate to severe chronic small vessel ischemic changes. Stable small area of encephalomalacia posterior left frontal lobe. No intracranial hemorrhage seen. No mass effect, midline shift, or hydrocephalus. No skull fracture seen. There is small amount of fluid in the left maxillary sinus. Some of the mastoid air cells are opacified bilaterally. IMPRESSION: 1. No acute intracranial findings. 2. Interval small amount of fluid at the left maxillary sinus and opacification of some of the mastoid air cells bilaterally. ACT 112: Negative or not required by law. The above report was generated using voice recognition software. It may contain grammatical, syntax or spelling errors. Electronically signed by: Cheo Gore M.D. 09/16/2024 9:50 AM Discharge Plan Visit Data Chief Complaint: Illness ED Provider: Marcello Paniagua Discharge Problem: Lethargic, Acute dehydration Patient Disposition: Admitted As Inpatient Discharge Instructions Interventions: ED Discharge Assessment Last Done: 09/16/24 13:28
[2024-09-16 09:21] LABS: Basophils # (auto) 0.06 K/uL (0.00-0.20); Basophils % (auto) 0.5 %; Eosinophils # (auto) 0.07 K/uL (0.00-0.50); Eosinophils % (auto) 0.6 %; Hematocrit (blood only) 33.4 % (37.0-47.0); Hemoglobin 10.8 g/dl (12.0-16.0); Immature Granulocytes # (auto) 0.57 K/uL (0.01-0.20); Immature Granulocytes % (auto) 4.6 %; Lymphocytes # (auto) 1.98 K/uL (1.20-3.40); Lymphocytes % (auto) 16.1 %; Mean Corpuscular Hemoglobin 28.8 pg (25.0-34.0); Mean Corpuscular Hgb Conc 32.3 g/dL (32.0-36.0); Mean Corpuscular Volume 89.1 fL (80.0-100.0); Monocytes # (auto) 0.92 K/uL (0.11-0.59); Monocytes % (auto) 7.5 %; Neutrophils # (auto) 8.69 K/uL (1.40-6.50); Neutrophils % (auto) 70.7 %; Platelet Count 642 K/uL (130-400); RDW Coefficient of Variation 15.9 % (11.5-14.5); RDW Standard Deviation 51.4 fL (36.4-46.3); Red Blood Count 3.75 M/uL (4.20-5.40); White Blood Count 12.29 K/ul (4.8-10.8)
[2024-09-16] MEDS: SODIUM CHLORIDE 0.9% 500 ML IV ONE (09:22)
--- NOTE | 2024-09-16 09:31 | XRay Report ---
XR chest 1V portable CLINICAL HISTORY: weakness COMPARISON STUDY: 08/13/2024 FINDINGS: Stable mild cardiomegaly without pulmonary vascular congestion. No effusion, consolidation, or pneumothorax. Stable mild right AC joint separation. IMPRESSION: No acute findings. ACT 112: Negative or not required by law. Electronically signed by: Cheo Gore M.D. 09/16/2024 9:30 AM
[2024-09-16 09:36] LABS: Albumin Globulin Ratio 0.7 (0.9-2); Albumin Level 2.8 gm/dl (3.4-5.0); BUN Creatinine Ratio 32.4 (10-20); Bilirubin,Total 0.5 mg/dl (0.2-1.0); Creatinine Clr Calc Pharmacy 39.3 ml/min; Magnesium 1.3 mg/dl (1.7-2.4); Potassium 3.9 mmol/L (3.5-5.1); Total Protein 6.8 gm/dl (6.0-8.3)
[2024-09-16 09:42] LABS: Troponin I High Sensitivity 20.5 pg/ml (0-14)
[2024-09-16 09:51] LABS: Thyroid Stimulating Hormone 1.737 uIu/ml (0.300-4.500)
[2024-09-16] MEDS: SODIUM CHLORIDE 0.9% 1,000 ML IV SCH (09:51)
--- NOTE | 2024-09-16 09:51 | CT Scan Report ---
CT head/brain wo con CLINICAL HISTORY: AMS. TECHNIQUE: Multiple axial CT images of the head were obtained without contrast. A dose lowering tech nique was utilized adhering to the principles of ALARA. CT DOSE: 547.75 mGy.cm COMPARISON: 08/15/2024 FINDINGS: There are stable moderate to severe chronic small vessel ischemic changes. Stable small are a of encephalomalacia posterior left frontal lobe. No intracranial hemorrhage seen. No mass effect, m idline shift, or hydrocephalus. No skull fracture seen. There is small amount of fluid in the left ma xillary sinus. Some of the mastoid air cells are opacified bilaterally. IMPRESSION: 1. No acute intracranial findings. 2. Interval small amount of fluid at the left maxillary sinus and opacification of some of the mastoi d air cells bilaterally. ACT 112: Negative or not required by law. The above report was generated using voice recognition software. It may contain grammatical, syntax o r spelling errors. Electronically signed by: Cheo Gore M.D. 09/16/2024 9:50 AM
[2024-09-16 10:05] LABS: Adenovirus PCR Not Detected (NotDetected); Bordetella parapertussis PCR Not Detected (NotDetected); Bordetella pertussis PCR Not Detected (NotDetected); Chlamydia pneumoniae PCR Not Detected (NotDetected); Coronavirus 229E PCR Not Detected (NotDetected); Coronavirus CoV-2 (COVID19)PCR Not Detected (NotDetected); Coronavirus HKU1 PCR Not Detected (NotDetected); Coronavirus NL63 PCR Not Detected (NotDetected); Coronavirus OC43PCR Not Detected (NotDetected); Human Metapneumovirus PCR Not Detected (NotDetected); Influenza A PCR Not Detected (NotDetected); Influenza B PCR Not Detected (NotDetected); Mycoplasma pneumoniae PCR Not Detected (NotDetected); Parainfluenza Virus 1 PCR Not Detected (NotDetected); Parainfluenza Virus 2 PCR Not Detected (NotDetected); Parainfluenza Virus 3 PCR Not Detected (NotDetected); Parainfluenza Virus 4 PCR Not Detected (NotDetected); Respiratory Syncytial VirusPCR Not Detected (NotDetected); Rhinovirus/Enterovirus PCR Not Detected (NotDetected)
[2024-09-16] MEDS: MAGNESIUM SULFATE / D5W 1 GM/100 ML BAG IV ONE (10:07)
[2024-09-16 11:00] LABS: Appearance Urine Clear (Clear); Bacteria Urine Automated 4+ (None Seen); Bilirubin Urine Negative (Negative); Blood Urine Negative (Negative); Color Urine Dark Yellow; Epithelial Cell Urine Auto 0-2 /hpf (0-2); Glucose Urine UA Negative (Negative); Ketones Urine Trace (Negative); Leukocyte Esterase Urine 2+ (Negative); Nitrite Urine Positive (Negative); Protein Urine 1+ (Negative); RBC Urine Automated 0-2 /hpf (0-2); Specific Gravity Urine 1.022 (1.000-1.030); Urobilinogen Urine Negative (Negative); WBC Urine Automated >50 /hpf (0-5); pH Urine 5.5 (4.5-7.5)
--- NOTE | 2024-09-16 11:17 | History & Physical Report ---
Date of Service September 16, 2024 Assessment & Plan (1) UTI (urinary tract infection): (2) Lethargic: (3) Acute dehydration: (4) Atrial fibrillation: (5) DM2 (diabetes mellitus, type 2): (6) CAD (coronary artery disease): (7) CVA (cerebral vascular accident): (8) GERD (gastroesophageal reflux disease): (9) Ulcer of right heel: Plan 88yo with PMHx significant for afib, DM II, CVA presented from [facility] for illness with increased lethargy and poor PO intake and recent diagnosis COVID-19 last month. 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 Respiratory biofire negative on admission and CXR w/o acute process and no hypoxia. CT head on admission w/ small amt fluid LEFT maxillary sinus/opacification of mastoid air cells bilaterally #Weakness, Lethargy vs Metabolic Encephalopathy,+UA - suspected 2nd to poor PO intake/dehydration and urinary tract infection Admit med tele given hx afib/hypomag and recent COVID/CVA. Continue IVF but decrease to 80cc/hr Ceftriaxone IV continued Monitor urine/blood cultures Diet: AHA, DM but PUREED/thickened as giving at [facility]. Speech consulted/aspiration precautions ordered Tylenol for pain/fever PT/OT consults DVT proph: eliquis BID continued Monitor labs/exam in AM #Afib/HTN/HLD Hx afib, in at present and also BP 142/99 Had NOT taken AM medications --> Stat metoprolol 25mg PO x 1 now and continue 25mg BID (prior reduction from 50mg BID?) Continue digoxin, diltiazem, eliquis BID (on reduced dose 2.5mg BID for age/weight), ASA 81mg daily, Lipitor, metoprolol as discussed Mag 1.3, IV ordered and continue 10meq PO daily Kcl Keep mag/K replete Monitor on telemetry #Hypomagnesemia as above, monitor in am. If remains low would consider PO replacement to keep stores replete #Hx CVA hx parietal CVA LAST MONTH. CT head neg for acute CVA on admission Telemetry monitoring as above and will continue eliquis/ASA/lipitor, BB as above Aspiration precautions, pureed diet, HOB elevation and repeat speech consult ordered Monitor for any issues #Troponin elevation Minimal elevation to 20 on admission. stable EKG but w/ hypomag/afib above No CP reported but is HTN and w/ infection. Repeat to trend but will give tx for infection and mag replacement/metoprolol for afib and monitor telemetry EKG w/ CP if occurs. Continue asa/eliquis #R heel ulcer -- present on admission, no infection and continues abx as above. monitor for issues but wound RN consulted #DM II Most recent A1c on metformin PO daily which will be held. BSG AC/HS with sliding scale in place and can adjust as needed #GERD Continue PPI daily #Depression Continue sertaline daily #Vertigo Meclizine available prn, cautious use. Prior carotid dopplers w/o issue but see above recent CVA DVT proph: eliquis BID, first dose now. Full code Diet; DM, AHA pureed/thickened Dispo: admit to med telemetry, tx of UTI/hypomagnesemia and PT/OT/speech consulted. Hopeful dc 09/17. Family updated at bedside. Case discussed with Dr Hay and further recommendations to follow. History of Present Illness Chief Complaint: weakness, lethargy Primary Care Provider: [facility] [place] 88yo with PMHx significant for afib, DM II, CVA presented from [facility] for illness with increased lethargy and poor PO intake and recent diagnosis COVID-19 last month. Associated symptoms of fatigue, generalized weakness. No new medications. Poor PO intake progressive. HTN but afebrile. Answering questions but not a lot of detail per ER provider. * Note recent hospitalization 2/3 for chronic RIGHT heel ulcer/cellulitis and completed course of antibiotics but during that admission * -- currently covered, doesn't appear significantly infected but is uncomfortable and will continue to monitor. Also noted possible non- hemorrhagic LEFT parietal CVA on MRI during that admission -- continues on ASA/Eliquis (did not get her doses this morning). Metoprolol to 25mg BID at that time from prior 50mg BID. ECHO at that time w/ improvement in LV systolic function, less severe MR/TR and Pulm HTN less severe. Patient evaluated in C10 with family at bedside. Alert to person/place but intermittent confusion. Not having great PO intake over the past couple of days per and reporting weakness. Currently appears in afib but rates controlled but discussed mag 1.3 and given afib will plan to monitor on telemetry. Stat ASA/eliquis and metoprolol have been ordered and reviewed medication list. Discussed biofire negative but does appear to have UTI and antibiotics have been ordered. They report slightly improved since starting antibiotics but that she is hungry currently. Daughter reports they have been giving her pureed diet/thickened liquids at [facility] which the patient does not like but will continue for now and have speech see her to see about advancing. Hopefully with IVF and antibiotics able to have cultures by tomorrow and will have PT/OT evals undertaken with hopes to discharge in AM. Daughter/ updated at bedside. Patient is FULL CODE. ER labs/imaging: CT head on admission w/ small amt fluid LEFT maxillary sinus/opacification of mastoid air cells bilaterally WBC 12k w/ L shift. Biofire negative. CXR negative. Plt 642. Na 146, BUN/Cr 23/0.71. Mag 1.3. Trop 20.5 Urine cultures pending but UA appearing infected- UA+nitrate, 2+ leuk esterase, >50 WBC, 4+ bacteria. Noting 3-5 hyaline casts and NO epi. Blood cultures pending Treatment: s/p 500cc NSS bolus, 1gm IV mag, NS @ 125cc/hr. Ceftriaxone IV x1 Home meds: eliquis 2.5mg BID, ASA 81mg, Lipitor 40, Diltiazem 120mg, Digoxin 125mcg, metoprolol 25mg BID, omeprazole 20mg, sertaline 25mg, metformin 500mg BID, PO Kcl 10meq daily, meclizine prn and as needed miralax, tylenol BID. Admission for tx UTI, hydration, therapy evals. Suspect inpatient stay 2-3 days pending course/cultures prior to returning back to [facility]. Allergies Allergy/AdvReac Type Severity Reaction Status Date / Time No Known Allergies Allergy Verified 07/18/24 09:01 Home Medications Medication Instructions Recorded Confirmed Type acetaminophen 650 mg 650 mg PO BID 07/18/24 09/16/24 History tablet,extended release (Tylenol 8 Hour) apixaban 2.5 mg tablet (Eliquis) 2.5 mg PO BID 07/18/24 09/16/24 History aspirin 81 mg tablet,delayed 81 mg PO DAILY 07/18/24 09/16/24 History release (Ecotrin Low Strength) atorvastatin 40 mg tablet (Lipitor) 40 mg PO DAILY 07/18/24 09/16/24 History digoxin 125 mcg (0.125 mg) tablet 125 mcg PO DAILY 07/18/24 09/16/24 History (Lanoxin) diltiazem HCl 120 mg 120 mg PO DAILY 07/18/24 09/16/24 History capsule,extended release 24 hr meclizine 12.5 mg tablet 12.5 mg PO TID PRN Dizziness 07/18/24 09/16/24 History melatonin 3 mg capsule 3 mg PO HS PRN Sleep 07/18/24 09/16/24 History metformin 500 mg tablet 500 mg PO BID 07/18/24 09/16/24 History omeprazole 20 mg capsule,delayed 20 mg PO DAILY 07/18/24 09/16/24 History release potassium chloride 20 mEq oral 10 meq PO DAILY 07/18/24 09/16/24 History packet (Klor-Con) sertraline 25 mg tablet 25 mg PO DAILY 07/18/24 09/16/24 History metoprolol tartrate 25 mg tablet 25 mg PO BID #60 tabs 08/19/24 09/16/24 Rx Past Med/Surg History Problem List UTI (urinary tract infection) CVA (cerebral vascular accident) Acute dehydration (Acute) Lethargic (Acute) Fall (Acute) Atrial fibrillation Ulcer of right heel Weakness (Acute) Cellulitis of leg without foot, right (Acute) Pressure sore of left ischium, stage 3 Left atrial thrombus Cardiomyopathy Valvular heart disease Acute systolic (congestive) heart failure Non-ST elevation AK (NSTEMI) (Acute) DM2 (diabetes mellitus, type 2) Atrial fibrillation with RVR NSTEMI (non-ST elevated myocardial infarction) COLBY (acute kidney injury) Syncope GERD (gastroesophageal reflux disease) Overactive bladder Diabetes CAD (coronary artery disease) Surgical History History of heart artery stent History of nephrectomy Family History Other Family history non-contributory Social History Smoking Status: Never smoker Second Hand Exposure: No; Do You Dip or Chew Tobacco: No; Hx Alcohol Use: No Hx Substance Use: No Preferred Language: Armenian Communication Ability: limited Lens Grinder Apprentice Required: No Beliefs That Will Affect Care: None Current Living Situation: Spouse Current Living Situation Comment: Lives home with , daughter lives next door Feels Safe at Home: Yes Assistive Devices: Cane and Walker Physical Exam Physical Exam: General 88yo female, chronically ill appearing/dehydrated, resting in bed, NAD but hungry Head atraumatic, normocephalic, mm DRY, trachea midline Resp: even/unlabored, slightly diminshed/poor air entry to bases but no wheezing/rales, on room air CV: irregularly irregular vs PACs, +systolic murmur, NO PITTING edema or calf tenderness, pulses present GI: +BS, soft/NT MSK/Neuro: able to follow commands as asked but intermittent confusion, no slurred speech/facial droop LEFT heel ulcer with dressing/aquacell and no surrounding cellulitis - scant drainage on aquacell noted Psych: alert to person/place, not event/time, cooperative with exam Results & Data Results & Data Vital Signs (Past 12 Hours) Vital Signs Temp Pulse Pulse Resp BP BP Pulse Ox 09/16/24 09:50 78 22 180/107 H 96 09/16/24 09:23 85 09/16/24 09:00 37.0 C 90 20 164/113 H 98 O2 Del Method 09/16/24 09:50 Room Air 09/16/24 09:23 09/16/24 09:00 Room Air Laboratory Results 09/16/24 09/16/24 09/16/24 Range/Units 09:30 09:05 09:00 WBC 12.29 H (4.8-10.8) K/ul RBC 3.75 L (4.20-5.40) M/uL Hgb 10.8 L (12.0-16.0) g/dl Hct 33.4 L (37.0-47.0) % MCV 89.1 (80.0-100.0) fL MCH 28.8 (25.0-34.0) pg MCHC 32.3 (32.0-36.0) g/dL RDW Std Deviation 51.4 H (36.4-46.3) fL RDW Coeff of [place] 15.9 H (11.5-14.5) % Plt Count 642 H (130-400) K/uL MPV 10.0 (9.4-12.4) fL Immature Gran % (Auto) 4.6 % Neut % (Auto) 70.7 % Lymph % (Auto) 16.1 % [place] % (Auto) 7.5 % Eos % (Auto) 0.6 % Baso % (Auto) 0.5 % Neut # (Auto) 8.69 H (1.40-6.50) K/uL Lymph # (Auto) 1.98 (1.20-3.40) K/uL [place] # (Auto) 0.92 H (0.11-0.59) K/uL Eos # (Auto) 0.07 (0.00-0.50) K/uL Baso # (Auto) 0.06 (0.00-0.20) K/uL Immature Gran # (Auto) 0.57 H (0.01-0.20) K/uL Sodium 146 H (136-145) mmol/L Potassium 3.9 (3.5-5.1) mmol/L Chloride 113 H (98-107) mmol/L Carbon Dioxide 23 (21-32) mmol/L Anion Gap 10 (3-11) BUN 23 (6-23) mg/dl Creatinine 0.71 (0.6-1.2) mg/dl Est Cr Clr Drug Dosing 39.3 ml/min eGFR 81.73 BUN/Creatinine Ratio 32.4 H (10-20) Glucose 118 H (70-99(Fasting)) mg/dl Lactate 1.1 (0.4-2.0) mmol/L Calcium 8.0 L (8.6-10.3) mg/dl Magnesium 1.3 L (1.7-2.4) mg/dl Total Bilirubin 0.5 (0.2-1.0) mg/dl AST 8 L (13-39) U/L ALT 5 L (7-52) U/L Alkaline Phosphatase 111 H (34-104) U/L Troponin I High Sens 20.5 H (0-14) pg/ml Total Protein 6.8 (6.0-8.3) gm/dl Albumin 2.8 L (3.4-5.0) gm/dl Globulin 4.0 (2.5-4.0) gm/dl Albumin/Globulin Ratio 0.7 L (0.9-2) TSH 1.737 (0.300-4.500) uIu/ml Urine Color Dark Yellow Urine Appearance Clear (Clear) Urine pH 5.5 (4.5-7.5) Ur Specific [place] 1.022 (1.000-1.030) Urine Protein 1+ H (Negative) Urine Glucose (UA) Negative (Negative) Urine Ketones Trace H (Negative) Urine Blood Negative (Negative) Urine Nitrite Positive A (Negative) Urine Bilirubin Negative (Negative) Urine Urobilinogen Negative (Negative) Ur Leukocyte Esterase 2+ H (Negative) Urine WBC (Auto) >50 H (0-5) /hpf Urine RBC (Auto) 0-2 (0-2) /hpf U Hyaline Cast (Auto) 3-5 H (0-2) /lpf U Epithel Cells (Auto) 0-2 (0-2) /hpf Urine Bacteria (Auto) 4+ H (None Seen) Adenovirus (PCR) Not Detected (NotDetected) B. pertussis DNA (PCR) Not Detected (NotDetected) B.parapertussis DNA PCR Not Detected (NotDetected) C. pneumoniae DNA (PCR) Not Detected (NotDetected) Coronavirus OC43 (PCR) Not Detected (NotDetected) Coronavirus HKU1 (PCR) Not Detected (NotDetected) Coronavirus 229E (PCR) Not Detected (NotDetected) SARS-CoV-2 (PCR) Not Detected (NotDetected) Coronavirus NL63 (PCR) Not Detected (NotDetected) Human Metapneumovir PCR Not Detected (NotDetected) Influenza Type A (PCR) Not Detected (NotDetected) Influenza Type B (PCR) Not Detected (NotDetected) M. pneumoniae (PCR) Not Detected (NotDetected) Parainfluenza 1 (PCR) Not Detected (NotDetected) Parainfluenza 2 (PCR) Not Detected (NotDetected) Parainfluenza 3 (PCR) Not Detected (NotDetected) Parainfluenza 4 (PCR) Not Detected (NotDetected) RSV (PCR) Not Detected (NotDetected) Entero/Rhino (PCR) Not Detected (NotDetected) Diagnostic Findings Chest X-Ray 09/16/24 09:05 XR chest 1V portable CLINICAL HISTORY: weakness COMPARISON STUDY: 08/13/2024 FINDINGS: Stable mild cardiomegaly without pulmonary vascular congestion. No effusion, consolidation, or pneumothorax. Stable mild right AC joint separation. IMPRESSION: No acute findings. ACT 112: Negative or not required by law. Electronically signed by: Cheo Gore M.D. 09/16/2024 9:[address] 09/16/24 09:05 CT head/brain wo con CLINICAL HISTORY: AMS. TECHNIQUE: Multiple axial CT images of the head were obtained without contrast. A dose lowering technique was utilized adhering to the principles of ALARA. CT DOSE: 547.75 mGy.cm COMPARISON: 08/15/2024 FINDINGS: There are stable moderate to severe chronic small vessel ischemic changes. Stable small area of encephalomalacia posterior left frontal lobe. No intracranial hemorrhage seen. No mass effect, midline shift, or hydrocephalus. No skull fracture seen. There is small amount of fluid in the left maxillary sinus. Some of the mastoid air cells are opacified bilaterally. IMPRESSION: 1. No acute intracranial findings. 2. Interval small amount of fluid at the left maxillary sinus and opacification of some of the mastoid air cells bilaterally. ACT 112: Negative or not required by law. The above report was generated using voice recognition software. It may contain grammatical, syntax or spelling errors. Electronically signed by: Cheo Gore M.D. 09/16/2024 9:50 AM Supervising Physician Co-Signing Physician Notes The patient was seen by me. The chart was reviewed. Case discussed with PATY Henson. Agree with assessment and plan PG Care Time/CCT Total # of Minutes Spent Total Time Spent with Patient: Total time spent is greater than 50% in coordination of care (as documented) at patient's floor/unit and/or counseling patient: Coding Level of Care Code 17638 INT INP/OBS CARE MIN Diagnoses UTI (urinary tract infection) N39.0 Lethargic R53.83 Acute dehydration E86.0 Atrial fibrillation I48.91 DM2 (diabetes mellitus, type 2) E11.9 Coronary artery disease involving [place] coronary artery of [place] heart without angina pectoris I25.10 Associated angina: without angina Coronary Disease-Associated Artery/Lesion type: [place] artery [place] vs. transplanted heart: [place] heart CVA (cerebral vascular accident) I63.9 Gastroesophageal reflux disease, unspecified whether esophagitis present K21.9 Esophagitis presence: esophagitis presence not specified Ulcer of right heel L97.419 (6) CAD (coronary artery disease) Associated angina: without angina Coronary Disease-Associated Artery/Lesion type: [place] artery [place] vs. transplanted heart: [place] heart Qualified Code(s): I25.10 - Atherosclerotic heart disease of [place] coronary artery without angina pectoris (8) GERD (gastroesophageal reflux disease) Esophagitis presence: esophagitis presence not specified Qualified Code(s): K21.9 - Gastro-esophageal reflux disease without esophagitis
[2024-09-16] MEDS: cefTRIAXone SODIUM 2,000 MG/50 ML BAG IV STA (11:35)
[2024-09-16] MEDS: METOPROLOL TARTRATE 25 MG TAB PO ONE (12:00)
[2024-09-16] MEDS: APIXABAN 2.5 MG TAB PO ONE (12:01)
[2024-09-16] MEDS: ASPIRIN 81 MG ECTAB PO ONE (12:01)
[2024-09-16] MEDS ORDERED: GLUCOSE 10 TAB/TUBE PO PRN (12:07)
[2024-09-16] MEDS ORDERED: GLUCAGON FOR INJ 1 MG VIAL SQ PRN (12:07)
[2024-09-16] MEDS ORDERED: DEXTROSE 50% 50 ML SYRINGE IV PRN (12:07)
[2024-09-16] MEDS ORDERED: MECLIZINE 12.5 MG TAB PO PRN (12:07)
[2024-09-16] MEDS ORDERED: ACETAMINOPHEN 325 MG TAB PO PRN (12:07)
[2024-09-16] MEDS ORDERED: GLUCOSE 40% GEL 15 GM TUBE PO PRN (12:07)
[2024-09-16] MEDS ORDERED: CARBOHYDRATES FOR HYPOGLYCEMIA PO PRN (12:07)
[2024-09-16] MEDS ORDERED: ONDANSETRON INJ 2 MG/ML 2 ML VIAL IV PRN (12:07)
[2024-09-16] MEDS: MAGNESIUM SULFATE / D5W 1 GM/100 ML BAG IV SCH (13:00)
[2024-09-16] MEDS ORDERED: hydrALAZINE HCL 20 MG/ML VIAL IV PRN (13:59)
[2024-09-16] MEDS: INSULIN ASPART PER UNIT CHARGE SC SCH (14:06)
[2024-09-16] MEDS: ACETAMINOPHEN 325 MG TAB PO SCH (19:20)
[2024-09-16] MEDS: PHENAZOPYRIDINE HCL 200 MG TAB PO PRN (20:07)
[2024-09-16] MEDS: ASPIRIN 81 MG ECTAB PO SCH (20:35)
[2024-09-16] MEDS: MELATONIN 3 MG TAB PO PRN (20:35)
[2024-09-16] MEDS: METOPROLOL TARTRATE 25 MG TAB PO SCH (20:40)
[2024-09-16] MEDS: APIXABAN 2.5 MG TAB PO SCH (20:40)
--- NOTE | 2024-09-17 05:51 | Electrocardiogram Report ---
Test Reason : Blood Pressure : */* mmHG Vent. Rate : 80 BPM Atrial Rate : * BPM P-R Int : * ms QRS Dur : 104 ms QT Int : 330 ms P-R-T Axes : * 120 -60 degrees QTcB Int : 380 ms Atrial fibrillation Right axis deviation Anteroseptal infarct (cited on or before 17-Jul-2010) Abnormal ECG When compared with ECG of 17-Aug-2024 23:14, Questionable change in QRS axis Criteria for Inferior infarct are no longer Present Non-specific change in ST segment in Inferior leads T wave inversion now evident in Inferior leads Confirmed by Yehuda Payan ([id number]) on 09/17/2024 5:51:08 AM Referred By: Allen may [facility] Confirmed By: Yehuda Payan
[2024-09-17 07:24] LABS: Basophils # (auto) 0.05 K/uL (0.00-0.20); Basophils % (auto) 0.4 %; Eosinophils # (auto) 0.21 K/uL (0.00-0.50); Eosinophils % (auto) 1.7 %; Hematocrit (blood only) 28.8 % (37.0-47.0); Immature Granulocytes # (auto) 0.46 K/uL (0.01-0.20); Immature Granulocytes % (auto) 3.8 %; Lymphocytes # (auto) 1.56 K/uL (1.20-3.40); Lymphocytes % (auto) 12.8 %; Mean Corpuscular Hemoglobin 28.4 pg (25.0-34.0); Mean Corpuscular Hgb Conc 31.3 g/dL (32.0-36.0); Mean Corpuscular Volume 90.9 fL (80.0-100.0); Mean Platelet Volume 10.2 fL (9.4-12.4); Monocytes # (auto) 0.99 K/uL (0.11-0.59); Monocytes % (auto) 8.1 %; Neutrophils # (auto) 8.91 K/uL (1.40-6.50); Neutrophils % (auto) 73.2 %; Platelet Count 516 K/uL (130-400); RDW Coefficient of Variation 15.9 % (11.5-14.5); RDW Standard Deviation 52.2 fL (36.4-46.3); Red Blood Count 3.17 M/uL (4.20-5.40); White Blood Count 12.18 K/ul (4.8-10.8)
[2024-09-17 08:08] LABS: Calcium 7.3 mg/dl (8.6-10.3); Creatinine Clr Calc Pharmacy 55.9 ml/min; Potassium 3.3 mmol/L (3.5-5.1)
[2024-09-17] MEDS: DIGOXIN 0.125 MG TAB PO SCH (09:36)
[2024-09-17] MEDS: PANTOprazole 40 MG TAB PO SCH (09:36)
[2024-09-17] MEDS: SERTRALINE HCL 50 MG TABLET PO SCH (09:36)
[2024-09-17] MEDS: ATORVASTATIN 40 MG TAB PO SCH (09:36)
[2024-09-17] MEDS: POTASSIUM CHLORIDE PWD 20 MEQ PACK PO SCH (09:37)
[2024-09-17] MEDS: dilTIAZem HCL 120 MG CAPCR PO SCH (09:37)
--- NOTE | 2024-09-17 10:00 | Hospitalist Progress Note ---
Date of Service September 17, 2024 Assessment & Plan (1) UTI (urinary tract infection): Plan: Continue IVF but decrease to 80cc/hr Ceftriaxone IV continued Monitor urine/blood cultures (2) Lethargic: Plan: suspected 2nd to poor PO intake/dehydration and urinary tract infection (3) Acute dehydration: Plan: -con't IVF (4) Atrial fibrillation: Plan: Metoprolol 25mg PO x 1 now and continue 25mg BID (prior reduction from 50mg BID?) Continue digoxin, diltiazem, eliquis BID (on reduced dose 2.5mg BID for age/weight), ASA 81mg daily, Lipitor (5) DM2 (diabetes mellitus, type 2): Plan: BSG AC/HS with sliding scale in place and can adjust as needed (6) CAD (coronary artery disease): Plan: eliquis BID (on reduced dose 2.5mg BID for age/weight), ASA 81mg daily, Lipitor, Metoprolol (7) CVA (cerebral vascular accident): Plan: Telemetry monitoring as above and will continue eliquis/ASA/lipitor, BB as above Aspiration precautions, pureed diet, HOB elevation and repeat speech consult ordered (8) GERD (gastroesophageal reflux disease): Plan: -con't PPI daily (9) Ulcer of right heel: Plan: Present on admission, no infection and continues abx as above. monitor for issues but wound RN consulted Plan 88yo with PMHx significant for afib, DM II, CVA presented from [facility] for illness with increased lethargy and poor PO intake and recent diagnosis COVID-19 last month. 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 Respiratory biofire negative on admission and CXR w/o acute process and no hypoxia. CT head on admission w/ small amt fluid LEFT maxillary sinus/opacification of mastoid air cells bilaterally D/C planning to [facility] once medically ready. Admission and Anticipated Discharge Date Admission Date: September 16, 2024 Subjective No events overnight. Pt sluggish and slow to awaken this am. Review of Systems Review of Systems: CONST: Negative for fever, body aches and chills. HENT: Negative for neck pain/stiffness, headache, congestion, sore throat, swelling. EYES: Negative for discharge/pain or vision changes. RESP: Negative for cough/hemoptysis and shortness of breath. CV: Negative chest pain, difficulty breathing, palpitations. ABD: Negative pain, nausea, vomiting. : Negative increase frequency, dysuria, blood in urine or stool. MUSC: Negative for muscle aches, edema. SKIN: Negative rash, lesions/sores. NEURO: Negative headache, dizziness, weakness. Physical Exam Physical Exam: GENERAL APPEARANCE NAD, activity normal for age, well developed/ well nourished, no cyanosis, pallor, or diaphoresis. EYES lids/conjunctiva normal. EARS/NOSE/THROAT Mucous membranes moist, nares normal, lips/teeth normal uvula midline without oral pharyngeal erythema, exudate or swelling TMs normal bilaterally. No lymphangitis/lymphedema. HEAD/NECK normocephalic atraumatic, no facial trauma, neck is supple. RESPIRATORY respiratory effort normal, speaks in full sentences, no tripod position, no accessory muscle use. Lungs clear to auscultation without rhonchi, wheezes, rales CARDIAC Regular rate and rhythm, no edema. ABDOMINAL Soft, ND/NT. No evidence of fluid wave. No pulsatile masses on exam, rebound tenderness, Tan sign or pain over Mcburney's point. MUSCLES/EXTREMITIES No abnormal range of motion, no swelling. SKIN Warm, pink and dry. No rashes, dermatoses, petechiae or lesions. NEUROLOGICAL Speech is clear and appropriate. Normal level of consciousness. Gait and coordination are normal. 5/5 strength in all extremities. PSYCH Normal mood and affect. Judgement/competence is appropriate Results & Data Results & Data Vital Signs (Past 12 Hours) Vital Signs Temp Pulse Pulse Resp BP Pulse Ox O2 Del Method 09/17/24 08:11 36.7 C 73 18 128/64 96 Room Air 09/17/24 07:18 73 09/17/24 03:33 36.5 C 72 16 133/57 L 95 Room Air 09/16/24 22:38 36.7 C 75 16 129/64 97 Room Air 09/16/24 22:11 64 PG Care Time/CCT Total # of Minutes Spent Total Time Spent with Patient: Total time spent is greater than 50% in coordination of care (as documented) at patient's floor/unit and/or counseling patient: Coding Level of Care Code 15224 SUB INP/OBS CARE MIN Diagnoses UTI (urinary tract infection) N39.0 Lethargic R53.83 Acute dehydration E86.0 Atrial fibrillation I48.91 DM2 (diabetes mellitus, type 2) E11.9 Coronary artery disease involving [place] coronary artery of [place] heart without angina pectoris I25.10 Coronary Disease-Associated Artery/Lesion type: [place] artery [place] vs. transplanted heart: [place] heart Associated angina: without angina CVA (cerebral vascular accident) I63.9 Gastroesophageal reflux disease, unspecified whether esophagitis present K21.9 Esophagitis presence: esophagitis presence not specified Ulcer of right heel L97.419 (6) CAD (coronary artery disease) Coronary Disease-Associated Artery/Lesion type: [place] artery [place] vs. transplanted heart: [place] heart Associated angina: without angina Qualified Code(s): I25.10 - Atherosclerotic heart disease of [place] coronary artery without angina pectoris (8) GERD (gastroesophageal reflux disease) Esophagitis presence: esophagitis presence not specified Qualified Code(s): K21.9 - Gastro-esophageal reflux disease without esophagitis
[2024-09-17] MEDS: cefTRIAXone SODIUM 2,000 MG/50 ML BAG IV SCH (13:22)
--- NOTE | 2024-09-18 08:50 | Hospitalist Progress Note ---
Date of Service September 18, 2024 Assessment & Plan (1) UTI (urinary tract infection): Plan: Continue IVF but decrease to 80cc/hr Ceftriaxone IV continued Monitor urine/blood cultures- + for E.coli (2) Lethargic: Plan: suspected 2nd to poor PO intake/dehydration and urinary tract infection (3) Acute dehydration: Plan: -con't IVF (4) Atrial fibrillation: Plan: Metoprolol 25mg PO x 1 now and continue 25mg BID (prior reduction from 50mg BID?) Continue digoxin, diltiazem, eliquis BID (on reduced dose 2.5mg BID for age/weight), ASA 81mg daily, Lipitor (5) DM2 (diabetes mellitus, type 2): Plan: BSG AC/HS with sliding scale in place and can adjust as needed (6) CAD (coronary artery disease): Plan: eliquis BID (on reduced dose 2.5mg BID for age/weight), ASA 81mg daily, Lipitor, Metoprolol (7) CVA (cerebral vascular accident): Plan: Telemetry monitoring as above and will continue eliquis/ASA/lipitor, BB as above Aspiration precautions, pureed diet, HOB elevation and repeat speech consult ordered (8) GERD (gastroesophageal reflux disease): Plan: -con't PPI daily (9) Ulcer of right heel: Plan: Present on admission, no infection and continues abx as above. monitor for issues but wound RN consulted Plan 88yo with PMHx significant for afib, DM II, CVA presented from [facility] for illness with increased lethargy and poor PO intake and recent diagnosis COVID-19 last month. 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 Respiratory biofire negative on admission and CXR w/o acute process and no hypoxia. CT head on admission w/ small amt fluid LEFT maxillary sinus/opacification of mastoid air cells bilaterally D/C planning to [facility] by 09/19. Admission and Anticipated Discharge Date Admission Date: September 16, 2024 Subjective No events overnight, pt awake an talking this am. Review of Systems Review of Systems: CONST: Negative for fever, body aches and chills. HENT: Negative for neck pain/stiffness, headache, congestion, sore throat, swelling. EYES: Negative for discharge/pain or vision changes. RESP: Negative for cough/hemoptysis and shortness of breath. CV: Negative chest pain, difficulty breathing, palpitations. ABD: Negative pain, nausea, vomiting. : Negative increase frequency, dysuria, blood in urine or stool. MUSC: Negative for muscle aches, edema. SKIN: Negative rash, lesions/sores. NEURO: Negative headache, dizziness, weakness. Physical Exam Physical Exam: GENERAL APPEARANCE NAD, activity normal for age, well developed/ well nourished, no cyanosis, pallor, or diaphoresis. EYES lids/conjunctiva normal. EARS/NOSE/THROAT Mucous membranes moist, nares normal, lips/teeth normal uvula midline without oral pharyngeal erythema, exudate or swelling TMs normal bilaterally. No lymphangitis/lymphedema. HEAD/NECK normocephalic atraumatic, no facial trauma, neck is supple. RESPIRATORY respiratory effort normal, speaks in full sentences, no tripod position, no accessory muscle use. Lungs clear to auscultation without rhonchi, wheezes, rales CARDIAC Regular rate and rhythm, no edema. ABDOMINAL Soft, ND/NT. No evidence of fluid wave. No pulsatile masses on exam, rebound tenderness, Tan sign or pain over Mcburney's point. MUSCLES/EXTREMITIES No abnormal range of motion, no swelling. SKIN Warm, pink and dry. No rashes, dermatoses, petechiae or lesions. NEUROLOGICAL Speech is clear and appropriate. Normal level of consciousness. Gait and coordination are normal. 5/5 strength in all extremities. PSYCH Normal mood and affect. Judgement/competence is appropriate Results & Data Results & Data Vital Signs (Past 12 Hours) Vital Signs Temp Pulse Pulse Resp BP Pulse Ox O2 Del Method 09/18/24 07:44 36.7 C 86 18 150/76 H 96 Room Air 09/18/24 07:38 85 09/18/24 07:25 Room Air 09/18/24 07:08 78 09/18/24 03: 36.9 C 78 18 145/62 H 93 Room Air 09/17/24 22:59 36.8 C 86 18 149/66 H 95 Room Air 09/17/24 20:48 71 143/77 H PG Care Time/CCT Total # of Minutes Spent Total Time Spent with Patient: Total time spent is greater than 50% in coordination of care (as documented) at patient's floor/unit and/or counseling patient: Coding Level of Care Code 66499 SUB INP/OBS CARE 2/35MIN Diagnoses UTI (urinary tract infection) N39.0 Lethargic R53.83 Acute dehydration E86.0 Atrial fibrillation I48.91 DM2 (diabetes mellitus, type 2) E11.9 Coronary artery disease involving [place] coronary artery of [place] heart without angina pectoris I25.10 Coronary Disease-Associated Artery/Lesion type: [place] artery [place] vs. transplanted heart: c[place]o heart Associated angina: without angina CVA (cerebral vascular accident) I63.9 Gastroesophageal reflux disease, unspecified whether esophagitis present K21.9 Esophagitis presence: esophagitis presence not specified Ulcer of right heel L97.419 (6) CAD (coronary artery disease) Coronary Disease-Associated Artery/Lesion type: [place] artery [place] vs. transplanted heart: [place] heart Associated angina: without angina Qualified Code(s): I25.10 - Atherosclerotic heart disease of c[place] coronary artery without angina pectoris (8) GERD (gastroesophageal reflux disease) Esophagitis presence: esophagitis presence not specified Qualified Code(s): K21.9 - Gastro-esophageal reflux disease without esophagitis
--- NOTE | 2024-09-18 13:17 | Palliative Care Consultation ---
Date of Consultation September 18, 2024 Assessment & Plan (1) Palliative care by specialist: met with pt's spouse and daughter in conference area. Pt was undergoing swallow evaluation and did not participate in conversation. Introduced Palliative Medicine and explained our role in advanced care planning, symptom management and navigation through the progression of life limiting disease. Family was receptive to palliative services for goals of care discussions. Reviewed we are different from hospice, a home health nurse visiting service. (2) Counseling regarding goals of care: Met with pt's spouse and daughter to discuss ACP/GOC from 10:00 - 10:35 today. Patient has exhibited current lack of decisional capacity based on the inability to convey understanding of personal PMHx, current medical condition, treatment options nor the risks / benefits of those options, and lack of ability to make decisions based on such knowledge. Hospital does not have written documentation of patient wishes concerning her chosen proxy for medical decisions. Per PA Ahm130, in absence of written documentation of patient wishes, pt's proxy for medical decisions would be her spouse. Pt does require a proxy for medical decisions. Pt's spouse was present and agreeable to serve as MDM proxy for pt. He encouraged that he and their daughter Geeta would work together to make any decisions. He shared that he and the patient had never spoken about her wishes at end of life, but the pt has been very specific about her wishes for post mortem care. He shared that they have already decided thet the pt would not want to be kept alive on machines and reinforced DNR/DNI status. He and Geeta both expressed uncertainty about artificial feeding vis tube if pt is not able to safely maintain her own nutritional requirements. We discussed risks of aspiration and pending ST evaluation/recommendations. Spouse stated that if the pt needs a feeding tube they would lean to taking her home for comfort care. They are amenable to temporary IPR placement but would not want her in SNF ad terminal makeup operator. He expressed that the pt most values being at home and would not want to in a hospital or SNF. He shared that they have been together for 70yrs and for 67y. They had three children, but two sons have . Geeta is the only survivin child and they have 7 grand children. He stated that "bringing her home would be her wish" but is unclear at this point on level of care to continue. He expressed concern that she might not participate with PT at SNF/IPR. (3) Quality of life palliative care encounter: Spouse questioned the pt's recent poor quality of life with frequent medical appointments and hospitalization. Discussed that pt will intermittently refuse healthcare and medications and some days eat well and other days not want to eat at all. He shared that being home with family would offer pt most quality and enjoyment, but unclear at this time if they are ready to transition to comfort directed care. (4) Encounter for hospice care discussion: Geeta questioned what services are available for pt at home. She mentioned possible hospice care in the future and that if/when it came time for hospice she would serve as pt's 24hr thermostat mechanic. Geeta is a TOP TILE DECORATOR in local LTC facility. Discussed hospice benefit: an interdisciplinary program offered by nurses, nurses aides, social workers, chaplains and a er medical technician for patients with a terminal condition and a life expectancy of less than 6 months. This is covered by Medicare at 100%/no out of pocket expense to patient and all meds/supplies needed by patient for the reason they are on hospice are paid for/covered by hospice. The goal is assure quality of life of the patient in their home setting (home, penitentiary, inpatient hospice setting) by providing symptoms management, psychosocial and spiritual support. However, they cannot of floyd 24 hours care and if the family is unable to provide that care, they will have to consider personal care with out of pocket cost vs. penitentiary placement. We discussed the goals of hospice as a patient service and the goals of care; we discussed EOL trajectories and transitions chino the emotional impact of realizing mortality as a concrete reality from prior abstract considerations. Pt was reassured that no matter where they are along this trajectory, they are not alone - their medical team will remain by their side through their journey. Discussed the pros/cons of accepting help when especially weakened and distressed by pain-which would also help provide relief/decrease caregiver burden/strain. Spouse was thankful for information and shared that they "have alot to discuss before deciding anything". Plan Palliative care will continue to follow for ongoing GOC discussions and family support. Spouse hoping for further input from ST, before making any plans for discharge. He did indicate that a feeding tube would NOT be consistent with pt. goals. History of Present Illness Reason for Consultation: hospice evaluation/discussion Requesting Physician: Nagi Mccartney MD Attending Physician: Nagi Mccartney MD History of Present Illness 88yo with PMHx significant for afib, DM II, CVA presented from [facility] for illness with increased lethargy and poor PO intake and recent diagnosis COVID-19 last month. Note recent hospitalization 2/3 for chronic RIGHT heel ulcer/cellulitis Palliative care consulted on daughter's request given pt's failure to thrive, frequent admissions and difficulty swallowing. Allergies Allergy/AdvReac Type Severity Reaction Status Date / Time No Known Allergies Allergy Verified 07/18/24 09:01 Home Medications Medication Instructions Recorded Confirmed Type acetaminophen 650 mg 650 mg PO BID 07/18/24 09/16/24 History tablet,extended release (Tylenol 8 Hour) apixaban 2.5 mg tablet (Eliquis) 2.5 mg PO BID 07/18/24 09/16/24 History aspirin 81 mg tablet,delayed 81 mg PO DAILY 07/18/24 09/16/24 History release (Ecotrin Low Strength) atorvastatin 40 mg tablet (Lipitor) 40 mg PO DAILY 07/18/24 09/16/24 History digoxin 125 mcg (0.125 mg) tablet 125 mcg PO DAILY 07/18/24 09/16/24 History (Lanoxin) diltiazem HCl 120 mg 120 mg PO DAILY 07/18/24 09/16/24 History capsule,extended release 24 hr meclizine 12.5 mg tablet 12.5 mg PO TID PRN Dizziness 07/18/24 09/16/24 History melatonin 3 mg capsule 3 mg PO HS PRN Sleep 07/18/24 09/16/24 History metformin 500 mg tablet 500 mg PO BID 07/18/24 09/16/24 History omeprazole 20 mg capsule,delayed 20 mg PO DAILY 07/18/24 09/16/24 History release potassium chloride 20 mEq oral 10 meq PO DAILY 07/18/24 09/16/24 History packet (Klor-Con) sertraline 25 mg tablet 25 mg PO DAILY 07/18/24 09/16/24 History metoprolol tartrate 25 mg tablet 25 mg PO BID #60 tabs 08/19/24 09/16/24 Rx Patient History Surgical History History of heart artery stent History of nephrectomy Family History Other Family history non-contributory Social History Smoking Status: Never smoker Second Hand Exposure: No; Do You Dip or Chew Tobacco: No; Hx Alcohol Use: No Hx Substance Use: No Preferred Language: Irish Communication Ability: Effective Golf Course Mechanic Required: No Beliefs That Will Affect Care: Adventism Current Living Situation: Spouse and Rehab Current Living Situation Comment: live with spouse 2story house, was at rehab for over 20 days Feels Safe at Home: Yes Assistive Devices: Lift Chair and Wheelchair Review of Systems Review of Systems: Unobtainable due to cognitive status Physical Exam Constitutional: WD/WN, vitals as above + ill appearing; not in distress Eyes: PERRL, conjunctivae normal, anicteric sclerae ENMT: external ear and nose normal, oropharynx normal Neck: trachea midline, no thyromegaly Respiratory: normal respiratory effort, lungs clear to auscultation Auscultation: + diminished lung sounds Cardiovascular: RRR, no murmur, no edema Gastrointestinal (Abdomen): normal bowel sounds, soft, nontender, no hepatosplenomegaly Skin: no rashes, warm and dry + turgor decreased Neurologic: moves all extremities and + confused confused per baseline, will follow some simple commands, intermittently cooperative Results & Data Vital Signs (Past 12 Hours) Vital Signs Temp Pulse Pulse Resp BP Pulse Ox O2 Del Method 09/18/24 11:12 36.5 C 71 17 172/78 H 96 Room Air 09/18/24 07:44 36.7 C 86 18 150/76 H 96 Room Air 09/18/24 07:38 85 09/18/24 07:25 Room Air 09/18/24 07:08 78 09/18/24 03:25 36.9 C 78 18 145/62 H 93 Room Air Laboratory Results Abnormal lab results 09/18/24 09/19/24 09/19/24 Range/Units 20:05 07:21 12:25 RBC 3.20 L (4.20-5.40) M/uL Hgb 9.2 L (12.0-16.0) g/dl Hct 28.8 L (37.0-47.0) % MCHC 31.9 L (32.0-36.0) g/dL RDW Std Deviation 51.8 H (36.4-46.3) fL RDW Coeff of Kamilla 15.7 H (11.5-14.5) % Plt Count 531 H (130-400) K/uL Potassium 3.4 L (3.5-5.1) mmol/L Chloride 113 H (98-107) mmol/L Creatinine 0.41 L (0.6-1.2) mg/dl POC Glucose 108 H 166 H (70-99) mg/dl Calcium 7.7 L (8.6-10.3) mg/dl Diagnostic Findings Chest X-Ray 09/16/24 09:05 XR chest 1V portable CLINICAL HISTORY: weakness COMPARISON STUDY: 08/13/2024 FINDINGS: Stable mild cardiomegaly without pulmonary vascular congestion. No effusion, consolidation, or pneumothorax. Stable mild right AC joint separation. IMPRESSION: No acute findings. ACT 112: Negative or not required by law. Electronically signed by: Cheo Gore M.D. 09/16/2024 9:[address] 09/16/24 09:05 CT head/brain wo con CLINICAL HISTORY: AMS. TECHNIQUE: Multiple axial CT images of the head were obtained without contrast. A dose lowering technique was utilized adhering to the principles of ALARA. CT DOSE: 547.75 mGy.cm COMPARISON: 08/15/2024 FINDINGS: There are stable moderate to severe chronic small vessel ischemic changes. Stable small area of encephalomalacia posterior left frontal lobe. No intracranial hemorrhage seen. No mass effect, midline shift, or hydrocephalus. No skull fracture seen. There is small amount of fluid in the left maxillary sinus. Some of the mastoid air cells are opacified bilaterally. IMPRESSION: 1. No acute intracranial findings. 2. Interval small amount of fluid at the left maxillary sinus and opacification of some of the mastoid air cells bilaterally. ACT 112: Negative or not required by law. The above report was generated using voice recognition software. It may contain grammatical, syntax or spelling errors. Electronically signed by: Cheo Gore M.D. 09/16/2024 9:50 AM Videofluoroscopic Swallow 09/19/24 09:30 FL video swallow CLINICAL HISTORY: assess for aspiration history of stroke COMPARISON STUDY: None TECHNIQUE: The patient was given a barium mixture to drink of varying consistencies in conjunction with speech pathology. Examination was recorded with rapid sequence filming during fluoroscopic observation. Total fluoroscopy time 1.48 minutes. Total dose 8.26mGy FINDINGS: The study is somewhat limited by patient condition. There is easily demonstrable aspiration with thin liquids which did not elicit a cough response. The patient appears to reduce slightly better with thicker consistencies. IMPRESSION: Easily demonstrable aspiration with thin liquids which did not elicit a cough response. ACT 112: Negative or not required by law. Electronically signed by: Mirta Grayson M.D. 09/19/2024 10:41 AM Medications Administered Current Inpatient Medications Acetaminophen (Acetaminophen 325 Mg Tab) 650 mg PO BID BRIELLE Stop: 10/16/24 20:59 Last Admin: 09/19/24 09:03 Dose: Not Given Acetaminophen (Acetaminophen 325 Mg Tab) 650 mg PO Q4H PRN PRN Reason: Pain or Fever Stop: 10/16/24 12:06 Apixaban (Apixaban 2.5 Mg Tab) 2.5 mg PO BID BRIELLE Stop: 10/16/24 20:59 Last Admin: 09/19/24 08:35 Dose: 2.5 mg Aspirin (Aspirin 81 Mg Ectab) 81 mg PO QAM BRIELLE Stop: 10/16/24 20:59 Last Admin: 09/19/24 08:38 Dose: 81 mg Atorvastatin Calcium (Atorvastatin 40 Mg Tab) 40 mg PO DAILY BRIELLE Stop: 10/17/24 08:59 Last Admin: 09/19/24 08:40 Dose: 40 mg Dextrose (Dextrose 50% 50 Ml Syringe) 25 - 50 ml IV UD PRN; Protocol PRN Reason: Hypoglycemia Protocol Stop: 10/16/24 12:06 Digoxin (Digoxin 0.125 Mg Tab) 0.125 mg PO DAILY BRIELLE Stop: 10/17/24 08:59 Last Admin: 09/19/24 08:37 Dose: 0.125 mg Diltiazem HCl (Diltiazem Hcl 120 Mg Capcr) 120 mg PO DAILY BRIELLE Stop: 10/17/24 08:59 Last Admin: 09/19/24 08:38 Dose: 120 mg Glucagon (Glucagon For Inj 1 Mg Vial) 1 mg SQ UD PRN; Protocol PRN Reason: Hypoglycemia Protocol Stop: 10/16/24 12:06 Glucose (Glucose 40% Gel 15 Gm Tube) 15 - 30 gm PO UD PRN; Protocol PRN Reason: Hypoglycemia Protocol Stop: 10/16/24 12:06 Glucose (Glucose 10 Tab/Tube) 4 - 8 tab PO UD PRN; Protocol PRN Reason: Hypoglycemia Protocol Stop: 10/16/24 12:06 Hydralazine HCl (Hydralazine Hcl 20 Mg/Ml Vial) 5 mg IV Q8H PRN PRN Reason: hypertension Stop: 10/16/24 13:58 Ceftriaxone Sodium (Rocephin) 2,000 mg in 50 mls @ 100 mls/hr IV Q24H BIRELLE Stop: 09/27/24 11:59 Last Infusion: 09/19/24 11:58 Dose: Infused Insulin Aspart (Insulin Aspart Per Unit Charge) 0 units SC ACHS BRIELLE Stop: 10/16/24 12:14 Last Admin: 09/19/24 08:11 Dose: Not Given Meclizine HCl (Meclizine 12.5 Mg Tab) 12.5 mg PO TID PRN PRN Reason: Dizziness Stop: 10/16/24 12:06 Melatonin (Melatonin 3 Mg Tab) 3 mg PO HS PRN PRN Reason: Sleep Stop: 10/16/24 12:11 Last Admin: 09/16/24 20:35 Dose: 3 mg Metoprolol Tartrate (Metoprolol Tartrate 25 Mg Tab) 25 mg PO BID BRIELLE Stop: 10/16/24 20:59 Last Admin: 09/19/24 08:38 Dose: 25 mg Miscellaneous (Carbohydrates For Hypoglycemia ) 15 - 30 gm PO UD PRN PRN Reason: Hypoglycemia Protocol Stop: 10/16/24 12:06 Ondansetron HCl (Ondansetron Inj 2 Mg/Ml 2 Ml Vial) 4 mg IV Q6H PRN PRN Reason: Nausea Stop: 10/16/24 12:06 Pantoprazole Sodium (Pantoprazole 40 Mg Tab) 40 mg PO DAILY BRIELLE Stop: 10/17/24 08:59 Last Admin: 09/19/24 08:41 Dose: Not Given Phenazopyridine HCl (Phenazopyridine Hcl 200 Mg Tab) 200 mg PO TID PRN PRN Reason: Bladder pain Stop: 10/16/24 19:19 Last Admin: 09/16/24 20:07 Dose: 200 mg Potassium Chloride (Potassium Chloride Pwd 20 Meq Pack) 10 meq PO DAILY BRIELLE Stop: 10/17/24 08:59 Last Admin: 09/19/24 08:37 Dose: 10 meq Sertraline HCl (Sertraline Hcl 50 Mg Tablet) 25 mg PO DAILY BRIELLE Stop: 10/17/24 08:59 Last Admin: 09/19/24 08:37 Dose: 25 mg PG Care Time/CCT Total # of Minutes Spent Total Time Spent with Patient: Total time spent is greater than 50% in coordination of care (as documented) at patient's floor/unit and/or counseling patient: Advanced Care Planning 86929 Advanced Care Planning 30 [place] [address] IN/OBS CONSULT LVL 3,45M Patient Type New History Expanded Problem Focused Exam Problem Focused Medical Decision Making Moderate Complexity Diagnoses Palliative care by specialist Z51.5 Counseling regarding goals of care Z71.89 Quality of life palliative care encounter Z51.5 Encounter for hospice care discussion Z71.89 Additional Codes Advanced Care Planning - 88772 Advanced Care Planning 30 Min: 61109 Advanced Care Planning 30 Min ([id number])
--- NOTE | 2024-09-18 13:54 | Communication Note ---
Date of Service: September 18, 2024 Palliative care consulted for assistance with GOC/hospice discussion. Pt was being bathed by nursing staff when I attempted to visit. No visitors present. I did reach pt's daughter by phone, she requests information on palliaitve vs hospice services at home, but wants pt's spouse to be involved in discussion. She shared that they intend to visit with pt together tomorrow. GOC meeting scheduled with pt's spouse and dtr for 10:00 on 09/19/24 at which time full consult will be performed.
[2024-09-18] MEDS: dilTIAZem HCl 5 MG/ML 5 ML VIAL IV STA (18:15)
[2024-09-18] MEDS: METOPROLOL TARTRATE 1 MG/ML VIAL IV STA (18:15)
[2024-09-19 07:43] LABS: Hematocrit (blood only) 28.8 % (37.0-47.0); Hemoglobin 9.2 g/dl (12.0-16.0); Mean Corpuscular Hemoglobin 28.8 pg (25.0-34.0); Mean Corpuscular Hgb Conc 31.9 g/dL (32.0-36.0); Platelet Count 531 K/uL (130-400); RDW Coefficient of Variation 15.7 % (11.5-14.5); RDW Standard Deviation 51.8 fL (36.4-46.3); White Blood Count 8.14 K/ul (4.8-10.8)
[2024-09-19 08:08] LABS: BUN Creatinine Ratio 19.5 (10-20); Calcium 7.7 mg/dl (8.6-10.3); Creatinine Clr Calc Pharmacy 68.1 ml/min; Potassium 3.4 mmol/L (3.5-5.1)
--- NOTE | 2024-09-19 09:21 | Hospitalist Progress Note ---
Date of Service September 19, 2024 Assessment & Plan (1) UTI (urinary tract infection): Plan: Continue IVF but decrease to 80cc/hr Ceftriaxone IV continued Monitor urine/blood cultures- + for E.coli (2) Lethargic: Plan: suspected 2nd to poor PO intake/dehydration and urinary tract infection (3) Acute dehydration: Plan: -con't IVF (4) Atrial fibrillation: Plan: Metoprolol 25mg PO x 1 now and continue 25mg BID (prior reduction from 50mg BID?) Continue digoxin, diltiazem, eliquis BID (on reduced dose 2.5mg BID for age/weight), ASA 81mg daily, Lipitor Pt with episode of afib with RVR last night 09/18, given metoprolol IV (5) DM2 (diabetes mellitus, type 2): Plan: BSG AC/HS with sliding scale in place and can adjust as needed (6) CAD (coronary artery disease): Plan: eliquis BID (on reduced dose 2.5mg BID for age/weight), ASA 81mg daily, Lipitor, Metoprolol (7) CVA (cerebral vascular accident): Plan: Telemetry monitoring as above and will continue eliquis/ASA/lipitor, BB as above Aspiration precautions, pureed diet, HOB elevation and repeat speech consult ordered (8) GERD (gastroesophageal reflux disease): Plan: -con't PPI daily (9) Ulcer of right heel: Plan: Present on admission, no infection and continues abx as above. monitor for issues but wound RN consulted Plan 88yo with PMHx significant for afib, DM II, CVA presented from [facility] for illness with increased lethargy and poor PO intake and recent diagnosis COVID-19 last month. 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 Respiratory biofire negative on admission and CXR w/o acute process and no hypoxia. CT head on admission w/ small amt fluid LEFT maxillary sinus/opacification of mastoid air cells bilaterally Family requesting home hospice evaluation prior to d/c, family does not want to d/c to [facility] and wants to take home. Admission and Anticipated Discharge Date Admission Date: September 16, 2024 Subjective No events overnight, pt awake an talking this am. Review of Systems Review of Systems: CONST: Negative for fever, body aches and chills. HENT: Negative for neck pain/stiffness, headache, congestion, sore throat, swelling. EYES: Negative for discharge/pain or vision changes. RESP: Negative for cough/hemoptysis and shortness of breath. CV: Negative chest pain, difficulty breathing, palpitations. ABD: Negative pain, nausea, vomiting. : Negative increase frequency, dysuria, blood in urine or stool. MUSC: Negative for muscle aches, edema. SKIN: Negative rash, lesions/sores. NEURO: Negative headache, dizziness, weakness. Physical Exam Physical Exam: GENERAL APPEARANCE NAD, activity normal for age, well developed/ well nourished, no cyanosis, pallor, or diaphoresis. EYES lids/conjunctiva normal. EARS/NOSE/THROAT Mucous membranes moist, nares normal, lips/teeth normal uvula midline without oral pharyngeal erythema, exudate or swelling TMs normal bilaterally. No lymphangitis/lymphedema. HEAD/NECK normocephalic atraumatic, no facial trauma, neck is supple. RESPIRATORY respiratory effort normal, speaks in full sentences, no tripod position, no accessory muscle use. Lungs clear to auscultation without rhonchi, wheezes, rales CARDIAC Regular rate and rhythm, no edema. ABDOMINAL Soft, ND/NT. No evidence of fluid wave. No pulsatile masses on exam, rebound tenderness, Tan sign or pain over Mcburney's point. MUSCLES/EXTREMITIES No abnormal range of motion, no swelling. SKIN Warm, pink and dry. No rashes, dermatoses, petechiae or lesions. NEUROLOGICAL Speech is clear and appropriate. Normal level of consciousness. Gait and coordination are normal. 5/5 strength in all extremities. PSYCH Normal mood and affect. Judgement/competence is appropriate Results & Data Results & Data Vital Signs (Past 12 Hours) Vital Signs Temp Pulse Pulse Resp BP Pulse Ox O2 Del Method 09/19/24 08:37 67 09/19/24 07:44 36.7 C 69 18 148/67 H 96 Room Air 09/19/24 07:25 Room Air 09/19/24 06:18 61 09/19/24 03:37 36.7 C 75 16 153/80 H 95 Room Air 09/18/24 22:17 36.4 C L 88 16 156/76 H 97 Room Air PG Care Time/CCT Total # of Minutes Spent Total Time Spent with Patient: Total time spent is greater than 50% in coordination of care (as documented) at patient's floor/unit and/or counseling patient: Coding Level of Care Code 32322 SUB INP/OBS CARE 2/35MIN Diagnoses UTI (urinary tract infection) N39.0 Lethargic R53.83 Acute dehydration E86.0 Atrial fibrillation I48.91 DM2 (diabetes mellitus, type 2) E11.9 Coronary artery disease involving [place] coronary artery of [place] heart without angina pectoris I25.10 Coronary Disease-Associated Artery/Lesion type: [place] artery [place] vs. transplanted heart: [place] heart Associated angina: without angina CVA (cerebral vascular accident) I63.9 Gastroesophageal reflux disease, unspecified whether esophagitis present K21.9 Esophagitis presence: esophagitis presence not specified Ulcer of right heel L97.419 (6) CAD (coronary artery disease) Coronary Disease-Associated Artery/Lesion type: [place] artery [place] vs. transplanted heart: [place] heart Associated angina: without angina Qualified Code(s): I25.10 - Atherosclerotic heart disease of [place] coronary artery without angina pectoris (8) GERD (gastroesophageal reflux disease) Esophagitis presence: esophagitis presence not specified Qualified Code(s): K21.9 - Gastro-esophageal reflux disease without esophagitis
--- NOTE | 2024-09-19 10:44 | Fluoroscopy Report ---
FL video swallow CLINICAL HISTORY: assess for aspiration history of stroke COMPARISON STUDY: None TECHNIQUE: The patient was given a barium mixture to drink of varying consistencies in conjunction wi speech pathology. Examination was recorded with rapid sequence filming during fluoroscopic observa tion. Total fluoroscopy time 1.48 minutes. Total dose 8.26mGy FINDINGS: The study is somewhat limited by patient condition. There is easily demonstrable aspiration with thin liquids which did not elicit a cough response. The patient appears to reduce slightly bett er with thicker consistencies. IMPRESSION: Easily demonstrable aspiration with thin liquids which did not elicit a cough response. ACT 112: Negative or not required by law. Electronically signed by: Mirta Grayson M.D. 09/19/2024 10:41 AM
[2024-09-20 07:27] VITALS: RESP 18; O2SAT 97
[2024-09-20] MEDS: POTASSIUM CHLORIDE CRTAB 20 MEQ TABCR PO STA (07:53)
[2024-09-20] MEDS: POTASSIUM CHLORIDE PWD 20 MEQ PACK PO ONE (08:49)
--- NOTE | 2024-09-20 09:40 | Hospitalist Progress Note ---
Date of Service September 20, 2024 Assessment & Plan (1) UTI (urinary tract infection): Plan: Continue IVF but decrease to 80cc/hr Ceftriaxone IV continued Monitor urine/blood cultures- + for E.coli (2) Lethargic: Plan: suspected 2nd to poor PO intake/dehydration and urinary tract infection (3) Acute dehydration: Plan: -con't IVF (4) Atrial fibrillation: Plan: Metoprolol 25mg PO x 1 now and continue 25mg BID (prior reduction from 50mg BID?) Continue digoxin, diltiazem, eliquis BID (on reduced dose 2.5mg BID for age/weight), ASA 81mg daily, Lipitor Pt with episode of afib with RVR last night 09/18, given metoprolol IV (5) DM2 (diabetes mellitus, type 2): Plan: BSG AC/HS with sliding scale in place and can adjust as needed (6) CAD (coronary artery disease): Plan: eliquis BID (on reduced dose 2.5mg BID for age/weight), ASA 81mg daily, Lipitor, Metoprolol (7) CVA (cerebral vascular accident): Plan: Telemetry monitoring as above and will continue eliquis/ASA/lipitor, BB as above Aspiration precautions, pureed diet, HOB elevation and repeat speech consult ordered (8) GERD (gastroesophageal reflux disease): Plan: -con't PPI daily (9) Ulcer of right heel: Plan: Present on admission, no infection and continues abx as above. monitor for issues but wound RN consulted Plan 88yo with PMHx significant for afib, DM II, CVA presented from [facility] for illness with increased lethargy and poor PO intake and recent diagnosis COVID-19 last month. 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 Respiratory biofire negative on admission and CXR w/o acute process and no hypoxia. CT head on admission w/ small amt fluid LEFT maxillary sinus/opacification of mastoid air cells bilaterally Family requesting home hospice evaluation prior to d/c, family does not want to d/c to [facility] and wants to take home. Awaiting family decision today 09/20. Admission and Anticipated Discharge Date Admission Date: September 16, 2024 Subjective No events overnight, pt awake an talking this am. Review of Systems Review of Systems: CONST: Negative for fever, body aches and chills. HENT: Negative for neck pain/stiffness, headache, congestion, sore throat, swelling. EYES: Negative for discharge/pain or vision changes. RESP: Negative for cough/hemoptysis and shortness of breath. CV: Negative chest pain, difficulty breathing, palpitations. ABD: Negative pain, nausea, vomiting. : Negative increase frequency, dysuria, blood in urine or stool. MUSC: Negative for muscle aches, edema. SKIN: Negative rash, lesions/sores. NEURO: Negative headache, dizziness, weakness. Physical Exam Physical Exam: GENERAL APPEARANCE NAD, activity normal for age, well developed/ well nourished, no cyanosis, pallor, or diaphoresis. EYES lids/conjunctiva normal. EARS/NOSE/THROAT Mucous membranes moist, nares normal, lips/teeth normal uvula midline without oral pharyngeal erythema, exudate or swelling TMs normal bilaterally. No lymphangitis/lymphedema. HEAD/NECK normocephalic atraumatic, no facial trauma, neck is supple. RESPIRATORY respiratory effort normal, speaks in full sentences, no tripod position, no accessory muscle use. Lungs clear to auscultation without rhonchi, wheezes, rales CARDIAC Regular rate and rhythm, no edema. ABDOMINAL Soft, ND/NT. No evidence of fluid wave. No pulsatile masses on exam, rebound tenderness, Tan sign or pain over Mcburney's point. MUSCLES/EXTREMITIES No abnormal range of motion, no swelling. SKIN Warm, pink and dry. No rashes, dermatoses, petechiae or lesions. NEUROLOGICAL Speech is clear and appropriate. Normal level of consciousness. Gait and coordination are normal. 5/5 strength in all extremities. PSYCH Normal mood and affect. Judgement/competence is appropriate Results & Data Results & Data Vital Signs (Past 12 Hours) Vital Signs Temp Pulse Pulse Pulse Resp BP Pulse Ox 09/20/24 07:27 36.0 C L 78 18 129/69 97 09/20/24 07:12 09/20/24 05:45 62 09/20/24 03:22 36.6 C 89 16 110/73 96 09/19/24 22:27 09/19/24 22:18 36.6 C 79 16 149/71 H 94 09/19/24 22:03 81 O2 Del Method 09/20/24 07:27 Room Air 09/20/24 07:12 Room Air 09/20/24 05:45 09/20/24 03:22 Room Air 09/19/24 22:27 Room Air 09/19/24 22:18 Room Air 09/19/24 22:03 PG Care Time/CCT Total # of Minutes Spent Total Time Spent with Patient: Total time spent is greater than 50% in coordination of care (as documented) at patient's floor/unit and/or counseling patient: Coding Level of Care Code 94829 SUB INP/OBS CARE MIN Diagnoses UTI (urinary tract infection) N39.0 Lethargic R53.83 Acute dehydration E86.0 Atrial fibrillation I48.91 DM2 (diabetes mellitus, type 2) E11.9 Coronary artery disease involving [place] coronary artery of [place] heart without angina pectoris I25.10 Coronary Disease-Associated Artery/Lesion type: [place] artery [place] vs. transplanted heart: [place] heart Associated angina: without angina CVA (cerebral vascular accident) I63.9 Gastroesophageal reflux disease, unspecified whether esophagitis present K21.9 Esophagitis presence: esophagitis presence not specified Ulcer of right heel L97.419 (6) CAD (coronary artery disease) Coronary Disease-Associated Artery/Lesion type: [place] artery [place] vs. transplanted heart: [place] heart Associated angina: without angina Qualified Code(s): I25.10 - Atherosclerotic heart disease of [place] coronary artery without angina pectoris (8) GERD (gastroesophageal reflux disease) Esophagitis presence: esophagitis presence not specified Qualified Code(s): K21.9 - Gastro-esophageal reflux disease without esophagitis
[2024-09-20 11:05] VITALS: BP 111/48; TEMP 97.5
[2024-09-20] MEDS ORDERED: haloperidoL 5 MG TAB PO PRN (13:47)
[2024-09-20] MEDS ORDERED: GLYCOPYRROLATE 0.2 MG/ML VIAL IV PRN (13:47)
[2024-09-20] MEDS ORDERED: LORazepam 2 MG/1 ML VIAL IV PRN (13:47)
[2024-09-20] MEDS ORDERED: ONDANSETRON INJ 2 MG/ML 2 ML VIAL IV PRN (13:47)
[2024-09-20] MEDS ORDERED: ATROPINE SULFATE 1% OP SOLN 5 ML BTL SL PRN (13:47)
[2024-09-20] MEDS ORDERED: MoRPHine SULFATE 10 MG/0.5 ML UDP PO PRN (13:47)
--- NOTE | 2024-09-20 14:25 | Palliative Family Discussion ---
Date of Service September 20, 2024 Patient Directed Conference Time of Meetin:00-13:440 Participants: Rach Mccormack AGACNP Patient participation: no Patient Support System: dtr Beba Miranda Other Healthcare Provider Participation: yes, Olga Lidia Lui POUNCING LATHE OPERATOR Meeting Location: waiting room Advanced Directive available: No If yes, descriptors: The patient's surrogate medical decision maker participated: spoke with spouse by phone Legally authorized health care proxy: spouse Jose Alejandro Kent Other surrogate: dtr A family meeting was held for PRIMO KENT. This meeting was necessary for determining the appropriate course of treatment. Topics of Discussion Topics of Discussion: 1. POUNCING LATHE OPERATOR recs for aspiration prevention 2. Goals of Care 3. Comfort directed care/Hospice Other Content of Meetin. Opportunity given for participants to speak and ask questions. 2. Participants were assured of attention to patient comfort. 3. Reassurance provided. 4. Support was provided for informed, good-kati decisions. 5. Emotions expressed by family were acknowledged and addressed. 6. Follow-up Outpatient: N/A 7. Plan of Care: transition to [facility] with hope for discharge home with hospice in next few days Met with Beba in conference room along with Gwen lui POUNCING LATHE OPERATOR. Gwen discussed results of video swallow study completed yesterday and shared that pt did have silent aspiration with all consistency of food/drink. Gwen did some teaching on aspiration precautions/PNA prevention for ongoing care of pt at home. She also provided written documentation of this teaching. Beba verbalized understanding of teaching and shared that she will be the person providing hands on care to feed her mother at home. Beba shared that she and her father had ongoing conversations after [facility] meeting yesterday and pt's spouse would like pt to be discharged home with hospice when able. he shared that they would need a hospital bed to be brought to their home prior to discharge. Beba again shared that as a RIPRAP MAN in care home care setting, she is well equipped to care for her mother at home through the end of life. Reinforced prior discussion of hospice. Discussed hospice benefit: an interdisciplinary program offered by nurses, nurses aides, social workers, chaplains and a medical collections for patients with a terminal condition and a life expectancy of less than 6 months. This is covered by Medicare at 100%/no out of pocket expense to patient and all meds/supplies needed by patient for the reason they are on hospice are paid for/covered by hospice. The goal is assure quality of life of the patient in their home setting (home, residential, inpatient hospice setting) by providing symptoms management, psychosocial and spiritual support. However, they cannot offer 24 hours care and if the family is unable to provide that care, they will have to consider personal care with out of pocket cost vs. residential placement. We discussed the goals of hospice as a patient service and the goals of care; we discussed EOL trajectories and transitions chino the emotional impact of realizing mortality as a concrete reality from prior abstract considerations. Pt was reassured that no matter w here they are along this trajectory, they are not alone - their medical team will remain by their side through their journey. Discussed the pros/cons of accepting help when especially weakened and distressed by pain-which would also help provide relief/decrease caregiver burden/strain. Discussed changes pt may move through in the dying process including but not limited to sleeping more, disorientation when awake, restlessness, diminished senses/inability to respond to stimulus although ability to be aware of them remains intact longer, and changes in body temperatures, skin changes/mottling/c yanosis, respiratory pattern changes, and oral secretions. Family verbalized understanding. The goal is to assure a peaceful . Beba shared that the pt's spouse is currently driving a friend home from [facility] a few hours away and tomorrow has an appointment at [facility] for outpt surgery. She shared that she will need to work out logistics of getting bed delivered and pt transported home, but she still prefers to have her home tomorrow if possible. CM made aware. Family requests transition to [facility] now with plan for discharge home with hospice care, confirmed this with pt's spouse via phone. [facility] orders entered. Time Involved in Meeting: I spent 65 minutes overall addressing this case: 5 in medical data review/discussion with referring provider(s) and/or preparation for the visit 5 in direct interaction with the patient 40 Advance Care Planning/Goals of Care discussions as detailed above in note (must be >16min) 10 in subsequent review and synthesis of assessment and plan 5 in communicating with other providers regarding the patient's case: Dr. Nagi Mccartney, BSRN, ST, and CM
[2024-09-20 14:57] VITALS: PULSE 60
[2024-09-21] MEDS: MoRPHine SULFATE 2 MG/ML CARP IV PRN (05:37)
--- NOTE | 2024-09-21 10:36 | Hospitalist Progress Note ---
Date of Service September 21, 2024 Assessment & Plan (1) UTI (urinary tract infection): Plan: Ceftriaxone IV continued Monitor urine/blood cultures- + for E.coli (2) Lethargic: Plan: suspected 2nd to poor PO intake/dehydration and urinary tract infection (3) Acute dehydration: Plan: -con't IVF (4) Atrial fibrillation: Plan: Metoprolol 25mg PO x 1 now and continue 25mg BID (prior reduction from 50mg BID?) Continue digoxin, diltiazem, eliquis BID (on reduced dose 2.5mg BID for age/weight), ASA 81mg daily, Lipitor Pt with episode of afib with RVR last night 09/18, given metoprolol IV (5) DM2 (diabetes mellitus, type 2): Plan: BSG AC/HS with sliding scale in place and can adjust as needed (6) CAD (coronary artery disease): Plan: eliquis BID (on reduced dose 2.5mg BID for age/weight), ASA 81mg daily, Lipitor, Metoprolol (7) CVA (cerebral vascular accident): Plan: Telemetry monitoring as above and will continue eliquis/ASA/lipitor, BB as above Aspiration precautions, pureed diet, HOB elevation and repeat speech consult ordered (8) GERD (gastroesophageal reflux disease): Plan: -con't PPI daily (9) Ulcer of right heel: Plan: Present on admission, no infection and continues abx as above. monitor for issues but wound RN consulted Plan 88yo with PMHx significant for afib, DM II, CVA presented from [facility] for illness with increased lethargy and poor PO intake and recent diagnosis COVID-19 last month. 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 Respiratory biofire negative on admission and CXR w/o acute process and no hypoxia. CT head on admission w/ small amt fluid LEFT maxillary sinus/opacification of mastoid air cells bilaterally Pt will be discharged to home with hospice, anticipate within next 24hrs. Admission and Anticipated Discharge Date Admission Date: September 16, 2024 Subjective No events overnight, pt awake an talking this am. Review of Systems Review of Systems: CONST: Negative for fever, body aches and chills. HENT: Negative for neck pain/stiffness, headache, congestion, sore throat, swelling. EYES: Negative for discharge/pain or vision changes. RESP: Negative for cough/hemoptysis and shortness of breath. CV: Negative chest pain, difficulty breathing, palpitations. ABD: Negative pain, nausea, vomiting. : Negative increase frequency, dysuria, blood in urine or stool. MUSC: Negative for muscle aches, edema. SKIN: Negative rash, lesions/sores. NEURO: Negative headache, dizziness, weakness. Physical Exam Physical Exam: GENERAL APPEARANCE NAD, activity normal for age, well developed/ well nourished, no cyanosis, pallor, or diaphoresis. EYES lids/conjunctiva normal. EARS/NOSE/THROAT Mucous membranes moist, nares normal, lips/teeth normal uvula midline without oral pharyngeal erythema, exudate or swelling TMs normal bilaterally. No lymphangitis/lymphedema. HEAD/NECK normocephalic atraumatic, no facial trauma, neck is supple. RESPIRATORY respiratory effort normal, speaks in full sentences, no tripod position, no accessory muscle use. Lungs clear to auscultation without rhonchi, wheezes, rales CARDIAC Regular rate and rhythm, no edema. ABDOMINAL Soft, ND/NT. No evidence of fluid wave. No pulsatile masses on exam, rebound tenderness, Tan sign or pain over Mcburney's point. MUSCLES/EXTREMITIES No abnormal range of motion, no swelling. SKIN Warm, pink and dry. No rashes, dermatoses, petechiae or lesions. NEUROLOGICAL Speech is clear and appropriate. Normal level of consciousness. Gait and coordination are normal. 5/5 strength in all extremities. PSYCH Normal mood and affect. Judgement/competence is appropriate Results & Data Results & Data Vital Signs (Past 12 Hours) Vital Signs O2 Del Method 09/21/24 08:34 Room Air PG Care Time/CCT Total # of Minutes Spent Total Time Spent with Patient: Total time spent is greater than 50% in coordination of care (as documented) at patient's floor/unit and/or counseling patient: Coding Level of Care Code 05046 SUB INP/OBS CARE 2/35MIN Diagnoses UTI (urinary tract infection) N39.0 Lethargic R53.83 Acute dehydration E86.0 Atrial fibrillation I48.91 DM2 (diabetes mellitus, type 2) E11.9 Coronary artery disease involving [place] coronary artery of [place] heart without angina pectoris I25.10 Coronary Disease-Associated Artery/Lesion type: [place] artery [place] vs. transplanted heart: [place] heart Associated angina: without angina CVA (cerebral vascular accident) I63.9 Gastroesophageal reflux disease, unspecified whether esophagitis present K21.9 Esophagitis presence: esophagitis presence not specified Ulcer of right heel L97.419 (6) CAD (coronary artery disease) Coronary Disease-Associated Artery/Lesion type: [place] artery [place] vs. transplanted heart: [place] heart Associated angina: without angina Qualified Code(s): I25.10 - Atherosclerotic heart disease of [place] coronary artery without angina pectoris (8) GERD (gastroesophageal reflux disease) Esophagitis presence: esophagitis presence not specified Qualified Code(s): K21.9 - Gastro-esophageal reflux disease without esophagitis
--- NOTE | 2024-09-21 12:06 | Palliative Care Progress Note ---
Date of Service September 21, 2024 Assessment & Plan (1) Palliative care by specialist: Plan: Palliative care will continue to follow for ongoing EOL pt care and family support. Spoke with pt's daughter today. She confirms wish for pt to be discharged home with hospice. She shared that she has spoken with Romy from [facility] and plan is for DME to be delivered today prior to pt discharge home tomorrow. CM aware. (2) Comfort measures only status: Plan: Patient transitioned to GROUTMAN on 09/20/24. She is using minimal PRN comfort meds and does not fit criteria for GIP at this time. (3) Need for comfort care: Plan: EOL Symptom manamgement: Pain/dyspnea/tachypnea morphine 2mg IVP PRN [id number] Consider titratable morphine drip if pt requires >3 PRN doses in under two consecutive hours. Nausea/vomitting zofran 4mg IVP q4h PRN Agitation ativan 0.5mg IVP q4h PRN Hyperactive delirium haldol 5mg IVP q6h PRN Secretions - if repositioning not effective robinul 0.4mg IV q4h PRN atropine SL 3 drops Q1h PRN Nursing care: Discontinue all medications not directed towards comfort. Detether pt from IV tubing, monitor cables, and check vitals once per shift. Please continue HFNC and titrate down as able for patient comfort. Use medications above PRN for dyspnea/tachypnea and do not increase oxygen once titrated down. Assess q1h for pain/dyspnea and treat accordingly. Plan as above Admission and Anticipated Discharge Date Admission Date: September 16, 2024 Subjective Assessed pt at bedside, she was transitioned to GROUTMAN on 09/20/24. Pt is sleeping soundly, did not attempt to awaken in concert with comfort directed care. She appears comfortable, pale but warm skin, extremities cool. Respiratory effort normal rate 18/min and regular. No visitors at bedside. Review of Systems Review of Systems: Unobtainable due to cognitive status Physical Exam Constitutional: WD/WN, vitals as above + ill appearing; not in distress Eyes: PERRL, conjunctivae normal, anicteric sclerae ENMT: external ear and nose normal, oropharynx normal Neck: trachea midline, no thyromegaly Respiratory: normal respiratory effort, lungs clear to auscultation Auscultation: + diminished lung sounds Cardiovascular: RRR, no murmur, no edema Gastrointestinal (Abdomen): normal bowel sounds, soft, nontender, no hepatosplenomegaly Skin: no rashes, warm and dry + turgor decreased Neurologic: moves all extremities and + confused confused per baseline, will follow some simple commands, intermittently cooperative Results & Data Vital Signs (Past 12 Hours) Vital Signs O2 Del Method 09/21/24 08:34 Room Air Laboratory Results No further labs or diagnostics in concert with comfort directed care. Diagnostic Findings No further labs or diagnostics in concert with comfort directed care. Medications Administered Current Inpatient Medications Acetaminophen (Acetaminophen 325 Mg Tab) 650 mg PO BID BRIELLE Stop: 10/16/24 20:59 Last Admin: 09/21/24 08:53 Dose: Not Given Acetaminophen (Acetaminophen 325 Mg Tab) 650 mg PO Q4H PRN PRN Reason: Pain or Fever Stop: 10/16/24 12:06 Atropine Sulfate (Atropine Sulfate 1% Op Soln 5 Ml Btl) 4 drops SL Q1H PRN PRN Reason: Secretions or pulm congestion Stop: 10/20/24 13:46 Digoxin (Digoxin 0.125 Mg Tab) 0.125 mg PO DAILY BRIELLE Stop: 10/17/24 08:59 Last Admin: 09/21/24 08:53 Dose: Not Given Diltiazem HCl (Diltiazem Hcl 120 Mg Capcr) 120 mg PO DAILY BRIELLE Stop: 10/17/24 08:59 Last Admin: 09/21/24 08:53 Dose: Not Given Glycopyrrolate (Glycopyrrolate 0.2 Mg/Ml Vial) 0.4 mg IV Q4H PRN PRN Reason: secretions Stop: 10/20/24 13:46 Haloperidol (Haloperidol 5 Mg Tab) 5 mg PO Q4H PRN PRN Reason: hyperactive delirium Stop: 10/20/24 13:46 Hydralazine HCl (Hydralazine Hcl 20 Mg/Ml Vial) 5 mg IV Q8H PRN PRN Reason: hypertension Stop: 10/16/24 13:58 Ceftriaxone Sodium (Rocephin) 2,000 mg in 50 mls @ 100 mls/hr IV Q24H BRIELLE Stop: 09/27/24 11:59 Last Infusion: 09/20/24 11:58 Dose: Infused Lorazepam (Lorazepam 2 Mg/1 Ml Vial) 0.5 mg IV Q4H PRN PRN Reason: Anxiety/Agitation Stop: 10/20/24 13:46 Meclizine HCl (Meclizine 12.5 Mg Tab) 12.5 mg PO TID PRN PRN Reason: Dizziness Stop: 10/16/24 12:06 Melatonin (Melatonin 3 Mg Tab) 3 mg PO HS PRN PRN Reason: Sleep Stop: 10/16/24 12:11 Last Admin: 09/16/24 20:35 Dose: 3 mg Metoprolol Tartrate (Metoprolol Tartrate 25 Mg Tab) 25 mg PO BID BRIELLE Stop: 10/16/24 20:59 Last Admin: 09/21/24 08:53 Dose: Not Given Morphine Sulfate (Morphine Sulfate 10 Mg/0.5 Ml Udp) 5 mg PO Q3H PRN PRN Reason: Pain or Respiratory Distress Stop: 10/04/24 13:46 Morphine Sulfate (Morphine Sulfate 2 Mg/Ml Carp) 2 mg IV Q4H PRN PRN Reason: Pain or Respiratory Distress Stop: 10/04/24 13:46 Last Admin: 09/21/24 05:37 Dose: 2 mg Ondansetron HCl (Ondansetron Inj 2 Mg/Ml 2 Ml Vial) 4 mg IV Q4H PRN PRN Reason: Nausea &/or Vomiting Stop: 10/20/24 13:46 Pantoprazole Sodium (Pantoprazole 40 Mg Tab) 40 mg PO DAILY BRIELLE Stop: 10/17/24 08:59 Last Admin: 09/21/24 08:53 Dose: Not Given Phenazopyridine HCl (Phenazopyridine Hcl 200 Mg Tab) 200 mg PO TID PRN PRN Reason: Bladder pain Stop: 10/16/24 19:19 Last Admin: 09/16/24 20:07 Dose: 200 mg Sertraline HCl (Sertraline Hcl 50 Mg Tablet) 25 mg PO DAILY BRIELLE Stop: 10/17/24 08:59 Last Admin: 09/21/24 08:53 Dose: Not Given PG Care Time/CCT Total # of Minutes Spent Total Time Spent with Patient: Total time spent is greater than 50% in coordination of care (as documented) at patient's floor/unit and/or counseling patient: Coding [place] [address] SUB INP/OBS CARE 1/25MIN Patient Type Established History Problem Focused Exam Problem Focused Medical Decision Making Low Complexity Diagnoses Palliative care by specialist Z51.5 Comfort measures only status Z51.5 Need for comfort care
--- NOTE | 2024-09-22 09:34 | Discharge Summary ---
Discharge Summary Date of Service September 22, 2024 Principal Dx & Hospital Course #1 = Principal Diagnosis (1) UTI (urinary tract infection): Ceftriaxone IV continued Monitor urine/blood cultures- + for E.coli (2) Lethargic: suspected 2nd to poor PO intake/dehydration and urinary tract infection (3) Acute dehydration: -con't IVF (4) Atrial fibrillation: Metoprolol 25mg PO x 1 now and continue 25mg BID (prior reduction from 50mg BID?) Continue digoxin, diltiazem, eliquis BID (on reduced dose 2.5mg BID for age/weight), ASA 81mg daily, Lipitor Pt with episode of afib with RVR last night 09/18, given metoprolol IV (5) DM2 (diabetes mellitus, type 2): BSG AC/HS with sliding scale in place and can adjust as needed (6) CAD (coronary artery disease): eliquis BID (on reduced dose 2.5mg BID for age/weight), ASA 81mg daily, Lipitor, Metoprolol (7) CVA (cerebral vascular accident): Telemetry monitoring as above and will continue eliquis/ASA/lipitor, BB as above Aspiration precautions, pureed diet, HOB elevation and repeat speech consult ordered (8) GERD (gastroesophageal reflux disease): -con't PPI daily (9) Ulcer of right heel: Present on admission, no infection and continues abx as above. monitor for issues but wound RN consulted Plan 88yo with PMHx significant for afib, DM II, CVA presented from [facility] for illness with increased lethargy and poor PO intake and recent diagnosis COVID-19 last month. 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 Respiratory biofire negative on admission and CXR w/o acute process and no hypoxia. CT head on admission w/ small amt fluid LEFT maxillary sinus/opacification of mastoid air cells bilaterally Pt will be discharged to home with hospice, anticipate within next 24hrs. Admission HPI Per Admitting Provider 88yo with PMHx significant for afib, DM II, CVA presented from [facility] for illness with increased lethargy and poor PO intake and recent diagnosis COVID-19 last month. Associated symptoms of fatigue, generalized weakness. No new medications. Poor PO intake progressive. HTN but afebrile. Answering questions but not a lot of detail per ER provider. * Note recent hospitalization 2/3 for chronic RIGHT heel ulcer/cellulitis and c ompleted course of antibiotics but during that admission * -- currently covered, doesn't appear significantly infected but is uncomfortable and will continue to monitor. Also noted possible non-hemorr hagic LEFT parietal CVA on MRI during that admission -- continues on ASA/Eliquis (did not get her doses this morning). Metoprolol to 25mg BID at that time from prior 50mg BID. ECHO at that time w/ improvement in LV systolic function, less severe MR/TR and Pulm HTN less severe. Patient evaluated in C10 with family at bedside. Alert to person/place but intermittent confusion. Not having great PO intake over the past couple of days per and reporting weakness. Currently appears in afib but rates controlled but discussed mag 1.3 and given afib will plan to monitor on telemetry. Stat ASA/eliquis and metoprolol have been ordered and reviewed medication list. Discussed biofire negative but does appear to have UTI and antibiotics have been ordered. They report slightly improved since starting antibiotics but that she is hungry currently. Daughter reports they have been giving her pureed diet/thickened liquids at [facility] which the patient does not like but will continue for now and have speech see her to see about advancing. Hopefully with IVF and antibiotics able to have cultures by tomorrow and will have PT/OT evals undertaken with hopes to discharge in AM. Daughter/ updated at bedside. Patient is FULL CODE. ER labs/imaging: CT head on admission w/ small amt fluid LEFT maxillary sinus/opacification of mastoid air cells bilaterally WBC 12k w/ L shift. Biofire negative. CXR negative. Plt 642. Na 146, BUN/Cr 23/0.71. Mag 1.3. Trop 20.5 Urine cultures pending but UA appearing infected- UA+nitrate, 2+ leuk esterase, >50 WBC, 4+ bacteria. Noting 3-5 hyaline casts and NO epi. Blood cultures pending Treatment: s/p 500cc NSS bolus, 1gm IV mag, NS @ 125cc/hr. Ceftriaxone IV x1 Home meds: eliquis 2.5mg BID, ASA 81mg, Lipitor 40, Diltiazem 120mg, Digoxin 125 mcg, metoprolol 25mg BID, omeprazole 20mg, sertaline 25mg, metformin 500mg BID, PO Kcl 10meq daily, meclizine prn and as needed miralax, tylenol BID. Admission for tx UTI, hydration, therapy evals. Suspect inpatient stay 2-3 days pending course/cultures prior to returning back to [facility]. Discharge Exam GENERAL APPEARANCE NAD, activity normal for age, well developed/ well nourished, no cyanosis, pallor, or diaphoresis. EYES lids/conjunctiva normal. EARS/NOSE/THROAT Mucous membranes moist, nares normal, lips/teeth normal uvula midline without oral pharyngeal erythema, exudate or swelling TMs normal bilaterally. No lymphangitis/lymphedema. HEAD/NECK normocephalic atraumatic, no facial trauma, neck is supple. RESPIRATORY respiratory effort normal, speaks in full sentences, no tripod position, no accessory muscle use. Lungs clear to auscultation without rhonchi, wheezes, rales CARDIAC Regular rate and rhythm, no edema. ABDOMINAL Soft, ND/NT. No evidence of fluid wave. No pulsatile masses on exam, rebound tenderness, Tan sign or pain over Mcburney's point. MUSCLES/EXTREMITIES No abnormal range of motion, no swelling. SKIN Warm, pink and dry. No rashes, dermatoses, petechiae or lesions. NEUROLOGICAL Speech is clear and appropriate. Normal level of consciousness. Gait and coordination are normal. 5/5 strength in all extremities. PSYCH Normal mood and affect. Judgement/competence is appropriate Discharge Plan Discharge Items Patient Disposition: Hospice - Home Reason For Visit: WEAKNESS, LETHARGY, UTI Discharge Diagnosis: UTI, failure to thrive Activity: Resume your previous activity Non-emergency contact: Primary Care Provider Call non-emergency contact if: you have any medication questions Follow-up/Referrals: Allen Neves at [place] [Primary Care Provider] - Diet: Regular Addtl Attending Provider Instructions: Follow up with PMD in 2 weeks Pending Studies at Discharge: No Stand-Alone Forms: My [facility] Medications and DC Order Prescriptions: Continued aspirin [Ecotrin Low Strength] 81 mg tablet,delayed release (DR/EC) 81 mg PO DAILY melatonin 3 mg capsule 3 mg PO HS PRN (Reason: Sleep) acetaminophen [Tylenol 8 Hour] 650 mg tablet extended release 650 mg PO BID atorvastatin [Lipitor] 40 mg tablet 40 mg PO DAILY digoxin [Lanoxin] 125 mcg (0.125 mg) tablet 125 mcg PO DAILY Eliquis 2.5 mg tablet 2.5 mg PO BID potassium chloride [Klor-Con] 20 mEq packet 10 meq PO DAILY diltiazem HCl 120 mg capsule,extended release 24hr 120 mg PO DAILY metformin 500 mg tablet 500 mg PO BID omeprazole 20 mg capsule,delayed release(DR/EC) 20 mg PO DAILY sertraline 25 mg tablet 25 mg PO DAILY meclizine 12.5 mg tablet 12.5 mg PO TID PRN (Reason: Dizziness) metoprolol tartrate 25 mg Tablet 25 mg PO BID Qty: 60 0RF Discharge Orders: Discharge Order (Routine); Ordered 09/22/24 Ordered By: Nagi Mccartney Admission Data Admit Date/Time: 09/16/24 11:50 Attending Provider: Nagi Mccartney Admit Provider: Phillip Hay Primary Care Provider: Allen Neves [place] Other Providers: Allen Neves [place]; Mesha Mccormack; Conchis Ortega Hospital Stay Data Consultations 09/18/24 11:08 Consult Palliative Care Routine Diagnostic Imagining Performed 09/16/24 09:05 CT head/brain wo con Stat 09/19/24 09:30 FL video swallow Routine Pending Results Patient Have Any Pending Studies at Discharge: No Discharge Instructions Given to Patient (Per Discharging Provider) Follow up with PMD in 2 weeks Total Time Total Time Spent Total Time Spent (In Minutes): 50 Coding Level of Care Code 07406 INP/OBS DISCH >30 MIN Diagnoses UTI (urinary tract infection) N39.0 Lethargic R53.83 Acute dehydration E86.0 Atrial fibrillation I48.91 DM2 (diabetes mellitus, type 2) E11.9 Coronary artery disease involving tejon coronary artery of tejon heart without angina pectoris I25.10 Coronary Disease-Associated Artery/Lesion type: tejon artery [place] vs. transplanted heart: tejon heart Associated angina: without angina CVA (cerebral vascular accident) I63.9 Gastroesophageal reflux disease, unspecified whether esophagitis present K21.9 Esophagitis presence: esophagitis presence not specified Ulcer of right heel L97.419
--- NOTE | 2024-09-24 12:32 | Coding Query ---
To promote full compliance with coding requirements relating to patient care, provider participation is requested in all cases of ham trimmer uncertainty. Please assist us with the question(s) below: Coding Question(s): The diagnosis(es) below was documented in the H&P, then subsequently fell off all further documentation. Please indicate if it is still a possible diagnosis or ruled out. Physician's Response(s): Metabolic Encephalopathy ( ) Diagnosed and POA ( ) Diagnosed and not POA ( x ) Ruled out ( ) Other (please specify) MTDD
--- NOTE | 2024-10-03 11:31 | Coding Query ---
To promote full compliance with coding requirements relating to patient care, provider participation is requested in all cases of tank car repairer uncertainty. Please assist us with the question(s) below: Coding Question(s): The diagnosis(es) below was documented in the Discharge Summary/Final Dx only and no other documentation. Please indicate if it is still a possible diagnosis or ruled out. Physician's Response(s): UTI ( ) Diagnosed and POA ( ) Diagnosed and not POA ( ) Ruled out ( ) Other (please specify) MTDD
== END 2024-09-22 13:28 | disposition hospice, home (50) | DRG 641 ==
LOC: ED 08:54 → SUATTDRO 11:50 → EDINP 11:50 → 2N 13:28 → 3E 09-21 00:22